=== PATIENT | male | born 1985 | race Caucasian/White ===

== ENCOUNTER 2017-12-01 10:46 | Emergency (ER) | payer MEDICAID, SELFPAY ==
[2017-12-01 10:46] VITALS: BP 141/75; PULSE 73; RESP 18; TEMP 36.6; O2SAT 99; BMI 28.3
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
[2017-12-01] MEDS: HYDROcodone Bitartrate/Apap 5/325 Tablet PO (11:15)
[2017-12-01 12:11] VITALS: TEMP 36.7
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
[2017-12-01 12:39] VITALS: PULSE 79; RESP 17; O2SAT 98
== END 2017-12-01 12:40 | disposition home or self-care (01) ==
PROVIDERS: Emergency Provider Emergency Medicine; Family Provider Family Medicine; PCP Family Medicine
DX: S06.0X0A Concussion without loss of consciousness, initial encounter (principal); S16.1XXA Strain of muscle, fascia and tendon at neck level, initial encounter; Z72.0 Tobacco use; Z79.899 Other long term (current) drug therapy; V43.52XA Car driver injured in collision with other type car in traffic accident, initial encounter; Y93.I9 Activity, other involving external motion; Y92.410 Unspecified street and highway as the place of occurrence of the external cause; Y99.8 Other external cause status
CPT/HCPCS: 70450; 72125; 99283

== ENCOUNTER 2018-04-28 07:00 | Emergency (ER) | payer MEDICAID, SELFPAY ==
[2018-04-28 07:02] VITALS: BP 114/71; PULSE 79; RESP 16; TEMP 36.5; O2SAT 98; BMI 30.3
--- NOTE | 2018-04-28 07:49 | CT_ITS ---
STUDY: CT ABDOMEN AND PELVIS WITH CONTRAST REASON FOR EXAM: Male, 32 years old. Diffuse abdominal pain. Diarrhea and bloody stools. RADIATION DOSAGE (If Supplied By Facility): CTDIvol = ( 18.92 ) mGy, DLP = ( 1174.58 ) mGycm TECHNIQUE: Transaxial images were obtained from the dome of the diaphragm to the symphysis pubis with oral contrast. 100CC ml of Isovue 300 contrast was administered. Sagittal and coronal images were reconstructed. Individualized dose optimization techniques were used for this CT. COMPARISON: Comparison is made with prior examination dated October 13, 2017. FINDINGS: Mild degree of increased markings at the lung bases suggestive of bibasilar atelectasis. These are progressed as compared to prior study. The visualized portions of the heart are within normal limits. Normal liver. Normal gallbladder and extrahepatic biliary system. Normal spleen. Normal pancreas. Normal bilateral adrenal glands. Normal right kidney. Normal left kidney. Normal visualized stomach. Normal small intestine. There are scattered colonic diverticula consistent with diverticulosis. Moderate amount of fecal material is seen in the colon. The appendix is visualized and appears normal. Normal abdominal aorta. Normal inferior vena cava. Normal retroperitoneum. Normal urinary bladder. Normal abdominal wall. Status post interpedicular screw and yuko fixation at the L5-S1 level with stable spondylolisthesis and spondylolysis. CT/Abdomen/Pelvis WITH Contrast IMPRESSION: Stable examination. No acute abnormality is seen. Electronically Signed: Tai Kuhn MD at 10:32 EDT Tel [phone], Service support ,
[2018-04-28] MEDS: 0.9% Normal Saline 1,000 ML 125 ML IV (07:55)
[2018-04-28] MEDS: Dicyclomine 10 MG Capsule 20 MG PO (07:55)
[2018-04-28 08:01] LABS: Absolute Lymphocyte Count 1.65 X10^3/ul (0.83-4.51); Absolute Neutrophil Count 9.1 X10^3/uL (2.0-7.7); Basophil# 0.02 X10^3/uL; Basophil% 0.2 % (0-1); Eosinophil# 0.02 X10^3/uL; Eosinophils% 0.2 % (0-5); Hematocrit 41.6 % (40-54); Hemoglobin 14.4 g/dl (13.0-16.5); Lymphocyte # 1.65 X10^3/ul (4.0); Lymphocyte % 14.3 % (19-41); Mean Corp Hgb Conc 34.6 g/gl (32-36); Mean Corpuscular Hgb 33.4 pg (27.0-32.0); Mean Corpuscular Volume 96.5 fL (80-94); Mean Platelet Vol. 8.9 fl (6.2-12.0); Monocyte# 0.68 X10^3/uL; Monocyte% 5.9 % (0-10); Neutrophil # 9.12 X10^3/uL (2.7-7.7); Neutrophil % 79.2 % (47-70); Platelet Count 235 K/mm3 (150-450); RBC Distribution Width CV 12.5 % (11.6-14.6); RBC Distribution Width SD 42.6 fl (35.1-43.9); Red Blood Count 4.31 M/mm3 (4.6-6.2); White Blood Count 11.5 K/mm3 (4.4-11.0)
[2018-04-28 08:02] LABS: POSITIVE COUNT NO; POSITIVE DIFFERENTIAL NO; POSITIVE MORPHOLOGY NO
[2018-04-28 08:02] LABS: Bacteria 0 SEEN /hpf (None Seen); Mucous, Urine 0 SEEN /hpf (<or=2+); Red Blood Cells-Urine 0 SEEN /hpf (0-5); Squamous Epithelial Cells - UA 0 SEEN /hpf (0-5); White Blood Cells 0 SEEN /hpf (0-5)
[2018-04-28 08:07] LABS: ALB/GLOB Ratio 1.2 RATIO (0.9-2.4); AST(SGOT) 15 U/L (15-37); Alanine Aminotransfer ALT/SGPT 17 U/L (16-61); Albumin, Serum 3.8 g/dL (3.2-5.0); Alkaline Phosphatase 69 U/L (45-117); Anion Gap 7 (5-15); BUN 15 mg/dL (7-18); BUN/Creat Ratio 12.9 RATIO (10-20); Calcium,Total 8.9 mg/dL (8.5-10.1); Chloride 105 mmol/L (98-107); Creatinine, Serum 1.16 mg/dL (0.70-1.30); EST Glomerular Filtration Rate 76 mL/min (>60); Est Glom Filt Rate - Afr Amer 93 mL/min (>60); Estimated Creatinine Clearance 101.41 ml/min; Globulin 3.3 g/dL (2.2-4.2); Glucose 89 mg/dL (74-106); Potassium 3.7 mmol/L (3.5-5.1); Protein, Total 7.1 g/dL (6.4-8.2); Sodium Level 140 mmol/L (136-145)
[2018-04-28 08:10] LABS: Color, Urine Yellow (Yellow); Glucose, Dipstick Normal (Normal); Ketone-Dipstick Negative (Negative); Leukocyte Esterase-Dipstick Negative /ul (Negative); Nitrite-Dipstick Negative (Negative); Occult Blood-Urine Negative /ul (Negative); Protein-Dipstick Negative (Negative); Specific Gravity, Urine 1.005 (1.002-1.030); Urine Bilirubin Dipstick Negative (Negative); Urine Clarity Clear (Clear); Urine Urobilinogen Normal (Normal)
--- NOTE | 2018-04-28 08:26 | ED.VISSUMM ---
- ER Visit Summary Date of Service: 04/28/18 Chief Complaint: Abdominal pain and bloody diarrhea History of Present Illness: The patient is a 32 M who states that today he has developed diarrhea with abdominal cramping. And intermittent bloody stools. He states he has had this in the past. He states I have had every test and everything is negative. He is seeing [facility] gastroenterology in [place] and in [place]. States his last colonoscopy was 5 months ago. He is not on any medications for this. He denies any fever. Describes the pain as being in the right lower quadrant as well as in the left upper quadrant descending colon distribution. Physical Examination: Afebrile vital signs are stable Gen: Well-nourished well-developed Head: Normocephalic atraumatic Eyes: Perrl EOMI ENT: TMs clear no rhinorrhea moist mucous membranes Neck: Supple no lymphadenopathy no JVD nontender CVS: Regular rate rhythm no murmurs normal S1-S2 Respiratory: No distress clear to auscultation bilaterally chest nontender Abdomen: Soft mild tenderness to palpation without guarding or rebound in the right lower quadrant and left upper quadrant. Nondistended normal bowel sounds no masses Back: Nontender Extremity: Nontender no edema Skin: Normal color no rash Neuro: alert orientated ?3 CN II-XII intact normal strength sensation reflexes gait cerebellar Psych: Normal affect normal mood Test Results: CBC with a white count 11.5 hemoglobin is 14.4. CMP and urinalysis are negative. CT of the abdomen pelvis is also negative. Emergency Department Course and Treatment: Patient received a dose of Bentyl which she states did nothing for him. Give him a dose of Toradol. After 5-1/2 hours the patient was still unable to give us any type of stool specimen. He then was wondering what is taking so long was informed we are waiting for stool he states that most likely will not be able to give a specimen today. This patient certainly by history would sound like he has an inflammatory bowel disease but I see no evidence of it today. He would like to try a dose of prednisone I think it is reasonable to do a burst and have him follow-up with his jackspooler. Impression: 1. Acute abdominal pain 2. Diarrhea This note was generated with [employer] dictation software. It may contain incorrect words, spelling, and punctuation that were not noted in review of the chart prior to signing ED Disposition - Plan for ED Patient: Disposition: Home or Assisted Living Chief Complaint: Abd Pain Instructions: ED Abdominal Pain Unkn Cause Prescriptions: Prednisone [Deltasone] 60 mg PO DAILY #24 tab Referrals: Koby Olmstead MD [STAFF PHYSICIAN] - As soon as possible
[2018-04-28] MEDS: Ketorolac 15 MG/ML Vial IV (12:01)
== END 2018-04-28 12:34 | disposition home or self-care (01) ==
PROVIDERS: Emergency Provider Emergency Medicine
DX: R10.31 Right lower quadrant pain (principal); R10.12 Left upper quadrant pain; R19.7 Diarrhea, unspecified; Z72.0 Tobacco use; Z79.899 Other long term (current) drug therapy
CPT/HCPCS: 74177; 80053; 81001; 85025; 96361; 96374; 99283; J7030; Q9967; A4216

== ENCOUNTER 2018-05-17 10:17 | Emergency (ER) | payer MEDICAID, SELFPAY ==
[2018-05-17 10:18] VITALS: BP 135/82; PULSE 91; RESP 18; TEMP 36.7; O2SAT 97; BMI 29.9
[2018-05-17] MEDS: Ondansetron 4 MG/2 ML Vial IV (10:59)
[2018-05-17 11:17] LABS: Absolute Lymphocyte Count 1.12 X10^3/ul (0.83-4.51); Absolute Neutrophil Count 5.9 X10^3/uL (2.0-7.7); Basophil# 0.01 X10^3/uL; Basophil% 0.1 % (0-1); Hematocrit 43.5 % (40-54); Hemoglobin 14.7 g/dl (13.0-16.5); Lymphocyte # 1.12 X10^3/ul (4.0); Lymphocyte % 14.4 % (19-41); Mean Corp Hgb Conc 33.8 g/gl (32-36); Mean Corpuscular Hgb 32.7 pg (27.0-32.0); Mean Corpuscular Volume 96.7 fL (80-94); Mean Platelet Vol. 8.9 fl (6.2-12.0); Monocyte# 0.76 X10^3/uL; Monocyte% 9.8 % (0-10); Neutrophil # 5.87 X10^3/uL (2.7-7.7); Neutrophil % 75.6 % (47-70); Platelet Count 191 K/mm3 (150-450); RBC Distribution Width CV 12.6 % (11.6-14.6); RBC Distribution Width SD 44.6 fl (35.1-43.9); White Blood Count 7.8 K/mm3 (4.4-11.0)
[2018-05-17 11:18] LABS: POSITIVE COUNT NO; POSITIVE DIFFERENTIAL NO; POSITIVE MORPHOLOGY NO
[2018-05-17 11:32] LABS: ALB/GLOB Ratio 1.1 RATIO (0.9-2.4); AST(SGOT) 33 U/L (15-37); Alanine Aminotransfer ALT/SGPT 35 U/L (16-61); Albumin, Serum 3.9 g/dL (3.2-5.0); Alkaline Phosphatase 67 U/L (45-117); Anion Gap 5 (5-15); BUN 15 mg/dL (7-18); BUN/Creat Ratio 11.7 RATIO (10-20); Calcium,Total 9.2 mg/dL (8.5-10.1); Chloride 106 mmol/L (98-107); Creatinine, Serum 1.28 mg/dL (0.70-1.30); EST Glomerular Filtration Rate 68 mL/min (>60); Est Glom Filt Rate - Afr Amer 83 mL/min (>60); Globulin 3.5 g/dL (2.2-4.2); Glucose 99 mg/dL (74-106); Potassium 3.7 mmol/L (3.5-5.1); Protein, Total 7.4 g/dL (6.4-8.2); Sodium Level 139 mmol/L (136-145)
--- NOTE | 2018-05-17 12:08 | ED.VISSUMM ---
- ER Visit Summary Date of Service: 05/17/18 Chief Complaint: Nausea vomiting diarrhea. History of Present Illness: The patient is a 32 M who presents with nausea vomiting diarrhea he did have a fever, this is been ongoing for 4 days. He has about 10 episodes of diarrhea per day, loose and watery. He has no abdominal pain. He has a coworker with similar symptoms. He has no travel history, no recent antibiotics or camping. He has a history of colitis and GI bleeding that was treated with steroids, however this is different. Physical Examination: Not appear in acute distress. Dry mucous membranes, no obvious facial deformity No C-spine tenderness supple neck. Regular rate and rhythm without any obvious murmurs Clear lungs bilaterally speaking in full sentences without any obvious respiratory distress Abdomen soft and nontender no guarding or rebound Moves all extremities without any difficulty or pain. Skin does not show any obvious rashes or lesions, no trauma. Alert oriented ?3 with no gross focal deficit Emergency Department Course and Treatment: [Patient received IV fluids his symptoms significantly improved. His blood pressure, heart rate and temperature have been normal. He has no abdominal pain thus no reason to get any imaging especially with no leukocytosis. He will be discharged to follow-up with PCP. He was unable to provide a stool sample in the emergency department. Impression: Diarrhea This note was generated with [employer] dictation software. It may contain incorrect words, spelling, and punctuation that were not noted in review of the chart prior to signing ED Disposition - Plan for ED Patient: Disposition: Home or Assisted Living Chief Complaint: Nausea/Vomiting/Diarrhea Instructions: ED Vomiting Diarrhea Nonspecific Ad, ED Gastroenteritis Vs Food Poison Referrals: Care Physician,No Primary [Primary Care Provider] - 2 Days
--- NOTE | 2018-05-17 12:11 | ED.DCSUM_ITS ---
- ER Visit Summary Date of Service: 05/17/18 Chief Complaint: Nausea vomiting diarrhea. History of Present Illness: The patient is a 32 M who presents with nausea vomiting diarrhea he did have a fever, this is been ongoing for 4 days. He has about 10 episodes of diarrhea per day, loose and watery. He has no abdominal pain. He has a coworker with similar symptoms. He has no travel history, no recent antibiotics or camping. He has a history of colitis and GI bleeding that was treated with steroids, however this is different. Physical Examination: Not appear in acute distress. Dry mucous membranes, no obvious facial deformity No C-spine tenderness supple neck. Regular rate and rhythm without any obvious murmurs Clear lungs bilaterally speaking in full sentences without any obvious respiratory distress Abdomen soft and nontender no guarding or rebound Moves all extremities without any difficulty or pain. Skin does not show any obvious rashes or lesions, no trauma. Alert oriented ?3 with no gross focal deficit Emergency Department Course and Treatment: [Patient received IV fluids his symptoms significantly improved. His blood pressure, heart rate and temperature have been normal. He has no abdominal pain thus no reason to get any imaging especially with no leukocytosis. He will be discharged to follow- up with PCP. He was unable to provide a stool sample in the emergency department. Impression: Diarrhea This note was generated with [employer] dictation software. It may contain incorrect words, spelling, and punctuation that were not noted in review of the chart prior to signing ED Disposition - Plan for ED Patient: Disposition: Home or Assisted Living Chief Complaint: Nausea/Vomiting/Diarrhea Instructions: ED Vomiting Diarrhea Nonspecific Ad, ED Gastroenteritis Vs Food Poison Referrals: Care Physician,No Primary [Primary Care Provider] - 2 Days
[2018-05-17 12:22] VITALS: BP 120/73; PULSE 67; RESP 15; O2SAT 99
== END 2018-05-17 12:23 | disposition home or self-care (01) ==
PROVIDERS: Emergency Provider Emergency Medicine
DX: R19.7 Diarrhea, unspecified (principal); Z72.0 Tobacco use; Z79.899 Other long term (current) drug therapy
CPT/HCPCS: 80053; 85025; 96361; 96374; 99283; J7030; J2405

== ENCOUNTER 2018-06-23 13:08 | Emergency (ER) | payer MEDICAID, SELFPAY ==
[2018-06-23 13:10] VITALS: BP 138/74; PULSE 79; RESP 18; TEMP 37.2; O2SAT 99; BMI 30.3
[2018-06-23 15:31] VITALS: BP 125/74; PULSE 75; RESP 18; O2SAT 98
[2018-06-23 16:17] LABS: Absolute Lymphocyte Count 2.23 X10^3/ul (0.83-4.51); Absolute Neutrophil Count 4.3 X10^3/uL (2.0-7.7); Basophil# 0.02 X10^3/uL; Basophil% 0.3 % (0-1); Hematocrit 41.3 % (40-54); Hemoglobin 13.9 g/dl (13.0-16.5); Lymphocyte # 2.23 X10^3/ul (4.0); Mean Corp Hgb Conc 33.7 g/gl (32-36); Mean Corpuscular Hgb 32.2 pg (27.0-32.0); Mean Corpuscular Volume 95.6 fL (80-94); Mean Platelet Vol. 8.6 fl (6.2-12.0); Monocyte# 0.41 X10^3/uL; Monocyte% 5.9 % (0-10); Neutrophil # 4.27 X10^3/uL (2.7-7.7); Neutrophil % 61.4 % (47-70); Platelet Count 209 K/mm3 (150-450); RBC Distribution Width SD 45.1 fl (35.1-43.9); Red Blood Count 4.32 M/mm3 (4.6-6.2)
[2018-06-23 16:28] LABS: POSITIVE COUNT NO; POSITIVE DIFFERENTIAL NO; POSITIVE MORPHOLOGY NO
[2018-06-23 16:29] LABS: Anion Gap 6 (5-15); BUN 10 mg/dL (7-18); BUN/Creat Ratio 8.4 RATIO (10-20); Calcium,Total 8.8 mg/dL (8.5-10.1); Chloride 107 mmol/L (98-107); Creatinine, Serum 1.19 mg/dL (0.70-1.30); EST Glomerular Filtration Rate 74 mL/min (>60); Est Glom Filt Rate - Afr Amer 90 mL/min (>60); Estimated Creatinine Clearance 98.85 ml/min; Glucose 125 mg/dL (74-106); Sodium Level 140 mmol/L (136-145)
[2018-06-23] MEDS: 0.9% Normal Saline 1,000 ML 1000 ML IV (16:58)
[2018-06-23 17:00] VITALS: BP 119/78; PULSE 79; RESP 21; O2SAT 99
[2018-06-23] MEDS: 0.9% Normal Saline 1,000 ML 150 ML IV (17:00)
[2018-06-23] MEDS: Acetaminophen 500 MG Tablet 1000 MG PO (17:26)
--- NOTE | 2018-06-23 17:53 | ED.VISSUMM ---
- ER Visit Summary Date of Service: 06/23/18 Chief Complaint: Possible heat stroke History of Present Illness: The patient is a 32 M who states he got lightheaded and had near syncope at work today. 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 Patient states he has been drinking a lot of fluids and does not feel he is dehydrated. He denies chest pain or palpitations. He states his head felt funny and he had intermittent numbness to his entire face. Physical Examination: Vital signs unremarkable. Head neck examination is normal. Heart is regular rate and rhythm. Lung sounds are clear. Abdomen is soft nontender. Neuro exam is normal with an NIH of 0. Test Results: EKG is sinus at 76 with no sign of acute ischemia. CT head shows no acute abnormality. CBC and chemistry studies unremarkable. Emergency Department Course and Treatment: Patient is given IV fluids here. Test results are discussed with him. At this time he is to increase p.o. fluids. Nursing staff does note that when he stood his heart rate did go up to 115. Although he has been trying to maintain hydration he likely does have a degree of dehydration. He will increase fluids the next several days. Treatment Plan: [] Disposition: Discharge Impression: Near syncope This note was generated with [employer] dictation software. It may contain incorrect words, spelling, and punctuation that were not noted in review of the chart prior to signing ED Disposition - Plan for ED Patient: Chief Complaint: General Illness Referrals: Care Physician,No Primary [Primary Care Provider] -
--- NOTE | 2018-06-23 17:54 | ED.DEP ---
ED Disposition - Plan for ED Patient: Disposition: Home or Assisted Living Chief Complaint: General Illness Instructions: ED Near Syncope Unkn Referrals: Naresh Chakraborty MD [STAFF PHYSICIAN] - As Needed
[2018-06-23 18:04] VITALS: BP 131/83
--- NOTE | 2018-06-23 18:04 | ED.RN ---
pt given written and verbal discharge instructions and pt verbalizes understanding. pt iv d/c and covered by 2x2 gauze dressing and paper tape. pt ambulates out of dept with family.
== END 2018-06-23 18:06 | disposition home or self-care (01) ==
PROVIDERS: Emergency Provider Emergency Medicine
DX: R55 Syncope and collapse (principal); Z72.0 Tobacco use; Z79.899 Other long term (current) drug therapy
CPT/HCPCS: 70450; 80048; 85025; 93005; 96360; 96361; 99285; J7030; A4216

== ENCOUNTER 2018-06-27 14:08 | Emergency (ER) | payer MEDICAID, SELFPAY ==
[2018-06-27 14:10] VITALS: BP 119/76; PULSE 112; RESP 16; TEMP 36.9; BMI 30.7
[2018-06-27 15:11] LABS: Bacteria 0 SEEN /hpf (None Seen); Mucous, Urine 0 SEEN /hpf (<or=2+); Red Blood Cells-Urine 0 SEEN /hpf (0-5); Squamous Epithelial Cells - UA 0 SEEN /hpf (0-5); White Blood Cells 0 SEEN /hpf (0-5)
[2018-06-27 15:12] LABS: Color, Urine Yellow (Yellow); Glucose, Dipstick Normal (Normal); Ketone-Dipstick Negative (Negative); Leukocyte Esterase-Dipstick 25 /ul (Negative); Nitrite-Dipstick Negative (Negative); Occult Blood-Urine 10 /ul (Negative); Protein-Dipstick Negative (Negative); Urine Bilirubin Dipstick Negative (Negative); Urine Clarity Clear (Clear); Urine Urobilinogen Normal (Normal)
[2018-06-27] MEDS: Acetaminophen 500 MG Tablet 1000 MG PO (15:20)
--- NOTE | 2018-06-27 16:12 | ED.DCSUM_ITS ---
- ER Visit Summary Date of Service: 06/27/18 Chief Complaint: Dysuria History of Present Illness: The patient is a 32 M who states that earlier this week he was having vomiting diarrhea. He has been drinking Gatorade. States that now he has been having a difficult time urinating noting that he is only urinated couple times a day. He states that he also has not had a bowel movement for a couple days (this after having diarrhea than taking Imodium). He went to the urgent care and is very upset at them for making and give a urine and then referred him over here. Physical Examination: Afebrile vital signs stable Gen: Well-nourished well-developed actively eating Doritos and drinking Head: Normocephalic atraumatic Eyes: Perrl EOMI ENT: TMs clear no rhinorrhea moist mucous membranes Neck: Supple no lymphadenopathy no JVD nontender CVS: Regular rate rhythm no murmurs normal S1-S2 Respiratory: No distress clear to auscultation bilaterally chest nontender Abdomen: Soft nontender nondistended normal bowel sounds no masses Back: Nontender Extremity: Nontender no edema Skin: Normal color no rash Neuro: alert orientated ?3 CN II-XII intact normal strength sensation reflexes gait cerebellar Psych: Angry Test Results: Urinalysis is normal. CT the flank is negative. Emergency Department Course and Treatment: Patient will continue to encourage fluids. I offered to write him stool softener versus magnesium citrate that he states he would rather just get up and leave and not waste this time. Think most likely the patient had a gastroenteritis got a bit dehydrated and is now getting his body back to its normal state. I do not suspect there is anything emergent lingering. Impression: 1. Constipation 2. Dysuria This note was generated with [employer] dictation software. It may contain incorrect words, spelling, and punctuation that were not noted in review of the chart prior to signing ED Disposition - Plan for ED Patient: Disposition: Home or Assisted Living Chief Complaint: Flank Pain Instructions: ED Constipation Additional Instructions: Call your primary care physician to arrange follow-up this week Please drink at minimum 64 ounces of water per day.
--- NOTE | 2018-06-27 16:20 | ED.RN ---
pt educated on discharge instructions. pt upset and refuses d/c vitals. states, I don't understand why when i come here nothing is wrong with me, and other doctors tell me that there is. this rn educates pt on importance of following up with primary care physician consistently to establish a care history. pt ambulates out of ed with family member.
== END 2018-06-27 16:22 | disposition home or self-care (01) ==
PROVIDERS: Emergency Provider Emergency Medicine
DX: K59.00 Constipation, unspecified (principal); R30.0 Dysuria; F20.9 Schizophrenia, unspecified; F43.10 Post-traumatic stress disorder, unspecified; Z72.0 Tobacco use; Z79.899 Other long term (current) drug therapy
CPT/HCPCS: 74176; 81001; 99284; P9612

== ENCOUNTER 2018-08-24 09:58 | Emergency (ER) | payer MEDICAID, SELFPAY ==
[2018-08-24 10:00] VITALS: BP 131/74; PULSE 112; RESP 15; TEMP 35.9; O2SAT 98; BMI 29.7
--- NOTE | 2018-08-24 10:21 | ED.RN ---
[facility] CONTACTED REGARDING PT TEST. VINOD
--- NOTE | 2018-08-24 10:26 | CT_ITS ---
STUDY: CT ABDOMEN AND PELVIS WITH CONTRAST REASON FOR EXAM: Male, 32 years old. Abdominal pain. RADIATION DOSAGE (If Supplied By Facility): CTDIvol = ( 14.73 ) mGy, DLP = ( 980.72 ) mGycm TECHNIQUE: Transaxial images were obtained from the dome of the diaphragm to the symphysis pubis with oral contrast. 100 ml of Isovue 300 contrast was administered. Sagittal and coronal images were reconstructed. Individualized dose optimization techniques were used for this CT. COMPARISON: 06/27/2018 FINDINGS: Lung bases demonstrate mild atelectasis. The visualized portions of the heart are within normal limits. Normal liver. Normal gallbladder and extrahepatic biliary system. Normal spleen. Normal pancreas. Normal bilateral adrenal glands. Normal right kidney. Normal left kidney. Normal visualized stomach. Normal small intestine. Normal colon. The appendix is visualized and appears normal. Normal abdominal aorta. Normal inferior vena cava. Normal retroperitoneum. Normal urinary bladder. Normal visualized prostate gland. Normal abdominal wall. Prior fusion at L5-S1 CT/Abdomen/Pelvis WITH Contrast IMPRESSION: No acute findings. Normal appearance of the small and large bowel. Prior postsurgical changes of the lumbar spine is stable. Electronically Signed: Waldemar Alejandro DO at 12:40 EST Tel , Service support ,
[2018-08-24] MEDS: Morphine 4 MG/ML Syringe IV (10:57)
[2018-08-24] MEDS: Ondansetron 4 MG/2 ML Vial IV (10:57)
[2018-08-24] MEDS: 0.9% Normal Saline 1,000 ML 125 ML IV (10:57)
[2018-08-24 10:58] LABS: Absolute Lymphocyte Count 1.55 X10^3/ul (0.83-4.51); Basophil# 0.01 X10^3/uL; Basophil% 0.1 % (0-1); Eosinophil# 0.01 X10^3/uL; Eosinophils% 0.1 % (0-5); Hematocrit 43.6 % (40-54); Hemoglobin 14.8 g/dl (13.0-16.5); Lymphocyte # 1.55 X10^3/ul (4.0); Lymphocyte % 16.9 % (19-41); Mean Corp Hgb Conc 33.9 g/gl (32-36); Mean Corpuscular Hgb 32.9 pg (27.0-32.0); Mean Corpuscular Volume 96.9 fL (80-94); Mean Platelet Vol. 8.9 fl (6.2-12.0); Monocyte# 0.63 X10^3/uL; Monocyte% 6.9 % (0-10); Neutrophil # 6.98 X10^3/uL (2.7-7.7); Neutrophil % 75.9 % (47-70); POSITIVE COUNT NO; POSITIVE DIFFERENTIAL NO; POSITIVE MORPHOLOGY NO; Platelet Count 251 K/mm3 (150-450); RBC Distribution Width CV 13.3 % (11.6-14.6); RBC Distribution Width SD 46.7 fl (35.1-43.9); White Blood Count 9.2 K/mm3 (4.4-11.0)
[2018-08-24 11:10] LABS: Anion Gap 6 (5-15); BUN 10 mg/dL (7-18); BUN/Creat Ratio 8.7 RATIO (10-20); Calcium,Total 9.4 mg/dL (8.5-10.1); Chloride 106 mmol/L (98-107); Creatinine, Serum 1.15 mg/dL (0.70-1.30); EST Glomerular Filtration Rate 77 mL/min (>60); Est Glom Filt Rate - Afr Amer 93 mL/min (>60); Estimated Creatinine Clearance 102.29 ml/min; Glucose 112 mg/dL (74-106); Potassium 4.5 mmol/L (3.5-5.1); Sodium Level 140 mmol/L (136-145)
[2018-08-24 11:25] LABS: Lactic Acid 1.2 mmol/L (0.4-2.0)
[2018-08-24 12:22] VITALS: BP 126/87; PULSE 78; RESP 16; O2SAT 99
--- NOTE | 2018-08-24 13:09 | ED.VISSUMM ---
- ER Visit Summary Date of Service: 08/24/18 Chief Complaint: [Abdominal injury] History of Present Illness: The patient is a 32 M [presents to the emergency department complaint of injury to his abdomen that occurred today while at work. Patient states that he was pulling a part out of the mold when he felt a pop in his right lower quadrant and then immediately felt like he needed to have a bowel movement and noticed clear liquid from his rectum. Patient denies any blood in his stool. He denies any fever or vomiting. 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 Cranial nerves II through XII grossly intact. TMs clear. Mucous membranes moist. No adenopathy. Cardiovascular-regular rate and rhythm without murmur or ectopy Lungs-clear to auscultation, chest wall stable without crepitus or subcu emphysema Abdomen-normoactive bowel sounds, soft. Patient does have tenderness palpation over right lower quadrant. There is no masses palpated. There is no rebound, rigidity, or perineal signs. Extremities-intact ?4, normal range of motion, normal pulses, atraumatic] Test Results: [CBC with differential obtained was normal. Chemistries were unremarkable. Lactate was normal at 1.2. CT scan of the abdomen pelvis with IV and p.o. contrast was normal.] Emergency Department Course and Treatment: [Patient initially medicated with morphine and Zofran] Treatment Plan: [Patient will be given a prescription for [place] for pain. Patient will be given work restrictions and advised to follow-up with [facility] within the next 3-5 days.] Disposition: [Discharged home in stable condition.] Impression: [Abdominal wall strain] This note was generated with [employer] dictation software. It may contain incorrect words, spelling, and punctuation that were not noted in review of the chart prior to signing ED Disposition - Plan for ED Patient: Chief Complaint: Abd Pain Referrals: Care Physician,No Primary [Primary Care Provider] -
--- NOTE | 2018-08-24 13:13 | DCINST.ED_ITS ---
ED Disposition - Plan for ED Patient: Chief Complaint: Abd Pain Instructions: ED Strain Abdominal Muscle Prescriptions: Hydrocodone Bitart/Apap 5-325 [[place] 5MG-325MG] 1 tab PO Q4H PRN PRN 2 Days #10 tab PRN Reason: Pain Referrals: [facility] [GROUP OF PHYSICIANS] - 3-5 Days
[2018-08-24 13:22] VITALS: BP 147/84; PULSE 86; RESP 16; O2SAT 98
== END 2018-08-24 13:22 | disposition home or self-care (01) ==
PROVIDERS: Emergency Provider Emergency Medicine
DX: S39.011A Strain of muscle, fascia and tendon of abdomen, initial encounter (principal); Z72.0 Tobacco use; Z79.899 Other long term (current) drug therapy; X50.0XXA Overexertion from strenuous movement or load, initial encounter; Y93.89 Activity, other specified; Y92.89 Other specified places as the place of occurrence of the external cause; Y99.0 Civilian activity done for income or pay
CPT/HCPCS: 74177; 80048; 83605; 85025; 96361; 96374; 96375; 99283; J7030; Q9967; A4216; J2405

== ENCOUNTER → 2018-09-29 08:58 | Outpatient (CLI) | payer MEDICAID, SELFPAY ==
--- NOTE | 2018-09-29 09:01 | RAD_ITS ---
STUDY: X-RAY - LUMBAR SPINE REASON FOR EXAM: Male, 32 years old. Prior low back surgery. Pain. TECHNIQUE: 4 view(s) of the lumbar spine were obtained including oblique views. COMPARISON: None FINDINGS: Normal lumbar lordosis. There is no substantial scoliosis. There is a normal alignment of the vertebrae. The patient is status post laminectomy and interpedicular screw fixation at the L5-S1 level with prosthetic disc placement. Minimal degree of posterior spondylosis at that site. Normal disc space heights. The soft tissue structures are unremarkable. RAD/L/S Spine Min 4 Views IMPRESSION: Status post laminectomy and fusion at the L5-S1 level with prosthetic disc placement. Electronically Signed: Tai Kuhn MD at 9:36 EST Tel [phone], Service support ,
--- OUTSIDE RECORDS SUMMARY | 2018-11-15 07:29 | XMS RPT_ITS ---
:1985 Author Organization OHIP Support Name Relationship Address Phone IMELDA RIVERAE Unavailable [address] + [place] [address] CANDLE, SCHUYLER Unavailable [address] + [place] [address] TIMST Unavailable [address] + [place] [address] NICOLE, AVI Unavailable [address] + [place] [address] CANDLE, SCHUYLER Unavailable [address] + [place] [address] TIMST Unavailable [address] + [place] [address] NICOLE, AVI Unavailable [address] + [place] [address] CANDLE, SCHUYLER Unavailable [address] + [place] [address] TIMST Unavailable [address] + [place] [address] NICOLE, AVI Unavailable [address] + [place] [address] CANDLE, SCHUYLER Unavailable [address] + [place] [address] TIMST Unavailable [address] + [place] [address] NICOLE, AVI Unavailable [address] + [place] [address] CANDLE, SCHUYLER Unavailable [address] + [place] [address] TIMST Unavailable [address] + [place] [address] NICOLE, AVI Unavailable [address] + [place] [address] CANDLE, SCHUYLER Unavailable [address] + [place] [address] LITCAEPIZZ Unavailable [address] + [place] [address] NICOLE, AVI Unavailable [address] + [place] [address] CANDLE, SCHUYLER Unavailable [address] + [place] [address] LITCAEPIZZ Unavailable [address] + [place] [address] NICOLE, AVI Unavailable [address] + [place] [address] LITCAEPIZZ Unavailable [address] + [place] [address] NICOLE, AVI Unavailable [address] + [place] [address] LITCAEPIZZ Unavailable [address] + [place] [address] NICOLE, AVI Unavailable [address] + [place] [address] LITCAEPIZZ Unavailable [address] + [place] [address] NICOLE, AVI Unavailable [address] + [place] [address] LITCAEPIZZ Unavailable [address] + [place] [address] NICOLE, AVI Unavailable [address] + [place] [address] UE Unavailable Unavailable Unavailable NICOLE, AVI Unavailable [address] + [place] [address] UE Unavailable Unavailable Unavailable NICOLE, AVI Unavailable [address] + [place] [address] UE Unavailable Unavailable Unavailable NICOLE, AVI Unavailable [address] + [place] [address] UE Unavailable Unavailable Unavailable Care Team Providers Name Role Phone JUNIOR LARES (ZIPPER SEWING MACHINE OPERATOR) Referring Unavailable JUNIOR LARES (ZIPPER SEWING MACHINE OPERATOR) Attending Unavailable LETI KEARNS (CIGARETTE ROLLER) Referring Unavailable LETI KEARNS (CIGARETTE ROLLER) Attending Unavailable PODLOGGENIA KURTZ (CIGARETTE ROLLER) Attending Unavailable JUNIOR LARES (ZIPPER SEWING MACHINE OPERATOR) Attending Unavailable VIKY DAVIS (CIGARETTE ROLLER) Attending Unavailable CORNIELLO, MINNIE Quintero (CIGARETTE ROLLER) Attending Unavailable CORNMINNIE HARRISON (CIGARETTE ROLLER) Attending Unavailable Trav Whitehead Admitting Unavailable Trav Whitehead Attending Unavailable No Doctor Assigned, Nodr Primary Care Unavailable Lola Rosales Attending Unavailable Lola Rosales Referring Unavailable Schinner, Fredo E Primary Care Unavailable SchinnerFredo E Attending Unavailable Schinner, Fredo E Referring Unavailable Schinner, Fredo E Primary Care Unavailable Elderbrock, Koby Primary Care Unavailable Kinga Bloom Attending Unavailable Elderbrock, Koby Primary Care Unavailable Boubacar Antonio Attending Unavailable Scott [place] Attending Unavailable Primay Care Physicia, No Primary Care Unavailable SchinnerFredo E Attending Unavailable Schinner, Fredo E Referring Unavailable Schinner, Fredo E Primary Care Unavailable Primay Care Physicia, No Primary Care Unavailable Foreign Paul Attending Unavailable Zia Ames Attending Unavailable Primay Care Physicia, No Referring Unavailable Primay Care Physicia, No Primary Care Unavailable Zia Ames Attending Unavailable Primay Care Physicia, No Referring Unavailable Primay Care Physicia, No Primary Care Unavailable Hang Arriola Attending Unavailable Primay Care Physicia, No Referring Unavailable Primay Care Physicia, No Primary Care Unavailable Cherelle Alarcon Attending Unavailable Primay Care Physicia, No Primary Care Unavailable Scott [place] Attending Unavailable Primay Care Physicia, No Primary Care Unavailable Federico Mishra Attending Unavailable Zia Ames Attending Unavailable Primay Care Physicia, No Referring Unavailable Dhaval Waterman Attending Unavailable Aysha, Koby Primary Care Unavailable PROBLEMS PROBLEMS DATE TYPE CONDITION / CODE ATTENDING STATUS SOURCE 10/29/2018 Unknown S39.011A - Zia Carvalho Active [facility] of muscle, fascia Community and tendon of Hospital abdomen, initial Repository encounter / S39.011A(ICD-10) 08/24/2018 Unknown K92.1 - Melena / Ungur, Remus Active [place] K92.1(ICD-10) [facility]ly [facility] Hospital Repository 06/10/2018 Unknown L03.811 - Zia Ames Active [facility] Cellulitis of Community head [any part, Hospital except face] / Repository L03.811(ICD-10) 05/19/2018 Active Unspecified NA Active [facility] abdominal pain / [facility] [place] R10.9(ICD-10) Repository 05/19/2018 Active Diarrhea, NA Active [facility] unspecified / [place] R19.7(ICD-10) Repository 05/19/2018 Active Vomiting, NA Active [facility] unspecified / [place] R11.10(ICD-10) Repository 05/15/2018 Active Nausea / NA Active [facility] R11.0(ICD-10) [facility] [place] Repository 05/15/2018 Active Unknown / DONNASTAR LETI Active [facility] UNK(Unknown) (CIGARETTE ROLLER) [facility] [place] Repository PROCEDURES PROCEDURES No Procedure Records FoundRESULTS RESULTS STOOL Observed: 10/02/2018 Status: F Source: [place] LACTOFERRIN/WBC 1:45 PM [facility] REPOSITORY Stool Lacto/WBC Normal Reference Range = Negative Fecal WBC Lactoferrin Negative: No Fecal WBC Lactoferrin present Performed By: #### M100.0605, M100.6796, M100.637 #### [facility] [address], [place], [id number] Observed: 10/02/2018 Status: F Source: [place] CDIFF (MOLECULAR) 1:45 PM [facility] REPOSITORY Cdiff-Molecular Normal Reference Range = Negative C. Diff DNA Negative- No toxigenic C. Diff DNA Detected NAAT METHOD Testing was performed using nucleic acid amplification Performed By: #### M100.0605, M100.6796, M100.637 #### [facility] [address], [place], [id number] Observed: 10/02/2018 Status: F Source: [place] ENTERIC PATHOGEN 1:45 PM [facility] PANEL STOOL REPOSITORY EP PANEL STOOL Normal Reference Range = Not Detected Not detected for Campylobacter group, Salmonella species, Shigella species, Vibrio Group, Yersinia enterocolitica, EHEC (Shiga Toxin 1, Shiga Toxin 2), Norovirus Gl/Gll, and Rotavirus A. Other common stool pathogens are not detected on this panel include: Aeromonas/Plesiomonas or parasites. Order testing for these organisms separately if suspected. This is an amplified DNA test which makes it both specific and sensitive. CAMPYLOBACTER Not Detected Salmonella Not Detected Shigella sp. Not Detected Shiga Toxin Not Detected Yersinia Not Detected VIBRIO Not Detected Norovirus Not Detected Rotavirus Not Detected Performed By: #### M100.0605, M100.6796, M100.637 #### [facility] [address] [facility] [place], [address] Observed: 10/02/2018 Status: F Source: [place] OVA AND PARASITES 1:45 PM [facility] REPOSITORY O + P OVA AND PARASITES EXAM, ROUTINE These results were obtained using wet preparation(s) and trichrome stained smear. This test does not include testing for Crytosporidium parvum, Cyclospora, or Microsporidia. TESTING PERFORMED AT [facility]. ORIGINAL REPORT ON FILE IN LAB CONTAINS ADDITIONAL TEST SITE INFORMATION. Ova/Parasite Exam NO OVA, CYSTS, OR PARASITES FOUND. Performed By: #### M600.5000 #### [facility] [address] [facility] [facility] [place], [place], [id number] COMPREHENSIVE METABOLIC Collected: 09/30/2018 Status: F Source: [place] [facility] 4:37 PM [facility] REPOSITORY TYPE CODE TESTS RESULT OUT OF RANGE REFERENCE UNITS LAB L501.0100 74-106 mg/dL High GLU 118 Result Comment: Fasting Glucose result from 100 to 125 mg/dL suggests IMPAIRED HOMEOSTASIS per A.D.A. criteria. Please note revised GLUCOSE reference range effective 2017. LAB L501.1000 7-18 mg/dL Normal BUN 11 LAB L501.1100 0.70-1.30 mg/dL Normal CREAT,SERUM 1.28 Result Comment: The validity of the calculated GFR AND GFRAA in patients over 70 years has not been determined. Clinical correlation is essential. LAB L501.1110 >60 mL/min Normal EST GFR 68 Result Comment: Non- GFR Calc LAB L501.1115 >60 mL/min Normal EST GFR - AA 82 Result Comment: GFR Calc LAB L501.1300 10-20 RATIO Low BUN/CRE 8.6 LAB L501.1500 6.4-8.2 g/dL Normal T PROT 7.7 LAB L501.1800 3.2-5.0 g/dL Normal ALB 4.2 LAB L501.1950 2.2-4.2 g/dL Normal GLOB 3.5 LAB L501.2000 0.9-2.4 RATIO Normal A/G 1.2 LAB L501.2200 8.5-10.1 mg/dL Normal CA 8.8 LAB L501.4100 15-37 U/L Normal AST 19 LAB L501.4305 45-117 U/L Normal ALK P 78 LAB L501.4405 16-61 U/L Normal ALT 22 LAB L501.4600 0.20-1.00 mg/dL Normal T BILI 0.30 LAB L501.5300 136-145 mmol/L Normal NA 143 LAB L501.5600 3.5-5.1 mmol/L Normal K 3.6 LAB L501.5900 98-107 mmol/L Normal CL 106 LAB L501.6100 21.0-32.0 mmol/L Normal CO2 27.0 LAB L501.6200 5-15 Normal GAP 10 Performed By: #### L500.4050, L501.5200 #### [facility] [address] [place], [place], [address] MAGNESIUM Collected: 09/30/2018 Status: F Source: [place] 4:37 PM [facility] REPOSITORY TYPE CODE TESTS RESULT OUT OF RANGE REFERENCE UNITS LAB L501.5200 1.6-2.6 mg/dL Normal MG 2.4 Performed By: #### L500.4050, L501.5200 #### [facility] [address] [place], [address] POC URINALYSIS DIP POC Collected: 09/30/2018 Status: F Source: [facility] 9:55 AM [facility] REPOSITORY TYPE CODE TESTS RESULT OUT OF RANGE REFERENCE UNITS LAB CD:[id number] Yellow 2293(LOIN Normal C) POC Color Yellow LAB CD:985634 CLEAR 2955(LOIN Normal C) POC Clarity CLEAR LAB CD:614995 Negative 3551(LOIN Normal C) POC Glucose Negative LAB CD:707796 Negative 4053(LOIN Normal C) POC Bilirubin Negative LAB CD:264290 Negative 6003(LOIN Normal C) POC Ketone Negative LAB CD:233561 1.005-1.035 mg/dL 6479(LOIN Normal C) POC Specific [place] 1.005 LAB CD:816659 Negative 6697(LOIN C) POC Blood Abnormal Trace LAB CD:089015 5.0-8.0 mg/dL 6769(LOIN Normal C) POC pH 6.0 LAB CD:469452 Negative 7163(LOIN Normal C) POC Protein Negative LAB CD:422622 0.2-1.0 EU/dL 7345(LOIN Normal C) POC Urobilinogen 0.2 LAB CD:740486 Negative 7607(LOIN Normal C) POC Nitrite Negative LAB CD:173697 Negative 7771(LOIN Normal C) POC Leukocyte Negative Performed By: #### CD:[id number] #### [facility] [address] [place] [address] L/S SPINE MIN 4 Observed: 09/29/2018 Status: F Source: [facility] 9:02 AM [facility] REPOSITORY [facility] Imaging Services [address] [place] [address] L/S Spine Min 4 Views MR#: [id number] Acct: [id number] Name: QUAN PORTER Rep #: [id number] : 1985 M 32 From: Tai Kuhn MD PCP: Fredo Rodriguez MD Status: REG CLI Study: L/S Spine Min 4 Views Date of Exam: 09/29/18 Exam# [id number] Ordering Dr: Lola Rosales ZIPPER SEWING MACHINE OPERATOR-Asha STUDY: X-RAY - LUMBAR SPINE REASON FOR EXAM: Male, 32 years old. Prior low back surgery. Pain. TECHNIQUE: 4 view(s) of the lumbar spine were obtained including oblique views. COMPARISON: None FINDINGS: Normal lumbar lordosis. There is no substantial scoliosis. There is a normal alignment of the vertebrae. The patient is status post laminectomy and interpedicular screw fixation at the L5-S1 level with prosthetic disc placement. Minimal degree of posterior spondylosis at that site. Normal disc space heights. The soft tissue structures are unremarkable. RAD/L/S Spine Min 4 Views IMPRESSION: Status post laminectomy and fusion at the L5-S1 level with prosthetic disc placement. Electronically Signed: Tai Kuhn MD at 9:36 EST Tel [phone], Service support , CC: ISABEL Rosales; Fredo Rodriguez MD Labor Trainer: Signed URGENT CARE VISIT Observed: 08/27/2018 Status: F Source: [place] REPORT 5:16 PM [facility] REPOSITORY [facility] [address] [place] [address] OFFICE VISIT Date of Service: 08/27/18 MR#: [id number] Acct: [id number] Name: QUAN PORTER Rep #: [id number] : 1985 Provider: Zia AMAYA Age/Sex: 32/M [place] [facility] Status: Signed Intake Vital Signs08/27/18 Height 6 ft 1 in 08/27/18 Weight: 225 lb 08/27/18 Body Mass Index (BMI) 29.7 08/27/18 Blood Pressure 118/76 Intake Visit Reasons: ED FOLLOW UP Chief Complaint: ABDOMINAL WALL STRAIN Belt Dresser Required: No Accompanied by: OTHER Is patient in pain?: Yes Allergies Sulfa (Sulfonamide Antibiotics) Allergy (Verified 08/27/18 16:53) Swelling methadone Adverse Reaction (Verified 08/27/18 16:53) Other varenicline [From Chantix] Adverse Reaction (Verified 08/27/18 16:53) Other Medications Risperidone [Risperdal] 3 mg PO DAILY 06/23/18 [History Confirmed 08/27/18] Mirtazapine 45 mg PO DAILY 06/27/18 [History Confirmed 08/27/18] cyclobenzaprine 5 mg tablet 5 mg PO TID PRN 08/27/18 [History Confirmed 08/27/18] [facility] Medical History Bloody stools (Acute) Severe headache (Acute) Stomach ulcer (Acute) neck and back pain (Acute) sudden weight loss (Acute) Surgical History History of hand surgery (Acute) History of tonsillectomy (Acute) history of spine surgery (Acute) Social History Smoking Status: Current every day smoker alcohol intake: never HPI HPI Chief Complaint: ABDOMINAL WALL STRAIN Details: QUAN PORTER, is a 32 M who presents to the office today for follow-up status post abdominal wall strain. Patient notes on date of injury, 08/24/2018, while at work bent over lifting product and noticed immediate moderate severe aching pain initially in right lower quadrant therefore reported to [facility] ED where he was evaluated to include abdominal CT with contrast which revealed no acute pathology therefore was released the same day with work restrictions. Since the date of the injury he notes having had on average 3 loose stools per day accompanied with mild nausea. He also notes mid upper epigastric and lower suprapubic discomfort with both areas aggravated to touch and with cough/bearing down. He notes no palpable masses to either of these regions as well as in the scrotal/inguinal regions. He notes no changes in urine flow. Cyclobenzaprine as prescribed taken to assist with discomfort was helped somewhat. No history of emesis or melena or hematochezia. No changes in urine flow. No complaints of low back pain. Patient notes no loss of sensation or strength to rectal tone. No other associated symptoms and no other alleviating or aggravating factors. ROS Const Constitutional: No other (ROS negative x10 other than as noted above. See PMH prior to DOI.) Exam Const General: cooperative, healthy appearing, no acute distress, comfortable Nutritional Appearance: overweight Orientation: alert, awake, oriented x3 HENMT Head: normal to inspection Ears: hearing grossly normal bilaterally, external ears normal Nose: external nose normal Eyes General: appearance normal, both eyes and all related structures Neck Neck: normal visual inspection, full ROM, no lymphadenopathy, no meningeal signs, supple Neck mass: No Thyroid: thyroid normal Lymphatic: no lymphadenopathy noted Chest Chest palpation AND inspection: normal inspection of the chest, normal palpation of entire chest wall Resp Effort AND Inspection: normal respiratory effort, able to speak in complete sentences, symmetric chest movement, no cough Auscultation: Bilateral: Clear to Auscultation Cardio Palpation: normal PMI Rate: regular rate Rhythm: regular rhythm Heart Sounds: S1 normal, S2 normal, no gallops, no murmurs, no rubs Pulses: radial pulses present GI Inspection: normal to inspection Palpation: soft, no hepatosplenomegaly, not firm, no guarding, tender suprapubicly (Without palpable mass though tender upon bearing down), in the epigastrum (Without palpable mass though tender upon bearing down) and other (No bilat indirect/direct/femoral masses to palpation with bearing down); Negative for not in the LLQ, not in the RLQ, not in the LUQ, not in the RUQ, not at McBurney's point, Horn's sign negative or with no rebound tenderness Skin General: no rashes or lesions noted Neuro General: alert, awake, oriented x3, gait normal Cognition: normal cognition Speech: speech normal Gait: normal gait Motor: muscle tone normal throughout Sensory Exam: no sensory deficits noted Psych Appearance: grossly normal Mental Status: mental status grossly normal Mood: congruent mood Affect: normal affect Speech and Movement: speech and movement normal Attitude: cooperative Thought Process: normal Thought Content: normal Judgment: judgment good Assessment AND Plan Problems 1. Abdominal wall strain S39.011A Plan See [employer]14 for work restrictions. Rest, Tylenol/cyclobenzaprine as needed for symptomatic relief. Patient offered general surgery referral for second opinion which patient is refusing at this time, but is willing to reconsider at next evaluation. [facility] 1 week for reevaluation, sooner should symptoms worsen or any other concerns develop. Patient states acknowledging understanding all the above. This note was generated with Dragon dictation software. It may contain incorrect words, spelling, and punctuation that were not noted in checking the note before signing. Coding Level of Care Code Off vis,est,level 3 Diagnoses Abdominal wall strain S39.011A 08/27/18 8396 <Electronically signed by Zia AMAYA> Date Zia AMAYA Cosigner Signature: Date (if applicable) CC: DISCHARGE INSTRUCTION Observed: 08/24/2018 Status: F Source: [place] 1:13 PM [facility] REPOSITORY [facility] Medical Records Department [address] [place] [address] Discharge Instruction 08/24/18 1311 MR#: [id number] Acct: [id number] Name: QUAN PORTER Omari Rep #: [id number] : 1985 32 From: Federico Mishra DO PCP: Care Physician, No Primary Status: REG ER ED Disposition - Plan for ED Patient: Chief Complaint: Abd Pain Instructions: ED Strain Abdominal Muscle Prescriptions: Hydrocodone Bitart/Apap 5-325 [[place] 5MG-325MG] 1 tab PO Q4H PRN PRN 2 Days #10 tab PRN Reason: Pain Referrals: [facility] [GROUP OF PHYSICIANS] - 3-5 Days What to do if you have Problems For any increased pain, shortness of breath, bleeding, nausea or vomiting, chest pain, or any unexpected problems, contact your Primary Care Provider. Call [facility] ([phone]) or report to the closest Emergency Room. Call 911 if necessary. 08/24/18 1313 <Electronically signed by Federico Mishra DO> Date Federico Mishra DO Cosigner Signature (If Indicated): Date CC: No Primary Care Physician EMERGENCY DEPARTMENT Observed: 08/24/2018 Status: F Source: [place] SUMMARY 1:11 PM [facility] REPOSITORY [facility] Medical Records Department [address] [address] Emergency Department Summary 08/24/18 1309 MR#: [id number] Acct: [id number] Name: QUAN PORTER Rep #: [id number] : 1985 32 From: Federico Mishra DO PCP: Care Physician, No Primary Status: REG ER - ER Visit Summary Date of Service: 08/24/18 Chief Complaint: [Abdominal injury] History of Present Illness: The patient is a 32 M [presents to the emergency department complaint of injury to his abdomen that occurred today while at work. Patient states that he was pulling a part out of the mold when he felt a pop in his right lower quadrant and then immediately felt like he needed to have a bowel movement and noticed clear liquid from his rectum. Patient denies any blood in his stool. He denies any fever or vomiting. Patient states that he has had some issues with GI problems including intermittent rectal bleeding and has seen a cloth wire weaver in less than 10 months ago had an EGD and colonoscopy without any etiology being found for this.] Physical Examination: [HEENT-PERRLA, EOMI. Cranial nerves II through XII grossly intact. TMs clear. Mucous membranes moist. No adenopathy. Cardiovascular-regular rate and rhythm without murmur or ectopy Lungs-clear to auscultation, chest wall stable without crepitus or subcu emphysema Abdomen-normoactive bowel sounds, soft. Patient does have tenderness palpation over right lower quadrant. There is no masses palpated. There is no rebound, rigidity, or perineal signs. Extremities-intact 4, normal range of motion, normal pulses, atraumatic] Test Results: [CBC with differential obtained was normal. Chemistries were unremarkable. Lactate was normal at 1.2. CT scan of the abdomen pelvis with IV and p.o. contrast was normal.] Emergency Department Course and Treatment: [Patient initially medicated with morphine and Zofran] Treatment Plan: [Patient will be given a prescription for [place] for pain. Patient will be given work restrictions and advised to follow-up with corporate care within the next 3-5 days.] Disposition: [Discharged home in stable condition.] Impression: [Abdominal wall strain] This note was generated with [employer] dictation software. It may contain incorrect words, spelling, and punctuation that were not noted in review of the chart prior to signing ED Disposition - Plan for ED Patient: Chief Complaint: Abd Pain Referrals: Care Physician,No Primary [Primary Care Provider] - What to do if you have Problems For any increased pain, shortness of breath, bleeding, nausea or vomiting, chest pain, or any unexpected problems, contact your Primary Care Provider. Call [facility] ([phone]) or report to the closest Emergency Room. Call 911 if necessary. 08/24/18 1311 <Electronically signed by Federico Mishra DO> Date Federico Mishra DO Cosigner Signature (If Indicated): Date CC: No Primary Care Physician CBC W/DIFF, AUTOMATED Collected: 08/24/2018 Status: F Source: [place] 10:45 AM [facility] REPOSITORY TYPE CODE TESTS RESULT OUT OF RANGE REFERENCE UNITS LAB L100.1000 4.4-11.0 K/mm3 Normal WBC 9.2 LAB L100.1200 4.6-6.2 M/mm3 Low RBC 4.50 LAB L100.1300 13.0-16.5 g/dl Normal HGB 14.8 LAB L100.1400 40-54 % Normal HCT 43.6 LAB L100.1500 80-94 fL High MCV 96.9 LAB L100.1600 27.0-32.0 pg High MCH 32.9 LAB L100.1700 32-36 g/gl Normal MCHC 33.9 LAB L100.1810 11.6-14.6 % Normal RDW CV 13.3 LAB L100.1820 35.1-43.9 fl High RDW SD 46.7 LAB L100.1900 150-450 K/mm3 Normal PLT 251 LAB L100.2000 6.2-12.0 fl Normal MPV 8.9 LAB L100.2100 47-70 % High NEUT% 75.9 LAB L100.2200 19-41 % Low LY% 16.9 LAB L100.2300 0-10 % Normal MONO% 6.9 LAB L100.2400 0-5 % Normal EO% 0.1 LAB L100.2500 0-1 % Normal BASO% 0.1 LAB L100.2550 0.0-0.9 % Normal IM GRAN % 0.100 Result Comment: IG% - Immature Granulocytes (promyelocytes, myelocytes and metamyelocytes) > 1% indicates that a LEFT SHIFT is Present. LAB L100.2620 2.0-7.7 X10 3/uL Normal Absolute Neut 7.0 LAB L100.2720 0.83-4.51 X10 3/ul Normal Absolute Lymph 1.55 Performed By: #### L100.0100 #### [facility] [address] [facility] [place], [place], [id number] BASIC METABOLIC Collected: 08/24/2018 Status: F Source: [place] PROFILE (BMP) 10:45 AM [facility] REPOSITORY TYPE CODE TESTS RESULT OUT OF RANGE REFERENCE UNITS LAB L501.0100 74-106 mg/dL High GLU 112 Result Comment: Fasting Glucose result from 100 to 125 mg/dL suggests IMPAIRED HOMEOSTASIS per A.D.A. criteria. Please note revised GLUCOSE reference range effective 2017. LAB L501.1000 7-18 mg/dL Normal BUN 10 LAB L501.1100 0.70-1.30 mg/dL Normal CREAT,SERUM 1.15 Result Comment: The validity of the calculated GFR AND GFRAA in patients over 70 years has not been determined. Clinical correlation is essential. LAB L501.1110 >60 mL/min Normal EST GFR 77 Result Comment: Non- GFR Calc LAB L501.1115 >60 mL/min Normal EST GFR - AA 93 Result Comment: GFR Calc LAB L501.1255 ml/min Normal Estimated CRCL 102.29 LAB L501.1300 10-20 RATIO Low BUN/CRE 8.7 LAB L501.2200 8.5-10 mg/dL .1 CA Normal 9.4 LAB L501.5300 136-14 mmol/L 5 NA Normal 140 LAB L501.5600 3.5-5. mmol/L 1 K Normal 4.5 LAB L501.5900 98-107 mmol/L CL Normal 106 LAB L501.6100 21.0-3 mmol/L 2.0 CO2 Normal 28.0 LAB L501.6200 5-15 GAP Normal 6 Performed By: #### L500.2500 #### [facility] [address] [place], [address] LACTIC ACID Collected: 08/24/2018 Status: F Source: [place] 10:45 AM [facility] REPOSITORY Order Comment: Yes/No query for Sepsis Lactate Rule Y TYPE CODE TESTS RESULT OUT OF RANGE REFERENCE UNITS LAB L503.6005 0.4-2.0 mmol/L Normal LACTIC ACID 1.2 Performed By: #### L503.6005 #### [facility] [address] [place], [address] ABDOMEN/PELVIS WITH Observed: 08/24/2018 Status: F Source: [place] CONTRAST 10:27 AM [facility] REPOSITORY [facility] Imaging Services [address] [place] [address] Abdomen/Pelvis WITH Contrast MR#: [id number] Acct: [id number] Name: QAUN PORTER Rep #: [id number] : 1985 M 32 From: Waldemar Alejandro DO PCP: Care Physician, No Primary Status: REG ER Study: Abdomen/Pelvis WITH Contrast Date of Exam: 08/24/18 Exam# [id number] Ordering Dr: Federico Mishra DO STUDY: CT ABDOMEN AND PELVIS WITH CONTRAST REASON FOR EXAM: Male, 32 years old. Abdominal pain. RADIATION DOSAGE (If Supplied By Facility): CTDIvol = ( 14.73 ) mGy, DLP = ( 980.72 ) mGycm TECHNIQUE: Transaxial images were obtained from the dome of the diaphragm to the symphysis pubis with oral contrast. 100 ml of Isovue 300 contrast was administered. Sagittal and coronal images were reconstructed. Individualized dose optimization techniques were used for this CT. COMPARISON: 06/27/2018 FINDINGS: Lung bases demonstrate mild atelectasis. The visualized portions of the heart are within normal limits. Normal liver. Normal gallbladder and extrahepatic biliary system. Normal spleen. Normal pancreas. Normal bilateral adrenal glands. Normal right kidney. Normal left kidney. Normal visualized stomach. Normal small intestine. Normal colon. The appendix is visualized and appears normal. Normal abdominal aorta. Normal inferior vena cava. Normal retroperitoneum. Normal urinary bladder. Normal visualized prostate gland. Normal abdominal wall. Prior fusion at L5-S1 CT/Abdomen/Pelvis WITH Contrast IMPRESSION: No acute findings. Normal appearance of the small and large bowel. Prior postsurgical changes of the lumbar spine is stable. Electronically Signed: Waldemar Alejandro DO at 12:40 EST Tel , Service support , CC: No Primary Care Physician; Federico Mishra DO Labor Trainer: Signed EMERGENCY DEPARTMENT Observed: 07/01/2018 Status: F Source: [place] SUMMARY 7:19 AM [facility] REPOSITORY [facility] Medical Records Department [address] [place] [id number] Emergency Department Summary 06/27/18 1610 MR#: [id number] Acct: [id number] Name: QUAN PORTER Rep #: [id number] : 1985 32 From: Scott Ireland DO PCP: Care Physician, No Primary Status: DEP ER - ER Visit Summary Date of Service: 06/27/18 Chief Complaint: Dysuria History of Present Illness: The patient is a 32 M who states that earlier this week he was having vomiting diarrhea. He has been drinking Gatorade. States that now he has been having a difficult time urinating noting that he is only urinated couple times a day. He states that he also has not had a bowel movement for a couple days (this after having diarrhea than taking Imodium). He went to the urgent care and is very upset at them for making and give a urine and then referred him over here. Physical Examination: Afebrile vital signs stable Gen: Well-nourished well-developed actively eating Doritos and drinking Head: Normocephalic atraumatic Eyes: Perrl EOMI ENT: TMs clear no rhinorrhea moist mucous membranes Neck: Supple no lymphadenopathy no JVD nontender CVS: Regular rate rhythm no murmurs normal S1-S2 Respiratory: No distress clear to auscultation bilaterally chest nontender Abdomen: Soft nontender nondistended normal bowel sounds no masses Back: Nontender Extremity: Nontender no edema Skin: Normal color no rash Neuro: alert orientated 3 CN II-XII intact normal strength sensation reflexes gait cerebellar Psych: Angry Test Results: Urinalysis is normal. CT the flank is negative. Emergency Department Course and Treatment: Patient will continue to encourage fluids. I offered to write him stool softener versus magnesium citrate that he states he would rather just get up and leave and not waste this time. Think most likely the patient had a gastroenteritis got a bit dehydrated and is now getting his body back to its normal state. I do not suspect there is anything emergent lingering. Impression: 1. Constipation 2. Dysuria This note was generated with [employer] dictation software. It may contain incorrect words, spelling, and punctuation that were not noted in review of the chart prior to signing ED Disposition - Plan for ED Patient: Disposition: Home or Assisted Living Chief Complaint: Flank Pain Instructions: ED Constipation Additional Instructions: Call your primary care physician to arrange follow-up this week Please drink at minimum 64 ounces of water per day. What to do if you have Problems For any increased pain, shortness of breath, bleeding, nausea or vomiting, chest pain, or any unexpected problems, contact your Primary Care Provider. Call [facility] ([phone]) or report to the closest Emergency Room. Call 911 if necessary. 07/01/18 0719 <Electronically signed by Scott Ireland DO> Date Scott Ireland DO Vijay Signature (If Indicated): Date CC: No Primary Care Physician URINALYSIS, COMPLETE Collected: 06/27/2018 Status: F Source: [place] 3:05 PM [facility] REPOSITORY Order Comment: Has pt arrived? Y How was Urine Obtained? TOOL ROOM MACHINIST TO SPECIFY TYPE CODE TESTS RESULT OUT OF RANGE REFERENCE UNITS LAB L400.3000 Yellow COLOR Normal Yellow LAB L400.3050 Clear Normal CLARITY Clear LAB L400.3200 Normal mg/dl Normal GLUCOSE, UR Normal LAB L400.3300 Negative mg/dL Normal BILIRUBIN URINE Negative LAB L400.3400 Negative mg/dl Normal KETONE UR Negative LAB L400.3465 1.002-1.030 Normal SP.GR. DIPSTX 1.010 LAB L400.3550 5.0 - 8.0 pH UR Normal 6.0 LAB L400.3600 Negative mg/dl PROT Normal DIPSTX Negative LAB L400.3700 Normal mg/dl Normal UROBILI Normal LAB L400.3750 Negative Normal NITRITE UR Negative LAB L400.3780 Negative /ul High 10 OCCULT BLOOD-UR LAB L400.3800 Negative /ul High LEUK 25 ESTERASE LAB L400.4050 0-5 /hpf WBC 0 Normal SEEN LAB L400.4100 0-5 /hpf 0 Normal RBC-UA SEEN LAB L400.4150 0-5 /hpf SQUAM 0 Normal EPI SEEN LAB L400.4300 None Seen /hpf 0 Normal BACTERIA SEEN LAB L400.4350 <or=2+ /hpf 0 Normal MUCUS, URINE SEEN Performed By: #### L400.0001 #### [facility] [address] [place], [place], [id number] ABDOMEN/PELVIS WITHOUT Observed: 06/27/2018 Status: F Source: [place] CONT 2:47 PM [facility] REPOSITORY [facility] Imaging Services [address] [address] Abdomen/Pelvis without Cont MR#: [id number] Acct: [id number] Name: QUAN PORTER Rep #: [id number] : 1985 M 32 From: Missael Gonzalez MD PCP: Care Physician, No Primary Status: REG ER Study: Abdomen/Pelvis without Cont Date of Exam: 06/27/18 Exam# [id number] Ordering Dr: Scott Ireland DO STUDY: CT ABDOMEN AND PELVIS WITHOUT CONTRAST REASON FOR EXAM: Male, 32 years old. Lower abdominal pain 3 or 4 days, burning with urination. RADIATION DOSAGE (If Supplied By Facility): CTDIvol = ( 10.92 ) mGy, DLP = ( 586.38 ) mGycm TECHNIQUE: Transaxial images were obtained from the dome of the diaphragm to the symphysis pubis without oral contrast, and without intravenous contrast. Sagittal and coronal images were reconstructed. Individualized dose optimization techniques were used for this CT. COMPARISON: CT abdomen and pelvis 04/28/2018, 10/13/2017. FINDINGS: Body wall soft tissues: No acute process. Osseous structures: No acute process. L5-S1 posterior yuko and pedicle screw fixation with interbody fusion spacer. Bilateral pars interarticularis defects. Minimal grade 1 spondylolisthesis. Inferior chest: Minimal bibasilar pulmonary atelectasis. Cardiac base normal. Distal esophagus normal. Hepatobiliary: Normal. Pancreas: No acute process. Spleen: Normal. Adrenal glands: Normal. Urogenital: Normal bilateral kidneys, collecting systems, ureters, urinary bladder, prostate and seminal vesicles. No inflammatory changes. No evidence of urolithiasis. Pelvic floor and sidewalls and retroperitoneum: No mass or adenopathy. Vasculature: No acute process. Stomach: No acute process. Small bowel and mesentery: No acute process. Large bowel: Normal appendix. Normal large bowel and rectum. Free fluid or free air: None. CT/Abdomen/Pelvis without Cont IMPRESSION: No acute abdominopelvic process is evident. In particular, there is no evidence of urolithiasis and there are no inflammatory features of the urogenital structures. Electronically Signed: Missael Gonzalez, at 15:42 EDT Tel , Service support , CC: No Primary Care Physician; Scott Ireland DO Labor Trainer: Signed PROGRESS Observed: 06/27/2018 Status: COMPLETED Source: [place] 1:41 PM [facility] REPOSITORY HNO ID: [id number] Author: Casimiro Pride Service: (none) Author Type: Physician Type: Progress Notes Filed: 06/27/2018 4:07 PM Note Text: Patient presents with: pain while urinating HPI: Symptoms for 3 days. He has been able to void only 2 times in the last 3 days (including while here). Dysuria: severe, feels like ice is coming out of his penis. Complains he nearly passed out giving the urine sample here. Back pain: treated here for radicular back pain < 2 weeks ago Abdominal pain: Yes MEDICATIONS: Current Outpatient Prescriptions: Mirtazapine 45 mg disintegrating tablet DAILY risperiDONE (RISPERDAL) 3 mg tablet DAILY cyclobenzaprine (FLEXERIL) 10 mg tablet Take 1 tablet by mouth three times daily as needed for up to 15 days. (Patient not taking: Reported on 06/27/2018 ) ranitidine (ZANTAC) 150 mg tablet Take 1 tablet by mouth twice daily. (Patient not taking: Reported on 06/15/2018 ) ondansetron (ZOFRAN) 8 mg tablet Take 1 tablet by mouth every 8 hours as needed. (Patient not taking: Reported on 06/15/2018 ) No current facility-administered medications for this visit. ALLERGIES: ALLERGIES Allergen Reactions - Chantix [Vareniclin* Other: See Comments Liver failure, hospitalized - Methadone Other: See Comments Liver failure, hospitalized - Meloxicam Intolerance Flu like symptoms - Sulfa (Sulfonamide * Swelling VITALS: BP 100/76 Pulse 107 Temp 36.8 ?C (98.3 ?F) (Left Tympanic) Resp 20 Wt 104.5 kg (230 lb 6.4 oz) SpO2 98% BMI 33.06 kg/m? PHYSICAL EXAM: GEN: alert, irritable ASSESSMENT/PLAN: 1. Acute retention of urine - ICD9: 788.29, ICD10: R33.8 (primary diagnosis) 2. Dysuria - ICD9: 788.1, ICD10: R30.0 - UA DIP, URINE (POC) - trace blood only. Patient advised he would need treated in the ER if he has only been able to produce urine twice in 2 days and had such significant difficulty with the small amount he voided here. He became angry. While standing reported he was upset he waited an hour and was told to give a urine sample because it was so painful he nearly passed out. Unfortunately to avoid kidney injury from potential obstruction/retention he should go the ER since we cannot diagnose and treat his condition in the [facility]. I could not determine his risk for this before I interacted with him, and rooming staff did inform him he may be sent to the ER by the provider. Casimiro Pride MD CNOV Observed: 06/27/2018 Status: COMPLETED Source: [place] 12:30 PM [facility] REPOSITORY Office Visit (WSTR) QUAN PORTER ([id number]) 1985 M Date Time Provider Department 06/27/18 12:30 PM CASIMIRO PRIDE [facility] During your visit today, we recorded the following information about you: Temperature Pulse Respiration Blood pressure 98.3 degrees 107/minute 20/minute 100/76 Weight 104.5 kg Casimiro Pride MD 06/27/2018 4:07 PM Signed Patient presents with: pain while urinating HPI: Symptoms for 3 days. He has been able to void only 2 times in the last 3 days (including while here). Dysuria: severe, feels like ice is coming out of his penis. Complains he nearly passed out giving the urine sample here. Back pain: treated here for radicular back pain < 2 weeks ago Abdominal pain: Yes MEDICATIONS: Current Outpatient Prescriptions: Mirtazapine 45 mg disintegrating tablet DAILY risperiDONE (RISPERDAL) 3 mg tablet DAILY cyclobenzaprine (FLEXERIL) 10 mg tablet Take 1 tablet by mouth three times daily as needed for up to 15 days. (Patient not taking: Reported on 06/27/2018 ) ranitidine (ZANTAC) 150 mg tablet Take 1 tablet by mouth twice daily. (Patient not taking: Reported on 06/15/2018 ) ondansetron (ZOFRAN) 8 mg tablet Take 1 tablet by mouth every 8 hours as needed. (Patient not taking: Reported on 06/15/2018 ) No current facility-administered medications for this visit. ALLERGIES: ALLERGIES Allergen Reactions - Chantix [Vareniclin* Other: See Comments Liver failure, hospitalized - Methadone Other: See Comments Liver failure, hospitalized - Meloxicam Intolerance Flu like symptoms - Sulfa (Sulfonamide * Swelling VITALS: BP 100/76 Pulse 107 Temp 36.8 ?C (98.3 ?F) (Left Tympanic) Resp 20 Wt 104.5 kg (230 lb 6.4 oz) SpO2 98% BMI 33.06 kg/m? PHYSICAL EXAM: GEN: alert, irritable ASSESSMENT/PLAN: 1. Acute retention of urine - ICD9: 788.29, ICD10: R33.8 (primary diagnosis) 2. Dysuria - ICD9: 788.1, ICD10: R30.0 - UA DIP, URINE (POC) - trace blood only. Patient advised he would need treated in the ER if he has only been able to produce urine twice in 2 days and had such significant difficulty with the small amount he voided here. He became angry. While standing reported he was upset he waited an hour and was told to give a urine sample because it was so painful he nearly passed out. Unfortunately to avoid kidney injury from potential obstruction/retention he should go the ER since we cannot diagnose and treat his condition in the [facility]. I could not determine his risk for this before I interacted with him, and rooming staff did inform him he may be sent to the ER by the provider. Casimiro Pride MD Referring Provider: SELF [[id number]] Allergies As of Date: 06/27/2018 Noted Allergy Reaction CHANTIX (VARENICLINE) 11/13/2014 14 - Other: See Comments Comments: Liver failure, hospitalized METHADONE 11/13/2014 14 - Other: See Comments Comments: Liver failure, hospitalized MELOXICAM 12/07/2013 5 - Intolerance Comments: Flu like symptoms SULFA (SULFONAMIDE ANTIBIOTICS) 07/05/2013 7 - Swelling Date Reviewed: 06/27/2018 Reviewed by: Nisa Guevara Ma - Fully Assessed Reason for Visit: pain while urinating [Other] Primary Visit Diagnosis:Acute retention of urine [R33.8] Other Visit Diagnosis:Dysuria [R30.0] Order(s):UA DIP, URINE (POC) [[id number]] Order #: [id number] Prescriptions as of 06/27/2018 Sig: MIRTAZAPINE 45 MG DISINTEGRAT* DAILY RISPERIDONE 3 MG TABLET DAILY CYCLOBENZAPRINE 10 MG TABLET Take 1 tablet by mouth three * Patient not taking: Reported on 06/27/2018 RANITIDINE 150 MG TABLET Take 1 tablet by mouth twice * Patient not taking: Reported on 06/15/2018 ONDANSETRON HCL 8 MG TABLET Take 1 tablet by mouth every * Patient not taking: Reported on 06/15/2018 Problem List As Of Date 06/27/2018 Noted Resolved Diarrhea [R19.7] INVALID FOR* Chronic back pain [M54.9, G89.29] INVALID FOR* Priority: C More... Lumbar radiculopathy [M54.16] INVALID FOR* Anxiety [F41.9] Priority: F More... PTSD (post-traumatic stress disorder) [F43.10] Chronic hepatitis C without mention of hepatic * Spondylolisthesis of lumbar region [M43.16] INVALID FOR* Finger infection [L08.9] INVALID FOR*05/19/2014 SUMMARY [V999.95] INVALID FOR* Priority: A More... Acute hepatitis [B17.9] INVALID FOR* Priority: B More... Itching [L29.9] INVALID FOR* Priority: D More... Counseling and coordination of care [Z71.89] INVALID FOR* Priority: E More... Back pain [M54.9] INVALID FOR* Lumbar disc disease [M51.9] INVALID FOR* Schizophrenia, chronic condition (HCC) [F20.9] INVALID FOR* Encounter Status:Closed by CASIMIRO PRIDE MD on 06/27/18 12 LEAD ELECTROCARDIOGRAM Observed: 06/25/2018 Status: F Source: [place] 1:18 PM [facility] Cardiovascular Services [address] [place] [address] 12 Lead EKG 06/23/18 1559 MR#: [id number] Acct: [id number] Name: QUAN PORTER Rep #: [id number] : 1985 32 From: Foreign Arnold MD Attending Dr: Status: DEP ER Ordering Dr: Cherelle lAarcon MD Date: 06/23/18 Location: ED Sex: M C Admitted: Test Reason : GEN ILLNESS Blood Pressure : / mmHG Vent. Rate : 076 BPM Atrial Rate : 076 BPM P-R Int : 144 ms QRS Dur : 108 ms QT Int : 384 ms P-R-T Axes : 032 062 038 degrees QTc Int : 432 ms Normal sinus rhythm Normal ECG Confirmed by CATALINA REEVES, FOREIGN ([id number]), editor managing newspaper [employer] ([id number]) on 06/25/2018 1:17:50 PM Referred By: YAEL Confirmed By:FOREIGN ARNOLD MD 06/25/18 1317 Date Foreign Arnold MD CC: No Primary Care Physician; Cherelle Alarcon MD Signed EMERGENCY DEPARTMENT Observed: 06/24/2018 Status: F Source: [place] SUMMARY 12:22 AM [facility] Medical Records Department [address] [place] [address] Emergency Department Summary 06/23/18 1753 MR#: [id number] Acct: [id number] Name: QUAN PORTER Rep #: [id number] : 1985 32 From: Cherelle Alarcon MD PCP: Care Physician, No Primary Status: DEP ER - ER Visit Summary Date of Service: 06/23/18 Chief Complaint: Possible heat stroke History of Present Illness: The patient is a 32 M who states he got lightheaded and had near syncope at work today. 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 Patient states he has been drinking a lot of fluids and does not feel he is dehydrated. He denies chest pain or palpitations. He states his head felt funny and he had intermittent numbness to his entire face. Physical Examination: Vital signs unremarkable. Head neck examination is normal. Heart is regular rate and rhythm. Lung sounds are clear. Abdomen is soft nontender. Neuro exam is normal with an NIH of 0. Test Results: EKG is sinus at 76 with no sign of acute ischemia. CT head shows no acute abnormality. CBC and chemistry studies unremarkable. Emergency Department Course and Treatment: Patient is given IV fluids here. Test results are discussed with him. At this time he is to increase p.o. fluids. Nursing staff does note that when he stood his heart rate did go up to 115. Although he has been trying to maintain hydration he likely does have a degree of dehydration. He will increase fluids the next several days. Treatment Plan: [] Disposition: Discharge Impression: Near syncope This note was generated with [employer] dictation software. It may contain incorrect words, spelling, and punctuation that were not noted in review of the chart prior to signing ED Disposition - Plan for ED Patient: Chief Complaint: General Illness Referrals: Care Physician,No Primary [Primary Care Provider] - What to do if you have Problems For any increased pain, shortness of breath, bleeding, nausea or vomiting, chest pain, or any unexpected problems, contact your Primary Care Provider. Call [facility] ([phone]) or report to the closest Emergency Room. Call 911 if necessary. 06/24/18 0022 <Electronically signed by Cherelle Alarcon MD> Date Cherelle Alarcon MD Cosigner Signature (If Indicated): Date CC: No Primary Care Physician DISCHARGE INSTRUCTION Observed: 06/23/2018 Status: F Source: [place] 5:55 PM [facility] REPOSITORY [facility] Medical Records Department [address] [address] Discharge Instruction 06/23/18 1754 MR#: [id number] Acct: [id number] Name: QUAN PORTER Rep #: [id number] : 1985 32 From: Cherelle Alarcon MD PCP: Care Physician, No Primary Status: REG ER ED Disposition - Plan for ED Patient: Disposition: Home or Assisted Living Chief Complaint: General Illness Instructions: ED Near Syncope Unkn Referrals: Naresh Chakraborty MD [STAFF PHYSICIAN] - As Needed What to do if you have Problems For any increased pain, shortness of breath, bleeding, nausea or vomiting, chest pain, or any unexpected problems, contact your Primary Care Provider. Call [facility] ([phone]) or report to the closest Emergency Room. Call 911 if necessary. 06/23/18 9388 <Electronically signed by Cherelle Alarcon MD> Date Cherelle Alarcon MD Cosigner Signature (If Indicated): Date CC: No Primary Care Physician CBC W/DIFF, AUTOMATED Collected: 06/23/2018 Status: F Source: [place] 4:04 PM [facility] REPOSITORY TYPE CODE TESTS RESULT OUT OF RANGE REFERENCE UNITS LAB L100.1000 4.4-11.0 K/mm3 Normal WBC 7.0 LAB L100.1200 4.6-6.2 M/mm3 Low RBC 4.32 LAB L100.1300 13.0-16.5 g/dl Normal HGB 13.9 LAB L100.1400 40-54 % Normal HCT 41.3 LAB L100.1500 80-94 fL High MCV 95.6 LAB L100.1600 27.0-32.0 pg High MCH 32.2 LAB L100.1700 32-36 g/gl Normal MCHC 33.7 LAB L100.1810 11.6-14.6 % Normal RDW CV 13.0 LAB L100.1820 35.1-43.9 fl High RDW SD 45.1 LAB L100.1900 150-450 K/mm3 Normal PLT 209 LAB L100.2000 6.2-12.0 fl Normal MPV 8.6 LAB L100.2100 47-70 % Normal NEUT% 61.4 LAB L100.2200 19-41 % Normal LY% 32.0 LAB L100.2300 0-10 % Normal MONO% 5.9 LAB L100.2400 0-5 % Normal EO% 0.0 LAB L100.2500 0-1 % Normal BASO% 0.3 LAB L100.2550 0.0-0.9 % Normal IM GRAN % 0.400 Result Comment: IG% - Immature Granulocytes (promyelocytes, myelocytes and metamyelocytes) > 1% indicates that a LEFT SHIFT is Present. LAB L100.2620 2.0-7.7 X10 3/uL Normal Absolute Neut 4.3 LAB L100.2720 0.83-4.51 X10 3/ul Normal Absolute Lymph 2.23 Performed By: #### L100.0100 #### [facility] [address] [place], [address] BASIC METABOLIC Collected: 06/23/2018 Status: F Source: [place] PROFILE ([facility]) 4:04 PM [facility] REPOSITORY TYPE CODE TESTS RESULT OUT OF RANGE REFERENCE UNITS LAB L501.0100 74-106 mg/dL High GLU 125 Result Comment: Fasting Glucose result from 100 to 125 mg/dL suggests IMPAIRED HOMEOSTASIS per A.D.A. criteria. Please note revised GLUCOSE reference range effective 2017. LAB L501.1000 7-18 mg/dL Normal BUN 10 LAB L501.1100 0.70-1.30 mg/dL Normal CREAT,SERUM 1.19 Result Comment: The validity of the calculated GFR AND GFRAA in patients over 70 years has not been determined. Clinical correlation is essential. LAB L501.1110 >60 mL/min Normal EST GFR 74 Result Comment: Non- GFR Calc LAB L501.1115 >60 mL/min Normal EST GFR - AA 90 Result Comment: GFR Calc LAB L501.1255 ml/min Normal Estimated CRCL 98.85 LAB L501.1300 10-20 RATIO Low BUN/CRE 8.4 LAB L501.2200 8.5-10 mg/dL Normal .1 CA 8.8 LAB L501.5300 136-14 mmol/L Normal 5 NA 140 LAB L501.5600 3.5-5. mmol/L Normal 1 K 4.0 LAB L501.5900 98-107 mmol/L Normal CL 107 LAB L501.6100 21.0-3 mmol/L Normal 2.0 CO2 27.0 LAB L501.6200 5-15 Normal GAP 6 Performed By: #### L500.2500 #### [facility] [address] [place], [address] BRAIN/HEAD WITHOUT Observed: 06/23/2018 Status: F Source: [place] CONTRAST 3:47 PM [facility] REPOSITORY [facility] Imaging Services [address] [place] [address] Brain/Head without Contrast MR#: [id number] Acct: [id number] Name: QUAN PORTER Rep #: [id number] : 1985 M 32 From: Zia Muñoz MD PCP: Care Physician, No Primary Status: REG ER Study: Brain/Head without Contrast Date of Exam: 06/23/18 Exam# [id number] Ordering Dr: Cherelle Alarcon MD STUDY: CT BRAIN WITHOUT CONTRAST REASON FOR EXAM: Male, 32 years old. Weakness RADIATION DOSAGE (If Supplied By Facility): CTDIvol = ( 44.99 ) mGy, DLP = ( 829.85 ) mGycm TECHNIQUE: Transaxial CT imaging of the brain was performed without administration of intravenous contrast material. Individualized dose optimization techniques were used for this CT. COMPARISON: 12/01/2017 FINDINGS: There is no acute bleed or infarct. There are normal white matter tracts. The ventricles are normal in configuration. There is no hydrocephalus. The visualized paranasal sinuses are clear. The mastoid air cells are well aerated. There is no skull fracture. CT/Brain/Head without Contrast IMPRESSION: No acute intracranial abnormality. Electronically Signed: Zia Muñoz, at 17:22 EDT Tel , Service support , CC: No Primary Care Physician; Cherelle Alarcon MD Labor Trainer: Signed PROGRESS Observed: 06/15/2018 Status: COMPLETED Source: [place] 11:54 AM [facility] REPOSITORY HNO ID: [id number] Author: Casimiro Pride Service: (none) Author Type: Physician Type: Progress Notes Filed: 06/15/2018 12:32 PM Note Text: Patient presents with: Back Pain: lower back pain migrating into left leg x this am HPI: Back pain: Duration: Bad since this morning. Spasms for a few days. Character: burning and cramping Location: Left lower back Radiation: Yes: back of the left leg to the upper calf Aggravating: bending Relieving: Lying down helps some Pain relievers: Tylenol Associated: Generalized weakness, bilateral lower leg tingling Pertinent negatives: Denies fever, loss of bladder or bowel control. S/p radioablation for back PAST MEDICAL HISTORY Diagnosis Date - Anxiety bipolar - Chronic back pain 07/05/2013 - History of hepatitis C - PTSD (post-traumatic stress disorder) PAST SURGICAL HISTORY Procedure Laterality Date - BACK SURGERY HX - ORTHOPEDICS SURGERY HX 08-04-14 lumbar fusion - PAST SURGICAL HISTORY OF 1 wk 4 days post I and D right ring finger - TONSILLECTOMY HX MEDICATIONS: Mirtazapine 45 mg disintegrating tablet DAILY risperiDONE (RISPERDAL) 3 mg tablet DAILY ranitidine (ZANTAC) 150 mg tablet Take 1 tablet by mouth twice daily. ondansetron (ZOFRAN) 8 mg tablet Take 1 tablet by mouth every 8 hours as needed. ALLERGIES: ALLERGIES Allergen Reactions - Chantix [Vareniclin* Other: See Comments Liver failure, hospitalized - Methadone Other: See Comments Liver failure, hospitalized - Meloxicam Intolerance Flu like symptoms - Sulfa (Sulfonamide * Swelling VITALS: BP 122/70 Pulse 74 Temp 36.7 ?C (98 ?F) (Tympanic) Resp 16 Wt 105.7 kg (233 lb) BMI 33.43 kg/m? PHYSICAL EXAM: GEN: Some apparent discomfort, alert HEART: regular rate, regular rhythm, no murmurs LUNGS: clear to auscultation, no wheezes or crackles, no increased WOB EXT: no clubbing, no cyanosis, no edema BACK: Normal curvature of spine. No midline tenderness. No paraspinal tenderness. Straight leg test positive L>R. Deep tendon reflexes 1+/4 at patellas. Normal lower extremity strength. Normal gait. ASSESSMENT/PLAN: 1. Low back pain radiating to left lower extremity - ICD9: 724.2, ICD10: M54.5, M79.605 - UA DIP B/O negative Acute low back pain with radiculopathy. He usually only takes tylenol. Ibuprofen makes him poop blood. EGD 2016 was normal, he has had colonoscopy too. One dose of meloxicam made him feel like he had the flu. He requests no narcotics since he had to be on suboxone to get off dilaudid from pain management. Steroid shots have not been helpful, but oral steroids have provided some benefit in the past. - PREDNISONE 10 MG TABLET taper - CYCLOBENZAPRINE 10 MG TABLET Casimiro Pride MD CNOV Observed: 06/15/2018 Status: COMPLETED Source: [place] 11:30 AM [facility] REPOSITORY Office Visit (WSTR) QUAN PORTER ([id number]) 1985 M Date Time Provider Department 06/15/18 11:30 AM CASIMIRO PRIDE [facility] During your visit today, we recorded the following information about you: Temperature Pulse Respiration Blood pressure 98 degrees 74/minute 16/minute 122/70 Weight 105.7 kg Casimiro Pride MD 06/15/2018 12:32 PM Signed Patient presents with: Back Pain: lower back pain migrating into left leg x this am HPI: Back pain: Duration: Bad since this morning. Spasms for a few days. Character: burning and cramping Location: Left lower back Radiation: Yes: back of the left leg to the upper calf Aggravating: bending Relieving: Lying down helps some Pain relievers: Tylenol Associated: Generalized weakness, bilateral lower leg tingling Pertinent negatives: Denies fever, loss of bladder or bowel control. S/p radioablation for back PAST MEDICAL HISTORY Diagnosis Date - Anxiety bipolar - Chronic back pain 07/05/2013 - History of hepatitis C - PTSD (post-traumatic stress disorder) PAST SURGICAL HISTORY Procedure Laterality Date - BACK SURGERY HX - ORTHOPEDICS SURGERY HX 08-04-14 lumbar fusion - PAST SURGICAL HISTORY OF 1 wk 4 days post I and D right ring finger - TONSILLECTOMY HX MEDICATIONS: Mirtazapine 45 mg disintegrating tablet DAILY risperiDONE (RISPERDAL) 3 mg tablet DAILY ranitidine (ZANTAC) 150 mg tablet Take 1 tablet by mouth twice daily. ondansetron (ZOFRAN) 8 mg tablet Take 1 tablet by mouth every 8 hours as needed. ALLERGIES: ALLERGIES Allergen Reactions - Chantix [Vareniclin* Other: See Comments Liver failure, hospitalized - Methadone Other: See Comments Liver failure, hospitalized - Meloxicam Intolerance Flu like symptoms - Sulfa (Sulfonamide * Swelling VITALS: BP 122/70 Pulse 74 Temp 36.7 ?C (98 ?F) (Tympanic) Resp 16 Wt 105.7 kg (233 lb) BMI 33.43 kg/m? PHYSICAL EXAM: GEN: Some apparent discomfort, alert HEART: regular rate, regular rhythm, no murmurs LUNGS: clear to auscultation, no wheezes or crackles, no increased WOB EXT: no clubbing, no cyanosis, no edema BACK: Normal curvature of spine. No midline tenderness. No paraspinal tenderness. Straight leg test positive L>R. Deep tendon reflexes 1+/4 at patellas. Normal lower extremity strength. Normal gait. ASSESSMENT/PLAN: 1. Low back pain radiating to left lower extremity - ICD9: 724.2, ICD10: M54.5, M79.605 - UA DIP B/O negative Acute low back pain with radiculopathy. He usually only takes tylenol. Ibuprofen makes him poop blood. EGD 2016 was normal, he has had colonoscopy too. One dose of meloxicam made him feel like he had the flu. He requests no narcotics since he had to be on suboxone to get off dilaudid from pain management. Steroid shots have not been helpful, but oral steroids have provided some benefit in the past. - PREDNISONE 10 MG TABLET taper - CYCLOBENZAPRINE 10 MG TABLET Casimiro Pride MD Referring Provider: SELF [[id number]] Allergies As of Date: 06/15/2018 Noted Allergy Reaction CHANTIX (VARENICLINE) 11/13/2014 14 - Other: See Comments Comments: Liver failure, hospitalized METHADONE 11/13/2014 14 - Other: See Comments Comments: Liver failure, hospitalized MELOXICAM 12/07/2013 5 - Intolerance Comments: Flu like symptoms SULFA (SULFONAMIDE ANTIBIOTICS) 07/05/2013 7 - Swelling Date Reviewed: 06/15/2018 Reviewed by: Viky Rodriguez Ma - Fully Assessed Reason for Visit: Back Pain [12] Cmt: lower back pain migrating into left leg x this am Primary Visit Diagnosis:Low back pain radiating to left lower extremity [M54.5, M79.605] Order(s):[facility] B/O [[id number]] Order #: [id number] predniSONE (DELTASONE) 10 mg tabletTake by mouth 6 pills on day 1, 5 pills on day 2, 4 pills on day 3, 3 pills on day 4, 2 pills on day 5, 1 pill on day 6Disp: 21 tabletRfl: 0 cyclobenzaprine (FLEXERIL) 10 mg tabletTake 1 tablet by mouth three times daily as needed for up to 15 days.Disp: 30 tabletRfl: 0 Prescriptions as of 06/15/2018 Sig: MIRTAZAPINE 45 MG DISINTEGRAT* DAILY RISPERIDONE 3 MG TABLET DAILY PREDNISONE 10 MG TABLET Take by mouth 6 pills on day * CYCLOBENZAPRINE 10 MG TABLET Take 1 tablet by mouth three * RANITIDINE 150 MG TABLET Take 1 tablet by mouth twice * Patient not taking: Reported on 06/15/2018 ONDANSETRON HCL 8 MG TABLET Take 1 tablet by mouth every * Patient not taking: Reported on 06/15/2018 Problem List As Of Date 06/15/2018 Noted Resolved Diarrhea [R19.7] INVALID FOR* Chronic back pain [M54.9, G89.29] INVALID FOR* Priority: C More... Lumbar radiculopathy [M54.16] INVALID FOR* Anxiety [F41.9] Priority: F More... PTSD (post-traumatic stress disorder) [F43.10] Chronic hepatitis C without mention of hepatic * Spondylolisthesis of lumbar region [M43.16] INVALID FOR* Finger infection [L08.9] INVALID FOR*05/19/2014 SUMMARY [V999.95] INVALID FOR* Priority: A More... Acute hepatitis [B17.9] INVALID FOR* Priority: B More... Itching [L29.9] INVALID FOR* Priority: D More... Counseling and coordination of care [Z71.89] INVALID FOR* Priority: E More... Back pain [M54.9] INVALID FOR* Lumbar disc disease [M51.9] INVALID FOR* Schizophrenia, chronic condition (HCC) [F20.9] INVALID FOR* Prescriptions ordered this encounter Disp Refills Start End PREDNISONE 10 MG TABLET 21 t* 0 06/15/2018 06/21/2018 Sig: Take by mouth 6 pills on day 1, 5 pills on day 2, 4 pills on day 3, 3 pills on day 4, 2 pills on day 5, 1 pill on day 6 CYCLOBENZAPRINE 10 MG TABLET 30 t* 0 06/15/2018 06/30/2018 Route: ORAL Sig: Take 1 tablet by mouth three times daily as needed for up to 15 days. Letter Text [facility] [address], [place] [address] 06/15/2018 Larissausman German [facility]# [id number] [id number] TO WHOM IT MAY CONCERN: This is to confirm that Quan Porter had an appointment and was seen at the [facility] in the Department of Urgent Care by Casimiro Pride MD on 06/15/2018 for injury or illness and should be excused from work today. Sincerely , Casimiro Pride MD Encounter Status:Closed by CASIMIRO PRIDE MD on 06/15/18 URGENT CARE VISIT Observed: 06/03/2018 Status: F Source: [facility] RE[facility] 4:[address] [place] [address] OFFICE VISIT Date of Service: 06/03/18 MR#: [id number] Acct: [id number] Name: QUAN PORTER Rep #: [id number] : 1985 Provider: Zia AMAYA Age/Sex: 32/M [place] [facility] [place] Status: Signed Intake Vital Signs06/03/18 Height 6 ft 1 in 06/03/18 Weight: 226 lb 06/03/18 Body Mass Index (BMI) 29.8 06/03/18 Blood Pressure 128/82 Intake Visit Reasons: SPIDER BITE ON HEAD Chief Complaint: Scalp infection Belt Dresser Required: No Accompanied by: self Is patient in pain?: No Allergies Sulfa (Sulfonamide Antibiotics) Allergy (Verified 06/03/18 15:45) Swelling Medications acetaminophen 325 mg capsule 325 mg PO Q6H PRN 06/03/18 [History Confirmed 06/03/18] doxycycline monohydrate 100 mg capsule 100 mg PO BID #20 cap 06/03/18 [Rx Confirmed 06/03/18] PFSH Medical History Bloody stools (Acute) Severe headache (Acute) Stomach ulcer (Acute) history of spine surgery (Acute) neck and back pain (Acute) sudden weight loss (Acute) Surgical History History of hand surgery (Acute) History of tonsillectomy (Acute) Social History Smoking Status: Current every day smoker alcohol intake: never HPI HPI Chief Complaint: Scalp infection Details: QUAN PORTER, is a 32 M who presents to the office today for initial evaluation scalp infection. Patient states approximately week ago hitting the occipital scalp region against the Corner door. Patient notes since then he has developed slowly progressively worsening erythema swelling and tenderness to the same. He has no complaints of fever, chills, sweats. He is unsure what his last TD was updated. He notes no other associated symptoms no other alleviating or aggravating factors. ROS Const Constitutional: Positive for other (ROS negative 10 other than that noted above) Exam Const General: cooperative, healthy appearing, no acute distress, comfortable Nutritional Appearance: average body habitus Orientation: alert, awake, oriented x3 HENMT Head: normal to inspection (See other below) Ears: hearing grossly normal bilaterally, external ears normal Nose: external nose normal Other: Approximately 1 cm x 3 cm erythematous lesion to right occipital scalp with center opening and scant serosanguineous discharge upon mild expression; bacitracin ointment and dressing applied after wound cleansed. Eyes General: appearance normal, both eyes and all related structures Neck Neck: normal visual inspection, full ROM, no meningeal signs, supple, lymphadenopathy (Right posterior cervical node with mild swelling/tender to palpation) Neck mass: No Thyroid: thyroid normal Lymphatic: no lymphadenopathy noted Chest Chest palpation AND inspection: normal inspection of the chest Resp Effort AND Inspection: normal respiratory effort, able to speak in complete sentences, symmetric chest movement Cardio Rate: regular rate Pulses: radial pulses present GI Inspection: normal to inspection Skin General: no rashes or lesions noted (Except see head exam above) Neuro General: alert, awake, oriented x3, gait normal Cognition: normal cognition Speech: speech normal Gait: normal gait Motor: muscle tone normal throughout Sensory Exam: no sensory deficits noted Psych Appearance: grossly normal Mental Status: mental status grossly normal Mood: congruent mood Affect: normal affect Speech and Movement: speech and movement normal Attitude: cooperative Thought Process: normal Thought Content: normal Judgment: judgment good Assessment AND Plan Problems 1. Cellulitis of occipital region of scalp L03.811 Plan Due to delayed presentation, patient encouraged to follow- up with PCP for Tdap update. Doxycycline as prescribed today. Twice daily wound care as instructed today. Follow-up PCP in 3-5 days should symptoms not improve, sooner should symptoms worsen or any other concerns develop. Patient states acknowledging understanding all of the above. This note was generated with [employer] dictation software. It may contain incorrect words, spelling, and punctuation that were not noted in checking the note before signing. Medications New: Coding Level of Care Code Off vis,est,level 3 Diagnoses Cellulitis of occipital region of scalp L03.811 06/03/18 1600 <Electronically signed by Zia AMAYA> Date Zia AMAYA Cosigner Signature: Date (if applicable) CC: ENTERIC BACT PNL PCR Collected: 05/21/2018 Status: F Source: [place] 8:00 AM [facility] REPOSITORY TYPE CODE TESTS RESULT OUT OF REFERENCE UNITS RANGE LAB PCRSHG Shigella/EIEC Not Detected DNA LAB PCRCMP Campy jejun/coli DNA Not Detected LAB PCRSTX Shiga toxin gene(s) Not Detected LAB PCRSAL Salmonella spp. Not Detected DNA Performed By: #### STLPCR #### [facility] [address] [place], [place] [address] Observed: 05/21/2018 Status: F Source: [place] OVA AND PARASITE SCR 8:00 AM [facility] REPOSITORY Sp. Request/Comment: - Specimen received in Ova and Parasite Kit. Culture Result - Negative for Giardia lamblia and Cryptosporidium species by EIA. Performed By: #### OVAPSC #### [facility] [address] [place], [place] [address] ANTHONY CBC AND DIFF Collected: 05/19/2018 Status: F Source: [place] 3:57 PM [facility] REPOSITORY TYPE CODE TESTS RESULT OUT OF REFERENCE UNITS RANGE LAB WWBC 3.70-11.00 k/uL [facility] WBC 8.66 LAB WRBC 4.20-6.00 m/uL [facility] RBC 4.49 LAB WHGB 13.0-17.0 g/dL [facility] Hemoglobin 14.8 LAB WHCT 39.0-51.0 % [facility] Hematocrit 43.3 LAB WMCV 80.0-100.0 fL [facility] MCV 96.4 LAB WMCH 26.0-34.0 pg [facility] MCH 33.0 LAB WMCHC 30.5-36.0 g/dL [facility] MCHC 34.2 LAB WRDW 11.5-15.0 % [facility] RDW 12.6 LAB WPLT 150-400 k/uL [facility] Platelet Cnt 245 LAB WMPV 9.0-12.7 fL [facility] MPV 9.0 LAB WNEUT % [facility] Neut% 74.3 LAB WLYMP % [facility] Lymp% 20.0 LAB WMONOC % [facility] Toole% 5.4 LAB WEOS % [facility] Eos% 0.1 LAB WBASO % [facility] Baso% 0.2 LAB WANEUT 1.45-7.50 k/uL [facility] Abs Neut 6.43 LAB WALYMP 1.00-4.00 k/uL [facility] Abs Lymp 1.73 LAB WAMONO <0.87 k/uL [facility] Abs Toole 0.47 LAB WAEOS <0.46 k/uL [facility] Abs Eos <0.03 LAB WABASO <0.11 k/uL [facility] Abs Baso <0.03 COMP METABOLIC PANEL Collected: 05/19/2018 Status: F Source: [place] 3:56 PM [facility] REPOSITORY TYPE CODE TESTS RESULT OUT OF REFERENCE UNITS RANGE LAB TP 6.3-8.0 g/dL Protein, Total 6.9 LAB ALB 3.9-4.9 g/dL Albumin 4.8 LAB CA 8.5-10.2 mg/dL Calcium, Total 9.5 LAB TBIL 0.2-1.3 mg/dL Bilirubin, Total 0.2 LAB ALKP 36-108 U/L Alkaline Phosphatase 58 LAB AST 14-40 U/L AST 21 LAB GLU 74-99 mg/dL Glucose 83 Result Comment: The [place] Diabetes Association (ADA) provides guidance for cutoff values for fasting glucose and random glucose. The ADA defines fasting as no caloric intake for at least 8 hours. Fas ting plasma glucose results between 100 to 125 mg/dL indicate increased risk for diabetes (prediabetes). Fasting plasma glucose results greater than or equal to 126 mg/dL meet the criteria for diagnosis of diabetes. In the absence of unequivocal hyperglycemia, results should be confirmed by repeat testing. In a patient with classic symptoms of hyperglycemia or hyperglycemic crisis, random plasma glucose results greater than or equal to 200 mg/dL meet the criteria for diagnosis of diabetes. Reference: Standards of Medical Care in Diabetes 2016, [place] Diabetes Association. Diabetes Care. 2016.39(Suppl 1). LAB BUN 9-24 mg/dL Low BUN 8 LAB CRET 0.73-1.22 mg/dL Creatinine 1.12 LAB NA 136-144 mmol/L Sodium 143 LAB K 3.7-5.1 mmol/L Potassium 4.2 LAB CL 97-105 mmol/L Chloride High 106 LAB CO2 22-30 mmol/L CO2 25 LAB AGAP 9-18 mmol/L Anion Gap 12 LAB ALT 10-54 U/L ALT 18 LAB GFRAA eGFR- Amer. >60 LAB GFRNAA . eGFR-All Other Races >60 Result Comment: eGFR (Estimated GFR) Units of measure: mL/min/1.73 meters squared eGFR is derived from the reexpressed MDRD Study equation using the following parameters: serum creatinine, age, gender and race. The creatinine assay has been calibrated to be traceable to IDMS. An eGFR <60 mL/min/1.73m2 for >3 months is consistent with chronic kidney disease. Refer to KDOQI guidelines for clinical interpretation. In patients with unstable renal function, e.g. those with acute kidney injury, the eGFR may not accurately reflect actual GFR. Performed By: #### CMP #### [facility] [address] [place], [place] [address] PROGRESS Observed: 05/19/2018 Status: COMPLETED Source: [place] 3:27 PM [facility] REPOSITORY HNO ID: [id number] Author: Junior Plascencia (Isabel) Arnaud Service: (none) Author Type: Nurse Practitioner Type: Progress Notes Filed: 05/19/2018 4:58 PM Note Text: Chief Complaint Patient presents with: Recheck: patient is still having abdominal pain, vomiting and diarrhea HPI Quan Porter is a 32 year old male who presents here today for ED follow up and persistent nausea, vomiting and diarrhea. He was seen [facility] ED, 05/17/18, reports reviewed. Given IV fluids, no imaging since no abdominal pain at the time. CBC, WBC=7.8, Neut-75.6%, Ly%-14.4, CMP all wnl and unremarkable. He notes he has missing work, afraid of losing his job. Onset of n/v/d were abrupt, reports emesis each morning, emesis in the night last night x 1. Taking Zofran with minimal benefit. Diarrhea frequency, at least 5 times/day, no noted blood or melana. Consistency is watery. Temp ranges from 99-101. Reports was 101 this morning. Has well water, no other household illness. Reports co-worker with similar sx, now improved. Denies any pets or pet exposure. He notes abdominal pain described as cramping, burning aching. Pointing to periumbilcal area and epigastric region. Not tolerating sips of water. Past medical history, appointments, medications, allergies reviewed. Previous Medical History PAST MEDICAL HISTORY Diagnosis Date - Anxiety bipolar - Chronic back pain 07/05/2013 - History of hepatitis C - PTSD (post-traumatic stress disorder) Previous Surgical History PAST SURGICAL HISTORY Procedure Laterality Date - BACK SURGERY HX - ORTHOPEDICS SURGERY HX 10-16-14 lumbar fusion - PAST SURGICAL HISTORY OF 1 wk 4 days post I and D right ring finger - TONSILLECTOMY HX Family History FAMILY HISTORY Problem Relation Age of Onset - Coronary Artery Disease Father - Hypertension Mother - Cataract Mother - Hypertension Maternal Grandmother - Cancer Maternal Grandmother breast - Cancer Maternal Uncle gastric cancer Patient Allergies ALLERGIES Allergen Reactions - Chantix [Vareniclin* Other: See Comments Liver failure, hospitalized - Methadone Other: See Comments Liver failure, hospitalized - Meloxicam Intolerance Flu like symptoms - Sulfa (Sulfonamide * Swelling Current Medications Current Outpatient Prescriptions on File Prior to Visit: ondansetron (ZOFRAN) 8 mg tablet Take 1 tablet by mouth every 8 hours as needed. No current facility-administered medications on file prior to visit. Social History Social History Marital status: Single Spouse name: Years of education: Number of children: Social History Main Topics Smoking status: Current Every Day Smoker Packs/day: 1.00 Years: 10.00 Types: Cigarettes Start date: 05/24/2014 Last attempt to quit: 12/26/2014 Smokeless tobacco: Former User Types: Chew Comment: 01/09/15: Currently using an electronic cigarette w/nicotine. 1 can chew every 2 days. Alcohol use: No Drug use: No EXAM: BP 108/70 (BP Site: Left Arm, BP Position: Sitting, BP Cuff Size: Large Adult) Pulse 72 Temp 37.3 ?C (99.2 ?F) (Tympanic) Resp 18 Wt 103.4 kg (228 lb) BMI 32.71 kg/m? General Appearance: Well appearing, alert, in no acute distress, well-hydrated, well nourished.. Eyes: Anicteric sclera. Pupils are equally round and reactive to light. Extraocular movements are intact. . Oropharynx: Lips, mucosa, and tongue normal, teeth and gums normal, oropharynx normal. Neck: Supple, no adenopathy; thyroid symmetric, normal size, no bruits. Lungs: Lungs clear to auscultation. No wheezing, rhonchi, rales. Heart: RRR without murmur, gallop, or rubs. No ectopy. Abdomen: Normal abdominal exam, Abdomen soft, Bowel sounds normal. No masses, organomegaly, Positive findings: tenderness mild generalized. No rigidity, guarding or rebound tenderness. Component Latest Ref Rng AND Units 05/19/2018 Glucose, Urine Neg mg/dL neg Bilirubin, Urine Neg neg Ketones, Urine Neg neg Specific [place], Ur 1.005 - 1.030 1.005 Hemoglobin/Blood,Ur Neg neg pH, Urine 4.5 - 8.0 6.5 Protein, Urine Neg mg/dL neg Urobilinogen, Urine Normal (<1.1) EU normal Nitrites Neg neg Leukocytes Neg neg Color/Appearance comment: pale yellow/clear Quality Check yes/no Yes Health Maintenance List DTAP,TDAP,TD(1 - Tdap) due on 12/20/2002 ONE PNEUMOVAX PRIOR TO AGE 65 due on 12/20/2002 INFLUENZA(1) due on 06/20/2018 ASSESSMENT/PLAN: 1. Combined abdominal pain, vomiting, and diarrhea - ICD9: 789.00, 787.03, 787.91, ICD10: R10.9, R19.7, R11.10 - Begin treatment with Zantac 150 mg BID - Labs as ordered for comparison from 05/15, 05/17 and today - Follow up in 2 days or sooner if worsening of symptoms - Work excuse provided for 05/18-05/20. - UA DIP B/O - ENTERIC BACTERIAL PANEL BY PCR - COMP METABOLIC PANEL - ANTHONY CBC AND DIFF - RANITIDINE 150 MG TABLET - CRYPTOSPORIDIUM AND GIARDIA ANTIGENS BY EIA SUNSHINE Harmon ATHLETIC FIELD CUSTODIAN.CIGARETTE ROLLER CNOV Observed: 05/19/2018 Status: COMPLETED Source: [place] 3:20 PM [facility] REPOSITORY Office Visit (FAMPWS) QUAN PORTER ([id number]) 1985 M Date Time Provider Department 05/19/18 3:20 PM JUNIOR LARES (ISABLE) FAMPWS During your visit today, we recorded the following information about you: Temperature Pulse Respiration Blood pressure 99.2 degrees 72/minute 18/minute 108/70 Weight 103.4 kg SUNSHINE Harmon ATHLETIC FIELD CUSTODIAN.CIGARETTE ROLLER 05/19/2018 4:58 PM Addendum Chief Complaint Patient presents with: Recheck: patient is still having abdominal pain, vomiting and diarrhea HPI Quan Porter is a 32 year old male who presents here today for ED follow up and persistent nausea, vomiting and diarrhea. He was seen [facility] ED, 05/17/18, reports reviewed. Given IV fluids, no imaging since no abdominal pain at the time. CBC, WBC=7.8, Neut-75.6%, Ly%-14.4, CMP all wnl and unremarkable. He notes he has missing work, afraid of losing his job. Onset of n/v/d were abrupt, reports emesis each morning, emesis in the night last night x 1. Taking Zofran with minimal benefit. Diarrhea frequency, at least 5 times/day, no noted blood or melana. Consistency is watery. Temp ranges from 99-101. Reports was 101 this morning. Has well water, no other household illness. Reports co-worker with similar sx, now improved. Denies any pets or pet exposure. He notes abdominal pain described as cramping, burning aching. Pointing to periumbilcal area and epigastric region. Not tolerating sips of water. Past medical history, appointments, medications, allergies reviewed. Previous Medical History PAST MEDICAL HISTORY Diagnosis Date - Anxiety bipolar - Chronic back pain 07/05/2013 - History of hepatitis C - PTSD (post-traumatic stress disorder) Previous Surgical History PAST SURGICAL HISTORY Procedure Laterality Date - BACK SURGERY HX - ORTHOPEDICS SURGERY HX 08-04-14 lumbar fusion - PAST SURGICAL HISTORY OF 1 wk 4 days post I and D right ring finger - TONSILLECTOMY HX Family History FAMILY HISTORY Problem Relation Age of Onset - Coronary Artery Disease Father - Hypertension Mother - Cataract Mother - Hypertension Maternal Grandmother - Cancer Maternal Grandmother breast - Cancer Maternal Uncle gastric cancer Patient Allergies ALLERGIES Allergen Reactions - Chantix [Vareniclin* Other: See Comments Liver failure, hospitalized - Methadone Other: See Comments Liver failure, hospitalized - Meloxicam Intolerance Flu like symptoms - Sulfa (Sulfonamide * Swelling Current Medications Current Outpatient Prescriptions on File Prior to Visit: ondansetron (ZOFRAN) 8 mg tablet Take 1 tablet by mouth every 8 hours as needed. No current facility-administered medications on file prior to visit. Social History Social History Marital status: Single Spouse name: Years of education: Number of children: Social History Main Topics Smoking status: Current Every Day Smoker Packs/day: 1.00 Years: 10.00 Types: Cigarettes Start date: 05/24/2014 Last attempt to quit: 12/26/2014 Smokeless tobacco: Former User Types: Chew Comment: 01/09/15: Currently using an electronic cigarette w/nicotine. 1 can chew every 2 days. Alcohol use: No Drug use: No EXAM: BP 108/70 (BP Site: Left Arm, BP Position: Sitting, BP Cuff Size: Large Adult) Pulse 72 Temp 37.3 ?C (99.2 ?F) (Tympanic) Resp 18 Wt 103.4 kg (228 lb) BMI 32.71 kg/m? General Appearance: Well appearing, alert, in no acute distress, well-hydrated, well nourished.. Eyes: Anicteric sclera. Pupils are equally round and reactive to light. Extraocular movements are intact. . Oropharynx: Lips, mucosa, and tongue normal, teeth and gums normal, oropharynx normal. Neck: Supple, no adenopathy; thyroid symmetric, normal size, no bruits. Lungs: Lungs clear to auscultation. No wheezing, rhonchi, rales. Heart: RRR without murmur, gallop, or rubs. No ectopy. Abdomen: Normal abdominal exam, Abdomen soft, Bowel sounds normal. No masses, organomegaly, Positive findings: tenderness mild generalized. No rigidity, guarding or rebound tenderness. Component Latest Ref Rng AND Units 05/19/2018 Glucose, Urine Neg mg/dL neg Bilirubin, Urine Neg neg Ketones, Urine Neg neg Specific [place], Ur 1.005 - 1.030 1.005 Hemoglobin/Blood,Ur Neg neg pH, Urine 4.5 - 8.0 6.5 Protein, Urine Neg mg/dL neg Urobilinogen, Urine Normal (<1.1) EU normal Nitrites Neg neg Leukocytes Neg neg Color/Appearance comment: pale yellow/clear Quality Check yes/no Yes Health Maintenance List DTAP,TDAP,TD(1 - Tdap) due on 12/20/2002 ONE PNEUMOVAX PRIOR TO AGE 65 due on 12/20/2002 INFLUENZA(1) due on 06/20/2018 ASSESSMENT/PLAN: 1. Combined abdominal pain, vomiting, and diarrhea - ICD9: 789.00, 787.03, 787.91, ICD10: R10.9, R19.7, R11.10 - Begin treatment with Zantac 150 mg BID - Labs as ordered for comparison from 05/15, 05/17 and today - Follow up in 2 days or sooner if worsening of symptoms - Work excuse provided for 05/18-05/20. - UA DIP B/O - ENTERIC BACTERIAL PANEL BY PCR - COMP METABOLIC PANEL - ANTHONY CBC AND DIFF - RANITIDINE 150 MG TABLET - CRYPTOSPORIDIUM AND GIARDIA ANTIGENS BY EIA Junior Lares, MSN ATHLETIC FIELD CUSTODIAN.CIGARETTE ROLLER Referring Provider: SELF [200] Allergies As of Date: 05/19/2018 Noted Allergy Reaction CHANTIX (VARENICLINE) 11/13/2014 14 - Other: See Comments Comments: Liver failure, hospitalized METHADONE 11/13/2014 14 - Other: See Comments Comments: Liver failure, hospitalized MELOXICAM 12/07/2013 5 - Intolerance Comments: Flu like symptoms SULFA (SULFONAMIDE ANTIBIOTICS) 07/05/2013 7 - Swelling Date Reviewed: 05/19/2018 Reviewed by: Fernie Gonzales LPN - Fully Assessed Reason for Visit: Recheck [92] Cmt: patient is still having abdominal pain, vomiting and diarrhea Primary Visit Diagnosis:Combined abdominal pain, vomiting, and diarrhea [R10.9, R19.7, R11.10] Order(s):UA DIP B/O [9755731] Order #: [id number] ENTERIC BACTERIAL PANEL BY PCR [SQSTLPCR] Order #: [id number] FUTURE COMP METABOLIC PANEL [SQCMP] Order #: [id number] FUTURE ANTHONY CBC AND DIFF [SQWCBCDF] Order #: [id number] FUTURE ranitidine (ZANTAC) 150 mg tabletTake 1 tablet by mouth twice daily.Disp: 30 tabletRfl: 0 CRYPTOSPORIDIUM AND GIARDIA ANTIGENS BY EIA [SQOVAPSC] Order #: [id number] Prescriptions as of 05/19/2018 Sig: ONDANSETRON HCL 8 MG TABLET Take 1 tablet by mouth every * RANITIDINE 150 MG TABLET Take 1 tablet by mouth twice * Problem List As Of Date 05/19/2018 Noted Resolved Diarrhea [R19.7] INVALID FOR* Chronic back pain [M54.9, G89.29] INVALID FOR* Priority: C More... Lumbar radiculopathy [M54.16] INVALID FOR* Anxiety [F41.9] Priority: F More... PTSD (post-traumatic stress disorder) [F43.10] Chronic hepatitis C without mention of hepatic * Spondylolisthesis of lumbar region [M43.16] INVALID FOR* Finger infection [L08.9] INVALID FOR*05/19/2014 SUMMARY [V999.95] INVALID FOR* Priority: A More... Acute hepatitis [B17.9] INVALID FOR* Priority: B More... Itching [L29.9] INVALID FOR* Priority: D More... Counseling and coordination of care [Z71.89] INVALID FOR* Priority: E More... Back pain [M54.9] INVALID FOR* Lumbar disc disease [M51.9] INVALID FOR* Schizophrenia, chronic condition (HCC) [F20.9] INVALID FOR* Prescriptions ordered this encounter Disp Refills Start End RANITIDINE 150 MG TABLET 30 t* 0 05/19/2018 Route: ORAL Sig: Take 1 tablet by mouth twice daily. Letter Text [place] [facility] [address] [address] TO WHOM IT MAY CONCERN: This is to confirm that Quan Porter had an appointment and was seen at the [facility] in the Department of Family Medicine GEGE Vega on 05/19/2018. Please excuse him from work 05/18 through 05/20/2018 due to acute illness. Sincerely yours, GEGE Vega Encounter Status:Closed by JUNIOR LARES CNP on 05/19/18 EMERGENCY DEPARTMENT Observed: 05/17/2018 Status: F Source: [place] SUMMARY 12:11 PM [facility] REPOSITORY [facility] Medical Records Department [address] [place] [address] Emergency Department Summary 05/17/18 1208 MR#: [id number] Acct: [id number] Name: QUAN PORTER Rep #: [id number] : 1985 32 From: Foreign Paul MD PCP: Care Physician, No Primary Status: REG ER - ER Visit Summary Date of Service: 05/17/18 Chief Complaint: Nausea vomiting diarrhea. History of Present Illness: The patient is a 32 M who presents with nausea vomiting diarrhea he did have a fever, this is been ongoing for 4 days. He has about 10 episodes of diarrhea per day, loose and watery. He has no abdominal pain. He has a coworker with similar symptoms. He has no travel history, no recent antibiotics or camping. He has a history of colitis and GI bleeding that was treated with steroids, however this is different. Physical Examination: Not appear in acute distress. Dry mucous membranes, no obvious facial deformity No C-spine tenderness supple neck. Regular rate and rhythm without any obvious murmurs Clear lungs bilaterally speaking in full sentences without any obvious respiratory distress Abdomen soft and nontender no guarding or rebound Moves all extremities without any difficulty or pain. Skin does not show any obvious rashes or lesions, no trauma. Alert oriented 3 with no gross focal deficit Emergency Department Course and Treatment: [Patient received IV fluids his symptoms significantly improved. His blood pressure, heart rate and temperature have been normal. He has no abdominal pain thus no reason to get any imaging especially with no leukocytosis. He will be discharged to follow-up with PCP. He was unable to provide a stool sample in the emergency department. Impression: Diarrhea This note was generated with [employer] dictation software. It may contain incorrect words, spelling, and punctuation that were not noted in review of the chart prior to signing ED Disposition - Plan for ED Patient: Disposition: Home or Assisted Living Chief Complaint: Nausea/Vomiting/Diarrhea Instructions: ED Vomiting Diarrhea Nonspecific Ad, ED Gastroenteritis Vs Food Poison Referrals: Care Physician,No Primary [Primary Care Provider] - 2 Days What to do if you have Problems For any increased pain, shortness of breath, bleeding, nausea or vomiting, chest pain, or any unexpected problems, contact your Primary Care Provider. Call [facility] ([phone]) or report to the closest Emergency Room. Call 911 if necessary. 05/17/18 1211 <Electronically signed by Foreign Paul MD> Date Foreign Paul MD Cosigner Signature (If Indicated): Date CC: No Primary Care Physician CBC W/DIFF, AUTOMATED Collected: 05/17/2018 Status: F Source: ANTHONY 10:55 AM [facility] REPOSITORY TYPE CODE TESTS RESULT OUT OF RANGE REFERENCE UNITS LAB L100.1000 4.4-11.0 K/mm3 Normal WBC 7.8 LAB L100.1200 4.6-6.2 M/mm3 Low RBC 4.50 LAB L100.1300 13.0-16.5 g/dl Normal HGB 14.7 LAB L100.1400 40-54 % Normal HCT 43.5 LAB L100.1500 80-94 fL High MCV 96.7 LAB L100.1600 27.0-32.0 pg High MCH 32.7 LAB L100.1700 32-36 g/gl Normal MCHC 33.8 LAB L100.1810 11.6-14.6 % Normal RDW CV 12.6 LAB L100.1820 35.1-43.9 fl High RDW SD 44.6 LAB L100.1900 150-450 K/mm3 Normal PLT 191 LAB L100.2000 6.2-12.0 fl Normal MPV 8.9 LAB L100.2100 47-70 % High NEUT% 75.6 LAB L100.2200 19-41 % Low LY% 14.4 LAB L100.2300 0-10 % Normal MONO% 9.8 LAB L100.2400 0-5 % Normal EO% 0.0 LAB L100.2500 0-1 % Normal BASO% 0.1 LAB L100.2550 0.0-0.9 % Normal IM GRAN % 0.100 Result Comment: IG% - Immature Granulocytes (promyelocytes, myelocytes and metamyelocytes) > 1% indicates that a LEFT SHIFT is Present. LAB L100.2620 2.0-7.7 X10 3/uL Normal Absolute Neut 5.9 LAB L100.2720 0.83-4.51 X10 3/ul Normal Absolute Lymph 1.12 Performed By: #### L100.0100 #### [facility] [address] [place], [place], [id number] COMPREHENSIVE METABOLIC Collected: 05/17/2018 Status: F Source: ANTHONY HERNANDEZ 10:55 AM [facility] REPOSITORY TYPE CODE TESTS RESULT OUT OF RANGE REFERENCE UNITS LAB L501.0100 74-106 mg/dL Normal GLU 99 Result Comment: Please note revised GLUCOSE reference range effective 2017. LAB L501.1000 7-18 mg/dL Normal BUN 15 LAB L501.1100 0.70-1.30 mg/dL Normal CREAT,SERUM 1.28 Result Comment: The validity of the calculated GFR AND GFRAA in patients over 70 years has not been determined. Clinical correlation is essential. LAB L501.1110 >60 mL/min Normal EST GFR 68 Result Comment: Non- GFR Calc LAB L501.1115 >60 mL/min Normal EST GFR - AA 83 Result Comment: GFR Calc LAB L501.1255 ml/min Normal Estimated CRCL 91.90 LAB L501.1300 10-20 RATIO Normal BUN/CRE 11.7 LAB L501.1500 6.4-8. g/dL Normal 2 T PROT 7.4 LAB L501.1800 3.2-5. g/dL Normal 0 ALB 3.9 LAB L501.1950 2.2-4. g/dL Normal 2 GLOB 3.5 LAB L501.2000 0.9-2. RATIO Normal 4 A/G 1.1 LAB L501.2200 8.5-10 mg/dL Normal .1 CA 9.2 LAB L501.4100 15-37 U/L Normal AST 33 LAB L501.4305 45-117 U/L Normal ALK P 67 LAB L501.4405 16-61 U/L Normal ALT 35 LAB L501.4600 0.20-1 mg/dL Normal .00 T BILI 0.40 LAB L501.5300 136-14 mmol/L Normal 5 NA 139 LAB L501.5600 3.5-5. mmol/L Normal 1 K 3.7 LAB L501.5900 98-107 mmol/L Normal CL 106 LAB L501.6100 21.0-3 mmol/L Normal 2.0 CO2 28.0 LAB L501.6200 5-15 Normal GAP 5 Performed By: #### L500.4050 #### [facility] [address] [place], [address] CBC AND DIFFERENTIAL Collected: 05/15/2018 Status: F Source: [place] 1:59 PM [facility] REPOSITORY TYPE CODE TESTS RESULT OUT OF REFERENCE UNITS RANGE LAB WBC 3.70-11.00 k/uL WBC 7.34 LAB RBC 4.20-6.00 m/uL RBC 4.61 LAB HGB 13.0-17.0 g/dL Hemoglobin 15.1 LAB HCT 39.0-51.0 % Hematocrit 45.5 LAB MCV 80.0-100.0 fL MCV 98.7 LAB MCH 26.0-34.0 pG MCH 32.8 LAB MCHC 30.5-36.0 g/dL MCHC 33.2 LAB RDWCV 11.5-15.0 % RDW-CV 12.7 LAB PLTCT 150-400 k/uL Platelet Count 224 LAB MPV 9.0-12.7 fL MPV 9.0 LAB ANEUT % Neut% 71.5 LAB AANEUT 1.45-7.50 k/uL Abs Neut 5.25 LAB ALYMP % Lymph% 20.3 LAB AALYMP 1.00-4.00 k/uL Abs Lymph 1.49 LAB AMONO % Toole% 7.8 LAB AAMONO <0.87 k/uL Abs [place]ole 0.57 LAB AEOS % Eosin% 0.1 LAB AAEOS <0.46 k/uL Abs Eosin <0.03 LAB ABASO % Baso% 0.3 LAB AABASO <0.11 k/uL Abs Baso <0.03 LAB AUNRBC 0 /100 WBC NRBCs 0.0 LAB ABNRBC <0.01 k/uL Absolute nRBC <0.01 LAB DTYP DTYPE Auto Diff Performed By: #### CBCDIF, AMYL, CMP, LIPA #### [facility] [address] [place] [id number] AMYLASE Collected: 05/15/2018 Status: F Source: [place] 1:59 PM [facility] REPOSITORY TYPE CODE TESTS RESULT OUT OF REFERENCE UNITS RANGE LAB AMYL 30-104 U/L Amylase 57 Performed By: #### CBCDIF, AMYL, CMP, LIPA #### [facility] [address] [place], [place] [address] COMP METABOLIC PANEL Collected: 05/15/2018 Status: F Source: [place] 1:59 PM [facility] TYPE CODE TESTS RESULT OUT OF REFERENCE UNITS RANGE LAB TP 6.3-8.0 g/dL Protein, Total 7.6 LAB ALB 3.9-4.9 g/dL Albumin High 5.0 LAB CA 8.5-10.2 mg/dL Calcium, Total 9.4 LAB TBIL 0.2-1.3 mg/dL Bilirubin, Total 0.6 LAB ALKP 36-108 U/L Alkaline Phosphatase 65 LAB AST 14-40 U/L AST High 65 LAB GLU 74-99 mg/dL Glucose High 111 Result Comment: The [place] Diabetes Association (ADA) provides guidance for cutoff values for fasting glucose and random glucose. The ADA defines fasting as no caloric intake for at least 8 hours. Fas ting plasma glucose results between 100 to 125 mg/dL indicate increased risk for diabetes (prediabetes). Fasting plasma glucose results greater than or equal to 126 mg/dL meet the criteria for diagnosis of diabetes. In the absence of unequivocal hyperglycemia, results should be confirmed by repeat testing. In a patient with classic symptoms of hyperglycemia or hyperglycemic crisis, random plasma glucose results greater than or equal to 200 mg/dL meet the criteria for diagnosis of diabetes. Reference: Standards of Medical Care in Diabetes 2016, [place] Diabetes Association. Diabetes Care. 2016.39(Suppl 1). LAB BUN 9-24 mg/dL BUN 13 LAB CRET 0.73-1.22 mg/dL Creatinine 1.02 LAB NA 136-144 mmol/L Sodium 139 LAB K 3.7-5.1 mmol/L Potassium 3.9 LAB CL 97-105 mmol/L Chloride 98 LAB CO2 22-30 mmol/L CO2 26 LAB AGAP 9-18 mmol/L Anion Gap 15 LAB ALT 10-54 U/L ALT 32 LAB GFRAA eGFR- Amer. >60 LAB GFRNAA . eGFR-All Other Races >60 Result Comment: eGFR (Estimated GFR) Units of measure: mL/min/1.73 meters squared eGFR is derived from the reexpressed MDRD Study equation using the following parameters: serum creatinine, age, gender and race. The creatinine assay has been calibrated to be traceable to IDMS. An eGFR <60 mL/min/1.73m2 for >3 months is consistent with chronic kidney disease. Refer to KDOQI guidelines for clinical interpretation. In patients with unstable renal function, e.g. those with acute kidney injury, the eGFR may not accurately reflect actual GFR. Performed By: #### CBCDIF, AMYL, CMP, LIPA #### [facility] [address] [place], [place] [address] LIPASE Collected: 05/15/2018 Status: F Source: [place] 1:59 PM [facility] REPOSITORY TYPE CODE TESTS RESULT OUT OF REFERENCE UNITS RANGE LAB LIPA 16-61 U/L Lipase 24 Performed By: #### CBCDIF, AMYL, CMP, LIPA #### [facility] [address] [place], [place] [address] PROGRESS Observed: 05/15/2018 Status: COMPLETED Source: [place] 1:12 PM [facility] REPOSITORY HNO ID: [id number] Author: Leti Kearns Service: (none) Author Type: Nurse Practitioner Type: Progress Notes Filed: 05/15/2018 2:31 PM Note Text: This is a 32 year old male who presents today with: Patient presents with: Hospital Follow Up: having fevers, vomiting HISTORY OF PRESENT ILLNESS: Quan Porter is a 32 year old male. Patient presents with: Hospital Follow Up: having fevers, vomiting Pt presents today with complaint of fevers and vomiting. Started 2 days ago. Can barely eat. Refers that he is drinking a little bit. Refers that he has been trying to stay hydrated. He reports he has been running fevers. Has been taking tylenol. Currently afebrile. + fatigue. + myalgias. Refers that diarrhea has been off and on for awhile -- the last year. Refers that he'll be shitting blood. Refers other times stool will be black. States there is no consistency. Refers that he had a colonoscopy 6 months ago at [facility]. Refers that it was normal and he had been shitting blood for 6-7 days prior to that, but was not able to identify a cause. Only record in chart is EGD. Will try to obtain. He has been evaluated by several GI providers without cause identified for his symptoms. Refers that he has hasn't had a stool for the last couple of days. Took 3 imodium a couple of days ago. Refers last vomitus was this morning. Refers the most he's kept down in the last couple of days is pop-tarts. Does have a sore throat and cough. He was at the ER a couple of weeks ago. Refers at the ER, doctor told him that he had pancreas problem and colitis. CT scan was normal. Labs were normal. He had also been seen by Dr. Silverman at [facility] -- he was on phenobarbital. States hasn't been on that for 6 months. Refers that helped his stomach some. He has seen multiple providers with GI symptoms. He has multiple testing done without found cause. He has been on multiple medications without success. PAST MEDICAL HISTORY: PAST MEDICAL HISTORY Diagnosis Date - Anxiety bipolar - Chronic back pain 07/05/2013 - History of hepatitis C - PTSD (post-traumatic stress disorder) PAST SURGICAL HISTORY Procedure Laterality Date - BACK SURGERY HX - ORTHOPEDICS SURGERY HX 08-04-14 lumbar fusion - PAST SURGICAL HISTORY OF 1 wk 4 days post I and D right ring finger - TONSILLECTOMY HX ALLERGIES Chantix [Varenicline]; Methadone; Meloxicam; Sulfa (Sulfonamide Antibiotics) MEDICATIONS No current outpatient prescriptions on file. No current facility-administered medications for this visit. FAMILY HISTORY Problem Relation Age of Onset - Coronary Artery Disease Father - Hypertension Mother - Cataract Mother - Hypertension Maternal Grandmother - Cancer Maternal Grandmother breast - Cancer Maternal Uncle gastric cancer Social History Marital status: Single Spouse name: Years of education: Number of children: Social History Main Topics Smoking status: Current Every Day Smoker Packs/day: 1.00 Years: 10.00 Types: Cigarettes Start date: 05/24/2014 Last attempt to quit: 12/26/2014 Smokeless tobacco: Current User Types: Chew Comment: 01/09/15: Currently using an electronic cigarette w/nicotine. 1 can chew every 2 days. Alcohol use: No Drug use: No EXAM: BP 134/80 (BP Site: Right Arm, BP Position: Sitting, BP Cuff Size: Large Adult) Pulse 74 Temp 37 ?C (98.6 ?F) (Right Tympanic) Resp 12 Wt 103 kg (227 lb) BMI 32.57 kg/m? PHYSICAL EXAM: General Appearance: Well appearing, alert, in no acute distress, well-hydrated, well nourished.. Skin: Skin color, texture, turgor normal, no suspicious rashes or lesions. Head: Normocephalic, no masses, lesions, tenderness or abnormalities. Eyes: Anicteric sclera. Pupils are equally round and reactive to light. Extraocular movements are intact. . Ears: External ears normal, canals clear, Normal TMs bilaterally. Oropharynx: Lips, mucosa, and tongue normal, teeth and gums normal, oropharynx normal. Neck: Supple, no adenopathy; thyroid symmetric, normal size. Lungs: Lungs clear to auscultation. No wheezing, rhonchi, rales. Heart: RRR without murmur, gallop, or rubs. No ectopy. Abdomen: Abdomen soft. Tenderness in the left upper quad and a little in the left lower quad. Bowel sounds normal. No masses, organomegaly. Extremities: No deformities, edema, skin discoloration, clubbing or cyanosis. Good capillary refill. Neurologic: Gait normal. ASSESSMENT/PLAN: 1. Nausea - ICD9: 787.02, ICD10: R11.0 (primary diagnosis) Suspect that he may have a gastroenteritis on top of his chronic GI problems. Will start zofran. Get labs. Discussed that if anything worsens - -he should proceed to ER. - ONDANSETRON HCL 8 MG TABLET - CBC + DIFF - AMYLASE BLD - LIPASE BLD - COMP METABOLIC PANEL 2. Left upper quadrant pain - ICD9: 789.02, ICD10: R10.12 -Labs as above. Encouraged to follow-up with GI. Discussed treatment plan and patient voices understanding. Patient's questions answered appropriately. Medications and potential side effects were discussed and patient voices understanding. Return to the office as scheduled or as needed for worsening/no improvement. Leti Kearns APRN.GERARDO CNOV Observed: 05/15/2018 Status: COMPLETED Source: [place] 1:00 PM [facility] REPOSITORY Office Visit (FAMPWS) QUAN PORTER ([id number]) 1985 M Date Time Provider Department 05/15/18 1:00 PM LETI KEARNS (GERARDO) CHRIST During your visit today, we recorded the following information about you: Temperature Pulse Respiration Blood pressure 98.6 degrees 74/minute 12/minute 134/80 Weight 103 kg Leti Kearns APRN.CNP 05/15/2018 2:31 PM Signed This is a 32 year old male who presents today with: Patient presents with: Hospital Follow Up: having fevers, vomiting HISTORY OF PRESENT ILLNESS: Quan Porter is a 32 year old male. Patient presents with: Hospital Follow Up: having fevers, vomiting Pt presents today with complaint of fevers and vomiting. Started 2 days ago. Can barely eat. Refers that he is drinking a little bit. Refers that he has been trying to stay hydrated. He reports he has been running fevers. Has been taking tylenol. Currently afebrile. + fatigue. + myalgias. Refers that diarrhea has been off and on for awhile -- the last year. Refers that he'll be shitting blood. Refers other times stool will be black. States there is no consistency. Refers that he had a colonoscopy 6 months ago at [facility]. Refers that it was normal and he had been shitting blood for 6-7 days prior to that, but was not able to identify a cause. Only record in chart is EGD. Will try to obtain. He has been evaluated by several GI providers without cause identified for his symptoms. Refers that he has hasn't had a stool for the last couple of days. Took 3 imodium a couple of days ago. Refers last vomitus was this morning. Refers the most he's kept down in the last couple of days is pop-tarts. Does have a sore throat and cough. He was at the ER a couple of weeks ago. Refers at the ER, doctor told him that he had pancreas problem and colitis. CT scan was normal. Labs were normal. He had also been seen by Dr. Silverman at [facility] -- he was on phenobarbital. States hasn't been on that for 6 months. Refers that helped his stomach some. He has seen multiple providers with GI symptoms. He has multiple testing done without found cause. He has been on multiple medications without success. PAST MEDICAL HISTORY: PAST MEDICAL HISTORY Diagnosis Date - Anxiety bipolar - Chronic back pain 07/05/2013 - History of hepatitis C - PTSD (post-traumatic stress disorder) PAST SURGICAL HISTORY Procedure Laterality Date - BACK SURGERY HX - ORTHOPEDICS SURGERY HX 08-04-14 lumbar fusion - PAST SURGICAL HISTORY OF 1 wk 4 days post I and D right ring finger - TONSILLECTOMY HX ALLERGIES Chantix [Varenicline]; Methadone; Meloxicam; Sulfa (Sulfonamide Antibiotics) MEDICATIONS No current outpatient prescriptions on file. No current facility-administered medications for this visit. FAMILY HISTORY Problem Relation Age of Onset - Coronary Artery Disease Father - Hypertension Mother - Cataract Mother - Hypertension Maternal Grandmother - Cancer Maternal Grandmother breast - Cancer Maternal Uncle gastric cancer Social History Marital status: Single Spouse name: Years of education: Number of children: Social History Main Topics Smoking status: Current Every Day Smoker Packs/day: 1.00 Years: 10.00 Types: Cigarettes Start date: 05/24/2014 Last attempt to quit: 12/26/2014 Smokeless tobacco: Current User Types: Chew Comment: 01/09/15: Currently using an electronic cigarette w/nicotine. 1 can chew every 2 days. Alcohol use: No Drug use: No EXAM: BP 134/80 (BP Site: Right Arm, BP Position: Sitting, BP Cuff Size: Large Adult) Pulse 74 Temp 37 ?C (98.6 ?F) (Right Tympanic) Resp 12 Wt 103 kg (227 lb) BMI 32.57 kg/m? PHYSICAL EXAM: General Appearance: Well appearing, alert, in no acute distress, well-hydrated, well nourished.. Skin: Skin color, texture, turgor normal, no suspicious rashes or lesions. Head: Normocephalic, no masses, lesions, tenderness or abnormalities. Eyes: Anicteric sclera. Pupils are equally round and reactive to light. Extraocular movements are intact. . Ears: External ears normal, canals clear, Normal TMs bilaterally. Oropharynx: Lips, mucosa, and tongue normal, teeth and gums normal, oropharynx normal. Neck: Supple, no adenopathy; thyroid symmetric, normal size. Lungs: Lungs clear to auscultation. No wheezing, rhonchi, rales. Heart: RRR without murmur, gallop, or rubs. No ectopy. Abdomen: Abdomen soft. Tenderness in the left upper quad and a little in the left lower quad. Bowel sounds normal. No masses, organomegaly. Extremities: No deformities, edema, skin discoloration, clubbing or cyanosis. Good capillary refill. Neurologic: Gait normal. ASSESSMENT/PLAN: 1. Nausea - ICD9: 787.02, ICD10: R11.0 (primary diagnosis) Suspect that he may have a gastroenteritis on top of his chronic GI problems. Will start zofran. Get labs. Discussed that if anything worsens - -he should proceed to ER. - ONDANSETRON HCL 8 MG TABLET - CBC + DIFF - AMYLASE BLD - LIPASE BLD - COMP METABOLIC PANEL 2. Left upper quadrant pain - ICD9: 789.02, ICD10: R10.12 -Labs as above. Encouraged to follow-up with GI. Discussed treatment plan and patient voices understanding. Patient's questions answered appropriately. Medications and potential side effects were discussed and patient voices understanding. Return to the office as scheduled or as needed for worsening/no improvement. BRAYDON Jansen APRN.CNP 05/15/2018 1:44 PM Signed 1. Labs today. 2. Zofran as needed for nausea. 3. To ER if anything worsens over the weekend. 4. Return to GI for further eval and treat. Referring Provider: SELF [[id number]] Allergies As of Date: 05/15/2018 Noted Allergy Reaction CHANTIX (VARENICLINE) 11/13/2014 14 - Other: See Comments Comments: Liver failure, hospitalized METHADONE 11/13/2014 14 - Other: See Comments Comments: Liver failure, hospitalized MELOXICAM 12/07/2013 5 - Intolerance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 like symptoms SULFA (SULFONAMIDE ANTIBIOTICS) 07/05/2013 7 - Swelling Date Reviewed: 11/12/2017 Reviewed by: Nirav Tovar LPN - Fully Assessed Reason for Visit: Discussion [813] Cmt: wants 2nd opinion for vomiting, rectal bleeding; saw Gastro, colonoscopy completed in September, headache and abd pain since Reason For Visit History Recorded Primary Visit Diagnosis:Generalized abdominal pain [R10.84] Order(s):CONSULT TO GASTROENTEROLOGY [2510] Order #: [id number]: 1 Problem List As Of Date 11/12/2017 Noted Resolved Diarrhea [R19.7] INVALID FOR* Chronic back pain [M54.9, G89.29] INVALID FOR* Priority: C More... Lumbar radiculopathy [M54.16] INVALID FOR* Anxiety [F41.9] Priority: F More... PTSD (post-traumatic stress disorder) [F43.10] Chronic hepatitis C without mention of hepatic * Spondylolisthesis of lumbar region [M43.16] INVALID FOR* Finger infection [L08.9] INVALID FOR*05/19/2014 SUMMARY [V999.95] INVALID FOR* Priority: A More... Acute hepatitis [B17.9] INVALID FOR* Priority: B More... Itching [L29.9] INVALID FOR* Priority: D More... Counseling and coordination of care [Z71.89] INVALID FOR* Priority: E More... Back pain [M54.9] INVALID FOR* Lumbar disc disease [M51.9] INVALID FOR* Schizophrenia, chronic condition (HCC) [F20.9] INVALID FOR* Medications Discontinued During This Encounter acetaminophen (TYLENOL EXTRA STRENGT* 11/12/2017 Class: Historical Med Route: ORAL Sig: Take 1,000 mg by mouth every 8 hours as needed. Disc: Reason for discontinue is not on file. ibuprofen (MOTRIN) 200 mg tablet 11/12/2017 Class: Historical Med Route: ORAL Sig: Take 200 mg by mouth every 6 hours as needed. Disc: Reason for discontinue is not on file. metroNIDAZOLE (FLAGYL) 250 mg tablet 21 t* 0 11/07/2017 11/12/2017 Route: ORAL Sig: Take 1 tablet by mouth three times daily for 7 days. Disc: Reason for discontinue is not on file. ciprofloxacin HCl (CIPRO) 500 mg tab* 20 t* 0 11/07/2017 11/12/2017 Route: ORAL Sig: Take 1 tablet by mouth twice daily for 10 days. Disc: Reason for discontinue is not on file. metoclopramide HCl (REGLAN) 10 mg ta* 60 t* 1 11/10/2017 11/12/2017 Route: ORAL Sig: Take 1 tablet by mouth before meals and at bedtime. 30min before meals. Disc: Reason for discontinue is not on file. Encounter Status:Closed by MINNIE VALENCIA CNP on 11/12/17 DISCHARGE INSTRUCTION Observed: 11/11/2017 Status: F Source: ANTHONY 12:11 PM [facility] REPOSITORY [facility] Medical Records Department [address] [place] [address] Discharge Instruction 11/11/17 1210 MR#: [id number] Acct: [id number] Name: QUAN PORTER Rep #: [id number] : 1985 31 From: Kinga Bloom MD PCP: Koby Olmstead MD Status: REG ER ED Disposition - Plan for ED Patient: Chief Complaint: Shortness of Breath Instructions: ED Chest Pain Costochondritis Prescriptions: Cyclobenzaprine [Flexeril] 10 mg PO TID PRN #20 tablet PRN Reason: Muscle Spasm Referrals: Koby Olmstead MD [Primary Care Provider] - What to do if you have Problems For any increased pain, shortness of breath, bleeding, nausea or vomiting, chest pain, or any unexpected problems, contact your Primary Care Provider. Call [facility] ([phone]) or report to the closest Emergency Room. Call 911 if necessary. 11/11/17 1211 <Electronically signed by Kinga Bloom MD> Date Kinga Bloom MD Cosigner Signature (If Indicated): Date CC: Koby Olmstead MD EMERGENCY DEPARTMENT Observed: 11/11/2017 Status: F Source: ANTHONY SUMMARY 12:09 PM [facility] REPOSITORY [facility] Medical Records Department [address] [facility] [address] Emergency Department Summary 11/11/17 1044 MR#: [id number] Acct: [id number] Name: QUAN PORTER Rep #: [id number] : 1985 31 From: Kinga Bloom MD PCP: Koby Olmstead MD Status: REG ER - ER Visit Summary Date of Service: 11/11/17 Chief Complaint: Chest pain History of Present Illness: The patient is a 31 M presenting with sharp chest pain 3 days. Patient states this is a constant pain. He was seen in the ED yesterday for similar complaints. He denies any recent injury. He has had a cough. He was recently admitted for abdominal pain. He is still taking Cipro and Flagyl. Denies fever or other complaints. He states he is taking ibuprofen and Tylenol at home. Physical Examination: Vitals are stable. Patient is afebrile. Alert no acute distress. HEENT exam is unremarkable. Neck is supple. Lungs are clear and equal bilaterally. Point tenderness left chest, no crepitus Heart is regular rate and rhythm. Abdomen is soft nontender nondistended. Extremities are unremarkable. Skin is warm and dry. No focal neurologic deficit. Remainder of exam is unremarkable. Emergency Department Course and Treatment: EKG is sinus rate of 64 with no acute ischemic changes. Patient was in the ED yesterday and had CBC, chemistry, troponin, d-dimer, chest x-ray which were unremarkable. He has point tenderness to the left side of the chest. He is given Toradol IM with some improvement. Influenza is negative. He is given prescription for flexeril. Advised to follow-up with primary care physician. Advised return to ED if worsening complaints. Disposition: Discharged home Impression: Chest wall pain This note was generated with [employer] dictation software. It may contain incorrect words, spelling, and punctuation that were not noted in review of the chart prior to signing ED Disposition - Plan for ED Patient: Chief Complaint: Shortness of Breath Referrals: Koby Olmstead MD [Primary Care Provider] - What to do if you have Problems For any increased pain, shortness of breath, bleeding, nausea or vomiting, chest pain, or any unexpected problems, contact your Primary Care Provider. Call [facility] ([phone]) or report to the closest Emergency Room. Call 911 if necessary. 11/11/17 1209 <Electronically signed by Kinga Bloom MD> Date Kinga Bloom MD Cosigner Signature (If Indicated): Date CC: Koby Olmstead MD Observed: 11/11/2017 Status: F Source: [place] INFLUENZA A+B (RAPID 10:45 AM [facility]) REPOSITORY FLU A/B Rapid Negative test results should be confirmed by culture. Order Rapid Viral Culture for Influenzae A+B ([id number]) if clinically indicated. Influenza Ag, Direct Presumptive NEGATIVE for Influenza A/B Antigen (See Note) Performed By: #### M101.0101 #### [facility] [address] [facility] [place], [address] CBC W/DIFF, AUTOMATED Collected: 11/10/2017 Status: F Source: [place] 3:42 PM [facility] REPOSITORY TYPE CODE TESTS RESULT OUT OF RANGE REFERENCE UNITS LAB L100.1000 4.4-11.0 K/mm3 Normal WBC 8.5 LAB L100.1200 4.6-6.2 M/mm3 Low RBC 4.37 LAB L100.1300 13.0-16.5 g/dl Normal HGB 14.5 LAB L100.1400 40-54 % Normal HCT 41.6 LAB L100.1500 80-94 fL High MCV 95.2 LAB L100.1600 27.0-32.0 pg High MCH 33.2 LAB L100.1700 32-36 g/gl Normal MCHC 34.9 LAB L100.1810 11.6-14.6 % Normal RDW CV 13.4 LAB L100.1820 35.1-43.9 fl High RDW SD 45.2 LAB L100.1900 150-450 K/mm3 Normal PLT 281 LAB L100.2000 6.2-12.0 fl Normal MPV 9.5 LAB L100.2100 47-70 % Normal NEUT% 69.3 LAB L100.2200 19-41 % Normal LY% 24.5 LAB L100.2300 0-10 % Normal MONO% 5.8 LAB L100.2400 0-5 % Normal EO% 0.1 LAB L100.2500 0-1 % Normal BASO% 0.2 LAB L100.2550 0.0-0.9 % Normal IM GRAN % 0.100 Result Comment: IG% - Immature Granulocytes (promyelocytes, myelocytes and metamyelocytes) > 1% indicates that a LEFT SHIFT is Present. LAB L100.2620 2.0-7.7 X10 3/uL Normal Absolute Neut 5.9 LAB L100.2720 0.83-4.51 X10 3/ul Normal Absolute Lymph 2.09 Performed By: #### L100.0100 #### [facility] [address] [place], [place], [address] BASIC METABOLIC Collected: 11/10/2017 Status: F Source: [place] PROFILE (BMP) 3:42 PM [facility] REPOSITORY Order Comment: 'TROP' Serial specimen #1, #2, #3, or #4: 1 TYPE CODE TESTS RESULT OUT OF RANGE REFERENCE UNITS LAB L501.0100 70-110 mg/dL Normal GLU 107 LAB L501.1000 7-18 mg/dL Normal BUN 10 LAB L501.1100 0.70-1.30 mg/dL Normal 0.95 CREAT,SERUM Result Comment: The validity of the calculated GFR AND GFRAA in patients over 70 years has not been determined. Clinical correlation is essential. LAB L501.1110 >60 mL/min Normal EST GFR 97 Result Comment: Non- GFR Calc LAB L501.1115 >60 mL/min Normal EST GFR - AA 117 Result Comment: GFR Calc LAB L501.1255 ml/min Normal Estimated CRCL 124.99 LAB L501.1300 10-20 RATIO BUN/CRE Normal 10.6 LAB L501.2200 8.5-10 mg/dL .1 CA Normal 8.9 LAB L501.5300 136-14 mmol/L 5 NA Normal 143 LAB L501.5600 3.5-5. mmol/L Low 1 K 3.3 LAB L501.5900 98-107 mmol/L CL Normal 107 LAB L501.6100 21.0-3 mmol/L 2.0 CO2 Normal 26.0 LAB L501.6200 5-15 GAP Normal 10 Performed By: #### L500.2500, L501.4010 #### [facility] [address] [place], [place], [address] TROPONIN-I Collected: 11/10/2017 Status: F Source: [place] 3:42 PM [facility] REPOSITORY Order Comment: 'TROP' Serial specimen #1, #2, #3, or #4: 1 TYPE CODE TESTS RESULT OUT OF RANGE REFERENCE UNITS LAB L501.4010 <0.06 ng/mL Normal < 0.02 TROPONIN-I Result Comment: TROPONIN-I EXPECTED VALUES <0.05 NEGATIVE 0.06 - 0.59 AT RISK OF AR > OR = 0.60 SUGGEST AR Performed By: #### L500.2500, L501.4010 #### [facility] [address], [address] ALLERGIES ALLERGIES DATE TYPE / NAME / CODE REACTION SEVERITY SOURCE CODE 08/27/2018 Drug Sulfa Swelling Unknown [place] Allergy/41 (Sulfonamide Community 8987764( Antibiotics)/F[facility] 946654(RXNORM) Repository 08/27/2018 Drug methadone/N040626 Other Unknown [place] Allergy/41 628(RXNORM) [facility] 08/27/2018 Drug varenicline/F0060 Other Unknown [place] Allergy/41 87546(RXNORM) Community 2878102([facility] CT) Repository 11/13/2014 DRUG VARENICLINE OTHER: SEE [place] [address] [address] [place] 4782209( Repository OMED CT) 11/13/2014 DRUG METHADONE OTHER: SEE C [place] [address] [address] [place] 9217603( Repository OMED CT) 12/07/2013 DRUG MELOXICAM INTOLERANCE [place] [address] [address] [place] 4730687( Repository OMED CT) 07/05/2013 Drug SULFA SWELLING [facility] Class/4195 (SULFONAMIDE [place] [address](SNOM ANTIBIOTICS) Repository ED CT) Drug/92885 methadone [facility] 1003([facility]) System Repository Drug/93944 ketorolac [facility] 1003([facility]) System Repository Drug/61677 meloxicam [facility] 1003([facility]) System Repository Drug/93613 sulfa drugs [facility] 1003([facility]) System Repository Drug/31430 Chantix [facility] 1003([facility]) System Repository ENCOUNTERS ENCOUNTERS ADMIT/DISCHARGE ACCOUNT ADMITTING ENCOUNTER LOCATION SOURCE NUMBER CLASS 10/02/2018 [id number] Ambulatory [facility] ing:LABSPEC Repository 09/30/2018 [id number] Ambulatory [facility] ing:LAB Repository 09/30/2018/09/30/20 [id number] Sharan Whitehead Rast[facility]arian [facility] [address] [place] [address] ing:CD:[id number] [facility] 7151Room: Repository CD:[id number] 09/29/2018 [id number] Ambulatory [facility] ing:MTRAD Repository 08/27/2018/08/27/20 [id number] Ambulatory BMSBuilding:Yarely Cruz 18 MS.NOW [facility]ly [facility] Hospital Repository 08/24/2018/08/24/20 [id number] Emergency [address] ing:ED Repository 06/27/2018/06/27/20 [id number] Emergency [address] ing:ED Repository 06/27/2018/06/29/20 [id number] Ambulatory [address] Repository 06/23/2018/06/23/20 [id number] Emergency [address] ing:ED Repository 06/15/2018/06/16/20 [id number] Ambulatory [address] Repository 06/10/2018 [id number] Ambulatory BMSBuilding:Yarely Cruz MS.BIM [facility] Hospital Repository 06/03/2018/06/03/20 [id number] Ambulatory BMSBuilding:B [place] 18 [place] [facility] Hospital Repository 06/03/2018/06/03/20 [id number] Ambulatory BMSBuilding:B Anthony 18 [facility] Repository 05/19/2018/05/19/20 [id number] Ambulatory [address] Repository 05/19/2018/05/20/20 [id number] Ambulatory [address] Repository 05/17/2018/05/17/20 [id number] Emergency [place] Anthony 18 [facility] ing:ED Repository 05/15/2018/05/15/20 [id number] Ambulatory [address] Repository 05/15/2018/05/18/20 [id number] Ambulatory [address] Repository 04/28/2018/04/28/20 [id number] Emergency [place] Anthony 18 [facility] ing:ED Repository 12/10/2017/12/11/19 [id number] Ambulatory [address] Repository 12/02/2017/12/02/19 [id number] Ambulatory [address] Repository 12/01/2017/12/01/19 [id number] Emergency [place] 18 [facility] ing:ED Repository 11/26/2017/11/26/19 [id number] Ambulatory [address] Repository 11/19/2017/11/19/19 [id number] Ambulatory [address] Repository 11/12/2017/11/12/19 [id number] Ambulatory [address] Repository 11/11/2017/11/11/19 [id number] Emergency [place] 18 [facility] ing:ED Repository 11/10/2017/11/10/19 [id number] Emergency [place] Anthony 18 [facility] ing:ED Repository PAYERS PAYERS ENCOUNTER GUARANTOR PAYER SUBSCRIBER SOURCE 10/02/2018 QUAN [place]ido Primary QUAN [id number] Insurance:[facility]ADRIEL SANDERSON: [facility] Number: [id number], [place] [id number] Repository [address]Yhp: ([phone]) Date:2018-10-02P O [phone] () [address]ATTN: [place] [address]TC: 10/02/2018 Secondary NOT GIVENUNK [place] Insurance:SELF PAY [facility] Number: Effective Repository Date:2018-10-02 09/30/2018 LUKE E Primary LUKE E [place] [id number] Insurance:CARESOURCEP ELKANICKDOB: [facility] Number: [id number] [place]una, [place] [id number] Repository [address]Ywm: [phone]) Date:2018-09-30 O [phone] () [address]ATTN: [place] [address]CX: 09/30/2018 Secondary NOT GIVENUNK [place] Insurance:SELF PAY [facility] Number: Effective Repository Date:2018-09-30 09/30/2018 LUKE E Primary LUKE E [facility]ast[facility]arian ELKANICKDOB: Insurance:CARESOURCE [facility]: [facility] [id number] [facility] Number: [id number] [facility] Effective [address] [place] [address] Date:2018-09-30 [place] [address]Zda: [id number] [address]Gxe: Name:CD:[id number] () [address] [place] [address] ()Tel: [phone]: [phone]) [phone] 09/29/2018 LUKE E Primary LUKE E Anthony [id number] Insurance:CARESOURCEP ELKANICKDOB: [facility] Number: [id number] Laguna, [place] [id number] Repository [address]Nuj: [phone]) Date:2018-09-29 O [phone] () [address]ATTN: [place] [address]GB: 09/29/2018 Secondary NOT GIVENUNK [place] Insurance:SELF PAY [facility] Number: Effective Repository Date:2018-09-29 08/27/2018 LUKE E Primary LUKE E [place] [id number] Insurance:CARESOURCEP ELKANICKDOB: [facility] Number: [id number] [place]una, [place] [id number] Repository [address]Hrk: ([phone]) Date:2018-08-27 O [phone] (HP) [address]ATTN: [place] [address]TU: 08/27/2018 Secondary NOT GIVENUNK [place] Insurance:SELF PAY [facility] Number: Effective Repository Date:2018-08-27 08/24/2018 LUKE E Primary LUKE E [place] [id number] Insurance:[id number] ELKANICKDOB: [facility] Number: [id number] [place]una, [place] [id number] Repository [address]Lhw: [phone]) Date: [phone] () [place], [place] [address]UI: 08/24/2018 Secondary LUKE E [place] Insurance:CARESOURCEP ELKANICKDOB: [facility] Number: [id number] Hospital [id number] Repository Date:2018-08-24 O [address]ATTN: [place] [address]BD: 08/24/2018 Tertiary NOT GIVENUNK [place] Insurance:SELF PAY [facility] Number: Effective Repository Date:2018-08-24 06/27/2018 LUKE E Primary LUKE E [place] [id number] Insurance:CARESOURCEP ELKANICKDOB: [facility] Number: [id number] Laguna, [place] [id number] Repository [address]Ddp: ([phone]) Date:2018-06-27 O [phone] (HP) [address]ATTN: [place] [address]LH: 06/27/2018 Secondary NOT GIVENUNK [place] Insurance:SELF PAY [facility] Number: Effective Repository Date:2018-06-27 06/23/2018 LUKE E Primary LUKE E [place] [id number] Insurance:CARESOURCEP ELKANICKDOB: [facility] Number: [id number] [place]una, [place] [id number] Repository [address]Pow: ([phone]) Date:2018-06-23P O [phone] () [address]ATTN: [place] [address]FH: 06/23/2018 Secondary NOT GIVENUNK Anthony Insurance:SELF PAY [facility] Number: Effective Repository Date:2018-06-23 06/10/2018 LUKE E Primary LUKE E [place] [id number] Insurance:CARESOURCEP ELKANICKDOB: [facility] Number: [id number] [place]una, [place] [id number] Repository [address]Nux: ([phone]) Date:2018-05-13P O [phone] () [address]ATTN: [place] [address]MA: 06/10/2018 Secondary NOT GIVENUNK [place] Insurance:SELF PAY [facility] Number: Effective Repository Date:2018-05-13 06/03/2018 LUKE E Primary LUKE E [place] [id number] Insurance:CARESOURCEP ELKANICKDOB: [facility] Number: [id number] [place], [place] [id number] Repository [address]Iql: ([phone]) Date:2018-06-03P O [phone] () [address]ATTN: [place] [address]RN: 06/03/2018 Secondary NOT GIVENUNK [place] Insurance:SELF PAY [facility] Number: Effective Repository Date:2018-06-03 06/03/2018 LUKE E Primary NOT GIVENUNK [place] [id number] Insurance:SELF PAY [place] Number: Effective Repository [phone]: ([phone]) Date:2018-06-03 [phone] (HP) 05/17/2018 LUKE E Primary LUKE E [place] [id number] Insurance:CARESOURCEP ELKANICKDOB: [facility] Number: [id number] [place], [place] [id number] Repository [address]Nms: ([phone]) Date:2018-05-17P O [phone] () [address]ATTN: [place] [address]XB: 05/17/2018 Secondary NOT GIVENUNK [place] Insurance:SELF PAY [facility] Number: Effective Repository Date:2018-05-17 04/28/2018 LUKE E Primary LUKE E [place] [id number] Insurance:CARESOURCEP ELKANICKDOB: [facility] Number: [id number] [place]una, [place] [id number] Repository [address]Bvl: ([phone]) Date:2018-04-28P O [phone] () [address]ATTN: [place] [address]HI: 04/28/2018 Secondary NOT GIVENUNK Anthony Insurance:SELF PAY [facility] Number: Effective Repository Date:2018-04-28 12/01/2017 LUKE E Primary LUKE E Anthony [id number] Insurance:CARESOURCEP ELKANICKDOB: [facility] Number: [id number] Laguna, [place] [id number] Repository [address]Zrj: ([phone]) Date:2017-12-01 O [phone] () [address]ATTN: [place] [address]NR: 12/01/2017 Secondary NOT GIVENUNK [place] Insurance:SELF PAY [facility] Number: Effective Repository Date:2017-12-01 11/11/2017 LUKE E Primary LUKE E Anthony [id number] Insurance:CARESOURCEP ELKANICKDOB: [facility] Number: [id number] Laguna, [place] [id number] Repository [address]Xsb: ([phone]) Date:2017-11-11P O [phone] () [address]ATTN: [place] [address]OI: 11/11/2017 Secondary NOT GIVENUNK Anthony Insurance:SELF PAY [facility] Number: Effective Repository Date:2017-11-11 11/10/2017 LUKE E Primary LUKE E Anthony [id number] Insurance:[facility] FERCHOB: [facility] Number: [id number] [place], [place] [id number] Repository [id number]: [phone] Date:2017-11-10P O [phone] () [address]ATTN: [place] [address]IL: 11/10/2017 Secondary NOT GIVENUNK [place] Insurance:SELF PAY [facility] Number: Effective Repository Date:2017-11-10
== END ==
PROVIDERS: Family Provider Family Medicine; PCP Family Medicine; Referring Provider Nurse Practitioner Adult Health; Visit Provider Nurse Practitioner Adult Health
DX: M54.5 Low back pain (principal)
CPT/HCPCS: 72110

== ENCOUNTER → 2018-09-30 16:35 | Outpatient (CLI) | payer MEDICAID, SELFPAY ==
[2018-08-27 16:51] VITALS: BMI 29.7
[2018-09-30 17:57] LABS: ALB/GLOB Ratio 1.2 RATIO (0.9-2.4); AST(SGOT) 19 U/L (15-37); Alanine Aminotransfer ALT/SGPT 22 U/L (16-61); Albumin, Serum 4.2 g/dL (3.2-5.0); Alkaline Phosphatase 78 U/L (45-117); Anion Gap 10 (5-15); BUN 11 mg/dL (7-18); BUN/Creat Ratio 8.6 RATIO (10-20); Calcium,Total 8.8 mg/dL (8.5-10.1); Chloride 106 mmol/L (98-107); Creatinine, Serum 1.28 mg/dL (0.70-1.30); EST Glomerular Filtration Rate 68 mL/min (>60); Est Glom Filt Rate - Afr Amer 82 mL/min (>60); Globulin 3.5 g/dL (2.2-4.2); Glucose 118 mg/dL (74-106); Magnesium 2.4 mg/dL (1.6-2.6); Potassium 3.6 mmol/L (3.5-5.1); Protein, Total 7.7 g/dL (6.4-8.2); Sodium Level 143 mmol/L (136-145)
--- OUTSIDE RECORDS SUMMARY | 2018-11-16 21:59 | XMS RPT_ITS ---
:1985 Author Organization OHIP Support Name Relationship Address Phone IMELDA RIVERAE Unavailable [address] + [place] [address] CANDLE, SCHUYLER Unavailable [address] + [place] [address] TIMST Unavailable [address] + [place] [address] NICOLE, AVI Unavailable [address] + [place] [address] CANDLE, SCHUYLER Unavailable [address] + [place] [address] TIMST Unavailable [address] + [place] [address] NICOLE, AVI Unavailable [address] + [place] [address] CANDLE, SCHUYLER Unavailable [address] + [place] [address] TIMST Unavailable [address] + [place] [address] NICOLE, AVI Unavailable [address] + [place] [address] CANDLE, SCHUYLER Unavailable [address] + [place] [address] TIMST Unavailable [address] + [place] [address] NICOLE, AVI Unavailable [address] + [place] [address] CANDLE, SCHUYLER Unavailable [address] + [place] [address] TIMST Unavailable [address] + [place] [address] NICOLE, AVI Unavailable [address] + [place] [address] CANDLE, SCHUYLER Unavailable [address] + [place] [address] LITCAEPIZZ Unavailable [address] + [place] [address] NICOLE, AVI Unavailable [address] + [place] [address] CANDLE, SCHUYLER Unavailable [address] + [place] [address] LITCAEPIZZ Unavailable [address] + [place] [address] NICOLE, AVI Unavailable [address] + [place] [address] LITCAEPIZZ Unavailable [address] + [place] [address] NICOLE, AVI Unavailable [address] + [place] [address] LITCAEPIZZ Unavailable [address] + [place] [address] NICOLE, AVI Unavailable [address] + [place] [address] LITCAEPIZZ Unavailable [address] + [place] [address] NICOLE, AVI Unavailable [address] + [place] [address] LITCAEPIZZ Unavailable [address] + [place] [address] NICOLE, AVI Unavailable [address] + [place] [address] UE Unavailable Unavailable Unavailable NICOLE, AVI Unavailable [address] + [place] [address] UE Unavailable Unavailable Unavailable NICOLE, AVI Unavailable [address] + [place] [address] UE Unavailable Unavailable Unavailable Care Team Providers Name Role Phone MINNIE VALENCIA (COMPLETIONS MANAGER) Attending Unavailable MINNIE VALENCIA (COMPLETIONS MANAGER) Attending Unavailable VIKY DAVIS (COMPLETIONS MANAGER) Attending Unavailable JUNIOR LARES (DECORATING SUPERVISOR) Attending Unavailable PODLOGAR, GENIA (COMPLETIONS MANAGER) Attending Unavailable LETI KEARNS (COMPLETIONS MANAGER) Attending Unavailable LETI KEARNS (COMPLETIONS MANAGER) Referring Unavailable JUNIOR LARES (DECORATING SUPERVISOR) Attending Unavailable JUNIOR LARES (DECORATING SUPERVISOR) Referring Unavailable Trav Whitehead Admitting Unavailable Trav Whitehead Attending Unavailable No Doctor Assigned, Nodr Primary Care Unavailable Lola Rosales Attending Unavailable Lola Rosales Referring Unavailable Schinner, Fredo E Primary Care Unavailable Schinner, Fredo E Attending Unavailable Schinner, Fredo E Referring Unavailable Schinner, Fredo E Primary Care Unavailable Schinner, Fredo E Attending Unavailable Schinner, Fredo E Referring Unavailable Schinner, Fredo E Primary Care Unavailable Elderayadck, Koby Primary Care Unavailable Boubacar Antonio Attending Unavailable Scott [place] Attending Unavailable Primay Care Physicia, No Primary Care Unavailable Primay Care Physicia, No [...] No Referring Unavailable Dhaval Waterman Attending Unavailable Koby Olmstead Primary Care Unavailable PROBLEMS PROBLEMS DATE TYPE CONDITION / CODE ATTENDING STATUS SOURCE 10/29/2018 Unknown S39.011A - Strain Zia Ames Active [place] of muscle, fascia Community and tendon of Hospital abdomen, initial Repository encounter / S39.011A(ICD-10) 08/24/2018 Unknown K92.1 - Melena / Federico Mishra Active [place] K92.1(ICD-10) [facility] Repository 06/10/2018 Unknown L03.811 - Zia Ames Active [place] Cellulitis of Community head [any part, Hospital except face] / Repository L03.811(ICD-10) 05/19/2018 Active Unspecified NA Active [facility] abdominal pain / [facility] [place] R10.9(ICD-10) Repository 05/19/2018 Active Diarrhea, NA Active [facility] unspecified / [place] R19.7(ICD-10) Repository 05/19/2018 Active Vomiting, NA Active [facility] unspecified / [place] R11.10(ICD-10) Repository 05/15/2018 Active Nausea / NA Active [facility] R11.0(ICD-10) [facility] [place] Repository 11/12/2017 Active Unknown / CORNIELLO, Active [facility] UNK(Unknown) MINNIE L (COMPLETIONS MANAGER) [facility] [place] Repository PROCEDURES PROCEDURES No Procedure Records FoundRESULTS RESULTS STOOL Observed: 10/02/2018 Status: F Source: [place] LACTOFERRIN/WBC 1:45 PM [facility] REPOSITORY Stool Lacto/WBC Normal Reference Range = Negative Fecal WBC Lactoferrin Negative: No Fecal WBC Lactoferrin present Performed By: #### M100.0605, M100.6796, M100.637 #### [facility] [address] [place], [place], [id number] Observed: 10/02/2018 Status: F Source: [place] CDIFF (MOLECULAR) 1:45 PM [facility] REPOSITORY Cdiff-Molecular Normal Reference Range = Negative C. Diff DNA Negative- No toxigenic C. Diff DNA Detected NAAT METHOD Testing was performed using nucleic acid amplification Performed By: #### M100.0605, M100.6796, M100.637 #### [facility] [address] [place], [address] Observed: 10/02/2018 Status: F Source: [place] ENTERIC PATHOGEN 1:45 PM [facility] PANEL STOOL REPOSITORY EP PANEL STOOL Normal [...] #### M100.0605, M100.6796, M100.637 #### [facility] [address] [place], [address] Observed: 10/02/2018 Status: F Source: [place] OVA AND PARASITES 1:45 PM [facility] REPOSITORY O + P OVA AND PARASITES EXAM, ROUTINE These results were obtained using wet preparation(s) and trichrome stained smear. This test does not include testing for Crytosporidium parvum, Cyclospora, or Microsporidia. TESTING PERFORMED AT [facility]. ORIGINAL REPORT ON FILE IN LAB CONTAINS ADDITIONAL TEST SITE INFORMATION. Ova/Parasite Exam NO OVA, CYSTS, OR PARASITES FOUND. Performed By: #### M600.5000 #### [facility] [place], [address] COMPREHENSIVE METABOLIC Collected: 09/30/2018 Status: F Source: [place] PROFIL 4:37 PM [facility] REPOSITORY TYPE CODE TESTS RESULT OUT [...] By: #### L500.4050, L501.5200 #### [facility] [address] [place], [place], [address] MAGNESIUM Collected: 09/30/2018 Status: F Source: [place] 4:37 PM [facility] REPOSITORY TYPE CODE TESTS RESULT OUT OF RANGE REFERENCE UNITS LAB L501.5200 1.6-2.6 mg/dL Normal MG 2.4 Performed By: #### L500.4050, L501.5200 #### [facility] [address] [facility] [place], [place], [address] POC URINALYSIS DIP POC Collected: 09/30/2018 Status: F Source: [facility] 9:55 AM [facility] REPOSITORY TYPE CODE TESTS RESULT OUT OF RANGE REFERENCE UNITS LAB CD:[id number] Yellow 2293(LOIN Normal C) POC Color Yellow LAB CD:851732 CLEAR 2955(LOIN Normal C) POC Clarity CLEAR LAB CD:997255 Negative 3551(LOIN Normal C) POC Glucose Negative LAB CD:516592 Negative 4053(LOIN Normal C) POC Bilirubin Negative LAB CD:574513 Negative 6003(LOIN Normal C) POC Ketone Negative LAB CD:694763 1.005-1.035 mg/dL 6479(LOIN Normal C) POC Specific [place] 1.005 LAB CD:585307 Negative 6697(LOIN C) POC Blood Abnormal Trace LAB CD:042148 5.0-8.0 mg/dL 6769(LOIN Normal C) POC pH 6.0 LAB CD:905730 Negative 7163(LOIN Normal C) POC Protein Negative LAB CD:631791 0.2-1.0 EU/dL 7345(LOIN Normal C) POC Urobilinogen 0.2 LAB CD:632962 Negative 7607(LOIN Normal C) POC Nitrite Negative LAB CD:916387 Negative 7771(LOIN Normal C) POC Leukocyte Negative Performed By: #### CD:[id number] #### [facility]GEI POC Subsection [facility] [place] [address] L/S SPINE MIN 4 Observed: 09/29/2018 Status: F Source: [place] VIEWS 9:02 AM [facility] REPOSITORY [facility] Imaging Services [address] [place] [address] L/S Spine Min 4 Views MR#: [id number] Acct: [id number] Name: STEPHANYLARISSA REDDYUSMAN Salcido Rep #: [id number] : 1985 M 32 From: Tai Kuhn MD PCP: Fredo Rodriguez MD Status: REG CLI Study: L/S Spine Min 4 Views Date of Exam: 09/29/18 Exam# [id number] Ordering Dr: Lola Rosales STUDY: X-RAY - LUMBAR SPINE REASON FOR [...] Tai Kuhn MD at 9:36 EST Tel [phone], Service support , CC: ISABEL Rosales; Fredo Rodriguez MD Critical Power Technician: Signed URGENT CARE VISIT Observed: 08/27/2018 Status: F Source: [place] REPORT 5:16 PM [facility] REPOSITORY [facility] [address] [place] [address] [address] [place] [address] OFFICE VISIT Date of Service: 08/27/18 MR#: [id number] Acct: [id number] Name: QUAN PORTER Rep #: [id number] : 1985 Provider: Zia AMAYA Age/Sex: 32/M Location: [facility] Status: Signed Intake Vital Signs08/27/18 Height 6 ft 1 in 08/27/18 Weight: 225 lb 08/27/18 Body Mass Index (BMI) 29.7 08/27/18 Blood Pressure 118/76 Intake Visit Reasons: ED FOLLOW UP Chief Complaint: ABDOMINAL WALL STRAIN Instrument Specialist Required: No Accompanied by: OTHER Is patient [...] PO TID PRN 08/27/18 [History Confirmed 08/27/18] [facility] Medical History Bloody stools (Acute) Severe headache [...] lower quadrant therefore reported to [facility] ED where he was evaluated to [...] 1. Abdominal wall strain S39.011A Plan See [employer]14 for work restrictions. Rest, Tylenol/cyclobenzaprine as needed [...] the above. This note was generated with [employer] software. It may contain incorrect words, spelling, and punctuation that were not noted in checking the note before signing. Coding Level of Care Code Off vis,est,level 3 Diagnoses Abdominal wall strain S39.011A 11/08/18 1716 <Electronically signed by Zia AMAYA> Date Zia AMAYA Cosigner Signature: Date (if applicable) CC: DISCHARGE INSTRUCTION Observed: 08/24/2018 Status: F Source: [place] 1:13 PM [facility] REPOSITORY [facility] Medical Records Department [address] [place] [address] [place] [address] Discharge Instruction 08/24/18 1311 MR#: [id number] Acct: [id number] Name: QUAN PORTER Rep #: [id number] : 1985 32 From: Federico Mishra DO PCP: Care Physician, No Primary Status: REG ER ED Disposition - Plan for ED Patient: Chief Complaint: Abd Pain Instructions: ED Strain Abdominal Muscle Prescriptions: Hydrocodone Bitart/Apap 5-325 [[place] 5MG-325MG] 1 tab PO Q4H PRN PRN 2 Days #10 tab PRN Reason: Pain Referrals: [facility] [GROUP OF PHYSICIANS] - 3-5 Days What to do if you have Problems For any increased pain, shortness of breath, bleeding, nausea or vomiting, chest pain, or any unexpected problems, contact your Primary Care Provider. Call [facility] ([phone]) or report to the closest Emergency Room. Call 911 if necessary. 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 Patient will be given work restrictions and advised to follow-up with corporFamiliar care within the next 3-5 days.] Disposition: [Discharged home in stable condition.] Impression: [Abdominal wall strain] This note was generated with Bapul dictation software. It may contain incorrect words, [...] your Primary Care Provider. Call [facility] ([phone]) or report to the closest Emergency Room. Call 911 if necessary. 08/24/18 1311 <Electronically signed by Federico Mishra DO> Date Federico Mishra DO Cosigner Signature (If Indicated): Date CC: No Primary Care Physician CBC W/DIFF, AUTOMATED Collected: 08/24/2018 Status: F Source: [place] 10:45 AM [facility] REPOSITORY TYPE CODE TESTS RESULT OUT [...] Performed By: #### L100.0100 #### [facility] [address] [place], [place], [address] BASIC METABOLIC Collected: 08/24/2018 Status: F Source: [place] PROFILE (BMP) 10:45 AM [facility] REPOSITORY TYPE CODE TESTS RESULT OUT [...] Performed By: #### L500.2500 #### [facility] [address] [place], [address] LACTIC ACID Collected: 08/24/2018 Status: F Source: [place] 10:45 AM [facility] REPOSITORY Order Comment: Yes/No query for Sepsis Lactate Rule Y TYPE CODE TESTS RESULT OUT OF RANGE REFERENCE UNITS LAB L503.6005 0.4-2.0 mmol/L Normal LACTIC ACID 1.2 Performed By: #### L503.6005 #### [facility] [address] [place], [address] ABDOMEN/PELVIS WITH Observed: 08/24/2018 Status: F Source: [place] CONTRAST 10:27 AM [facility] REPOSITORY [facility] Imaging Services [address] [place] [address] Abdomen/Pelvis WITH Contrast MR#: [id number] Acct: [id number] Name: QUAN PORTER Rep #: [id number] : 1985 M 32 From: [facility] PCP: Care Physician, No Primary Status: REG ER Study: Abdomen/Pelvis WITH Contrast Date of Exam: 08/24/18 Exam# [id number] Ordering Dr: Federico Mishra DO STUDY: CT [...] No Primary Care Physician; Federico Mishra DO Critical Power Technician: Signed EMERGENCY DEPARTMENT Observed: 07/01/2018 Status: F Source: [place] SUMMARY 7:19 AM [facility] Medical Records Department [address] [place] [address] Emergency Department Summary 06/27/18 1610 MR#: [id number] Acct: [id number] Name: QUAN PORTER Rep #: [id number] : 1985 32 From: Scott Ireland DO [...] 2. Dysuria This note was generated with Bapul dictation software. It may contain incorrect words, [...] your Primary Care Provider. Call [facility] ([phone]) or report to the closest Emergency Room. Call 911 if necessary. 07/01/18 0719 <Electronically signed by Scott Ireland DO> Date Scott Ireland DO Cosigner Signature (If Indicated): Date CC: No Primary Care Physician URINALYSIS, COMPLETE Collected: 06/27/2018 Status: F Source: [place] 3:05 PM [facility] REPOSITORY Order Comment: Has pt arrived? Y How was Urine Obtained? DETAIL SERGEANT TO SPECIFY TYPE CODE TESTS RESULT OUT [...] Performed By: #### L400.0001 #### [facility] [address] [place], [address] ABDOMEN/PELVIS WITHOUT Observed: 06/27/2018 Status: F Source: [place] CONT 2:47 PM [facility] REPOSITORY [facility] Imaging Services [address] [place] [address] Abdomen/Pelvis without Cont MR#: [id number] Acct: [id number] Name: QUAN PORTER Rep #: [id number] : 1985 M 32 From: Missael Gonzalez MD PCP: Care Physician, No Primary Status: REG ER Study: Abdomen/Pelvis without Cont Date of Exam: 06/27/18 Exam# [id number] Ordering Dr: Scott Ireland DO STUDY: CT [...] No Primary Care Physician; Scott Ireland DO Critical Power Technician: Signed PROGRESS Observed: 06/27/2018 Status: COMPLETED Source: [place] 1:41 PM [facility] REPOSITORY HNO ID: [id number] Author: Casimiro Pride Service: (none) Author Type: [...] MD CNOV Observed: 06/27/2018 Status: COMPLETED Source: [place] 12:30 PM [facility] REPOSITORY Office Visit (WSTR) QUAN PORTER ([id number]) 1985 M Date Time Provider Department 06/27/18 12:30 PM CASIMIRO PRIDE [facility] During your visit today, we recorded the [...] - Swelling Date Reviewed: 06/27/2018 Reviewed by: Nias Guevara Ma - Fully Assessed Reason for Visit: pain while urinating [Other] Primary Visit Diagnosis:Acute retention of urine [R33.8] Other Visit Diagnosis:Dysuria [R30.0] Order(s):UA DIP, URINE (POC) [9261122] Order #: [id number] Prescriptions as of 06/27/2018 Sig: MIRTAZAPINE 45 [...] 06/25/2018 Status: F Source: [place] 1:18 PM [facility] REPOSITORY [facility] Cardiovascular Services [address] [place], [place] [address] [address] 12 Lead EKG 06/23/18 1559 MR#: [id number] Acct: [id number] Name: QUAN PORTER Rep #: [id number] : 1985 32 From: Foreign Arnold MD Attending Dr: Status: DEP ER Ordering Dr: Cherelle Alarcon MD Date: 06/23/18 Location: ED Sex: M [...] ECG Confirmed by CATALINA REEVES, FOREIGN ([id number]), food editor MILAGROS OKEEFE ([id number]) on 06/25/2018 1:17:50 PM Referred By: YAEL Confirmed By:FOREIGN ARNOLD MD 06/25/18 1317 Date Foreign Arnold MD CC: No Primary Care Physician; Cherelle Alarcon MD Signed EMERGENCY DEPARTMENT Observed: 06/24/2018 Status: F Source: [place] SUMMARY 12:22 AM [facility] Medical Records Department [address] [place] [address] Emergency Department Summary 06/23/18 1753 MR#: [id number] Acct: [id number] Name: QUAN PORTER Rep #: [id number] : 1985 32 From: Cherelle Alarcon MD PCP: Care Physician, No Primary Status: DEP ER - ER Visit Summary Date of Service: 06/23/18 Chief Complaint: Possible heat stroke History of Present Illness: The patient is a 32 M who states he got lightheaded and had near syncope at work today. 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 Patient states he has been drinking [...] Near syncope This note was generated with Bapul dictation software. It may contain incorrect words, [...] problems, contact your Primary Care Provider. Call [employer] [facility] ([phone]) or report to the closest Emergency Room. Call 911 if necessary. 06/24/18 0022 <Electronically signed by Cherelle Alarcon MD> Date Cherelle Alarcon MD Cosigner Signature (If Indicated): Date CC: No Primary Care Physician DISCHARGE INSTRUCTION Observed: 06/23/2018 Status: F Source: [place] 5:55 PM [facility] REPOSITORY [facility] Medical Records Department [address] [place] [address] Discharge Instruction 06/23/18 1754 MR#: [id number] Acct: [id number] Name: QUAN PORTER Omari Rep #: [id number] : 1985 32 From: Cherelle Alarcon MD [...] your Primary Care Provider. Call [facility] ([phone]) or report to the closest Emergency Room. Call 911 if necessary. 06/23/18 8075 <Electronically signed by Cherelle Alarcon MD> Date Cherelle Alarcon MD Cosigner Signature (If Indicated): Date CC: No Primary Care Physician CBC W/DIFF, AUTOMATED Collected: 06/23/2018 Status: F Source: [place] 4:04 PM [facility] REPOSITORY TYPE CODE TESTS RESULT OUT [...] Performed By: #### L100.0100 #### [facility] [address] [place], [address] BASIC METABOLIC Collected: 06/23/2018 Status: F Source: [place] PROFILE ([facility]) 4:04 PM [facility] REPOSITORY TYPE CODE TESTS RESULT OUT [...] Performed By: #### L500.2500 #### [facility] [address] [place], [address] BRAIN/HEAD WITHOUT Observed: 06/23/2018 Status: F Source: [place] CONTRAST 3:47 PM [facility] REPOSITORY [facility] Imaging Services [address] [address] Brain/Head without Contrast MR#: [id number] Acct: [id number] Name: QUAN PORTER Rep #: [id number] : 1985 M 32 From: Zia Muñoz MD PCP: Care Physician, No Primary Status: REG ER Study: Brain/Head without Contrast Date of Exam: 06/23/18 Exam# [id number] Ordering Dr: Cherelle Alarcon MD STUDY: CT [...] No Primary Care Physician; Cherelle Alarcon MD Critical Power Technician: Signed PROGRESS Observed: 06/15/2018 Status: COMPLETED Source: [place] 11:54 AM [facility] REPOSITORY HNO ID: [id number] Author: Casimiro Pride Service: (none) Author Type: [...] tylenol. Ibuprofen makes him poop blood. EGD 2017 was normal, he has had colonoscopy too. [...] MD CNOV Observed: 06/15/2018 Status: COMPLETED Source: [place] 11:30 AM [facility] REPOSITORY Office Visit (WSTR) QUAN PORTER ([id number]) 1985 M Date Time Provider Department 06/15/18 11:30 AM CASIMIRO PRIDE [facility] During your visit today, we recorded the [...] tylenol. Ibuprofen makes him poop blood. EGD 2017 was normal, he has had colonoscopy too. [...] radiating to left lower extremity [M54.5, M79.605] Order(s):[facility] B/O [[id number]] Order #: [id number] predniSONE (DELTASONE) 10 mg tabletTake by mouth [...] for up to 15 days. Letter Text [facility] [address] [place], [place] [address] 06/15/2018 Quan Crawfordyo [facility]# [id number] [address] [address] TO WHOM IT MAY CONCERN: This is to confirm that Quan Porter had an appointment and was seen at the [facility] in the Department of Urgent Care by Casimiro Pride MD on 06/15/2018 for injury or illness and should be excused from work today. Sincerely , Casimiro Pride MD Encounter Status:Closed by CASIMIRO PRIDE MD on 06/15/18 URGENT CARE VISIT Observed: 06/03/2018 Status: F Source: [place] REPORT 4:00 PM [facility] REPOSITORY [facility] [address] [place] [address] OFFICE VISIT Date of Service: 06/03/18 MR#: [id number] Acct: [id number] Name: QUAN PORTER Rep #: [id number] : 1985 Provider: Zia AMAYA Age/Sex: 32/M Location: [facility] Status: Signed Intake Vital Signs06/03/18 Height 6 ft 1 in 06/03/18 Weight: 226 lb 06/03/18 Body Mass Index (BMI) 29.8 06/03/18 Blood Pressure 128/82 Intake Visit Reasons: SPIDER BITE ON HEAD Chief Complaint: Scalp infection Instrument Specialist Required: No Accompanied by: self Is patient [...] the above. This note was generated with Bapul dictation software. It may contain incorrect words, spelling, and punctuation that were not noted in checking the note before signing. Medications New: Coding Level of Care Code Off vis,est,level 3 Diagnoses Cellulitis of occipital region of scalp L03.811 06/03/18 1600 <Electronically signed by Zia AMAYA> Date Zia AMAYA Cosigner Signature: Date (if applicable) CC: ENTERIC BACT PNL PCR Collected: 05/21/2018 Status: F Source: [place] 8:00 AM [facility] REPOSITORY TYPE CODE TESTS RESULT OUT OF REFERENCE UNITS RANGE LAB PCRSHG Shigella/EIEC Not Detected DNA LAB PCRCMP Campy jejun/coli DNA Not Detected LAB PCRSTX Shiga toxin gene(s) Not Detected LAB PCRSAL Salmonella spp. Not Detected DNA Performed By: #### STLPCR #### [facility] [address] [place], [place] [address] Observed: 05/21/2018 Status: F Source: [place] OVA AND PARASITE SCR 8:00 AM [facility] REPOSITORY Sp. Request/Comment: - Specimen received in Ova and Parasite Kit. Culture Result - Negative for Giardia lamblia and Cryptosporidium species by EIA. Performed By: #### OVAPSC #### [facility] [employer] [address] [place] [id number] [place] CBC AND DIFF Collected: 05/19/2018 Status: F Source: [place] 3:57 PM [facility] REPOSITORY TYPE CODE TESTS RESULT OUT OF REFERENCE UNITS RANGE LAB WWBC 3.70-11.00 k/uL [place] WBC 8.66 LAB WRBC 4.20-6.00 m/uL [place] RBC 4.49 LAB WHGB 13.0-17.0 g/dL [place] Hemoglobin 14.8 LAB WHCT 39.0-51.0 % [place] Hematocrit 43.3 LAB WMCV 80.0-100.0 fL [place] MCV 96.4 LAB WMCH 26.0-34.0 pg [place] MCH 33.0 LAB WMCHC 30.5-36.0 g/dL [place] MCHC 34.2 LAB WRDW 11.5-15.0 % [place] RDW 12.6 LAB WPLT 150-400 k/uL [place] Platelet Cnt 245 LAB WMPV 9.0-12.7 fL [place] MPV 9.0 LAB WNEUT % [place] Neut% 74.3 LAB WLYMP % [place] Lymp% 20.0 LAB WMONOC % [place]% 5.4 LAB WEOS % [place] Eos% 0.1 LAB WBASO % [place] Baso% 0.2 LAB WANEUT 1.45-7.50 k/uL [place] Abs Neut 6.43 LAB WALYMP 1.00-4.00 k/uL [place] Abs Lymp 1.73 LAB WAMONO <0.87 k/uL [place] Abs [place] 0.47 LAB WAEOS <0.46 k/uL [place] Abs Eos <0.03 LAB WABASO <0.11 k/uL [place] Abs Baso <0.03 COMP METABOLIC PANEL Collected: 05/19/2018 Status: F Source: [place] 3:56 PM [facility] REPOSITORY TYPE [...] 74-99 mg/dL Glucose 83 Result Comment: The [place] Diabetes Association (ADA) provides guidance for cutoff [...] Standards of Medical Care in Diabetes 2016, [place] Diabetes Association. Diabetes Care. 2016.39(Suppl 1). LAB [...] actual GFR. Performed By: #### CMP #### [facility] [address] [place], [place] [address] PROGRESS Observed: 05/19/2018 Status: COMPLETED Source: [place] 3:27 PM [facility] REPOSITORY HNO ID: [id number] Author: Junior Plascencia (Isabel) Arnaud Service: (none) Author Type: Nurse Practitioner Type: Progress Notes Filed: 05/19/2018 4:58 PM Note Text: Chief Complaint Patient presents with: Recheck: patient is still having abdominal pain, vomiting and diarrhea HPI Quan Porter is a 32 year old male who presents here today for ED follow up and persistent nausea, vomiting and diarrhea. He was seen [facility] ED, 05/17/18, reports reviewed. Given IV [...] Neg neg Ketones, Urine Neg neg Specific [place], Ur 1.005 - 1.030 1.005 Hemoglobin/Blood,Ur Neg [...] CRYPTOSPORIDIUM AND GIARDIA ANTIGENS BY EIA Junior Lares MSN LOG CARRIER OPERATOR.COMPLETIONS MANAGER CNOV Observed: 05/19/2018 Status: COMPLETED Source: [place] 3:20 PM [facility] REPOSITORY Office Visit (FAMPWS) QUAN PORTER ([id number]) 1985 M Date Time Provider Department 05/19/18 3:20 PM JUNIOR LARES (ISABEL) FAMPWS During your visit today, we recorded the following information about you: Temperature Pulse Respiration Blood pressure 99.2 degrees 72/minute 18/minute 108/70 Weight 103.4 kg Junior Lares MSN LOG CARRIER OPERATOR.COMPLETIONS MANAGER 05/19/2018 4:58 PM Addendum Chief Complaint Patient presents with: Recheck: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 [address]ATTN: [place] [address]YF: 06/27/2018 Secondary NOT GIVENUNK [place] Insurance:SELF PAY [facility] Number: Effective Repository Date:2018-06-27 06/23/2018 LUKE E Primary LUKE E [place] [id number] Insurance:CARESOURCEP ELKANICKDOB: [facility] Number: [id number], [place] [id number] Repository [address]Jiv: ([phone]) Date:2018-06-23 O [phone] () [address]ATTN: [place] [address]UW: 06/23/2018 Secondary NOT GIVENUNK [place] Insurance:SELF PAY [facility] Number: Effective Repository Date:2018-06-23 06/10/2018 LUKE E Primary LUKE E [place] [id number] Insurance:CARESOURCEP ELKANICKDOB: [facility] Number: [id number], [place] [id number] Repository [address]Hbd: ([phone]) Date:2018-05-13P O [phone] () [address]ATTN: [place] [address]PF: 06/10/2018 Secondary NOT GIVENUNK [place] Insurance:SELF PAY [facility] Number: Effective Repository Date:2018-05-13 06/03/2018 LUKE E Primary LUKE E [place] [id number] Insurance:CARESOURCEP ELKANICKDOB: [facility] Number: [id number], [place] [id number] Repository [address]Hbo: ([phone]) Date:2018-06-03P O [phone] () [address]ATTN: [place] [address]YF: 06/03/2018 Secondary NOT GIVENUNK [place] Insurance:SELF PAY [facility] Number: Effective Repository Date:2018-06-03 06/03/2018 LUKE E Primary NOT GIVENUNK [place] [id number] Insurance:SELF PAY [place] Number: Effective Repository [phone]: ([phone]) Date:2018-06-03 [phone] () 05/17/2018 LUKE E Primary LUKE E [place] [id number] Insurance:CARESOURCEP ELKANICKDOB: [facility] Number: [id number], [place] [id number] Repository 05666Rcd: ([phone]) Date:2018-05-17P O [phone] () [address]ATTN: [place] [address]AR: 05/17/2018 Secondary NOT GIVENUNK [place] Insurance:SELF PAY [facility] Number: Effective Repository Date:2018-05-17 04/28/2018 LUKE E Primary LUKE E [place] [id number] Insurance:CARESOURCEP ELKANICKDOB: [facility] Number: [id number], [place] [id number] Repository [address]Ndw: ([phone]) Date:2018-04-28P O [phone] () [address]ATTN: [place] [address]NX: 04/28/2018 Secondary NOT GIVENUNK [place] Insurance:SELF PAY [facility] Number: Effective Repository Date:2018-04-28 12/01/2017 LUKE E Primary LUKE E [place] [id number] Insurance:CARESOURCEP ELKANICKDOB: [facility] Number: [id number], [place] [id number] Repository [address]Jjp: ([phone]) Date:2017-12-01 O [phone] () [address]ATTN: [place] [address]XN: 12/01/2017 Secondary NOT GIVENUNK [place] Insurance:SELF PAY [facility] Number: Effective Repository Date:2017-12-01 11/10/2017 LUKE E Primary LUKE E [place] [id number] Insurance:CARESOURCEP ELKANICKDOB: [facility] Number: [id number], [place] [id number] Repository [address]Aka: ([phone]) Date:2017-11-10P O [phone] () [address]ATTN: [place] [address]RA: 11/10/2017 Secondary NOT GIVENUNK [place] Insurance:SELF PAY [facility] Number: Effective Repository Date:2017-11-10
== END ==
PROVIDERS: Family Provider Family Medicine; PCP Family Medicine; Referring Provider Family Medicine; Visit Provider Family Medicine
DX: K52.9 Noninfective gastroenteritis and colitis, unspecified (principal)
CPT/HCPCS: 36415; 80053; 83735

== ENCOUNTER → 2018-10-02 13:41 | Outpatient (CLI) | payer MEDICAID, SELFPAY ==
[2018-08-27 16:51] VITALS: BMI 29.7
--- OUTSIDE RECORDS SUMMARY | 2019-01-06 04:11 | XMS RPT_ITS ---
:1985 Author Organization OHIP Support Name Relationship Address Phone IMELDA RIVERAE Unavailable [address] + [place] [address] CANDLE, SCHUYLER Unavailable [address] + [place] [address] TIMST Unavailable [address] + [place] [address] NICOLE, AVI Unavailable [address] + [place] [address] CANDLE, SCHUYLER Unavailable [address] + [place] [address] TIMST Unavailable [address] + [place] [address] NICOLE, AVI Unavailable [address] + [place] [address] CANDLE, SCHUYLER Unavailable [address] + [place] [address] TIMST Unavailable [address] + [place] [address] NICOLE, AVI Unavailable [address] + [place] [address] CANDLE, SCHUYLER Unavailable [address] + [place] [address] TIMST Unavailable [address] + [place] [address] NICOLE, AVI Unavailable [address] + [place] [address] CANDLE, SCHUYLER Unavailable [address] + [place] [address] TIMST Unavailable [address] + [place] [address] NICOLE, AVI Unavailable [address] + [place] [address] CANDLE, SCHUYLER Unavailable [address] + [place] [address] LITCAEPIZZ Unavailable [address] + [place] [address] NICOLE, AVI Unavailable [address] + [place] [address] CANDLE, SCHUYLER Unavailable [address] + [place] [address] LITCAEPIZZ Unavailable [address] + [place] [address] NICOLE, AVI Unavailable [address] + [place] [address] LITCAEPIZZ Unavailable [address] + [place] [address] NICOLE, AVI Unavailable [address] + [place] [address] LITCAEPIZZ Unavailable [address] + [place] [address] NICOLE, AVI Unavailable [address] + [place] [address] LITCAEPIZZ Unavailable [address] + [place] [address] NICOLE, AVI Unavailable [address] + [place] [address] LITCAEPIZZ Unavailable [address] + [place] [address] NICOLE, AVI Unavailable [address] + [place] [address] UE Unavailable Unavailable Unavailable NICOLE, AVI Unavailable [address] + [place] [address] UE Unavailable Unavailable Unavailable NICOLE, AVI Unavailable [address] + [place] [address] UE Unavailable Unavailable Unavailable Care Team Providers Name Role Phone Scott Ireland Attending Unavailable Primay Care Physicia, No Primary Care Unavailable Primay Care Physicia, No Primary Care Unavailable Cherelle Alarcon Attending Unavailable Primay Care Physicia, No Primary Care Unavailable Scott Ireland Attending Unavailable Schinner, Fredo E Attending Unavailable Schinner, Fredo E Referring Unavailable Schinner, Fredo E Primary Care Unavailable Schinner, Fredo E Attending Unavailable Schinner, Fredo E Referring Unavailable Schinner, Fredo E Primary Care Unavailable Lola Rosales Attending Unavailable Lola Rosales Referring Unavailable Schinner, Fredo E Primary Care Unavailable Zia Ames Attending Unavailable Primay Care Physicia, No Referring Unavailable Primay Care Physicia, No Primary Care Unavailable Federico Mishra Attending Unavailable Hang Arriola Attending Unavailable Primay Care Physicia, No Referring Unavailable Zia Ames Attending Unavailable Primay Care Physicia, No Referring Unavailable Primay Care Physicia, No Primary Care Unavailable Zia Ames Attending Unavailable Primay Care Physicia, No Referring Unavailable Primay Care Physicia, No Primary Care Unavailable Primay Care Physicia, No Primary Care Unavailable Foreign Paul Attending Unavailable Elderbrock, Koby Primary Care Unavailable Boubacar Antonio Attending Unavailable Dhaval Waterman Attending Unavailable Aysha, Koby Primary Care Unavailable Trav Whitehead Admitting Unavailable Trav Whitehead Attending Unavailable No Doctor Assigned, Nodr Primary Care Unavailable MINNIE VALENCIA (HOME DEMONSTRATION AGENT) Attending Unavailable MINNIE VALENCIA (HOME DEMONSTRATION AGENT) Attending Unavailable VIKY DAVIS (HOME DEMONSTRATION AGENT) Attending Unavailable JUNIOR LARES (DATA ASSISTANT) Attending Unavailable PODLOGARGENIA (HOME DEMONSTRATION AGENT) Attending Unavailable LETI KEARNS (HOME DEMONSTRATION AGENT) Attending Unavailable LETI KEARNS (HOME DEMONSTRATION AGENT) Referring Unavailable JUNIOR LARES (DATA ASSISTANT) Attending Unavailable JUNIOR LARES (DATA ASSISTANT) Referring Unavailable PROBLEMS PROBLEMS DATE TYPE CONDITION / CODE ATTENDING STATUS SOURCE 10/29/2018 Unknown S39.011A - Strain Zia Ames Active [facility] [place] of muscle, fascia Community and tendon of Hospital abdomen, initial Repository encounter / S39.011A(ICD-10) 08/24/2018 Unknown K92.1 - Melena / Ungleeann, Federico Active [facility] K92.1(ICD-10) Community Hospital Repository 06/10/2018 Unknown L03.811 - Zia Ames Active [facility] Cellulitis of Community head [any part, Hospital except face] / Repository L03.811(ICD-10) 05/19/2018 Active Unspecified NA Active [facility] abdominal pain / Main [place] R10.9(ICD-10) Repository 05/19/2018 Active Diarrhea, NA Active [facility] unspecified / Main [place] R19.7(ICD-10) Repository 05/19/2018 Active Vomiting, NA Active [facility] unspecified / Main [place] R11.10(ICD-10) Repository 05/15/2018 Active Nausea / NA Active [facility] R11.0(ICD-10) Main [place] Repository 11/12/2017 Active Unknown / CORNIELLO, Active [facility] UNK(Unknown) MINNIE L (HOME DEMONSTRATION AGENT) Main [place] Repository PROCEDURES PROCEDURES No Procedure Records FoundRESULTS RESULTS STOOL Observed: 10/02/2018 Status: F Source: [place] LACTOFERRIN/WBC 1:45 PM [facility] REPOSITORY Stool Lacto/WBC Normal Reference Range = Negative Fecal WBC Lactoferrin Negative: No Fecal WBC Lactoferrin present Performed By: #### M100.0605, M100.6796, M100.637 #### [facility] [address], [place], [id number] Observed: 10/02/2018 Status: F Source: [place] CDIFF (MOLECULAR) 1:45 PM [facility] REPOSITORY Cdiff-Molecular Normal Reference Range = Negative C. Diff DNA Negative- No toxigenic C. Diff DNA Detected NAAT METHOD Testing was performed using nucleic acid amplification Performed By: #### M100.0605, M100.6796, M100.637 #### [facility] [address] [place], [address] Observed: 10/02/2018 Status: F Source: [place] ENTERIC PATHOGEN 1:45 PM [facility] PANEL STOOL REPOSITORY EP PANEL STOOL Normal [...] Performed By: #### M100.0605, M100.6796, M100.637 #### [facility] [address] [place], [address] Observed: 10/02/2018 Status: F Source: [place] OVA AND PARASITES 1:45 PM [facility] REPOSITORY O + P OVA AND PARASITES EXAM, ROUTINE These results were obtained using wet preparation(s) and trichrome stained smear. This test does not include testing for Crytosporidium parvum, Cyclospora, or Microsporidia. TESTING PERFORMED AT [facility]. ORIGINAL REPORT ON FILE IN LAB CONTAINS ADDITIONAL TEST SITE INFORMATION. Ova/Parasite Exam NO OVA, CYSTS, OR PARASITES FOUND. Performed By: #### M600.5000 #### [facility] [place], [address] COMPREHENSIVE METABOLIC Collected: 09/30/2018 Status: F Source: [place] PROFIL 4:37 PM [facility] REPOSITORY TYPE CODE TESTS RESULT OUT OF [...] 10 Performed By: #### L500.4050, L501.5200 #### [facility] [address], [place], [id number] MAGNESIUM Collected: 09/30/2018 Status: F Source: [place] 4:37 PM [facility] REPOSITORY TYPE CODE TESTS RESULT OUT OF RANGE REFERENCE UNITS LAB L501.5200 1.6-2.6 mg/dL Normal MG 2.4 Performed By: #### L500.4050, L501.5200 #### [facility] [address] [facility] [place], [place], [address] POC URINALYSIS DIP POC Collected: 09/30/2018 Status: F Source: [facility] 9:[address] [facility] REPOSITORY TYPE CODE TESTS RESULT OUT OF RANGE REFERENCE UNITS LAB CD:688421 Yellow 2293(LOIN Normal C) POC Color Yellow LAB CD:346548 CLEAR 2955(LOIN Normal C) POC Clarity CLEAR LAB CD:414811 Negative 3551(LOIN Normal C) POC Glucose Negative LAB CD:423191 Negative 4053(LOIN Normal C) POC Bilirubin Negative LAB CD:816068 Negative 6003(LOIN Normal C) POC Ketone Negative LAB CD:340613 1.005-1.035 mg/dL 6479(LOIN Normal C) POC Specific [place] 1.005 LAB CD:499226 Negative 6697(LOIN C) POC Blood Abnormal Trace LAB CD:523633 5.0-8.0 mg/dL 6769(LOIN Normal C) POC pH 6.0 LAB CD:029752 Negative 7163(LOIN Normal C) POC Protein Negative LAB CD:828540 0.2-1.0 EU/dL 7345(LOIN Normal C) POC Urobilinogen 0.2 LAB CD:766752 Negative 7607(LOIN Normal C) POC Nitrite Negative LAB CD:622748 Negative 7771(LOIN Normal C) POC Leukocyte Negative Performed By: #### CD:[id number] #### [facility] POC Subsection [facility] [place] [address] L/S SPINE MIN 4 Observed: 09/29/2018 Status: F Source: [place] VIEWS 9:02 AM [facility] REPOSITORY [facility] Imaging Services [address] [place] [address] L/S Spine Min 4 Views MR#: [id number] Acct: [id number] Name: STEPHANYLARISSA REDDYUSMAN Salcido Rep #: [id number] : 1985 M 32 From: Tai Kuhn MD PCP: Fredo Rodriguez MD Status: REG CLI Study: L/S Spine Min 4 Views Date of Exam: 09/29/18 Exam# [id number] Ordering Dr: Lola Rosales STUDY: X-RAY - [...] Tai Kuhn MD at 9:36 EST Tel [phone], Service support , CC: ISABEL Rosales; Fredo Rodriguez MD Long Chain Quiller Tender: Signed URGENT CARE VISIT Observed: 08/27/2018 Status: F Source: [place] REPORT 5:16 PM [facility] [address] [place] [address] [address] [place] [address] OFFICE VISIT Date of Service: 08/27/18 MR#: [id number] Acct: [id number] Name: QUAN PORTER Rep #: [id number] : 1985 Provider: Zia AMAYA Age/Sex: 32/M Location: [facility] Status: Signed Intake Vital Signs08/27/18 Height 6 ft 1 in 08/27/18 Weight: 225 lb 08/27/18 Body Mass Index (BMI) 29.7 08/27/18 Blood Pressure 118/76 Intake Visit Reasons: ED FOLLOW UP Chief Complaint: ABDOMINAL WALL STRAIN Card Folder Required: No Accompanied by: OTHER Is patient [...] PO TID PRN 08/27/18 [History Confirmed 08/27/18] [facility] Medical History Bloody stools (Acute) Severe headache [...] in right lower quadrant therefore reported to [facility] ED where he was evaluated to [...] 1. Abdominal wall strain S39.011A Plan See [employer]14 for work restrictions. Rest, Tylenol/cyclobenzaprine as needed [...] the above. This note was generated with Tradeo[employer] software. It may contain incorrect words, spelling, and punctuation that were not noted in checking the note before signing. Coding Level of Care Code Off vis,est,level 3 Diagnoses Abdominal wall strain S39.011A 11/08/18 1716 <Electronically signed by Zia AMAYA> Date Zia AMAYA Cosigner Signature: Date (if applicable) CC: DISCHARGE INSTRUCTION Observed: 08/24/2018 Status: F Source: [place] 1:13 PM [facility] REPOSITORY [facility] Medical Records Department [address] [place] [address] [place] [address] Discharge Instruction 08/24/18 1311 MR#: [id number] Acct: [id number] Name: QUAN PORTER Rep #: [id number] : 1985 32 From: Federico Mishra DO PCP: Care Physician, No Primary Status: REG ER ED Disposition - Plan for ED Patient: Chief Complaint: Abd Pain Instructions: ED Strain Abdominal Muscle Prescriptions: Hydrocodone Bitart/Apap 5-325 [[place] 5MG-325MG] 1 tab PO Q4H PRN PRN 2 Days #10 tab PRN Reason: Pain Referrals: [facility] [GROUP OF PHYSICIANS] - 3-5 Days What to do if you have Problems For any increased pain, shortness of breath, bleeding, nausea or vomiting, chest pain, or any unexpected problems, contact your Primary Care Provider. Call [facility] ([phone]) or report to the closest Emergency Room. Call 911 if necessary. 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 Patient will be given work restrictions and advised to follow-up with [facility] care within the next 3-5 days.] Disposition: [Discharged home in stable condition.] Impression: [Abdominal wall strain] This note was generated with [employer] dictation software. It may contain incorrect words, [...] your Primary Care Provider. Call [facility] ([phone]) or report to the closest Emergency Room. Call 911 if necessary. 08/24/18 1311 <Electronically signed by Federico Mishra DO> Date Federico Mishra DO Cosigner Signature (If Indicated): Date CC: No Primary Care Physician CBC W/DIFF, AUTOMATED Collected: 08/24/2018 Status: F Source: [place] 10:45 AM [facility] REPOSITORY TYPE CODE TESTS RESULT OUT OF [...] Lymph 1.55 Performed By: #### L100.0100 #### [facility] [address] [place], [place], [address] BASIC METABOLIC Collected: 08/24/2018 Status: F Source: [place] PROFILE (BMP) 10:45 AM [facility] REPOSITORY TYPE CODE TESTS RESULT OUT OF [...] Normal 6 Performed By: #### L500.2500 #### [facility] [address] [place], [address] LACTIC ACID Collected: 08/24/2018 Status: F Source: [place] 10:45 AM [facility] REPOSITORY Order Comment: Yes/No query for Sepsis Lactate Rule Y TYPE CODE TESTS RESULT OUT OF RANGE REFERENCE UNITS LAB L503.6005 0.4-2.0 mmol/L Normal LACTIC ACID 1.2 Performed By: #### L503.6005 #### [facility] [address] [place], [address] ABDOMEN/PELVIS WITH Observed: 08/24/2018 Status: F Source: [place] CONTRAST 10:27 AM [facility] REPOSITORY [facility] Imaging Services [address] [place] [address] Abdomen/Pelvis WITH Contrast MR#: [id number] Acct: [id number] Name: QUAN PORTER Rep #: [id number] : 1985 M 32 From: [facility] PCP: Care Physician, No Primary Status: REG ER Study: Abdomen/Pelvis WITH Contrast Date of Exam: 08/24/18 Exam# [id number] Ordering Dr: Federico Mishra DO STUDY: CT [...] No Primary Care Physician; Federico Mishra DO Long Chain Quiller Tender: Signed EMERGENCY DEPARTMENT Observed: 07/01/2018 Status: F Source: [place] SUMMARY 7:19 AM [facility] Medical Records Department [address] [place] [address] Emergency Department Summary 06/27/18 1610 MR#: [id number] Acct: [id number] Name: QUAN PORTER Rep #: [id number] : 1985 32 From: Scott Ireland DO [...] 2. Dysuria This note was generated with [employer] dictation software. It may contain incorrect words, [...] your Primary Care Provider. Call [facility] ([phone]) or report to the closest Emergency Room. Call 911 if necessary. 07/01/18 0719 <Electronically signed by Scott Ireland DO> Date Scott Ireland DO Cosigner Signature (If Indicated): Date CC: No Primary Care Physician URINALYSIS, COMPLETE Collected: 06/27/2018 Status: F Source: [place] 3:05 PM [facility] REPOSITORY Order Comment: Has pt arrived? Y How was Urine Obtained? POST PRODUCTION ASSISTANT TO SPECIFY TYPE CODE TESTS RESULT OUT [...] URINE SEEN Performed By: #### L400.0001 #### [facility] [address] [place], [address] ABDOMEN/PELVIS WITHOUT Observed: 06/27/2018 Status: F Source: [place] CONT 2:47 PM [facility] REPOSITORY [facility] Imaging Services [address] [place] [address] Abdomen/Pelvis without Cont MR#: [id number] Acct: [id number] Name: QUAN PORTER Rep #: [id number] : 1985 M 32 From: Missael Gonzalez MD PCP: Care Physician, No Primary Status: REG ER Study: Abdomen/Pelvis without Cont Date of Exam: 06/27/18 Exam# [id number] Ordering Dr: Scott Ireland DO STUDY: CT [...] No Primary Care Physician; Scott Ireland DO Long Chain Quiller Tender: Signed PROGRESS Observed: 06/27/2018 Status: COMPLETED Source: [place] 1:41 PM [facility] REPOSITORY HNO ID: [id number] Author: Casimiro Pride Service: (none) Author Type: [...] MD CNOV Observed: 06/27/2018 Status: COMPLETED Source: [place] 12:30 PM [facility] REPOSITORY Office Visit (WSTR) QUAN PORTER ([id number]) 1985 M Date Time Provider Department 06/27/18 12:30 PM [address]IDE [facility] During your visit today, we recorded [...] Visit Diagnosis:Dysuria [R30.0] Order(s):UA DIP, URINE (POC) [0207459] Order #: [id number] Prescriptions as of 06/27/2018 Sig: MIRTAZAPINE 45 [...] 1:18 PM [facility] REPOSITORY [facility] Cardiovascular Services [address] [place], [place] [address] [address] 12 Lead EKG 06/23/18 1559 MR#: [id number] Acct: [id number] Name: QUAN PORTER Rep #: [id number] : 1985 32 From: Foreign Arnold MD [...] ECG Confirmed by CATALINA REEVES, FOREIGN ([id number]), supervising editor trailer MILAGROS OKEEFE ([id number]) on 06/25/2018 1:17:50 PM Referred By: YAEL Confirmed By:FOREIGN ARNOLD MD 06/25/18 1317 Date Foreign Arnold MD CC: No Primary Care Physician; Cherelle Alarcon MD Signed EMERGENCY DEPARTMENT Observed: 06/24/2018 Status: F Source: [place] SUMMARY 12:22 AM [facility] Medical Records Department [address] [place] [address] Emergency Department Summary 06/23/18 1753 MR#: [id number] Acct: [id number] Name: QUAN PORTER Rep #: [id number] : 1985 32 From: Cherelle Alarcon MD PCP: Care Physician, No Primary Status: DEP ER - ER Visit Summary Date of Service: 06/23/18 Chief Complaint: Possible heat stroke History of Present Illness: The patient is a 32 M who states he got lightheaded and had near syncope at work today. He states it was very spring winder there. Patient states he has been drinking [...] Near syncope This note was generated with [employer] dictation software. It may contain incorrect words, [...] problems, contact your Primary Care Provider. Call [facility] [facility] ([phone]) or report to the closest Emergency Room. Call 911 if necessary. 06/24/18 0022 <Electronically signed by Cherelle Alarcon MD> Date Cherelle Alarcon MD Cosigner Signature (If Indicated): Date CC: No Primary Care Physician DISCHARGE INSTRUCTION Observed: 06/23/2018 Status: F Source: [place] 5:55 PM [facility] REPOSITORY [facility] Medical Records Department [address] [address] Discharge Instruction 06/23/18 1754 MR#: [id number] Acct: [id number] Name: QUAN PORTER Omari Rep #: [id number] : 1985 32 From: Cherelle Alarcon MD [...] your Primary Care Provider. Call [facility] ([phone]) or report to the closest Emergency Room. Call 911 if necessary. 06/23/18 8595 <Electronically signed by Cherelle Alarcon MD> Date Cherelle Alarcon MD Cosigner Signature (If Indicated): Date CC: No Primary Care Physician CBC W/DIFF, AUTOMATED Collected: 06/23/2018 Status: F Source: [place] 4:04 PM [facility] REPOSITORY TYPE CODE TESTS RESULT OUT OF [...] Lymph 2.23 Performed By: #### L100.0100 #### [facility] [address] [place], [address] BASIC METABOLIC Collected: 06/23/2018 Status: F Source: [place] PROFILE ([facility]) 4:04 PM [facility] REPOSITORY TYPE CODE TESTS RESULT OUT OF [...] GAP 6 Performed By: #### L500.2500 #### [facility] [address] [place], [address] BRAIN/HEAD WITHOUT Observed: 06/23/2018 Status: F Source: [place] CONTRAST 3:47 PM [facility] REPOSITORY [facility] Imaging Services [address] [place] [address] Brain/Head without Contrast MR#: [id number] Acct: [id number] Name: QUAN PORTER Rep #: [id number] : 1985 M 32 From: Zia Muñoz MD PCP: Care Physician, No Primary Status: REG ER Study: Brain/Head without Contrast Date of Exam: 06/23/18 Exam# [id number] Ordering Dr: Cherelle Alarcon MD STUDY: CT [...] No Primary Care Physician; Cherelle Alarcon MD Long Chain Quiller Tender: Signed PROGRESS Observed: 06/15/2018 Status: COMPLETED Source: [place] 11:54 AM [facility] REPOSITORY HNO ID: [id number] Author: Casimiro Pride Service: (none) Author Type: [...] MD CNOV Observed: 06/15/2018 Status: COMPLETED Source: [place] 11:30 AM [facility] REPOSITORY Office Visit (WSTR) QUAN PORTER ([id number]) 1985 M Date Time Provider Department 06/15/18 11:30 AM [address] [facility] During your visit today, we recorded [...] radiating to left lower extremity [M54.5, M79.605] Order(s):[facility] B/O [[id number]] Order #: [id number] predniSONE (DELTASONE) 10 mg tabletTake by mouth [...] for up to 15 days. Letter Text [facility] [address] [place], [place] [address] 06/15/2018 Quan Crawfordyo [facility]# [id number] [address] [address] TO WHOM IT MAY CONCERN: This is to confirm that Quan Porter had an appointment and was seen at the [facility] in the Department of Urgent Care by Casimiro Pride MD on 06/15/2018 for injury or illness and should be excused from work today. Sincerely , Casimiro Pride MD Encounter Status:Closed by CASIMIRO PRIDE MD on 06/15/18 URGENT CARE VISIT Observed: 06/03/2018 Status: F Source: [place] REPORT 4:00 PM [facility] [address] [facility] [address] [place] [address] OFFICE VISIT Date of Service: 06/03/18 MR#: [id number] Acct: [id number] Name: QUAN PORTER Rep #: [id number] : 1985 Provider: Zia AMAYA Age/Sex: 32/M Location: [facility] Status: Signed Intake Vital Signs06/03/18 Height 6 ft 1 in 06/03/18 Weight: 226 lb 06/03/18 Body Mass Index (BMI) 29.8 06/03/18 Blood Pressure 128/82 Intake Visit Reasons: SPIDER BITE ON HEAD Chief Complaint: Scalp infection Card Folder Required: No Accompanied by: self Is patient [...] the above. This note was generated with [employer] dictation software. It may contain incorrect words, spelling, and punctuation that were not noted in checking the note before signing. Medications New: Coding Level of Care Code Off vis,est,level 3 Diagnoses Cellulitis of occipital region of scalp L03.811 06/03/18 1600 <Electronically signed by Zia AMAYA> Date Zia AMAYA Cosigner Signature: Date (if applicable) CC: ENTERIC BACT PNL PCR Collected: 05/21/2018 Status: F Source: [place] 8:00 AM [facility] REPOSITORY TYPE CODE TESTS RESULT OUT OF REFERENCE UNITS RANGE LAB PCRSHG Shigella/EIEC Not Detected DNA LAB PCRCMP Campy jejun/coli DNA Not Detected LAB PCRSTX Shiga toxin gene(s) Not Detected LAB PCRSAL Salmonella spp. Not Detected DNA Performed By: #### STLPCR #### [facility] [address] [place], [place] [address] Observed: 05/21/2018 Status: F Source: [place] OVA AND PARASITE SCR 8:00 AM [facility] REPOSITORY Sp. Request/Comment: - Specimen received in [facility] and Parasite Kit. Culture Result - Negative for Giardia lamblia and Cryptosporidium species by EIA. Performed By: #### OVAPSC #### [facility] Gather App [address] [place] [id number] ANTHONY CBC AND DIFF Collected: 05/19/2018 Status: F Source: W[place]EN 3:57 PM [facility] REPOSITORY TYPE CODE TESTS RESULT OUT OF REFERENCE UNITS RANGE LAB WWBC 3.70-11.00 k/uL Anthony WBC 8.66 LAB WRBC 4.20-6.00 m/uL Anthony RBC 4.49 LAB WHGB 13.0-17.0 g/dL [place] Hemoglobin 14.8 LAB WHCT 39.0-51.0 % [place] Hematocrit 43.3 LAB WMCV 80.0-100.0 fL Anthony MCV 96.4 LAB WMCH 26.0-34.0 pg [place] MCH 33.0 LAB WMCHC 30.5-36.0 g/dL Anthony MCHC 34.2 LAB WRDW 11.5-15.0 % [place] RDW 12.6 LAB WPLT 150-400 k/uL [place] Platelet Cnt 245 LAB WMPV 9.0-12.7 fL [place] MPV 9.0 LAB WNEUT % [place] Neut% 74.3 LAB WLYMP % [place] Lymp% 20.0 LAB WMONOC % [place] Whitley% 5.4 LAB WEOS % Anthony Eos% 0.1 LAB WBASO % [place] Baso% 0.2 LAB WANEUT 1.45-7.50 k/uL [place] Abs Neut 6.43 LAB WALYMP 1.00-4.00 k/uL [place] Abs Lymp 1.73 LAB WAMONO <0.87 k/uL [place] Abs Whitley 0.47 LAB WAEOS <0.46 k/uL [place] Abs Eos <0.03 LAB WABASO <0.11 k/uL [place] Abs Baso <0.03 COMP METABOLIC PANEL Collected: 05/19/2018 Status: F Source: WARREN 3:56 PM [facility] REPOSITORY TYPE [...] 74-99 mg/dL Glucose 83 Result Comment: The [place] Diabetes Association (ADA) provides guidance for cutoff [...] Standards of Medical Care in Diabetes 2016, [place] Diabetes Association. Diabetes Care. 2016.39(Suppl 1). LAB [...] actual GFR. Performed By: #### CMP #### [facility] [address] [place], [place] [address] PROGRESS Observed: 05/19/2018 Status: COMPLETED Source: WARREN 3:27 PM [facility] REPOSITORY HNO ID: [id number] Author: Junior Plascencia (Isabel) Arnaud Service: (none) Author Type: Nurse Practitioner Type: Progress Notes Filed: 05/19/2018 4:58 PM Note Text: Chief Complaint Patient presents with: Recheck: patient is still having abdominal pain, vomiting and diarrhea HPI Quan Porter is a 32 year old male who presents here today for ED follow up and persistent nausea, vomiting and diarrhea. He was seen [facility] ED, 05/17/18, reports reviewed. Given IV [...] Neg neg Ketones, Urine Neg neg Specific [place], Ur 1.005 - 1.030 1.005 Hemoglobin/Blood,Ur Neg [...] GIARDIA ANTIGENS BY EIA Junior Lares MSN MUSTANGER.HOME DEMONSTRATION AGENT CNOV Observed: 05/19/2018 Status: COMPLETED Source: [place]EN 3:20 PM [facility] REPOSITORY Office Visit (FAMPWS) QUAN PORTER ([id number]) 1985 M Date Time Provider Department 05/19/18 3:20 PM JUNIOR LARES (ISABEL) FAMPWS During your visit today, we recorded the following information about you: Temperature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 Repository [address]Ofr: ([phone]) Date:2018-06-23 O [phone] () [address]ATTN: [place] [address]LT: 06/23/2018 Secondary NOT GIVENUNK [place] Insurance:SELF PAY [facility] Number: Effective Repository Date:2018-06-23 06/10/2018 LUKE E Primary LUKE E [place] [id number] Insurance:CARESOURCEP ELKANICKDOB: [facility] Number: [id number], [place] [id number] Repository [address]Ksx: ([phone]) Date:2018-05-13P O [phone] () [address]ATTN: [place] [address]NS: 06/10/2018 Secondary NOT GIVENUNK [place] Insurance:SELF PAY [facility] Number: Effective Repository Date:2018-05-13 06/03/2018 LUKE E Primary LUKE E [place] [id number] Insurance:CARESOURCEP ELKANICKDOB: [facility] Number: [id number], [place] [id number] Repository [address]Igv: ([phone]) Date:2018-06-03P O [phone] () [address]ATTN: [place] [address]GE: 06/03/2018 Secondary NOT GIVENUNK [place] Insurance:SELF PAY [facility] Number: Effective Repository Date:2018-06-03 06/03/2018 LUKE E Primary NOT GIVENUNK [place] [id number] Insurance:SELF PAY [place] Number: Effective Repository [phone]: ([phone]) Date:2018-06-03 [phone] () 05/17/2018 LUKE E Primary LUKE E [place] [id number] Insurance:CARESOURCEP ELKANICKDOB: [facility] Number: [id number], [place] [id number] Repository [address]Hmu: ([phone]) Date:2018-05-17P O [phone] () [address]ATTN: [place] [address]SN: 05/17/2018 Secondary NOT GIVENUNK [place] Insurance:SELF PAY [facility] Number: Effective Repository Date:2018-05-17 04/28/2018 LUKE E Primary LUKE E [place] [id number] Insurance:CARESOURCEP ELKANICKDOB: [facility] Number: [id number], [place] [id number] Repository [address]Tws: ([phone]) Date:2018-04-28P O [phone] () [address]ATTN: [place] [address]VD: 04/28/2018 Secondary NOT GIVENUNK [place] Insurance:SELF PAY [facility] Number: Effective Repository Date:2018-04-28 12/01/2017 LUKE E Primary LUKE E [place] [id number] Insurance:CARESOURCEP ELKANICKDOB: [facility] Number: [id number], [place] [id number] Repository [address]Ynm: ([phone]) Date:2017-12-01 O [phone] () [address]ATTN: [place] [address]TJ: 12/01/2017 Secondary NOT GIVENUNK [place] Insurance:SELF PAY [facility] Number: Effective Repository Date:2017-12-01 11/10/2017 LUKE E Primary LUKE E [place] [id number] Insurance:CARESOURCEP ELKANICKDOB: [facility] Number: [id number], [place] [id number] Repository [address]Sxa: ([phone]) Date:2017-11-10P O [phone] () [address]ATTN: [place] [address]ND: 11/10/2017 Secondary NOT GIVENUNK [place] Insurance:SELF PAY [facility] Number: Effective Repository Date:2017-11-10
== END ==
PROVIDERS: Family Provider Family Medicine; PCP Family Medicine; Referring Provider Family Medicine; Visit Provider Family Medicine
DX: K52.9 Noninfective gastroenteritis and colitis, unspecified (principal)
CPT/HCPCS: 83630; 87177; 87209; 87493; 87506

== ENCOUNTER 2018-11-17 17:47 | Emergency (ER) | payer OTHER, MEDICAID, SELFPAY ==
[2018-11-17 17:48] VITALS: BP 137/83; PULSE 91; RESP 16; TEMP 36.6; O2SAT 96; BMI 34.0
--- NOTE | 2018-11-17 17:57 | RAD_ITS ---
STUDY: X-RAY - RIGHT HAND, ATTENTION FIRST FINGER REASON FOR EXAM: Male, 32 years old. Foreign body TECHNIQUE: 3 view(s) of the finger were obtained. COMPARISON: None. FINDINGS: Normal metacarpal head. Normal metacarpophalangeal joint. Normal proximal phalanx. Normal distal phalanx. Normal interphalangeal joint. No radiopaque foreign body is noted. RAD/Finger(s) Min 2 Views IMPRESSION: Normal x-ray examination of the finger. Electronically Signed: Joby Coelho DO at 18:30 EST Tel [phone], Service support ,
--- NOTE | 2018-11-17 19:24 | ED.VISSUMM ---
- ER Visit Summary Date of Service: 11/17/18 Chief Complaint: Right thumb injury History of Present Illness: The patient is a 32 M presents with right thumb injury. Patient was at work earlier today and accidentally shot a nail through his right thumb with a nail gun. He removed the nail himself. This occurred 7 hours prior to arrival. He states he did ice the thumb earlier today. He complains of persistent pain. His tetanus is up-to-date. Physical Examination: Vitals are stable. Patient is afebrile. Alert no acute distress. HEENT exam is unremarkable. Neck is supple. Lungs are clear and equal bilaterally. Heart is regular rate and rhythm. Extremities puncture to right distal phalanx. Painful range of motion. Normal cap refill Skin is warm and dry. No focal neurologic deficit. Remainder of exam is unremarkable. Emergency Department Course and Treatment: Wound is irrigated. He is given Keflex and [place]. X-ray right thumb shows no acute process. Advised to follow-up with [facility] care. Advised return to ED for worsening complaints. Disposition: Discharge home Impression: Puncture wound right thumb This note was generated with [employer] dictation software. It may contain incorrect words, spelling, and punctuation that were not noted in review of the chart prior to signing ED Disposition - Plan for ED Patient: Chief Complaint: Foreign Body Instructions: ED Foreign Body Soft Tissue Removed Prescriptions: Hydrocodone Bitart/Apap 5-325 [[place] 5MG-325MG] 1 tablet PO Q6H PRN PRN 3 Days #10 tablet PRN Reason: Pain Cephalexin [Keflex] 500 mg PO Q6 #40 capsule Referrals: [facility] [GROUP OF PHYSICIANS] - Fredo Rodriguez MD [Primary Care Provider] -
--- NOTE | 2018-11-17 19:27 | DCINST.ED_ITS ---
ED Disposition - Plan for ED Patient: Chief Complaint: Foreign Body Instructions: ED Foreign Body Soft Tissue Removed Prescriptions: Hydrocodone Bitart/Apap 5-325 [[place] 5MG-325MG] 1 tablet PO Q6H PRN PRN 3 Days #10 tablet PRN Reason: Pain Cephalexin [Keflex] 500 mg PO Q6 #40 capsule Referrals: [facility] [GROUP OF PHYSICIANS] - Fredo Rodriguez MD [Primary Care Provider] -
[2018-11-17] MEDS: Cephalexin 250 MG Capsule 500 MG PO (19:36)
[2018-11-17] MEDS: HYDROcodone Bitartrate/Apap 5/325 Tablet PO (19:37)
--- NOTE | 2018-11-17 19:59 | ED.RN ---
ATTEMPTED TO CALL STAFF FINDERS [facility]. UNABLE TO REACH ANYONE. PATIENT DOES NOT KNOW SUPERVISORS NAME OR NUMBER. STAFF FINDERS NOT IN OUR SYSTEM. DR. DUMONT AND CLIMATOLOGIST NOTIFIED.
[2018-11-17 20:19] VITALS: BP 136/93; PULSE 96; RESP 18; O2SAT 96; O2SAT 97
== END 2018-11-17 20:20 | disposition home or self-care (01) ==
LOC: ED 19:39
PROVIDERS: Emergency Provider Emergency Medicine; Family Provider Family Medicine; PCP Family Medicine
DX: S61.031A Puncture wound without foreign body of right thumb without damage to nail, initial encounter (principal); Z72.0 Tobacco use; W29.4XXA Contact with nail gun, initial encounter; Y93.89 Activity, other specified; Y92.89 Other specified places as the place of occurrence of the external cause; Y99.0 Civilian activity done for income or pay
CPT/HCPCS: 73140; 99283

== ENCOUNTER 2018-11-18 15:19 | Emergency (ER) | payer MEDICAID, OTHER, SELFPAY ==
[2018-11-17 17:48] VITALS: BMI 34.0
[2018-11-18 15:20] VITALS: BP 129/88; PULSE 78; RESP 16; TEMP 36.3; O2SAT 99; BMI 33.7
--- NOTE | 2018-11-18 15:46 | ED.VISSUMM ---
- ER Visit Summary Date of Service: 11/18/18 Chief Complaint: Right thumb pain and swelling History of Present Illness: The patient is a 32 M who presents with increased pain and swelling in his right thumb today. Patient was seen here yesterday after shooting a nail into his right thumb with a nail gun. Patient had x-rays which did not show any fracture. Patient was given Keflex and [place] for pain. Patient states he has numbness and tingling in the tip of his right thumb. Patient states the pain is constant is worse with any movement. She states the pain is worse with exposure to cold. Patient states his tetanus is up-to-date. Physical Examination: Vital signs are stable. Patient is afebrile. Patient is in no acute distress. Skin is warm dry. There is a puncture wound on the ulnar aspect of the distal phalanx of the right thumb. There is minimal bleeding. There is tenderness and edema of the right thumb. There is tenderness along the palmar surface of the right thumb. Capillary refill is less than 2 seconds in all digits. Sensation was diminished to light touch in the right thumb. Test Results: CBC and metabolic profile were within normal limits. Emergency Department Course and Treatment: Patient was given morphine and Dilaudid here. Patient has been taking Keflex for the past 24 hours. Case was discussed with the hospitalist at [facility]. Patient will be transferred there. Patient understood and was agreeable with the plan. All questions were answered. Disposition: Transferred to [facility] Impression: Flexor tenosynovitis right thumb This note was generated with [employer] dictation software. It may contain incorrect words, spelling, and punctuation that were not noted in review of the chart prior to signing ED Disposition - Plan for ED Patient: Disposition: [facility] Chief Complaint: Upper Extremity Injury Diagnosis: Flexor tenosynovitis of thumb Referrals: Fredo Rodriguez MD [Primary Care Provider] -
--- NOTE | 2018-11-18 15:49 | ED.DCSUM_ITS ---
- ER Visit Summary Date of Service: 11/18/18 Chief Complaint: Right thumb pain and swelling History of Present Illness: The patient is a 32 M who presents with increased pain and swelling in his right thumb today. Patient was seen here yesterday after shooting a nail into his right thumb with a nail gun. Patient had x-rays which did not show any fracture. Patient was given Keflex and [place] for pain. Patient states he has numbness and tingling in the tip of his right thumb. Patient states the pain is constant is worse with any movement. She states the pain is worse with exposure to cold. Patient states his tetanus is up-to-date. Physical Examination: Vital signs are stable. Patient is afebrile. Patient is in no acute distress. Skin is warm dry. There is a puncture wound on the ulnar aspect of the distal phalanx of the right thumb. There is minimal bleeding. There is tenderness and edema of the right thumb. There is tenderness along the palmar surface of the right thumb. Capillary refill is less than 2 seconds in all digits. Sensation was diminished to light touch in the right thumb. Test Results: CBC and metabolic profile were within normal limits. Emergency Department Course and Treatment: Patient was given morphine and Dilaudid here. Patient has been taking Keflex for the past 24 hours. Case was discussed with the hospitalist at [facility]. Patient will be transferred there. Patient understood and was agreeable with the plan. All questions were answered. Disposition: Transferred to [facility] Impression: Flexor tenosynovitis right thumb This note was generated with [employer] dictation software. It may contain incorrect words, spelling, and punctuation that were not noted in review of the chart prior to signing ED Disposition - Plan for ED Patient: Disposition: [facility] Chief Complaint: Upper Extremity Injury Diagnosis: Flexor tenosynovitis of thumb Referrals: Fredo Rodriguez MD [Primary Care Provider] -
[2018-11-18] MEDS: Morphine 4 MG/ML Syringe IV (16:00)
[2018-11-18 16:35] LABS: Absolute Lymphocyte Count 1.67 X10^3/ul (0.83-4.51); Absolute Neutrophil Count 5.2 X10^3/uL (2.0-7.7); Basophil# 0.02 X10^3/uL; Basophil% 0.3 % (0-1); Eosinophil# 0.01 X10^3/uL; Eosinophils% 0.1 % (0-5); Hematocrit 40.5 % (40-54); Hemoglobin 14.1 g/dl (13.0-16.5); Lymphocyte # 1.67 X10^3/ul (4.0); Lymphocyte % 22.3 % (19-41); Mean Corp Hgb Conc 34.8 g/gl (32-36); Mean Corpuscular Hgb 33.3 pg (27.0-32.0); Mean Corpuscular Volume 95.7 fL (80-94); Mean Platelet Vol. 8.8 fl (6.2-12.0); Monocyte# 0.53 X10^3/uL; Monocyte% 7.1 % (0-10); Neutrophil # 5.24 X10^3/uL (2.7-7.7); Neutrophil % 69.8 % (47-70); POSITIVE COUNT NO; POSITIVE DIFFERENTIAL NO; POSITIVE MORPHOLOGY NO; Platelet Count 280 K/mm3 (150-450); RBC Distribution Width CV 12.9 % (11.6-14.6); RBC Distribution Width SD 43.3 fl (35.1-43.9); Red Blood Count 4.23 M/mm3 (4.6-6.2); White Blood Count 7.5 K/mm3 (4.4-11.0)
[2018-11-18 16:38] LABS: Anion Gap 8 (5-15); BUN 12 mg/dL (7-18); BUN/Creat Ratio 11.3 RATIO (10-20); Chloride 105 mmol/L (98-107); Creatinine, Serum 1.06 mg/dL (0.70-1.30); EST Glomerular Filtration Rate 85 mL/min (>60); Est Glom Filt Rate - Afr Amer 102 mL/min (>60); Estimated Creatinine Clearance 110.97 ml/min; Glucose 91 mg/dL (74-106); Potassium 3.5 mmol/L (3.5-5.1); Sodium Level 138 mmol/L (136-145)
--- NOTE | 2018-11-18 17:19 | NURSING ---
CALLED [facility], TALKED TO MAYURI.
--- NOTE | 2018-11-18 17:35 | NURSING ---
REFUSED AT [facility], NO ORTHO HAND
[2018-11-18] MEDS: HYDROmorphone 0.5 MG/0.5 ML SYRINGE IV (17:43)
--- NOTE | 2018-11-18 17:52 | NURSING ---
DR VICTOR MANUEL SANCHEZ
--- NOTE | 2018-11-18 18:04 | NURSING ---
ACCEPTED AT [facility]. PATIENT WILL BE A DIRECT ADMIT.
--- NOTE | 2018-11-18 18:10 | NURSING ---
[place] [address] REPORT [phone]
--- NOTE | 2018-11-18 18:16 | NURSING ---
CALLED [facility] FOR TRANSPORT. ETA IS 15 TO 2O MIN
[2018-11-18] MEDS: Ketorolac 30 MG/ML Syringe IV (18:40)
[2018-11-18 18:44] VITALS: BP 154/81; PULSE 76; RESP 17; O2SAT 96
== END 2018-11-18 18:51 | disposition short-term general hospital (02) ==
PROVIDERS: Emergency Provider Emergency Medicine; Family Provider Family Medicine; PCP Family Medicine
DX: M65.9 Synovitis and tenosynovitis, unspecified (principal); S61.031D Puncture wound without foreign body of right thumb without damage to nail, subsequent encounter; Z79.2 Long term (current) use of antibiotics; Z79.891 Long term (current) use of opiate analgesic; Z79.899 Other long term (current) drug therapy; Z72.0 Tobacco use; W29.4XXD Contact with nail gun, subsequent encounter
CPT/HCPCS: 80048; 85025; 96374; 96375; 99284; A4216

== ENCOUNTER 2019-01-07 17:00 | Outpatient (RCR) | payer OTHER, MEDICAID, SELFPAY ==
[2018-12-09 12:58] VITALS: BMI 33.7
--- NOTE | 2018-12-14 18:30 | HP.OTEVAL_ITS ---
Patient's Visit Information CHELITA WHITMAN is a 32 year old M, referred to Occupational Therapy by JM BOWEN, with a diagnosis of suppurative tenosynovitis of flexor tendon of right hand. Date of Evaluation: 12/14/18 Occupational Therapist: Alessandra Royal, OTR/Leon, CHT - Subjective Subjective: Pt states he shot a nail in his thumb on 11/16/18 went to ER and returned the next day with infection- pt admited and hand the sx, on Nov 20. pt was referd to OT on 12/02/18. 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 - Pain right thumb 0 Pain Intensity Range: 5 - ROM CMC: right 5 left 5 MP: right 65 left 70 IP: right 40 left 65 - Strength Associate Professor Computer Science: right 110# 120# Lateral Pinch: right 4# left 24# Tripod Pinch: right 2# left 26# - Edema Other: right IP 8.0 left IP 7.2 - Sensation Sensation Comments: denies - Nine Hole Peg Right: 22.36 Left: 21.73 - Quick DASH-Disab of Arm,Shoulder& Hand Quick DASH Score: 46.6650 - Goals Goal:: pt will demo a increase in tripod and lateral pinch to 20# or greater to return pt to PLOF with ADLs and work tasks by D/C Goal:: pt will dem a increase in IP/MP flex by 10* to gain functional pinch for ADLs and work task by d/c. Goal:: pt will report pain no greater than 2/10 with pinch, and FM tasks by d/c - Rehabilitation General Assessment: S/P 3 weeks 3 day suppurative tenosynovitis of flexor tendon. pt demo fair ROM, edema and limited pinch strength. pt has pain with his current end range of motion and resistive pinch test. pt demo with scar sensitivity limiting touch and full use of his right hand for ADLs and work tasks. PT would benefit from skilled OT services 2x week for 6 weeks to return pts ROM, strength and decrase scar sensitivity and pain. Today pt was ed on blocking ex. and scar mtg. pt demo understanding and agree to POC. Rehabilitation Potential: Good - Anticipated Interventions Anticipated Interventions: A/AAROM/PROM, Strengthening, Edema Control, Desensitization, Modalities - Visit Plan Frequency: 2x /Week Duration: 6 Weeks TEXT: Thank you for the opportunity to evaluate your patient. For Medicare and Medicare HMO plans, please review the plan of care and approve it. It will need to be FAXED BACK to us at [phone] for Medicare purposes. Please let me know if there are questions or concerns regarding this plan of care. Physician Signature: Date:
--- NOTE | 2019-05-03 11:13 | HP.OTDCNRP_ITS ---
HP - Discharge Summary - Patient Information CHELITA WHITMAN was seen in my office for initial evaluation on 12/14/18. The following Plan of Care was established for this patient: Initial Frequency: 2x /Week Initial Duration: 6 Weeks Plan: cont w/ prior POC - Anticipated Interventions Anticipated Interventions: A/AAROM/PROM, Strengthening, Edema Control, Desensitization, Modalities This patient was last seen in our office 01/07/19. Pertinent comments regarding their Occupational therapy will appear below: Pt was seen for 7 visits. pt did cancel is 2nd to last scheduled apt and No show ed his last scheduled apt. pt has not scheduled any further apts and due to time lapes in tx sessions is now d/c at this time. At this point I will be discontinuing this patient from occupational therapy. I would be happy to see this patient again in the future if found appropriate by the physician. Thank you! Alessandra Royal, OTR/L, CHT
== END 2019-01-07 19:00 | disposition home or self-care (01) ==
LOC: OT 17:00
PROVIDERS: Family Provider Family Medicine; PCP Family Medicine
DX: M65.141 Other infective (teno)synovitis, right hand (principal)
CPT/HCPCS: 97110; 97140; 97166

== ENCOUNTER 2019-04-03 18:55 | Emergency (ER) | payer MEDICAID, SELFPAY ==
[2018-12-09 12:58] VITALS: BMI 33.7
[2019-04-03 18:56] VITALS: BP 135/70; PULSE 95; RESP 16; TEMP 36.6; O2SAT 98; BMI 33.0
[2019-04-03 19:38] VITALS: BP 112/77; BP 123/92; BP 128/67; PULSE 110; PULSE 85; PULSE 88
[2019-04-03 19:40] LABS: Hematocrit 41.9 % (40-54); Hemoglobin 14.6 g/dl (13.0-16.5); Mean Corp Hgb Conc 34.8 g/gl (32-36); Mean Corpuscular Volume 94.6 fL (80-94); Mean Platelet Vol. 8.7 fl (6.2-12.0); Platelet Count 236 K/mm3 (150-450); RBC Distribution Width CV 12.8 % (11.6-14.6); RBC Distribution Width SD 44.5 fl (35.1-43.9); Red Blood Count 4.43 M/mm3 (4.6-6.2); White Blood Count 6.8 K/mm3 (4.4-11.0)
[2019-04-03 19:42] LABS: Scan Indicated on CBC? Y/N NO
[2019-04-03 19:51] LABS: Anion Gap 5 (5-15); BUN 17 mg/dL (7-18); BUN/Creat Ratio 14.3 RATIO (10-20); Calcium,Total 8.7 mg/dL (8.5-10.1); Chloride 109 mmol/L (98-107); Creatinine, Serum 1.19 mg/dL (0.70-1.30); EST Glomerular Filtration Rate 74 mL/min (>60); Est Glom Filt Rate - Afr Amer 89 mL/min (>60); Estimated Creatinine Clearance 97.92 ml/min; Glucose 87 mg/dL (74-106); Potassium 3.4 mmol/L (3.5-5.1); Sodium Level 140 mmol/L (136-145)
--- NOTE | 2019-04-03 20:26 | ED.DCSUM_ITS ---
- ER Visit Summary Date of Service: 04/03/19 Chief Complaint: Rectal bleeding History of Present Illness: The patient is a 33 M history of PTSD. History of prior GI bleed when he had both upper and lower endoscopy without any diagnosis. Patient states for last 2 days he has had rectal bleeding. Denies large clots. Denies any hematemesis. No abdominal pain. Physical Examination: Young male no acute distress. Vital signs are stable afebrile. Initial blood pressure is 135/70. Heart rate 95. HEENT exam unremarkable. Neck nontender. Lungs clear to auscultation. Heart regular rhythm no murmur. Abdomen soft nontender. Normal bowel sounds no peritoneal signs. Rectal exam limited loose light brown stool. No blood. No melena. No hemorrhoids. Nontender. No masses. Patient moving all 4 extremities. Neurologically is awake and alert. Clinically he has no signs at this time of heavy bleeding. Test Results: CBC shows a white count of 6. Hemoglobin of 14 which is at baseline. Hematocrit 41. Electrolytes unremarkable BUN of 17 creatinine 1.1. Labs are the same as prior. Emergency Department Course and Treatment: Repeat exam patient is doing well. He has no signs of any significant bleeding at this time. And likely an extensive work-up for this a year ago. There is no signs of head exam at this time am comfortable with him being discharged home with outpatient follow-up with his primary care physician. He knows to return if worse. Treatment Plan: Outpatient follow-up. Return if worse. Disposition: Discharge Impression: Stable rectal bleeding of uncertain etiology This note was generated with [employer] dictation software. It may contain incorrect words, spelling, and punctuation that were not noted in review of the chart prior to signing ED Disposition - Plan for ED Patient: Referrals: Fredo Rodriguez MD [Primary Care Provider] -
--- NOTE | 2019-04-03 20:26 | ED.DEP ---
ED Disposition - Plan for ED Patient: Disposition: Home or Assisted Living Instructions: ED Hematochezia Stable Referrals: Fredo Rodriguez MD [Primary Care Provider] - As soon as possible Additional Instructions: Call and follow-up with your doctor next several days. At this time we do not need to admit to the hospital. Your blood counts are stable. There is no signs of heavy bleeding. If this week a lot worse return. Otherwise follow-up and do outpatient work-up.
[2019-04-03] MEDS: Ondansetron 4 MG/2 ML Vial IV (20:31)
[2019-04-03 20:36] VITALS: BP 109/67; PULSE 68; RESP 18; O2SAT 98
== END 2019-04-03 20:34 | disposition home or self-care (01) ==
PROVIDERS: Emergency Provider Emergency Medicine; Family Provider Family Medicine; PCP Family Medicine
DX: K62.5 Hemorrhage of anus and rectum (principal); F43.10 Post-traumatic stress disorder, unspecified; Z72.0 Tobacco use; Z79.899 Other long term (current) drug therapy
CPT/HCPCS: 80048; 85027; 96374; 99284; A4216; J2405

== ENCOUNTER 2019-04-11 20:16 | Emergency (ER) | payer MEDICAID, SELFPAY ==
[2019-04-11 20:16] VITALS: BP 131/81; PULSE 91; RESP 16; TEMP 36.8; O2SAT 97; BMI 33.0
[2019-04-11] MEDS: diazePAM 5 MG Tablet PO (20:59)
[2019-04-11] MEDS: 0.9% Normal Saline 1,000 ML 1000 ML IV (20:59)
[2019-04-11] MEDS: Ketorolac 30 MG/ML Syringe IV (21:00)
--- NOTE | 2019-04-11 21:42 | ED.VISSUMM ---
- ER Visit Summary Date of Service: 04/11/19 Chief Complaint: Neck pain and headache History of Present Illness: The patient is a 33 M who states that Friday after work he just did not feel good. He began to have some neck soreness which she states is getting worse. 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 He states that yesterday his neck was getting worse today is at its highest intensity. Notes a little bit of a sore throat family notes a right sided lymph node. He states that the neck pain comes up to the occiput he has a frontal headache. He denies any upper extremity paresthesias. No history of IV drug use. No fevers. No light sensitivity. He does note diplopia. Denies any significant medical history other than mental illness. Takes Seroquel and Remeron for this. He has a sulfa allergy. Physical Examination: Afebrile vital signs are stable Gen: Well-nourished well-developed Head: Normocephalic atraumatic Eyes: Perrl EOMI ENT: TMs clear no rhinorrhea moist mucous membranes Neck: Supple small less than 1 cm lymph nodes on the right that are nontender mobile the neck musculature is diffusely tender particularly the SCM's at the insertion at the mastoid. No nuchal rigidity. CVS: Regular rate rhythm no murmurs normal S1-S2 Respiratory: No distress clear to auscultation bilaterally chest nontender Abdomen: Soft nontender nondistended normal bowel sounds no masses Back: Nontender Extremity: Nontender no edema Skin: Normal color no rash Neuro: alert orientated ?3 CN II-XII intact normal strength sensation reflexes gait cerebellar Psych: Normal affect normal mood Emergency Department Course and Treatment: Patient received a dose of IV Toradol, IV fluids, and Valium. Patient tells me his symptoms are worse than when he came and after the medications. Family tells me that he is an ex-drug addict and I do not want him to have any medications that are potentially addictive. I think a reasonable approach this would be muscle relaxants and anti-inflammatories. I recommend heat and gentle stretching. I suspect the patient has a tension headache brought on by muscular neck spasm. Etiology of spasms unclear could be from strenuous work. I do not believe the patient has encephalitis or intracranial pathology at this time. Patient to return if worsening or concerns Impression: 1. Tension headache 2. Neck muscle spasm and pain This note was generated with [employer] dictation software. It may contain incorrect words, spelling, and punctuation that were not noted in review of the chart prior to signing ED Disposition - Plan for ED Patient: Disposition: Home or Assisted Living Instructions: HEADACHE, Tension, NECK SPASM, No Trauma Prescriptions: cycloBENZAPRine HCl [Flexeril] 10 mg PO TID PRN #20 tab PRN Reason: Muscle Spasm Prescription Printed Ketorolac [Toradol] 10 mg PO Q8H PRN 5 Days #15 tab PRN Reason: Pain Prescription Printed Referrals: Fredo Rodriguez MD [Primary Care Provider] - 3-5 Days if not improving
[2019-04-11] MEDS: MethylPREDNISolone 125 MG/2 ML Vial IV (22:00)
[2019-04-11] MEDS: Orphenadrine 60 MG/2 ML Ampul IM (22:01)
[2019-04-11 22:15] VITALS: BP 139/85; PULSE 68; RESP 17; O2SAT 99
== END 2019-04-11 22:16 | disposition home or self-care (01) ==
PROVIDERS: Emergency Provider Emergency Medicine; Family Provider Family Medicine; PCP Family Medicine
DX: G44.209 Tension-type headache, unspecified, not intractable (principal); M62.838 Other muscle spasm; M54.2 Cervicalgia
CPT/HCPCS: 96361; 96372; 96374; 96375; 99284; J7030; A4216

== ENCOUNTER 2019-04-12 13:51 | Emergency (ER) | payer MEDICAID, SELFPAY ==
[2019-04-11 20:16] VITALS: BMI 33.0
[2019-04-12 13:52] VITALS: BP 138/82; PULSE 95; RESP 16; TEMP 36.7; O2SAT 98; BMI 19.8
--- NOTE | 2019-04-12 15:52 | CT_ITS ---
STUDY: CTA OF THE BRAIN REASON FOR EXAM: Male, 33 years old. Pain and swelling. Tingling since the arm. Recent chiropractic adjustment. Headache. RADIATION DOSAGE (If Supplied By Facility): CTDIvol = ( 25.36 ) mGy, DLP = ( 1599.33 ) mGycm TECHNIQUE: CT angiography was performed with a multi-detector CT scanner. Data acquisition was obtained from the skull base through the vertex following intravenous administration of 100 IV Isovue 370. MIP images were reconstructed from the axial data set. Post-processing of the angiographic images was performed, with multiplanar reformation and 3D reconstruction. Individualized dose optimization techniques were used for this CT. COMPARISON: CT of the head, June 23, 2018. FINDINGS: Normal bilateral petrous carotid arteries. Normal right cavernous carotid artery with a normal supraclinoid bifurcation. Normal left cavernous carotid artery with a normal supraclinoid bifurcation. Normal right A1 segments of the anterior cerebral artery. Normal left A1 segments of the anterior cerebral artery. Normal intact anterior communicating artery (ACOM). Normal bilateral A2 segments of the anterior cerebral arteries. Normal right M1 and M2 segments of the middle cerebral arteries, with a normal M1 bifurcation. Normal left M1 and M2 segments of the middle cerebral arteries, with a normal M1 bifurcation. Normal right posterior communicating artery (PCOM). Normal left posterior communicating artery (PCOM). Normal bilateral vertebral arteries. Normal basilar artery with a normal basilar bifurcation. The visualized bilateral superior cerebellar (SCA) arteries are normal. Normal bilateral P1, P2 and visualized P3 segments of the posterior cerebral arteries. There is no demonstrated aneurysm of the [place]. There is no demonstrated abnormality of the visualized brain. IMPRESSION: Normal [place] without a demonstrated aneurysm or hemodynamically significant stenosis. Electronically Signed: Jacinto Cote DO at 17:05 EDT Tel [phone], Service support , STUDY: CTA NECK WITH CONTRAST REASON FOR EXAM: Male, 33 years old. Pain. Swelling. Tingling in the arms. Recent chiropractic adjustment. Headache. RADIATION DOSAGE (If Supplied By Facility): CTDIvol = ( 25.36 ) mGy, DLP = ( 1599.33 ) mGycm TECHNIQUE: CT angiography with multi-detector data acquisition was performed from the aortic arch to the skull base following intravenous administration of 100 IV Isovue 370. MIP images were reconstructed from the axial data set. Post-processing of the angiographic images was performed, with multiplanar reformation and 3D reconstruction. Individualized dose optimization techniques were used for this CT. COMPARISON: None. FINDINGS: AORTIC ARCH: Normal visualized aortic arch. Normal origins of the brachiocephalic, left common carotid, and left subclavian arteries. RIGHT CAROTID ARTERIES: Normal right common carotid artery (CCA). Normal right common carotid bulb. Normal origin of the right internal carotid (ICA) artery without a hemodynamically significant stenosis. Normal visualized cervical portion of the right internal carotid artery. Normal origin of the right external carotid artery (ECA). LEFT CAROTID ARTERIES: Normal left common carotid artery (CCA). Normal left common carotid bulb. Normal origin of the left internal carotid (ICA) artery without a hemodynamically significant stenosis. Normal visualized cervical portion of the left internal carotid artery. Normal origin of the left external carotid artery (ECA). VERTEBRAL ARTERIES: Normal bilateral vertebral arteries. The cervical spine appears grossly normal. The soft tissues of the neck are grossly unremarkable. The upper lungs are normal with the exception of a single large bleb in the right lung apex. CT/CTA Head W/WO Contrast IMPRESSION: Normal bilateral cervical carotid and vertebral arteries. Electronically Signed: Jacinto Cote DO at 17:02 EDT Tel [phone], Service support ,
--- NOTE | 2019-04-12 15:52 | CT_ITS ---
STUDY: CTA OF THE BRAIN REASON FOR EXAM: Male, 33 years old. Pain and swelling. Tingling since the arm. Recent chiropractic adjustment. Headache. RADIATION DOSAGE (If Supplied By Facility): CTDIvol = ( 25.36 ) mGy, DLP = ( 1599.33 ) mGycm TECHNIQUE: CT angiography was performed with a multi-detector CT scanner. Data acquisition was obtained from the skull base through the vertex following intravenous administration of 100 IV Isovue 370. MIP images were reconstructed from the axial data set. Post-processing of the angiographic images was performed, with multiplanar reformation and 3D reconstruction. Individualized dose optimization techniques were used for this CT. COMPARISON: CT of the head, June 23, 2018. FINDINGS: Normal bilateral petrous carotid arteries. Normal right cavernous carotid artery with a normal supraclinoid bifurcation. Normal left cavernous carotid artery with a normal supraclinoid bifurcation. Normal right A1 segments of the anterior cerebral artery. Normal left A1 segments of the anterior cerebral artery. Normal intact anterior communicating artery (ACOM). Normal bilateral A2 segments of the anterior cerebral arteries. Normal right M1 and M2 segments of the middle cerebral arteries, with a normal M1 bifurcation. Normal left M1 and M2 segments of the middle cerebral arteries, with a normal M1 bifurcation. Normal right posterior communicating artery (PCOM). Normal left posterior communicating artery (PCOM). Normal bilateral vertebral arteries. Normal basilar artery with a normal basilar bifurcation. The visualized bilateral superior cerebellar (SCA) arteries are normal. Normal bilateral P1, P2 and visualized P3 segments of the posterior cerebral arteries. There is no demonstrated aneurysm of the [place]. There is no demonstrated abnormality of the visualized brain. IMPRESSION: Normal [place] without a demonstrated aneurysm or hemodynamically significant stenosis. Electronically Signed: Jacinto Cote DO at 17:05 EDT Tel [phone], Service support , STUDY: CTA NECK WITH CONTRAST REASON FOR EXAM: Male, 33 years old. Pain. Swelling. Tingling in the arms. Recent chiropractic adjustment. Headache. RADIATION DOSAGE (If Supplied By Facility): CTDIvol = ( 25.36 ) mGy, DLP = ( 1599.33 ) mGycm TECHNIQUE: CT angiography with multi-detector data acquisition was performed from the aortic arch to the skull base following intravenous administration of 100 IV Isovue 370. MIP images were reconstructed from the axial data set. Post-processing of the angiographic images was performed, with multiplanar reformation and 3D reconstruction. Individualized dose optimization techniques were used for this CT. COMPARISON: None. FINDINGS: AORTIC ARCH: Normal visualized aortic arch. Normal origins of the brachiocephalic, left common carotid, and left subclavian arteries. RIGHT CAROTID ARTERIES: Normal right common carotid artery (CCA). Normal right common carotid bulb. Normal origin of the right internal carotid (ICA) artery without a hemodynamically significant stenosis. Normal visualized cervical portion of the right internal carotid artery. Normal origin of the right external carotid artery (ECA). LEFT CAROTID ARTERIES: Normal left common carotid artery (CCA). Normal left common carotid bulb. Normal origin of the left internal carotid (ICA) artery without a hemodynamically significant stenosis. Normal visualized cervical portion of the left internal carotid artery. Normal origin of the left external carotid artery (ECA). VERTEBRAL ARTERIES: Normal bilateral vertebral arteries. The cervical spine appears grossly normal. The soft tissues of the neck are grossly unremarkable. The upper lungs are normal with the exception of a single large bleb in the right lung apex. CT/CTA Neck W/WO Contrast IMPRESSION: Normal bilateral cervical carotid and vertebral arteries. Electronically Signed: Jacinto Cote DO at 17:02 EDT Tel [phone], Service support ,
--- NOTE | 2019-04-12 15:55 | ED.DCSUM_ITS ---
- ER Visit Summary Date of Service: 04/12/19 Chief Complaint: Headache History of Present Illness: The patient is a 33 M presenting with headache which started on Friday. It was a gradual onset headache. He states he was seen in the ED yesterday for similar complaints and was advised that he has a tension headache. He was given prescription for Naprosyn and Flexeril. He states he continues to have pain. He was concerned today because he had tingling in both hands and spasms in both hands. He states he was breathing rapidly when this started. He was seen by his chiropractor today and had an adjustment. He denies fever. He has nausea without vomiting. Denies other complaints. Physical Examination: Vitals are stable. Patient is afebrile. Alert no acute distress. HEENT exam is unremarkable. Neck is supple. No meningismus Lungs are clear and equal bilaterally. Heart is regular rate and rhythm. Abdomen is soft nontender nondistended. Extremities are unremarkable. Skin is warm and dry. No focal neurologic deficit. Normal strength and sensation Remainder of exam is unremarkable. Emergency Department Course and Treatment: Patient was given Reglan, Benadryl IV. Chemistries unremarkable. CTA head shows normal eagle of [place] without a demonstrated aneurysm or hemodynamically significant stenosis. CTA neck shows normal bilateral cervical carotid and vertebral arteries. On reevaluation, patient is resting comfortably. I suspect hyperventilation syndrome, along with migraine versus tension headache. He is advised to follow-up with his primary care physician. Advised return to ED for worsening complaints. Disposition: Discharge home Impression: Headache This note was generated with [employer] dictation software. It may contain incorrect words, spelling, and punctuation that were not noted in review of the chart prior to signing ED Disposition - Plan for ED Patient: Referrals: Fredo Rodriguez MD [Primary Care Provider] -
[2019-04-12] MEDS: Metoclopramide 10 MG/2 ML Vial 5 MG IV (16:06)
[2019-04-12] MEDS: DiphenhydrAMINE 50 MG/ML Syringe 25 MG IV (16:07)
[2019-04-12 16:09] VITALS: TEMP 36.7
[2019-04-12 17:04] LABS: Anion Gap 9 (5-15); BUN 14 mg/dL (7-18); BUN/Creat Ratio 12.1 RATIO (10-20); Calcium,Total 9.2 mg/dL (8.5-10.1); Chloride 110 mmol/L (98-107); Creatinine, Serum 1.16 mg/dL (0.70-1.30); EST Glomerular Filtration Rate 76 mL/min (>60); Est Glom Filt Rate - Afr Amer 92 mL/min (>60); Estimated Creatinine Clearance 85.54 ml/min; Glucose 129 mg/dL (74-106); Potassium 3.9 mmol/L (3.5-5.1); Sodium Level 141 mmol/L (136-145)
--- NOTE | 2019-04-12 17:42 | ED.DEP ---
ED Disposition - Plan for ED Patient: Instructions: HEADACHE, Unspecified Referrals: Fredo Rodriguez MD [Primary Care Provider] -
== END 2019-04-12 18:26 | disposition home or self-care (01) ==
PROVIDERS: Emergency Provider Emergency Medicine; Family Provider Family Medicine; PCP Family Medicine
DX: R51 Headache (principal); Z72.0 Tobacco use
CPT/HCPCS: 70496; 70498; 80048; 96374; 96375; 99284; Q9967; A4216

== ENCOUNTER 2019-08-08 14:19 | Emergency (ER) | payer OTHER, SELFPAY ==
[2019-08-08 14:20] VITALS: BP 136/84; PULSE 96; RESP 18; TEMP 36.4; O2SAT 96; BMI 30.9
--- NOTE | 2019-08-08 14:55 | ED.VIS.GEN ---
History of Present Illness Chief Complaint: Back Informant: Patient Onset: Weeks Context: Gradual Onset Timing: Intermittent Current Severity: Moderate Maximum Severity: Moderate Narrative: The patient presents to the emergency department with sciatica. Patient states he is a history of back pain. He was active and pain management, but now just takes gabapentin. He states that he did have a spinal fusion in 2013. He states from time to time, he will get a flareup of his back pain. He describes it as a burning pain down his right leg and was foot. He will have occasional numbness in the foot. He states over the past 2 months, his pain is worsened. He states he will get waves of pain that will make him feel nauseated. He denies any problems with bowel bladder. He denies any weakness or change in gait. He has not had fever or chills. He denies any history of IV drug abuse. Prior similar symptoms: Yes Recent Illness/Hospitalization: No Past Medical History - Allergies and Home Meds Allergies/Adverse Reactions: Allergies Sulfa (Sulfonamide Antibiotics) Allergy (Verified 08/08/19 14:20) Swelling methadone Adverse Reaction (Verified 08/08/19 14:20) Other kidney failure varenicline [From Chantix] Adverse Reaction (Verified 08/08/19 14:20) Other kidney failure Primary Care Physician: Fredo Rodriguez MD [Primary Care Provider] - Prior records reviewed: Yes Past Medical History: - - Back pain, behavioral disturbance Lives: With Family Smoking Status: Current every day smoker Alcohol: None - Family History Paternal Family History: Reports: No pertinent history Review of Systems General: Denies: Chills, Fever, Sweats Eyes: Denies: Visual changes - bilaterally, Diplopia ENT: Denies: Rhinorrhea, Sore throat Cardiovascular: Denies: Chest pain, Palpitations Respiratory: Denies: Dyspnea, Cough, Dyspnea on exertion Gastrointestinal: Denies: Abdominal pain, Nausea, Vomiting, Diarrhea, Melena, Hematochezia Genitourinary: Denies: Dysuria, Hematuria, Frequency Musculoskeletal: Reports: Back pain. Denies: Extremity Pain Skin: Denies: Rash, Wounds Neurological: Denies: Headache, Weakness, Numbness Physical Exam Vital Signs/Narrative: Vital Signs Temp Pulse Resp BP Pulse Ox 08/08/19 14:20 97.6 F L 96 18 136/84 H 96 Inital Vital Signs reviewed: Yes General: Well nourished, Well developed, No Acute Distress Head: Normocephalic, Atraumatic Eyes: Perrl, EOMI ENT: Moist mucous membranes, No rhinorrhea Neck: Supple, Nontender Cardiovascular: Regular rate, Regular rhythm, No murmurs Respiratory: No distress, CTA bilaterally, Chest nontender Abdomen: Soft, Nontender, Nondistended, Normal bowel sounds Back: Normal Inspection, - - Paraspinal tenderness on the right over the SI joint. 2+ lower extremity pulses. 2+ reflexes. No weakness of dorsiflexion, plantar flexion, or extensor hallucis longus.. Negative for: CVA tenderness, Spinal tenderness Extremities: Nontender, No edema Skin: Normal color, No rash Neurological: Alert, Oriented x3, Cranial nerves II-XII grossly intact, Normal Strength, Normal Sensation Psychological: Normal affect, Normal Mood Diagnostic/Tx/Re-eval - Medical Decision Making The patient presents with exacerbation of his chronic pain. He has no weakness. His reflexes are normal. His pulses are normal. He has no red flag symptoms. I do not suspect cauda equina, epidural abscess, or other dangerous process. The patient was treated with IM medications. He will be given a short course of Medrol and analgesics along with antispasmodics. He will follow-up with his primary care. He was counseled concerning symptoms and reasons to return. He will be discharged home. Impression 1. Right low back pain with sciatica ED Disposition - Plan for ED Patient: Instructions: BACK PAIN w/ SCIATICA Prescriptions: cycloBENZAPRine HCl [Flexeril] 10 mg PO TID PRN #20 tab PRN Reason: Muscle Spasm Prescription Printed Naproxen [Naprosyn] 500 mg PO BID PRN #20 tab Prescription Printed Oxycodone HCl/Acetaminophen [Percocet 5/325] 1 tab PO Q6H PRN PRN 3 Days #12 tab PRN Reason: Pain Prescription Printed Referrals: Fredo Rodriguez MD [Primary Care Provider] -
[2019-08-08 15:06] VITALS: BP 128/77; PULSE 75; RESP 14; O2SAT 98
[2019-08-08] MEDS: Orphenadrine 60 MG/2 ML Ampul IM (15:07)
[2019-08-08] MEDS: Ketorolac 60 MG/2 ML Vial IM (15:08)
[2019-08-08] MEDS: morphine 8 MG/ML Syringe IM (15:08)
[2019-08-08 15:43] VITALS: BP 113/84
== END 2019-08-08 15:54 | disposition home or self-care (01) ==
PROVIDERS: Emergency Provider Emergency Medicine
DX: M54.41 Lumbago with sciatica, right side (principal); F17.200 Nicotine dependence, unspecified, uncomplicated
CPT/HCPCS: 96372; 99283

== ENCOUNTER 2019-08-21 23:09 | Emergency (ER) | payer OTHER, SELFPAY ==
[2019-08-21 23:10] VITALS: BP 120/80; PULSE 112; RESP 20; TEMP 36.4; O2SAT 96; BMI 29.9
--- NOTE | 2019-08-21 23:37 | ED.VIS.BACK ---
History of Present Illness Chief Complaint: Back Informant: Patient Onset: Month(s) - 3 Context: Gradual Onset Injury: Lifting, Repetitive Motion Timing: Continuous Quality: Aching Location: Lumbar, Buttock, Right Leg Current Severity: Severe Maximum Severity: Severe Worsened by: improves with: - - sitting Relieved by: Bending Forward - and lifting, getting out of sitting position, - - better w/ being up and around Associated Symptoms: Numbness - medial right thigh, Radiation to Right Leg, - - No abdominal pain, weakness in the leg, bowel or bladder retention or incontinence Narrative: Has had some discomfort in his left shoulder with lifting as well, radiates into his left upper chest. Worse with movement. 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 - Past Medical History (1) Schizophrenia Status: Chronic Past Medical History - Allergies and Home Meds Allergies/Adverse Reactions: Allergies Sulfa (Sulfonamide Antibiotics) Allergy (Verified 08/21/19 23:10) Swelling methadone Adverse Reaction (Verified 08/21/19 23:10) Other kidney failure varenicline [From Chantix] Adverse Reaction (Verified 08/21/19 23:10) Other kidney failure Primary Care Physician: China Goldman MD [STAFF PHYSICIAN] - As soon as possible Smoking Status: Current every day smoker Drugs: None - Family History Paternal Family History: Reports: No pertinent history Review of Systems General: Denies: Chills, Fever, Sweats Eyes: Denies: Visual changes - bilaterally, Diplopia ENT: Denies: Rhinorrhea, Sore throat Cardiovascular: Reports: Chest pain - See HPI. Denies: Palpitations Respiratory: Denies: Dyspnea, Cough, Dyspnea on exertion Gastrointestinal: Denies: Abdominal pain, Nausea, Vomiting, Diarrhea, Melena, Hematochezia Genitourinary: Reports: - - No bowel or bladder incontinence/retention. Denies: Dysuria, Hematuria, Frequency Musculoskeletal: Reports: Back pain, Extremity Pain - See HPI. Denies: Neck pain, Swelling Skin: Denies: Rash, Wounds Neurological: Reports: Parasthesia. Denies: Headache, Weakness Physical Exam Vital Signs/Narrative: Vital Signs Temp Pulse Resp BP Pulse Ox 08/21/19 23:10 97.5 F L 112 H 20 H 120/80 96 Inital Vital Signs reviewed: Yes General: Well nourished, Well developed, - - No acute distress Head: Normocephalic, Atraumatic Eyes: Perrl, EOMI Neck: Supple, Nontender Abdomen: Soft, Nontender, Nondistended, Normal bowel sounds Back: Normal Inspection, Spinal tenderness - Mild mid lumbar, Positive SLR - Right - With negative cross leg straight leg raise, Negative SLR - Left, - - Tender right sciatic notch/buttock. Negative for: CVA tenderness Extremeties: Nontender, No edema Skin: Normal color, No rash Neuro: Alert, Oriented, Normal Strength, Normal Sensation, Normal DTR, Normal Gait, Normal Reflexes Psychological: Normal affect, Normal Mood Diagnostic/Tx/Re-eval Clinical Impression(s) from Imaging Studies Lumbar Spine X-Ray 08/21/19 23:54 IMPRESSION: Intact anterior and posterior fixation hardware at the L5-S1 level, with stable grade 1 anterolisthesis. Otherwise, normal exam. Electronically Signed: Facundo Rocha MD at 0:37 EDT , Service support , - Medical Decision Making Patient was here less than 2 weeks ago for the same symptoms. My findings are similar to what was documented by that physician. No concern for cauda equina syndrome at this time. I did obtain some x-rays this time, that showed nothing acute as expected. He is wanting a referral to pain management. I gave him analgesics here but I am not prescribing him any more Percocet. Medrol Dosepak did not appear to really help him so no need to continue steroids. The muscle relaxer seem to help some, he would like a prescription for some of that and I think that is fine. Will refer him to local pain management, he had steroid injections in the past before his other surgery which seemed to help. ED Disposition - Plan for ED Patient: Disposition: Home or Assisted Living Diagnosis: Low back pain with right-sided sciatica Instructions: BACK PAIN w/ SCIATICA Prescriptions: cycloBENZAPRine HCl [Flexeril] 10 mg PO TID PRN PRN #15 tab PRN Reason: Muscle Spasm Prescription Printed Referrals: China Goldman MD [STAFF PHYSICIAN] - As soon as possible
[2019-08-21] MEDS: Orphenadrine 60 MG/2 ML Ampul IM (23:43)
[2019-08-21] MEDS: Ketorolac 60 MG/2 ML Vial IM (23:43)
[2019-08-21] MEDS: Gabapentin 300 MG Capsule PO (23:44)
--- NOTE | 2019-08-21 23:54 | RAD_ITS ---
STUDY: X-RAY - LUMBAR SPINE REASON FOR EXAM: Male, 33 years old. Right lower back pain, radiating down the right leg. Left shoulder and left upper chest pain for 3 months. History of L5-S1 fusion about 4 years ago. TECHNIQUE: 3 view(s) of the lumbar spine were obtained. COMPARISON: CT scan abdomen and pelvis 08/24/2018. FINDINGS: Normal lumbar lordosis. There is no substantial scoliosis. w patient is status post of both anterior and posterior spinal fusions at the L5-S1 level, with placement of bilateral posterior fixation rods and pedicle screws as well as intervertebral disc space hardware.. Hardware appears to be intact, with no evidence for loosening. There is minimal anterolisthesis at the L5-S1 level, which is stable in appearance. Otherwise, vertebral bodies are in adequate alignment. Normal vertebral bodies and endplates. Normal disc space heights. The soft tissue structures are unremarkable. RAD/Lumbar Spine 2 or 3 Views IMPRESSION: Intact anterior and posterior fixation hardware at the L5-S1 level, with stable grade 1 anterolisthesis. Otherwise, normal exam. Electronically Signed: Facundo Rocha MD at 0:37 EDT , Service support ,
[2019-08-22 01:20] VITALS: BP 138/74; PULSE 124; PULSE 125; RESP 18; O2SAT 96
== END 2019-08-22 01:22 | disposition home or self-care (01) ==
PROVIDERS: Emergency Provider Emergency Medicine
DX: M54.41 Lumbago with sciatica, right side (principal); F20.9 Schizophrenia, unspecified; F17.200 Nicotine dependence, unspecified, uncomplicated; Z79.899 Other long term (current) drug therapy
CPT/HCPCS: 72100; 96372; 99282

== ENCOUNTER → 2019-09-07 18:48 | Outpatient (CLI) | payer OTHER, SELFPAY ==
[2019-08-21 23:10] VITALS: BMI 29.9
[2019-09-07 19:40] LABS: Amphetamine Urine VISTA NEGATIVE (<1000 ng/mL); Barbiturate Urine VISTA NEGATIVE (< 200 ng/mL); Benzodiazepine Urine VISTA NEGATIVE (< 200 ng/mL); Cocaine Urine VISTA NEGATIVE (< 300 ng/mL); Ecstacy Urine VISTA NEGATIVE (< 500 ng/mL); Methadone Urine VISTA NEGATIVE (< 300 ng/mL); PCP Urine VISTA NEGATIVE (< 25 ng/mL); THC Urine VISTA NEGATIVE (< 50 ng/mL); Vista UDS pH Range 7
== END ==
PROVIDERS: Visit Provider Anesthesiology Pain Medicine
DX: F11.20 Opioid dependence, uncomplicated (principal)
CPT/HCPCS: 80307

== ENCOUNTER → 2019-09-11 10:46 | Outpatient (CLI) | payer OTHER, SELFPAY ==
[2019-08-21 23:10] VITALS: BMI 29.9
--- NOTE | 2019-09-11 10:00 | CT_ITS ---
STUDY: CT LUMBAR SPINE WITHOUT CONTRAST REASON FOR EXAM: Male, 33 years old. Back pain with prior lumbar spine surgery RADIATION DOSAGE (If Supplied By Facility): CTDIvol = ( 17.63 ) mGy, DLP = ( 653.30 ) mGycm TECHNIQUE: The patient was scanned in a multi detector CT scanner. High resolution transaxial imaging was performed. Images were obtained from lower thoracic spine to lower sacrum. Sagittal and coronal images were reconstructed. Individualized dose optimization techniques were used for this CT. COMPARISON: Abdomen/pelvis CT of 06/27/2018 FINDINGS: Normal lumbar lordosis. There is no substantial scoliosis. Normal vertebrae of the lumbar spine. L1-2: Normal endplates. Normal disc height and morphology. Normal bilateral facet joints. Normal central canal and bilateral lateral recesses. Normal bilateral intervertebral neural foramina. L2-3: Normal endplates. Normal disc height and morphology. Normal bilateral facet joints. Normal central canal and bilateral lateral recesses. Normal bilateral intervertebral neural foramina. L3-4: Normal endplates. Normal disc height and morphology. Normal bilateral facet joints. Normal central canal and bilateral lateral recesses. Normal bilateral intervertebral neural foramina. L4-5: Slight amount of disc space narrowing with broad posterior disc bulge although no critical canal stenosis is seen. There is mild narrowing of bilateral neural foramina. Grossly similar since prior CT. L5-S1: Posterior fusion hardware and disc hardware with laminectomy of L5. No critical canal stenosis. There is grade 1 spondylolisthesis of L5-S1 which is stable since the prior study. Normal visualized paraspinous soft tissue structures. CT/Spine Lumbar without Contrast IMPRESSION: 1. Stable operative changes of L5-S1 as compared to prior CT of 06/27/2018. 2. Mild degenerative disc bulging at L4-L5 but no critical canal or foraminal stenosis. Electronically Signed: Michel Morton MD ([place]) at 16:45 EST , Service support ,
== END ==
LOC: CT 10:47
PROVIDERS: Referring Provider Anesthesiology Pain Medicine; Visit Provider Anesthesiology Pain Medicine
DX: M54.9 Dorsalgia, unspecified (principal); M79.606 Pain in leg, unspecified
CPT/HCPCS: 72131

== ENCOUNTER → 2019-09-15 17:31 | Outpatient (CLI) | payer OTHER, SELFPAY ==
[2019-08-21 23:10] VITALS: BMI 29.9
[2019-09-15 19:02] LABS: Amphetamine Urine VISTA NEGATIVE (<1000 ng/mL); Barbiturate Urine VISTA NEGATIVE (< 200 ng/mL); Benzodiazepine Urine VISTA NEGATIVE (< 200 ng/mL); Cocaine Urine VISTA NEGATIVE (< 300 ng/mL); Ecstacy Urine VISTA NEGATIVE (< 500 ng/mL); Methadone Urine VISTA NEGATIVE (< 300 ng/mL); PCP Urine VISTA NEGATIVE (< 25 ng/mL); THC Urine VISTA NEGATIVE (< 50 ng/mL); Vista UDS pH Range 7
== END ==
LOC: LAB 17:36
PROVIDERS: Referring Provider Anesthesiology Pain Medicine; Visit Provider Anesthesiology Pain Medicine
DX: F11.20 Opioid dependence, uncomplicated (principal)
CPT/HCPCS: 36415; 80307

== ENCOUNTER 2019-10-25 16:38 | Emergency (ER) | payer OTHER, SELFPAY ==
[2019-10-25 16:39] VITALS: BP 153/76; PULSE 90; RESP 17; TEMP 36.7; O2SAT 96; BMI 31.1
--- NOTE | 2019-10-25 17:29 | CT_ITS ---
STUDY: CT ABDOMEN AND PELVIS WITHOUT CONTRAST REASON FOR EXAM: Male, 33 years old. Left-sided flank pain beginning this morning. History of kidney stones. RADIATION DOSAGE (If Supplied By Facility): CTDIvol = ( 12.06 ) mGy, DLP = ( 617.53 ) mGycm TECHNIQUE: Transaxial images were obtained from the dome of the diaphragm to the symphysis pubis without oral contrast, and without intravenous contrast. Sagittal and coronal images were reconstructed. Individualized dose optimization techniques were used for this CT. COMPARISON: August 24, 2018. FINDINGS: The visualized lung bases are unremarkable. The visualized portions of the heart are within normal limits. Normal liver. The gallbladder is contracted but otherwise unremarkable. There is no biliary ductal dilatation. Normal spleen. Normal pancreas. Normal bilateral adrenal glands. Normal right kidney. Normal left kidney. Normal visualized ureters. Normal visualized stomach. Normal small intestine. Normal colon. The appendix is visualized and appears normal. Normal abdominal aorta. Normal inferior vena cava. Normal retroperitoneum. Normal urinary bladder. Normal prostate. There is no pelvic lymphadenopathy. No free air or free fluid is seen within the peritoneal cavity. There is a small supraumbilical hernia of omental fat. Abdominal wall is otherwise unremarkable. There is surgical fusion of L5-S1. CT/Abdomen/Pelvis without Cont IMPRESSION: 1. No evidence of renal, ureteral or urinary bladder abnormality. 2. No evidence for acute intra-abdominal process or major interval change. Electronically Signed: Jacinto Cote DO at 18:04 EST Tel [phone], Service support ,
--- NOTE | 2019-10-25 17:37 | ED.DCSUM_ITS ---
- ER Visit Summary Date of Service: 10/25/19 Chief Complaint: Left flank pain History of Present Illness: The patient is a 33 M who presents with left flank pain that began today. Patient states it began approximately 5 hours prior to arrival. Patient states the pain began suddenly. Patient states the pain started in his left testicle and has radiated up his left flank. Patient states the pain is worse when he lays down. Patient states nothing makes the pain better. Patient admits to subjective chills. Patient admits to some dysuria but denies any hematuria. Patient admits to nausea but denies any vomiting. Physical Examination: Vital signs are stable. Patient is afebrile. Patient is in no acute distress. Oral mucosa is pink and moist. Neck is supple. Trachea is midline. There is no JVD. Heart was regular rate and rhythm. Lungs are clear and equal bilaterally. Abdomen is soft. Bowel sounds are normal. There is mild left lower quadrant and left flank tenderness. There is no rebound or guarding noted. exam shows normal testicles with a vertical lie and the epididymis is posterior. There is no tenderness. There are no inguinal hernias noted. Cranial nerves II through XII are intact. There are no focal motor or sensory deficits noted. Test Results: CBC, basic metabolic profile, and urinalysis were obtained and were all within normal limits. CT scan of the abdomen and pelvis was obtained. There is no acute intra-abdominal process. There is no ureteral, renal, or bladder calculi noted. These were interpreted by the radiologist and myself. Emergency Department Course and Treatment: Patient was given a dose of Toradol initially. Patient had no improvement with this. Patient was given a dose of morphine. Patient had some improvement with this. Since the patient has a normal genitourinary exam, I do not feel ultrasound of the testicles and scrotum is necessary at this time. Patient was instructed to continue his pain medications as previously prescribed. Patient was instructed to follow-up with his primary care physician and pain management physician for further management of his pain. Patient understood and was agreeable with the plan. All questions were answered. Disposition: Discharge home Impression: Left flank pain This note was generated with [employer] dictation software. It may contain incorrect words, spelling, and punctuation that were not noted in review of the chart prior to signing ED Disposition - Plan for ED Patient: Disposition: Home or Assisted Living Diagnosis: Left flank pain Instructions: FLANK PAIN, Uncertain Cause Referrals: Care Physician,No Primary [Primary Care Provider] - China Goldman MD [STAFF PHYSICIAN] - 3-5 Days
[2019-10-25 17:44] LABS: Bacteria 0 SEEN /hpf (None Seen); Mucous, Urine 0 SEEN /hpf (<or=2+); Red Blood Cells-Urine 0 SEEN /hpf (0-5); White Blood Cells 0 SEEN /hpf (0-5)
[2019-10-25 17:50] LABS: Absolute Lymphocyte Count 2.02 X10^3/uL (0.83-4.51); Absolute Neutrophil Count 4.8 X10^3/uL (2.0-7.7); Basophil# 0.01 X10^3/uL; Basophil% 0.1 % (0-1); Eosinophil# 0.01 X10^3/uL; Eosinophils% 0.1 % (0-5); Hematocrit 43.1 % (40-54); Hemoglobin 14.8 g/dL (13.0-16.5); Lymphocyte # 2.02 X10^3/ul (4.0); Lymphocyte % 27.5 % (19-41); Mean Corp Hgb Conc 34.3 g/dL (32-36); Mean Corpuscular Volume 96.2 fL (80-94); Monocyte# 0.45 X10^3/uL; Monocyte% 6.1 % (0-10); NRBC Flagged by Analyzer 0 % (0-5); Neutrophil # 4.84 X10^3/uL (2.7-7.7); Neutrophil % 65.9 % (47-70); Platelet Count 212 K/mm3 (150-450); RBC Distribution Width CV 12.7 % (11.6-14.6); RBC Distribution Width SD 44.9 fl (35.1-43.9); Red Blood Count 4.48 M/mm3 (4.6-6.2); White Blood Count 7.4 K/mm3 (4.4-11.0)
[2019-10-25] MEDS: Ondansetron 4 MG/2 ML Vial IV (17:56)
[2019-10-25] MEDS: 0.9% Normal Saline 1,000 ML 250 ML IV (17:56)
[2019-10-25] MEDS: Ketorolac 30 MG/ML Syringe IV (17:56)
[2019-10-25 17:59] LABS: Anion Gap 3 (5-15); BUN 14 mg/dL (7-18); BUN/Creat Ratio 11.3 RATIO (10-20); Calcium,Total 8.8 mg/dL (8.5-10.1); Chloride 109 mmol/L (98-107); Creatinine, Serum 1.24 mg/dL (0.70-1.30); EST Glomerular Filtration Rate 70 mL/min (>60); Est Glom Filt Rate - Afr Amer 85 mL/min (>60); Estimated Creatinine Clearance 93.97 ml/min; Glucose 91 mg/dL (74-106); Potassium 3.7 mmol/L (3.5-5.1); Sodium Level 140 mmol/L (136-145)
[2019-10-25 18:07] LABS: Color, Urine Yellow (Yellow); Glucose, Dipstick Normal (Normal); Ketone-Dipstick 5 mg/dl (Negative); Leukocyte Esterase-Dipstick 25 /ul (Negative); Nitrite-Dipstick Negative (Negative); Occult Blood-Urine Negative /ul (Negative); Protein-Dipstick Negative (Negative); Urine Bilirubin Dipstick Negative (Negative); Urine Clarity Clear (Clear); Urine Urobilinogen Normal (Normal)
[2019-10-25 18:38] VITALS: BP 139/90; PULSE 57; RESP 16; O2SAT 98
[2019-10-25 18:52] LABS: Squamous Epithelial Cells - UA 0-5 SEEN /hpf (0-5)
[2019-10-25] MEDS: Morphine 4 MG/ML Syringe IV (19:39)
[2019-10-25 20:18] VITALS: BP 128/86; PULSE 81; RESP 16; O2SAT 98
== END 2019-10-25 20:19 | disposition home or self-care (01) ==
PROVIDERS: Emergency Provider Emergency Medicine
DX: R10.9 Unspecified abdominal pain (principal); Z72.0 Tobacco use
CPT/HCPCS: 74176; 80048; 81001; 85025; 96361; 96374; 96375; 99285; J7030; A4216; J2405

== ENCOUNTER 2019-12-09 16:54 | Emergency (ER) | payer OTHER, SELFPAY ==
[2019-12-09 16:56] VITALS: BP 142/73; PULSE 96; RESP 16; TEMP 36.8; O2SAT 97; BMI 28.6
--- NOTE | 2019-12-09 17:07 | ED.VIS.GEN ---
History of Present Illness Chief Complaint: Cold Sx Informant: Patient Onset: Days Context: Gradual Onset Timing: Continuous Current Severity: Moderate Maximum Severity: Moderate Narrative: The patient is a 33-year-old male with medical history significant for bipolar disorder who smokes who presents to the emergency department with cough, fevers, nausea, diarrhea. Patient states he had upper respiratory symptoms for about 2 weeks and felt like he was getting better. About 3 or 4 days ago, he began to have a fever. He states he had worsening cough, nausea, and loose stools. He states if he exerts himself, he feels more short of breath. He denies any chest pain. He has no history of immunosuppression. He states he is otherwise been in his normal state of health. Prior similar symptoms: No Recent Illness/Hospitalization: No Past Medical History - Allergies and Home Meds Allergies/Adverse Reactions: Allergies Sulfa (Sulfonamide Antibiotics) Allergy (Verified 12/09/19 16:56) Swelling methadone Adverse Reaction (Verified 12/09/19 16:56) Other kidney failure varenicline [From Chantix] Adverse Reaction (Verified 12/09/19 16:56) Other kidney failure Primary Care Physician: Care Physician,No Primary [Primary Care Provider] - Prior records reviewed: Yes Past Medical History: None Surgical History: no surgical history Smoking Status: Current every day smoker - Family History Paternal Family History: Reports: No pertinent history Review of Systems General: Reports: Chills, Fever. Denies: Sweats Eyes: Denies: Visual changes - bilaterally, Diplopia ENT: Denies: Rhinorrhea, Sore throat Cardiovascular: Denies: Chest pain, Palpitations Respiratory: Reports: Cough. Denies: Dyspnea, Dyspnea on exertion Gastrointestinal: Reports: Nausea, Vomiting, Diarrhea. Denies: Abdominal pain, Melena, Hematochezia Genitourinary: Denies: Dysuria, Hematuria, Frequency Musculoskeletal: Denies: Back pain, Extremity Pain Skin: Denies: Rash, Wounds Neurological: Denies: Headache, Weakness, Numbness Physical Exam Vital Signs/Narrative: Vital Signs Temp Pulse Resp BP Pulse Ox 12/09/19 16:56 98.2 F 96 16 142/73 H 97 Inital Vital Signs reviewed: Yes General: Well nourished, Well developed, No Acute Distress Head: Normocephalic, Atraumatic Eyes: Perrl, EOMI ENT: Moist mucous membranes, No rhinorrhea Neck: Supple, Nontender Cardiovascular: Regular rate, Regular rhythm, No murmurs Respiratory: No distress, Chest nontender, Wheezing Abdomen: Soft, Nontender, Nondistended, Normal bowel sounds Back: Nontender, Normal Inspection Extremities: Nontender, No edema Skin: Normal color, No rash Neurological: Alert, Oriented x3, Cranial nerves II-XII grossly intact, Normal Strength, Normal Sensation Psychological: Normal affect, Normal Mood Diagnostic/Tx/Re-eval Chest X-Ray - ED: 2 View, Normal, Heart, Lungs, Mediastinum Clinical Impression(s) from Imaging Studies Chest X-Ray 12/09/19 18:00 IMPRESSION: Normal x-ray examination of the chest. Electronically Signed: Otilio Astudillo, at 18:21 EST Tel , Service support , Abnormal Lab Results 12/09/19 12/09/19 17:30 17:30 WBC 14.5 H RBC 4.37 L Hgb 14.1 Hct 40.9 MCV 93.6 MCH 32.3 H MCHC 34.5 RDW Std Deviation 44.6 H RDW Coeff of Jaqueline 12.9 Plt Count 203 MPV 9.3 Immature Gran % (Auto) 1.700 H Neut % (Auto) 80.5 H Lymph % (Auto) 11.6 L [place] % (Auto) 6.1 Eos % (Auto) 0.0 Baso % (Auto) 0.1 Absolute Neuts (auto) 11.7 H Absolute Lymphs (auto) 1.69 Nucleated RBC % 0 Differential Comment SCANNED Sodium 137 Potassium 3.8 Chloride 106 Carbon Dioxide 27.0 Anion Gap 4 L BUN 20 H Creatinine 1.20 Estim Creat Clear Calc 99.90 Est GFR (MDRD) Af Amer 88 Est GFR (MDRD) Non-Af 73 BUN/Creatinine Ratio 16.7 Glucose 117 H Calcium 9.0 Total Bilirubin 0.90 AST 17 ALT 20 Alkaline Phosphatase 107 Total Protein 7.7 Albumin 3.4 Globulin 4.3 H Albumin/Globulin Ratio 0.8 L - Medical Decision Making The patient symptoms do seem viral in nature. His abdomen is soft and nontender. He is afebrile here. The patient was given fluids, antiemetics, and antipyretics. Metabolic work-up was pursued. He has a mild leukocytosis which I feel is likely reactive. He has no significant abdominal tenderness. Chest x-ray shows no evidence of acute infiltrative process. Influenza testing was negative. Electrolytes were unremarkable. Patient was hydrated and was feeling improved. He was able to tolerate oral. At this point, I feel he is safe for discharge with supportive care. He was counseled on concerning symptoms and reasons to return. Impression 1. Viral gastroenteritis ED Disposition - Plan for ED Patient: Instructions: GASTROENTERITIS, Viral (6y-Adult) Prescriptions: Dicyclomine HCl [Bentyl] 20 mg PO TIDAC #20 cap Prescription Printed Ondansetron [Zofran Odt] 4 mg PO Q8H PRN PRN #10 tab PRN Reason: Nausea Prescription Printed Referrals: Care Physician,No Primary [Primary Care Provider] -
[2019-12-09 17:20] VITALS: PULSE 104; RESP 20
[2019-12-09] MEDS: Ipratropium/Albuterol Sulfate 3 ML AMPUL.NEB INHALATION (17:20)
[2019-12-09 17:29] VITALS: PULSE 92; RESP 16; O2SAT 98
[2019-12-09] MEDS: proMETHazine 25 MG/ML Syringe 6.25 MG IV (17:30)
[2019-12-09] MEDS: 0.9% Normal Saline 1,000 ML 1000 ML IV (17:30)
[2019-12-09 17:52] LABS: Absolute Lymphocyte Count 1.69 X10^3/uL (0.83-4.51); Absolute Neutrophil Count 11.7 X10^3/uL (2.0-7.7); Basophil# 0.02 X10^3/uL; Basophil% 0.1 % (0-1); Hematocrit 40.9 % (40-54); Hemoglobin 14.1 g/dL (13.0-16.5); Lymphocyte # 1.69 X10^3/ul (4.0); Lymphocyte % 11.6 % (19-41); Mean Corp Hgb Conc 34.5 g/dL (32-36); Mean Corpuscular Hgb 32.3 pg (27.0-32.0); Mean Corpuscular Volume 93.6 fL (80-94); Mean Platelet Vol. 9.3 fl (6.2-12.0); Monocyte# 0.88 X10^3/uL; Monocyte% 6.1 % (0-10); NRBC Flagged by Analyzer 0 % (0-5); Neutrophil # 11.69 X10^3/uL (2.7-7.7); Neutrophil % 80.5 % (47-70); POSITIVE MORPHOLOGY YES; Platelet Count 203 K/mm3 (150-450); RBC Distribution Width CV 12.9 % (11.6-14.6); RBC Distribution Width SD 44.6 fl (35.1-43.9); Red Blood Count 4.37 M/mm3 (4.6-6.2); White Blood Count 14.5 K/mm3 (4.4-11.0)
--- NOTE | 2019-12-09 18:00 | RAD_ITS ---
STUDY: X-RAY CHEST REASON FOR EXAM: Male, 33 years old. GENERAL ILLNESS x2 DAYS- FEVER, COUGH, BODY ACHES TECHNIQUE: Frontal and lateral views of the chest COMPARISON: 10 November 2017 FINDINGS: The lungs are clear and expanded. There is no demonstrated pleural abnormality. Normal size heart. Normal mediastinum and seth. Normal visualized pulmonary arteries. Normal visualized aortic arch and descending thoracic aorta. Normal visualized thoracic spine. Normal visualized ribs, clavicles, and shoulders. There is no demonstrated abnormality of the visualized soft tissue structures of the upper abdomen. RAD/Chest PA and Lateral IMPRESSION: Normal x-ray examination of the chest. Electronically Signed: Otilio Astudillo, at 18:21 EST Tel , Service support ,
[2019-12-09 18:09] LABS: Differential Indicated SCAN CRITERIA MET
[2019-12-09 18:15] LABS: ALB/GLOB Ratio 0.8 RATIO (0.9-2.4); AST(SGOT) 17 U/L (15-37); Alanine Aminotransfer ALT/SGPT 20 U/L (16-61); Albumin, Serum 3.4 g/dL (3.2-5.0); Alkaline Phosphatase 107 U/L (45-117); Anion Gap 4 (5-15); BUN 20 mg/dL (7-18); BUN/Creat Ratio 16.7 RATIO (10-20); Chloride 106 mmol/L (98-107); EST Glomerular Filtration Rate 73 mL/min (>60); Est Glom Filt Rate - Afr Amer 88 mL/min (>60); Globulin 4.3 g/dL (2.2-4.2); Glucose 117 mg/dL (74-106); Potassium 3.8 mmol/L (3.5-5.1); Protein, Total 7.7 g/dL (6.4-8.2); Sodium Level 137 mmol/L (136-145)
[2019-12-09 18:27] LABS: Differential Comment SCANNED
[2019-12-09 18:44] VITALS: RESP 16
== END 2019-12-09 18:45 | disposition home or self-care (01) ==
PROVIDERS: Emergency Provider Emergency Medicine
DX: A08.4 Viral intestinal infection, unspecified (principal); F17.200 Nicotine dependence, unspecified, uncomplicated
CPT/HCPCS: 71046; 80053; 85025; 87804; 94640; 96361; 96374; 99284; J7030

== ENCOUNTER → 2020-02-04 | Outpatient (CLI) | payer OTHER, SELFPAY ==
--- NOTE | 2020-02-04 11:30 | MRI_ITS ---
STUDY: MRI LUMBAR SPINE WITH AND WITHOUT CONTRAST REASON FOR EXAM: Male, 34 years old. low back stabbing pain, leg numbness x 10 yrs TECHNIQUE: Standardized fat and water weighted pulse sequences were obtained in the sagittal and axial planes. IV DOTAREM 21CC was administered for the contrast portion of the examination. COMPARISON: None FINDINGS: T12-L1: Normal endplates. Normal disc height, hydration and morphology. Normal bilateral facet joints. Normal central canal and bilateral lateral recesses. Normal bilateral intervertebral neural foramina. Normal lumbar lordosis. There is no substantial scoliosis. Normal conus medullaris that terminates at the L1 level. L1-2: Normal endplates. Normal disc height, hydration and morphology. Normal bilateral facet joints. Normal central canal and bilateral lateral recesses. Normal bilateral intervertebral neural foramina. L2-3: Normal endplates. Normal disc height, hydration and morphology. Normal bilateral facet joints. Normal central canal and bilateral lateral recesses. Normal bilateral intervertebral neural foramina. L3-4: Normal endplates. Normal disc height, hydration and morphology. Normal bilateral facet joints. Normal central canal and bilateral lateral recesses. Normal bilateral intervertebral neural foramina. L4-5: There is right para midline disc herniation impinging on the right L5 nerve root. Degenerative changes of the bilateral facet joints. Mild narrowing of the central canal and bilateral intervertebral neural foramina. L5-S1: Postsurgical changes at L5-S1. Hardware is in good position. Normal central canal and bilateral lateral recesses. Mild narrowing of the left neuroforamen. Normal visualized sacral ala. Normal visualized paraspinous soft tissue structures. MRI/Spine Lumbar W/WO Contrast IMPRESSION: There is right para midline disc herniation at L4-5 impinging on the right L5 nerve root. Electronically Signed: Lisa Nunez, at 13:43 EDT Tel , Service support ,
== END | disposition home or self-care (01) ==
LOC: MRI 10:59
PROVIDERS: Referring Provider Orthopaedic Surgery; Visit Provider Orthopaedic Surgery
DX: M51.36 Other intervertebral disc degeneration, lumbar region (principal)
CPT/HCPCS: 72158; A9575

== ENCOUNTER → 2020-02-10 15:23 | Outpatient (CLI) | payer OTHER, SELFPAY ==
[2020-02-10 17:16] LABS: Absolute Lymphocyte Count 2.42 X10^3/uL (0.83-4.51); Absolute Neutrophil Count 6.8 X10^3/uL (2.0-7.7); Basophil# 0.02 X10^3/uL; Basophil% 0.2 % (0-1); Eosinophil# 0.02 X10^3/uL; Eosinophils% 0.2 % (0-5); Hemoglobin 14.5 g/dL (13.0-16.5); Lymphocyte # 2.42 X10^3/ul (4.0); Lymphocyte % 24.3 % (19-41); Mean Corpuscular Hgb 31.9 pg (27.0-32.0); Mean Corpuscular Volume 96.9 fL (80-94); Monocyte# 0.62 X10^3/uL; Monocyte% 6.2 % (0-10); NRBC Flagged by Analyzer 0 % (0-5); Neutrophil # 6.79 X10^3/uL (2.7-7.7); Neutrophil % 68.2 % (47-70); Platelet Count 241 K/mm3 (150-450); RBC Distribution Width CV 13.5 % (11.6-14.6); RBC Distribution Width SD 48.5 fl (35.1-43.9); Red Blood Count 4.54 M/mm3 (4.6-6.2)
[2020-02-10 17:42] LABS: Erythrocyte Sedimentation Rate 3 mm/hr (0-15)
[2020-02-10 17:45] LABS: CRP < 2.90 mg/L (0.0-3.0)
[2020-02-10 17:46] LABS: Vitamin D,25 Hydroxy 21.6 ng/mL
== END ==
LOC: LAB 15:28
PROVIDERS: Visit Provider Orthopaedic Surgery
DX: M51.36 Other intervertebral disc degeneration, lumbar region (principal)
CPT/HCPCS: 36415; 82306; 85025; 85652; 86140

== ENCOUNTER 2020-04-14 09:50 | Outpatient (RCR) | payer OTHER, SELFPAY ==
--- NOTE | 2020-04-26 10:16 | HP.FCE ---
Comments: Due to pts pain he refused further testing Bending: No Ablility (0% of day) Squatting: No Ablility (0% of day) Kneeling: No Ablility (0% of day) Reaching out: No Ablility (0% of day) Reaching up: No Ablility (0% of day) Sitting: Occasional Ability (1-33% of day) Comments: low occasional ability Walking: Occasional Ability (1-33% of day) Comments: low occasional ability Standing: Occasional Ability (1-33% of day) Comments: low occasional ability Duration Sedentary Sedentary Light Light Light Medium Medium Medium Heavy Very Heavy Heavy Occasional (0-33% of day) Frequent (34-66% of day) Constant (67-100% of day) 10 # Negligible Negligible 15 # 8 # Negligible 20 # 10# Negli. 35 # 18 # 7 # 50 # 25 # 10 # 75 # 100 # >100 # 38 # 50 # >50 # 15 # 20 # >20 # Height: 1.85 m Weight:: 111.584 kg Hand Dominance: Left Medical History Including Restrictions: This 34-year-old male reports he has had issues with his back for 20 + years. Pt states he underwent an anterior posterior spinal fusion L5 S1 in Jul 2016. pt states he made a fair recovery following this surgery. pt states the last 7-10 months he began having pain again in his back and this has made it difficult to perform ADLs and IADLS. PT states following an MRI in January 2020 he was diagnosed with a herniated disc and impacted nerve at two levels (unsure at what level). Pt did see a spine surgery Dr. Rod and this rec'd surgery. Per pt insurance will not approve his surgery. Pt reports per insurance company he needs to undergo physical therapy prior to surgery but pt is unable to have due to pain. pt states he has been with pain mt. doctor since about 2018. pt states he has had three injections with no success decreasing his pain or getting much relief. pt states he is not on a lift restriction. Pt smokes a pack a day. Diagnoses: Back pain. leg pain Symptoms: Back pain. leg pain. fatigue. nauses. foot numbness Pain: Pt reports pain 8/10 resting heart rate at 90 beats per min. Work History: Pts states he last worked at [employer]. Pt states his last day was January 27, 2020. pt was employed there for a year and a half. Pt states due to his back pain he was unable to perform his job as it required heavy lifting. Pt did not have his job description with him and was unable to recall what lifting requirement was in his job description- pt states he had to lift anywhere from 80-120# constantly Behavioral: Pt stated he was frustrated with needing to have the assessment completed. Pt refused to perform repetitive motion and lifting portion of the test. Pt unable to tolerate manual muscle testing portion. Pt states pain increases with sitting he was not going to attempt more. ADLS: Pt lives in two story home with 3 entry steps no rail. pt lives with fianc?e. Pt states bathroom is on main floor and bedroom is on second floor. pt reports full flight of stairs to 2nd floor with one rail. Pt states he has a walk-in shower, pt states he is modified Independent washing lower body is difficult, but he manages to bath and dress himself. pt state he as a hospital bed about a month ago but sleeps on the couch. pt states he does have a wheelchair but does not use it. Pt ambulates with straight cane when out of home but not in his home. pt states he helps a little with shopping, but his fianc? does the cleaning, cooking and laundry (as laundry is in the basement). pt does drive. ROM: pt demo with neck and UE at ROM WNL. pt demonstrated with limited forward flex and ext of spine. bilateral hip flex limited at 80*. knees and ankles are WNL Strength: due to pain therapist unable to get full MMT completed at pain increase with resistance of MMT. Due to pain pt refused LE MMT Right Manufacturing Support Engineer Strength Average: 101.66 Right Manufacturing Support Engineer Strength Percentile: 23% Left Manufacturing Support Engineer Strength Average: 108.33 Left Manufacturing Support Engineer Strength Percentile: 35% Right Lateral Pinch Average: 18.66 Right Lateral Pinch Percentile: 25% Left Lateral Pinch Average: 26.00 Left Lateral Pinch Percentile: 90% Right Tripod Pinch Average: 12.00 Right Tripod Pinch Percentile: <10% Left Tripod Pinch Average: 29.33 Left Tripod Pinch Percentile: <90% Sensation: right thumb 3.22 left 2.83. right IF 3.22 left 2.83. right MF 2.83 left 2.83. right RF 2.83 left 2.83. right LF 2.83 left 2.83. sensation tested WNL Fine Motor: left 9-hole peg test at 33.16 sec. placing pt in 0% for age. right 9-hole peg test at 31.03 sec. placing pt in 0% for age. below average ability for age Balance: no loss of balance during time with pt Walking: pt ambulated with straight cane, antalgic gait and at a slow pace for 350 feet. Pt needing to stop during this ambulation to rest and returned to ambulating. Pt can ambulate on a low occasional ability Standing: pt demo the ability to stand for 2 min shifting his body weight from side to side. pt able to stand on a low occasional ability Sitting: pt demo the ability to sit for 30 min with shifting his body weight from side to side. pt can sit on a low occasional ablilty Comments: pt unable to complete due to pain
--- NOTE | 2020-06-21 14:22 | HP.OT.NRP ---
CHELITA HAMMONDBARRY was seen in my office for initial evaluation on . The following Plan of Care was established for this patient: This patient was last seen in our office 04/14/20. Pertinent comments regarding their Occupational therapy will appear below: pt seen for FCE only At this point I will be discontinuing this patient from occupational therapy. I would be happy to see this patient again in the future if found appropriate by the physician. Thank you! Alessandra Royal, OTR/L, CHT
== END 2020-04-14 19:00 | disposition home or self-care (01) ==
LOC: OT 09:50
PROVIDERS: PCP Family Medicine; Referring Provider Anesthesiology Pain Medicine; Visit Provider Anesthesiology Pain Medicine
DX: M54.9 Dorsalgia, unspecified (principal); M79.606 Pain in leg, unspecified
CPT/HCPCS: 97750

== ENCOUNTER → 2020-05-03 | Outpatient (CLI) | payer OTHER, MEDICAID, SELFPAY ==
[2020-05-03 13:45] VITALS: BMI 28.6
== END | disposition home or self-care (01) ==
LOC: LABSPEC 16:09
PROVIDERS: PCP Family Medicine; Referring Provider Surgery; Visit Provider Surgery
DX: R22.33 Localized swelling, mass and lump, upper limb, bilateral (principal)

== ENCOUNTER → 2020-05-24 16:04 | Outpatient (CLI) | payer OTHER, MEDICAID, SELFPAY ==
[2020-05-03 13:45] VITALS: BMI 28.6
[2020-05-24 17:04] LABS: Absolute Lymphocyte Count 2.13 X10^3/uL (0.83-4.51); Absolute Neutrophil Count 3.7 X10^3/uL (2.0-7.7); Basophil# 0.03 X10^3/uL; Basophil% 0.5 % (0-1); Eosinophil# 0.01 X10^3/uL; Eosinophils% 0.2 % (0-5); Hematocrit 41.4 % (40-54); Hemoglobin 13.9 g/dL (13.0-16.5); Lymphocyte # 2.13 X10^3/ul (4.0); Lymphocyte % 32.9 % (19-41); Mean Corp Hgb Conc 33.6 g/dL (32-36); Mean Corpuscular Hgb 33.8 pg (27.0-32.0); Mean Corpuscular Volume 100.7 fL (80-94); Mean Platelet Vol. 8.9 fl (6.2-12.0); Monocyte# 0.51 X10^3/uL; Monocyte% 7.9 % (0-10); NRBC Flagged by Analyzer 0 % (0-5); Neutrophil # 3.73 X10^3/uL (2.7-7.7); Neutrophil % 57.4 % (47-70); Platelet Count 243 K/mm3 (150-450); RBC Distribution Width CV 13.4 % (11.6-14.6); RBC Distribution Width SD 49.5 fl (35.1-43.9); Red Blood Count 4.11 M/mm3 (4.6-6.2); White Blood Count 6.5 K/mm3 (4.4-11.0)
[2020-05-24 17:13] LABS: ALB/GLOB Ratio 1.2 RATIO (0.9-2.4); AST(SGOT) 19 U/L (15-37); Alanine Aminotransfer ALT/SGPT 28 U/L (16-61); Albumin, Serum 4.1 g/dL (3.2-5.0); Alkaline Phosphatase 85 U/L (45-117); Anion Gap 4 (5-15); BUN 19 mg/dL (7-18); BUN/Creat Ratio 14.2 RATIO (10-20); Calcium,Total 8.8 mg/dL (8.5-10.1); Chloride 108 mmol/L (98-107); Creatinine, Serum 1.34 mg/dL (0.70-1.30); EST Glomerular Filtration Rate 64 mL/min (>60); Est Glom Filt Rate - Afr Amer 77 mL/min (>60); Globulin 3.3 g/dL (2.2-4.2); Glucose 92 mg/dL (74-106); Protein, Total 7.4 g/dL (6.4-8.2); Sodium Level 140 mmol/L (136-145)
== END ==
PROVIDERS: PCP Family Medicine; Referring Provider Family Medicine; Visit Provider Family Medicine
DX: R19.8 Other specified symptoms and signs involving the digestive system and abdomen (principal)
CPT/HCPCS: 36415; 80053; 85025

== ENCOUNTER → 2020-05-24 17:00 | Outpatient (CLI) | payer OTHER, MEDICAID, SELFPAY ==
[2020-05-03 13:45] VITALS: BMI 28.6
--- NOTE | 2020-05-24 17:09 | CT_ITS ---
STUDY: CT ABDOMEN AND PELVIS WITH CONTRAST REASON FOR EXAM: Male, 34 years old. TENDERNESS @ [facility], RLQ PAIN STARTED 1 WEEK AGO. NAUSEA. DIARRHEA AND CONSTIPATION. RADIATION DOSAGE (If Supplied By Facility): CTDIvol = ( 16.47 ) mGy, DLP = ( 1259.11 ) mGycm TECHNIQUE: Transaxial images were obtained from the dome of the diaphragm to the symphysis pubis without oral contrast. IV 100mL Isovue-300 was administered. Sagittal and coronal images were reconstructed. Individualized dose optimization techniques were used for this CT. COMPARISON: October 25, 2019 FINDINGS: There is lower lung atelectasis. The visualized portions of the heart are within normal limits. There is hepatomegaly with diffuse hepatic enlargement. Normal gallbladder and extrahepatic biliary system. Normal spleen. Normal pancreas. Normal bilateral adrenal glands. Normal right kidney. Normal left kidney. Normal visualized stomach. Normal small intestine. Normal colon. The appendix is visualized and appears normal. Normal abdominal aorta. Normal inferior vena cava. Normal retroperitoneum. Normal urinary bladder. There is no free fluid in the abdomen or pelvis. Normal abdominal wall. Degenerative postoperative changes of the lower spine spondylolisthesis with spondylolysis at the lumbosacral junction. CT/Abdomen/Pelvis WITH Contrast IMPRESSION: No mass or obstruction. Normal appendix. Hepatomegaly. Electronically Signed: Dung Addison MD at 17:51 EDT , Service support ,
== END ==
PROVIDERS: PCP Family Medicine; Referring Provider Family Medicine; Visit Provider Family Medicine
DX: R19.8 Other specified symptoms and signs involving the digestive system and abdomen (principal)
CPT/HCPCS: 74177; Q9967

== ENCOUNTER 2020-06-01 19:12 | Emergency (ER) | payer OTHER, MEDICAID, SELFPAY ==
[2020-05-03 13:45] VITALS: BMI 28.6
[2020-06-01 19:14] VITALS: BP 146/86; PULSE 84; RESP 16; TEMP 36.4; O2SAT 99; BMI 34.2
--- NOTE | 2020-06-01 19:50 | ED.RN ---
PT CAME OUT OF THE WAITING ROOM WANTING TO KNOW WHEN HE WAS GOING TO BE TAKEN BACK. EXPLAINED I WAS UNABLE TO GIVE HIM A TIME AND HE STATED HE WOULD NOT BE ABLE TO TAKE THIS PAIN MUCH LONGER. PT RETURNED TO THE WAITING ROOM AND CONTINUED TO COMPLAIN TO THE OTHER INDIVIDUALS WAITING. PT IS MAKING COMMENTS THAT HE SHOULD HAVE COME BY AMBULANCE SO HE COULD HAVE GONE STRAIGHT BACK. ALSO CLAIMING WE ARE WASTING HIS TIME MAKING HIM WAIT.
--- NOTE | 2020-06-01 20:15 | ED.RN ---
PT CAME OUT OF THE WAITING ROOM AND WANTS A SCAN OR MRI DONE NOW. STATES WE ARE WASTING HIS TIME HAVING HIM SIT IN THE WAITING ROOM AND THEN HE WILL WAIT IN THE ER FOR THE TEST TO BE DONE. EXPLAINED TO PT THE DR NEEDS TO SEE HIM BEFORE A SCAN OR OTHER TEST OF THAT SORT CAN BE ORDERED. PT IS NOT HAPPY WITH THAT EXPLAINATION. PT AGAIN AMBULATED TO THE VENDING AREA WITH CANE DRAGGING ALONG BESIDE HIM.
--- NOTE | 2020-06-01 20:34 | ED.DCSUM_ITS ---
- ER Visit Summary Date of Service: 06/01/20 Chief Complaint: Back pain History of Present Illness: The patient is a 34 M who presents with left upper back pain. It started 8 hours ago. He states he was reaching for something in the shower and felt a sharp pain in his left upper thoracic area. Movement m akes this worse. He went to a chiropractor today who told him it was a muscle. He states he has a history of previous back pain and is on chronic narcotics for this. This feels different. He denies any falls. No radiation of pain down the arm. Does radiate up towards the neck. He denies any dizziness or headache. Nothing other than his chronic narcotics for the pain at home. Physical Examination: Vital signs reviewed. HEENT exam unremarkable. Heart is regular rate and rhythm without murmurs. Lungs are clear to auscultation. Abdomen is soft and nontender. Back is tender in the left upper thoracic paraspinal musculature. There is no bony tenderness. Extremities reveal no edema. Skin exam normal. Neurologic exam normal. Test Results: None performed Emergency Department Course and Treatment: Patient appears to have a muscle strain. Without bony tenderness or direct trauma I do not feel imaging studies are necessary. We will give him Norflex and Toradol. I will give him Flexeril to take for pain at home. He will continue his home medications and will follow up with his PCP Treatment Plan: [] Disposition: Discharge Impression: Thoracic strain This note was generated with SignNow dictation software. It may contain incorrect words, spelling, and punctuation that were not noted in review of the chart prior to signing ED Disposition - Plan for ED Patient: Disposition: Home or Assisted Living Instructions: ED Sprain Thoracic Spine Prescriptions: cycloBENZAPRine HCl [Flexeril] 10 mg PO TID PRN #20 tab PRN Reason: Muscle Spasm Transmission Status: Pending to [id number] Referrals: Fredo Rodriguez MD [Primary Care Provider] -
[2020-06-01] MEDS: Orphenadrine 60 MG/2 ML Ampul IM (21:07)
[2020-06-01] MEDS: Ketorolac 60 MG/2 ML Vial IM (21:07)
[2020-06-01 21:09] VITALS: BP 138/80; PULSE 81; RESP 16; O2SAT 97
== END 2020-06-01 21:11 | disposition home or self-care (01) ==
LOC: ED 20:49
PROVIDERS: Emergency Provider Emergency Medicine; PCP Family Medicine
DX: S29.012A Strain of muscle and tendon of back wall of thorax, initial encounter (principal); I10 Essential (primary) hypertension; Z72.0 Tobacco use; Z79.891 Long term (current) use of opiate analgesic; Z79.899 Other long term (current) drug therapy; X50.1XXA Overexertion from prolonged static or awkward postures, initial encounter; Y93.E1 Activity, personal bathing and showering; Y92.002 Bathroom of unspecified non-institutional (private) residence as the place of occurrence of the external cause; Y99.8 Other external cause status
CPT/HCPCS: 99282; A4216

== ENCOUNTER → 2020-07-04 | Outpatient (CLI) | payer MEDICAID, SELFPAY ==
[2020-07-04 18:26] LABS: Amphetamine Urine VISTA NEGATIVE (<1000 ng/mL); Barbiturate Urine VISTA NEGATIVE (< 200 ng/mL); Benzodiazepine Urine VISTA NEGATIVE (< 200 ng/mL); Cocaine Urine VISTA NEGATIVE (< 300 ng/mL); Ecstacy Urine VISTA NEGATIVE (< 500 ng/mL); Methadone Urine VISTA NEGATIVE (< 300 ng/mL); PCP Urine VISTA NEGATIVE (< 25 ng/mL); THC Urine VISTA NEGATIVE (< 50 ng/mL); Vista UDS pH Range 6
== END | disposition home or self-care (01) ==
PROVIDERS: PCP Family Medicine; Referring Provider Anesthesiology Pain Medicine; Visit Provider Anesthesiology Pain Medicine
DX: F11.20 Opioid dependence, uncomplicated (principal)
CPT/HCPCS: 80307

== ENCOUNTER 2021-04-13 16:46 | Emergency (ER) | payer MEDICAID, SELFPAY ==
[2021-04-13 16:48] VITALS: BP 137/87; PULSE 103; RESP 16; TEMP 36.4; O2SAT 97; BMI 36.9
--- NOTE | 2021-04-13 17:29 | EKG12_ITS ---
Test Reason : ALTERED LOC Blood Pressure : / mmHG Vent. Rate : 097 BPM Atrial Rate : 097 BPM P-R Int : 142 ms QRS Dur : 108 ms QT Int : 348 ms P-R-T Axes : 053 063 -04 degrees QTc Int : 441 ms Somatic/Motion Artifact Normal sinus rhythm Incomplete right bundle branch block Nonspecific T wave abnormality Abnormal ECG Confirmed by CATALINA REEVES, SHAYNA ([id number]), avid editor KRAIG IVEY ([id number]) on 04/17/2021 8:36:01 AM Referred By: RICA Confirmed By:SHAYNA ARNOLD MD
--- NOTE | 2021-04-13 17:30 | CT_ITS ---
STUDY: CT BRAIN WITHOUT CONTRAST REASON FOR EXAM: Male, 35 years old. mental status change RADIATION DOSAGE (If Supplied By Facility): CTDIvol = ( 44.99 ) mGy, DLP = ( 832.67 ) mGycm TECHNIQUE: Transaxial CT imaging of the brain was performed without administration of intravenous contrast material. Individualized dose optimization techniques were used for this CT. COMPARISON: 06/23/2018 FINDINGS: Normal soft tissue structures. Normal calvarium. Normal size ventricles and extra-axial spaces for the patient''s age. Normal white matter tracts of the cerebral hemispheres. Normal basal ganglia and thalami. Normal brainstem. Normal cerebellum. There is no intracranial hemorrhage. Large area of decreased attenuation and loss of monson-white matter differentiation throughout the entire left parietal lobe consistent with a subacute left middle superficial infarct. Increased attenuation of the M1 segment of the left middle cerebral artery consistent with a dense MCA sign. Normal visualized paranasal sinuses. CT/Brain/Head without Contrast IMPRESSION: Large subacute left middle cerebral artery infarct. No acute hemorrhage. N.B. : The above Results were Read Back by Missael Mcneil MD to SARA claire, and understanding confirmed on 04/13/2021 18:25:07 (ET). Electronically Signed: Missael Mcneil MD at 18:27 EDT Tel , Service support ,
--- NOTE | 2021-04-13 17:31 | EX.ED.DYSGE1 ---
HPI History of Present Illness Chief Complaint: Alt LOC Detail of Chief Complaint: Mental status change and increased sleep Informant: family Narrative Narrative: Patient presents with his mother because he has been sleeping for a day and a half. Patient has history of chronic back pain and is on narcotic pain medication. He has history of schizophrenia. Mother states that he is not taken any of his medications for the last day and a half. Patient also last week and was diagnosed with a dental infection and was told would need a root canal. He was on an antibiotic and then the dentist changed to clindamycin about 4 5 days ago. Patient really will not give me any medical history all the history comes from the mother. [facility] Medical History (Updated 04/13/21 @ 19:[address] Federico Claire, DO) Bloody stools neck and back pain Severe headache Stomach ulcer Subcutaneous mass sudden weight loss Home Medications quetiapine 800 mg PO QHS 11/18/18 [History Last Taken 08/07/19] gabapentin 800 mg PO 4X/DAY 08/08/19 [History Last Taken 08/07/19] duloxetine 60 mg PO BID 06/01/20 [History Last Taken Unknown] cariprazine [Vraylar] 1.5 mg PO DAILY 04/13/21 [History Last Taken Unknown] clindamycin HCl 150 mg PO Q6H 04/13/21 [History Last Taken Unknown] oxycodone myristate [Xtampza ER] 13.5 mg PO BID 04/13/21 [History Last Taken Unknown] oxycodone-acetaminophen [Percocet] 1 tab PO Q4H PRN 04/13/21 [History Last Taken Unknown] Allergy/AdvReac Type Severity Reaction Status Date / Time Sulfa (Sulfonamide Allergy Swelling Verified 04/13/21 16:51 Antibiotics) methadone AdvReac Other Verified 04/13/21 16:51 varenicline [From Chantix] AdvReac Other Verified 04/13/21 16:51 Surgical History History of hand surgery history of spine surgery History of tonsillectomy Social History (Updated 05/03/20 @ 14:[address] Kamar Angel MD) Smoking Status: Current every day smoker tobacco type: cigarettes alcohol intake: never ROS ROS ED ROS Narrative Unable to perform review of systems due to patient's mental status. Review of Systems ROS Unobtainable: due to mental condition and due to mental status EXAM Physical Exam Const Vital Signs: 04/13/21 16:48 04/13/21 17:51 04/13/21 18:30 Temperature 97.6 F L Temperature Source Temporal Pulse Rate 103 H 97 90 Respiratory Rate 16 16 18 Blood Pressure 137/87 H 144/69 H 129/82 H Blood Pressure Mean 103 94 97 Pulse Ox 97 97 95 Oxygen Delivery Method Room Air Room Air Room Air Positive well nourished and well developed General Appearance ED: well developed and NAD HEENT Reports TM's clear and moist mucous membranes normocephalic and atraumatic; Negative for trauma or tenderness Tympanic Membrane ED: Yes TM's clear Eyes PERRL and EOMs intact bilaterally General Eye ED: Negative for pale conjunctiva or scleral icterus Neck no lymphadenopathy, supple and no JVD General: Negative for tenderness Chest Wall inspection of chest normal and palpation of chest normal Chest: Negative for tenderness Resp normal respiratory effort and clear to auscultation bilaterally Effort and Inspection: Negative for respiratory distress or pain with movement Auscultation: Negative for rhonchi, wheezes or diminished lung sounds Cardio regular rhythm, S1 normal heart sound, S2 normal heart sound and no murmurs Rate: tachycardic Peripheral Pulses: pulses 2+ throughout GI normal to inspection, nondistended, normoactive bowel sounds, soft to palpation, non-tender, non-distended and no masses Back/Spine no CVA tenderness and no thoracic nor lumbar tenderness Extremity normal to inspection General Extremety ED: Negative for edema General Extremity: Negative for edema Neuro No oriented x3, CN's II-XII intact bilaterally, no sensory deficits noted and gait normal Neuro Narrative: Patient with eyes open and does follow some commands but really will not speak. No focal deficits noted. Sensorium / Orientation: awake, alert, oriented to person, oriented to place and oriented to time Motor Exam: strength 5/5 throughout and strength abnormal Psych mental status grossly normal Skin no rashes or lesions noted and no wounds MDM MDM MDM Narrative Medical decision making narrative: Case discussed with neurology at [facility] who accepted transfer of patient. There is concern of possible stroke versus encephalopathy due to unknown etiology. Patient is not a TPA candidate due to symptom onset of a day and 1/2 to 2 days. Lab Data Attestation: I reviewed the patient's lab results. Labs: Laboratory Results - last 24 hr 04/13/21 04/13/21 04/13/21 17:40 17:40 17:40 WBC 11.5 H RBC 4.51 L Hgb 13.6 Hct 40.6 MCV 90.0 MCH 30.2 MCHC 33.5 RDW Std Deviation 47.9 H RDW Coeff of Jaqueline 14.6 Plt Count 429 MPV 8.5 Immature Gran % (Auto) 0.700 Neut % (Auto) 77.7 H Lymph % (Auto) 14.1 L [place] % (Auto) 7.3 Eos % (Auto) 0.0 Baso % (Auto) 0.2 Absolute Neuts (auto) 9.0 H Absolute Lymphs (auto) 1.63 Nucleated RBC % 0 Sodium 141 Potassium 3.9 Chloride 108 H Carbon Dioxide 27.0 Anion Gap 6 BUN 23 H Creatinine 1.09 Estim Creat Clear Calc 104.86 Est GFR (MDRD) Af Amer 98 Est GFR (MDRD) Non-Af 81 BUN/Creatinine Ratio 21.1 H Glucose 113 H Lactic Acid Calcium 9.7 Total Bilirubin 0.30 Direct Bilirubin 0.14 AST 22 ALT 21 Alkaline Phosphatase 148 H Total Protein 8.7 H Albumin 4.1 Globulin 4.6 H Ethyl Alcohol 3.0 04/13/21 17:40 WBC RBC Hgb Hct MCV MCH MCHC RDW Std Deviation RDW Coeff of Jaqueline Plt Count MPV Immature Gran % (Auto) Neut % (Auto) Lymph % (Auto) [place] % (Auto) Eos % (Auto) Baso % (Auto) Absolute Neuts (auto) Absolute Lymphs (auto) Nucleated RBC % Sodium Potassium Chloride Carbon Dioxide Anion Gap BUN Creatinine Estim Creat Clear Calc Est GFR (MDRD) Af Amer Est GFR (MDRD) Non-Af BUN/Creatinine Ratio Glucose Lactic Acid 1.2 Calcium Total Bilirubin Direct Bilirubin AST ALT Alkaline Phosphatase Total Protein Albumin Globulin Ethyl Alcohol Radiography Diagnostic Testing: Radiology Impression Brain CT 04/13/21 17:30 IMPRESSION: Large subacute left middle cerebral artery infarct. No acute hemorrhage. N.B. : The above Results were Read Back by Missael Mcneil MD to SARA claire, and understanding confirmed on 04/13/2021 18:25:07 (ET). Electronically Signed: Missael Mcneil MD at 18:27 EDT Tel , Service support , ADDENDUM: 04/13/21 1835 IMPRESSION: Large subacute left middle cerebral artery infarct. No acute hemorrhage. N.B. : The above Results were Read Back by Missael Mcneil MD to SARA claire, and understanding confirmed on 04/13/2021 18:25:07 (ET). Electronically Signed: Missael Mcneil MD at 18:27 EDT Tel , Service support , Chest X-Ray 04/13/21 18:09 IMPRESSION: Normal x-ray examination of the chest. Electronically Signed: Missael Mcneil MD at 18:21 EDT Tel , Service support , Head/Neck CTA 04/13/21 18:48 IMPRESSION: Limited study due to a large amount of motion artifact. There is a questionable change in caliber of the left middle cerebral artery as it divides at the bifurcation possibly representing an area of stenosis or focal occlusion however this is not as well-visualized on the axial source images and there is good vasculature seen distal to this point. Individualized dose optimization techniques were used for this CT. at 1926 Reported and signed by: Nikhil Lugo MD Electronically Signed: Nikhil Lugo MD at 19:25 EDT Tel , Service support , EKG Initial EKG: Attestation: I personally reviewed and interpreted this EKG as follows: Comments: Sinus rhythm with a ventricular rate of 97 bpm with an incomplete right bundle branch block Critical Care Time Critical care time (excluding procedures): Discussing w/Patient &/or Family/[employer], Discussing w/Consultants, Arranging Admission or Transfer and - (35 minutes in critical care time) Discharge Plan Triage Chief Complaint: Alt LOC ED Provider: Federico Claire Dx/Rx/DC Orders Clinical Impression: Acute alteration in mental status, Acute CVA (cerebrovascular accident) Prescriptions: No Action quetiapine 400 mg tablet 800 mg PO QHS RF: 0 gabapentin 400 mg capsule 800 mg PO 4X/DAY RF: 0 duloxetine 60 MG capsule 60 mg PO BID RF: 0 clindamycin HCl 150 mg Capsule 150 mg PO Q6H RF: 0 oxycodone-acetaminophen [Percocet] 5-325 mg Tablet 1 tab PO Q4H PRN (Reason: Pain) RF: 0 Vraylar 1.5 mg Capsule 1.5 mg PO DAILY RF: 0 Xtampza ER 13.5 mg Cap,Sprinkl,Er12hr(Dont Crush) 13.5 mg PO BID RF: 0 Primary Care Provider: Fredo Rodriguez Referrals: Fredo Rodriguez MD [Primary Care Provider] - Disposition Disposition: Transfer to Another Type [facility]
[2021-04-13 17:51] VITALS: BP 144/69; PULSE 97; RESP 16; O2SAT 97
[2021-04-13 17:53] LABS: Absolute Lymphocyte Count 1.63 X10^3/uL (0.83-4.51); Basophil# 0.02 X10^3/uL; Basophil% 0.2 % (0-1); Hematocrit 40.6 % (40-54); Hemoglobin 13.6 g/dL (13.0-16.5); Lymphocyte # 1.63 X10^3/ul (0.83-4.51); Lymphocyte % 14.1 % (19-41); Mean Corp Hgb Conc 33.5 g/dL (32-36); Mean Corpuscular Hgb 30.2 pg (27.0-32.0); Mean Platelet Vol. 8.5 fl (6.2-12.0); Monocyte# 0.84 X10^3/uL; Monocyte% 7.3 % (0-10); NRBC Flagged by Analyzer 0 % (0-5); Neutrophil # 8.96 X10^3/uL (2.7-7.7); Neutrophil % 77.7 % (47-70); Platelet Count 429 K/mm3 (150-450); RBC Distribution Width CV 14.6 % (11.6-14.6); RBC Distribution Width SD 47.9 fl (35.1-43.9); Red Blood Count 4.51 M/mm3 (4.6-6.2); White Blood Count 11.5 K/mm3 (4.4-11.0)
[2021-04-13] MEDS: 0.9% Normal Saline 1,000 ML 150 ML IV (17:54)
--- NOTE | 2021-04-13 18:09 | RAD_ITS ---
STUDY: X-RAY CHEST REASON FOR EXAM: Male, 35 years old. cough TECHNIQUE: Single AP portable view of the chest. COMPARISON: 12/09/2019 FINDINGS: The lungs are clear and expanded. There is no demonstrated pleural abnormality. Normal size heart. Normal mediastinum and seth. Normal visualized pulmonary arteries. Normal visualized aortic arch and descending thoracic aorta. Normal visualized thoracic spine. Normal visualized ribs, clavicles, and shoulders. There is no demonstrated abnormality of the visualized soft tissue structures of the upper abdomen. RAD/Chest 1 View (Portable) IMPRESSION: Normal x-ray examination of the chest. Electronically Signed: Missael Mcneil MD at 18:21 EDT Tel , Service support ,
[2021-04-13 18:13] LABS: AST(SGOT) 22 U/L (15-37); Alanine Aminotransfer ALT/SGPT 21 U/L (16-61); Albumin, Serum 4.1 g/dL (3.2-5.0); Alkaline Phosphatase 148 U/L (45-117); Anion Gap 6 (5-15); BUN 23 mg/dL (7-18); BUN/Creat Ratio 21.1 RATIO (10-20); Bilirubin, Direct 0.14 mg/dL (0.00-0.30); Calcium,Total 9.7 mg/dL (8.5-10.1); Chloride 108 mmol/L (98-107); Creatinine, Serum 1.09 mg/dL (0.70-1.30); EST Glomerular Filtration Rate 81 mL/min (>60); Est Glom Filt Rate - Afr Amer 98 mL/min (>60); Estimated Creatinine Clearance 104.86 ml/min; Globulin 4.6 g/dL (2.2-4.2); Glucose 113 mg/dL (74-106); Potassium 3.9 mmol/L (3.5-5.1); Protein, Total 8.7 g/dL (6.4-8.2); Sodium Level 141 mmol/L (136-145)
[2021-04-13 18:30] VITALS: BP 129/82; PULSE 90; RESP 18; O2SAT 95
[2021-04-13 18:35] LABS: Lactic Acid 1.2 mmol/L (0.4-1.9)
--- NOTE | 2021-04-13 18:48 | CT_ITS ---
We are attempting to reach an attending provider to discuss findings. An addendum with communication details will be sent when the communication is complete. EXAM: CT ANGIOGRAPHY HEAD AND NECK WITH INTRAVENOUS CONTRAST : 1985 CLINICAL INDICATION: stroke,pt unable to hold still for cta scan,very confused and agitated,doesn't understand what is going on,repeated scan immediately TECHNIQUE: [place]/head and neck CT angiography protocol performed with intravenous contrast. This CT exam was performed using one or more of the following dose reduction techniques: automated exposure control, adjustment of the mA and/or kV according to patient size, and/or use of iterative reconstruction technique. This report was created using ECO report generation technology. MIP reconstructed images were created and reviewed. CONTRAST: IV 100mL Isovue-370 COMPARISON: None. FINDINGS: LIMITATIONS: Study is markedly limited due to a large amount of motion artifact. The patient was scanned twice however there is poor contrast bolus of the second images. HEAD: RIGHT ANTERIOR CEREBRAL ARTERY: Unremarkable. No significant stenosis at the visualized segments. Anterior communicating artery is present. No aneurysm. RIGHT MIDDLE CEREBRAL ARTERY: Unremarkable. No significant stenosis at the visualized segments. No aneurysm. RIGHT POSTERIOR CEREBRAL ARTERY: Unremarkable. No occlusion or significant stenosis. No aneurysm. LEFT ANTERIOR CEREBRAL ARTERY: Unremarkable. No significant stenosis at the visualized segments. No aneurysm. LEFT MIDDLE CEREBRAL ARTERY: Unremarkable. No significant stenosis at the visualized segments. No aneurysm. LEFT POSTERIOR CEREBRAL ARTERY: Unremarkable. No occlusion or significant stenosis. No aneurysm. BASILAR ARTERY: Unremarkable. No significant stenosis. No aneurysm. GREAT VESSELS OF AORTIC ARCH: Unremarkable. Normal anatomy, patent. OTHER VASCULATURE: No vascular malformation. BRAIN AND EXTRA-AXIAL SPACES: On the coronal and sagittal MIP reformatted images there is an apparent change in caliber of the left middle cerebral at the level of bifurcation within the sylvian fissure. The axial source images do not show an obvious abnormality although there is motion artifact. There are vessels peripherally on the left in the area of infarcted brain. NECK: RIGHT COMMON CAROTID ARTERY: Unremarkable. No significant stenosis. No dissection or occlusion. RIGHT INTERNAL CAROTID ARTERY: Unremarkable. No significant stenosis. No dissection or occlusion. RIGHT EXTERNAL CAROTID ARTERY: Unremarkable. No occlusion. RIGHT VERTEBRAL ARTERY: Unremarkable. No significant stenosis. No dissection or occlusion. LEFT COMMON CAROTID ARTERY: Unremarkable. No significant stenosis. No dissection or occlusion. LEFT INTERNAL CAROTID ARTERY: Unremarkable. No significant stenosis. No dissection or occlusion. LEFT EXTERNAL CAROTID ARTERY: Unremarkable. No occlusion. LEFT VERTEBRAL ARTERY: Unremarkable. No significant stenosis. No dissection or occlusion. LUNG APICES: Unremarkable as visualized. SOFT TISSUES: Unremarkable. CAROTID STENOSIS REFERENCE USING NASCET CRITERIA: % ICA stenosis = (1 - narrowest ICA diameter/diameter of distal cervical ICA) x 100. Moderate - 50-69% stenosis. Severe - 70-94% stenosis. Near occlusion - 95-99% stenosis. Occluded - 100% stenosis. CT/CTA Head AND Neck W/ Contrast IMPRESSION: Limited study due to a large amount of motion artifact. There is a questionable change in caliber of the left middle cerebral artery as it divides at the bifurcation possibly representing an area of stenosis or focal occlusion however this is not as well-visualized on the axial source images and there is good vasculature seen distal to this point. Individualized dose optimization techniques were used for this CT. at 1926 Reported and signed by: Nikhil Lugo MD Electronically Signed: Nikhil Lugo MD at 19:25 EDT Tel , Service support ,
[2021-04-13 19:56] VITALS: BP 118/72; PULSE 81; RESP 16; O2SAT 95
== END 2021-04-13 20:46 | disposition other institution (70) ==
PROVIDERS: Emergency Provider Emergency Medicine; PCP Family Medicine
DX: I63.9 Cerebral infarction, unspecified (principal); F20.9 Schizophrenia, unspecified; M54.9 Dorsalgia, unspecified; M54.2 Cervicalgia; G89.29 Other chronic pain; F17.210 Nicotine dependence, cigarettes, uncomplicated; Z79.891 Long term (current) use of opiate analgesic; Z79.899 Other long term (current) drug therapy
CPT/HCPCS: 70450; 70496; 70498; 71045; 80048; 80076; 82077; 83605; 85025; 93005; 96360; 96361; 99285; J7030; Q9967

== ENCOUNTER 2021-04-25 14:09 | Outpatient (RCR) | payer MEDICAID, SELFPAY | END 2021-04-25 14:10 | disposition home or self-care (01) | LOC: SP 14:09 | PROVIDERS: PCP Family Medicine; Visit Provider Family Medicine | DX: R69 Illness, unspecified (principal) ==

== ENCOUNTER → 2021-05-01 13:23 | Outpatient (CLI) | payer MEDICAID, SELFPAY ==
[2021-04-13 16:48] VITALS: BMI 36.9
[2021-05-01 10:38] VITALS: BMI 33.3
[2021-05-01 16:53] LABS: Amphetamine Urine VISTA NEGATIVE (<1000 ng/mL); Barbiturate Urine VISTA NEGATIVE (< 200 ng/mL); Benzodiazepine Urine VISTA NEGATIVE (< 200 ng/mL); Cocaine Urine VISTA NEGATIVE (< 300 ng/mL); Ecstacy Urine VISTA NEGATIVE (< 500 ng/mL); Methadone Urine VISTA NEGATIVE (< 300 ng/mL); PCP Urine VISTA NEGATIVE (< 25 ng/mL); THC Urine VISTA POSITIVE (< 50 ng/mL); Vista UDS pH Range 6
== END ==
PROVIDERS: Anesthesiology Pain Medicine; PCP Family Medicine; Referring Provider Family Medicine; Visit Provider Family Medicine
DX: I63.9 Cerebral infarction, unspecified (principal); F11.20 Opioid dependence, uncomplicated
CPT/HCPCS: 74230; 80307

== ENCOUNTER 2021-05-07 03:56 | Emergency (ER) | payer MEDICAID, SELFPAY ==
[2021-05-01 14:29] VITALS: BMI 33.3
[2021-05-07 03:58] VITALS: BP 128/92; PULSE 71; RESP 16; TEMP 36.7; O2SAT 98; BMI 37.5
--- NOTE | 2021-05-07 04:44 | VDLE_ITS ---
Reason For Study: elevated D-dimer RIGHT GSV is normal. CFV is compressible, spontaneous, phasic, competent and demonstrates normal augmentation. FV is compressible, spontaneous, phasic, competent and demonstrates normal augmentation. POP V is compressible, spontaneous, phasic, competent and demonstrates normal augmentation. T/P Trunk is compressible. PTV is compressible. RT PerV is compressible. Procedure This is a venous duplex using B-mode, color flow and spectral Doppler. Exam performed portable in ED. The study was technically difficult. PT unwilling or unable to lie in preferred position for scanning. A preliminary report was called and/or faxed to ED. VL/Venous Duplex US, Unilateral Interpretation Summary There is no evidence of right lower extremity deep vein thrombosis. Right great saphenous vein appears patent and compressible segmentally. This examination was noted to be t echnically difficult Ordering Physician: Jose Waterman Referring Physician: Fredo Rodriguez Performed By: Joann Castro, MOI, RVT
--- NOTE | 2021-05-07 04:44 | ED.VIS.LOWEX ---
HPI History of Present Illness Chief Complaint: Lower Extremity Injury Informant: patient and parent Onset/Context/Timing Onset: Days Context: Gradual Onset Timing: Continuous Quality of Pain: Dull and Aching Current Severity: Mild Maximum Severity: Mild Narrative Narrative: 35-year-old male recently suffered a large left MCA stroke with significant deficits with his speech and right upper and lower extremity. He was transferred from here to [facility]. He is now at home. The last several days he has noticed some discomfort and swelling in his right lower extremity. He has never had a DVT or PE before. He has had obvious recent immobilization due to his hospitalization. He denies any chest pain or shortness of breath. Earlier tonight he presented to another emergency department. They obtained a D-dimer which was reportedly elevated and he and his mother came here to get a noninvasive study of his extremity. Prior similar symptoms: No Recent Illness/Hospitalization: Yes [facility] Medical History Bloody stools neck and back pain Severe headache Stomach ulcer Stroke/cerebrovascular accident Subcutaneous mass sudden weight loss Home Medications quetiapine 800 mg PO QHS 11/18/18 [History Last Taken 08/07/19] gabapentin 800 mg PO 4X/DAY 08/08/19 [History Last Taken 08/07/19] clindamycin HCl 150 mg PO Q6H 04/13/21 [History Last Taken Unknown] oxycodone myristate [Xtampza ER] 13.5 mg PO BID 04/13/21 [History Last Taken Unknown] oxycodone-acetaminophen [Percocet] 1 tab PO Q4H PRN 04/13/21 [History Last Taken Unknown] aspirin 81 mg tablet,delayed release tablet PO 05/01/21 [History Last Taken Unknown] duloxetine 60 mg capsule,delayed release 60 mg PO DAILY #30 cap 05/01/21 [Rx Last Taken Unknown] naproxen 500 mg tablet 500 mg PO BID PRN #60 tab 05/01/21 [Rx Last Taken Unknown] rosuvastatin 20 mg tablet 20 mg PO DAILY tab 05/01/21 [History Last Taken Unknown] Allergy/AdvReac Type Severity Reaction Status Date / Time ketamine Allergy Unknown 'climbing Verified 05/07/21 04:04 the smith' Sulfa (Sulfonamide Allergy Swelling Verified 05/07/21 04:04 Antibiotics) methadone AdvReac Other Verified 05/07/21 04:04 varenicline [From Chantix] AdvReac Other Verified 05/07/21 04:04 Surgical History History of hand surgery history of spine surgery History of tonsillectomy Social History Smoking Status: Current every day smoker tobacco type: cigarettes Tobacco: How many years used: 10 second hand exposure: Yes alcohol intake: never substance use type: does not use ROS ROS ED ROS Narrative Denies recent illness. Review of Systems ROS Unobtainable: Denies due to encephalopathy Constitutional Constitutional ED: Denies chills or fever(s) Eyes Eyes: Denies change in vision ENT ENT ED: Denies ear pain or sore throat Cardiovascular Cardiovascular: Denies chest pain or palpitations Respiratory/Chest Respiratory/Chest: Denies dyspnea Gastrointestinal Gastrointestinal: Denies abdominal pain or nausea Genitourinary Genitourinary ED: Denies dysuria Musculoskeletal Musculoskeletal: Denies myalgias Integumentary Denies rash Neurologic Neurologic: Denies headache(s) Psychiatric Psychiatric: Denies depression Endocrine Endocrinology: Denies polyuria Hematologic/Lymphatic Hematologic/Lymphatic: Denies easy bruising Allergic/Immunologic Allergic/Immunologic ED: Denies urticaria EXAM Physical Exam Narrative Exam Narrative: Vital signs are stable afebrile. Young male no acute distress. H EENT exam unremarkable. Limited speech due to prior stroke. Neck nontender. Lungs are clear equal symmetrical bilaterally. Heart regular rhythm no murmur. Abdomen soft nontender. Patient moving all 4 extremities. He has weakness and less dexterity in the right upper and lower extremity from his recent stroke. Left upper and lower extremity unremarkable. He has swelling in his right lower extremity compared to the left. He has a palpable DP pulse. There is no cord. Neurologically is awake and alert. He has significant findings from a recent stroke. Const Vital Signs: 05/07/21 03:58 Temperature 98.1 F Temperature Source Oral Pulse Rate 71 Respiratory Rate 16 Blood Pressure 128/92 H Blood Pressure Mean 104 Pulse Ox 98 Oxygen Delivery Method Room Air Positive well nourished and well developed General Appearance ED: well developed HEENT Reports moist mucous membranes normocephalic and atraumatic Eyes PERRL Neck full ROM and supple Chest Wall inspection of chest normal and palpation of chest normal Resp normal respiratory effort, no retractions and clear to auscultation bilaterally Auscultation: Negative for rales, rhonchi or wheezes Cardio regular rate, regular rhythm, S1 normal heart sound, S2 normal heart sound and no murmurs GI non-tender, non-distended and no masses Auscultation: normoactive bowel sounds Palpation: soft; Negative for tender, guarding or rebound tenderness present Back/Spine no CVA tenderness Extremity Extremity Narrative: Decreased strength in both right upper and lower extremity from recent stroke. Swelling in the right leg concerning for a possible DVT. DP pulse intact. Psych mental status grossly normal Skin Lesions: no lesions Rashes: no rashes MDM MDM MDM Narrative Medical decision making narrative: Patient will be evaluated for possible DVT. I explained to the family that we are happy to get the test but that the techs are not available at this time. I have already ordered the right lower extremity venous study it will be done sometime later this morning. They are going to wait in the emergency department until then. Patient be checked out to the a.m. physician for the study results and if he does have a DVT to determine what anticoagulation to put him on. No DVT seen. I spoke to the pharmacy laboratory technician myself. Discussed this with the family. Patient will be outpatient follow-up with his primary care physician. If he has recurrent swelling or if he gets worse they may need to do additional ultrasound studies. He has significant risk for developing a clot due to his recent hospitalization, stroke and change in his mobility. Elevate his leg. Radiography Diagnostic Testing: Radiology Impression Venous Doppler Study 05/07/21 04:44 Interpretation Summary There is no evidence of right lower extremity deep vein thrombosis. Right great saphenous vein appears patent and compressible segmentally. This examination was noted to be technically difficult Ordering Physician: Jose Waterman Referring Physician: Fredo Rodriguez Performed By: Joann Castro, RDCS, RVT Discharge Plan Triage Chief Complaint: Lower Extremity Injury ED Provider: Jose Waterman Dx/Rx/DC Orders Clinical Impression: Edema of right lower extremity Instructions: ED Peripheral Edema, Unilateral Prescriptions: No Action rosuvastatin 20 mg tablet 20 mg PO DAILY RF: 0 aspirin 81 mg tablet,delayed release (DR/EC) PO RF: 0 naproxen 500 mg tablet 500 mg PO BID PRN (Reason: pain) Qty: 60 RF: 2 duloxetine 60 mg capsule,delayed release(DR/EC) 60 mg PO DAILY Qty: 30 RF: 2 quetiapine 400 mg tablet 800 mg PO QHS RF: 0 gabapentin 400 mg capsule 800 mg PO 4X/DAY RF: 0 clindamycin HCl 150 mg Capsule 150 mg PO Q6H RF: 0 oxycodone-acetaminophen [Percocet] 5-325 mg Tablet 1 tab PO Q4H PRN (Reason: Pain) RF: 0 Xtampza ER 13.5 mg Cap,Sprinkl,Er12hr(Dont Crush) 13.5 mg PO BID RF: 0 Primary Care Provider: Fredo Rodriguez Referrals: Fredo Rodriguez MD [Primary Care Provider] - 5-7 Days Activity Restrictions/Additional Instructions: Call follow-up with his primary care physician Dr. Fredo Rodriguez. Elevate his leg to decrease swelling. If the swelling continues or gets worse he may need repeat ultrasound in the next 1 to 3 weeks to reevaluate his leg for possible clot but there is none seen at this time. Disposition Disposition: Home, Self Care
[2021-05-07 09:22] VITALS: PULSE 78; RESP 16; O2SAT 98
== END 2021-05-07 09:23 | disposition home or self-care (01) ==
PROVIDERS: Emergency Provider Emergency Medicine; PCP Family Medicine
DX: R60.0 Localized edema (principal); I63.9 Cerebral infarction, unspecified; I69.328 Other speech and language deficits following cerebral infarction; I69.351 Hemiplegia and hemiparesis following cerebral infarction affecting right dominant side; F17.210 Nicotine dependence, cigarettes, uncomplicated
CPT/HCPCS: 93971; 99282

== ENCOUNTER → 2021-05-11 14:13 | Outpatient (CLI) | payer MEDICAID, SELFPAY ==
[2021-05-07 03:58] VITALS: BMI 37.5
--- NOTE | 2021-05-11 14:20 | RAD_ITS ---
STUDY: X-RAY - RIGHT FEMUR REASON FOR STUDY: Male, 35 years old. PAIN TECHNIQUE: 4 view(s) of the femur. COMPARISON: None. FINDINGS: Normal visualized femur. Normal visualized soft tissue structure. RAD/Femur Min 2 Views IMPRESSION: Normal x-ray examination of the femur. Electronically Signed: Tai Kuhn MD at 14:50 EDT , Service support ,
== END ==
PROVIDERS: PCP Family Medicine; Visit Provider Family Medicine
DX: M89.8X5 Other specified disorders of bone, thigh (principal)
CPT/HCPCS: 73552

== ENCOUNTER → 2021-05-25 16:00 | Outpatient (CLI) | payer MEDICAID, SELFPAY ==
[2021-05-07 03:58] VITALS: BMI 37.5
[2021-05-25 10:16] VITALS: BMI 35.7
--- NOTE | 2021-05-25 16:01 | MRI_ITS ---
EXAM: MR HEAD WITHOUT AND WITH INTRAVENOUS CONTRAST CLINICAL INDICATION: Subacute CVA; aphasia -- Patient reports having metal hardware in spine. TECHNIQUE: Multiplanar and multisequence MR images of the brain were obtained without and with intravenous contrast. This report was created using TRAFI report generation technology. CONTRAST: IV 21ml Dotarem COMPARISON: MRI brain without and with contrast 04/15/2021. FINDINGS: BRAIN AND EXTRA-AXIAL SPACES: No diffusion restriction to suspect acute or subacute ischemic infarct. Large cortical based ischemic infarctions involving the left temporal lobe, left parietal lobe, left insular lobe, the left periventricular white matter, along the body and head of the left caudate nucleus and left putamen are now chronic with mild contrast enhancement due to breakdown of blood-brain barrier. There are some cystic changes of these infarcts. No intracranial mass or mass effect. Posterior fossa structures are unremarkable. Basal cisterns are patent. SELLA: Unremarkable. Normal sella turcica, pituitary gland, infundibular stalk, optic chiasm and hypothalamus. AUDITORY SYSTEM: Unremarkable. The internal auditory canals are patent. BONES/JOINTS: Unremarkable. No discrete lytic or blastic abnormalities. SINUSES: Unremarkable as visualized. Clear. MASTOID AIR CELLS: Unremarkable as visualized. Clear. ORBITS: Unremarkable as visualized. Both globes, extraocular muscles, optic nerves and retrobulbar fat appear unremarkable. VASCULATURE: Unremarkable as visualized. Normal flow voids in the major intracranial circulation. MRI/Brain W/WO Contrast IMPRESSION: 1. Cystic changes with mild contrast enhancement of the now chronic ischemic infarction involving the left insular lobe, left temporal lobe, left parietal lobe, left periventricular white matter, along the body and head of the left caudate nucleus and left putamen. 2. No MRI evidence of acute or subacute ischemic infarct. 3. No other additional findings or changes when compared to 04/15/2021. Electronically Signed: Dimitri Lucio MD at 20:17 EDT , Service support ,
== END ==
PROVIDERS: PCP Family Medicine; Referring Provider Psychiatry & Neurology Neurology; Visit Provider Psychiatry & Neurology Neurology
DX: I63.512 Cerebral infarction due to unspecified occlusion or stenosis of left middle cerebral artery (principal); R47.01 Aphasia
CPT/HCPCS: 70553; A9575

== ENCOUNTER 2021-06-06 17:50 | Emergency (ER) | payer MEDICAID, SELFPAY ==
[2021-06-06 17:51] VITALS: BP 146/96; PULSE 72; RESP 15; TEMP 36.4; O2SAT 98; BMI 32.7
--- NOTE | 2021-06-06 18:56 | EX.ED.DYSGE1 ---
HPI History of Present Illness Chief Complaint: Other, Pain/Inj Informant: patient and parent Onset/Context/Timing Quality: [pt mimics a piercing sensation] Location: Left face, mostly upper face Current Severity: Moderate Maximum Severity: Severe Worsened by: nothing in particular Relieved by: nothing Narrative Narrative: Patient and his mother present for trigeminal neuralgia pain in the left face that has been there for weeks, starting at some point after this patient had a large left MCA stroke given him aphasia dysarthria and right sided numbness mostly. They have been to neurology, they were then referred to a different neurologist, they have tried multiple medications such as carbamazepine, amitriptyline, and other medications including gabapentin, they state that none of them seem to be working. They said that the 2 neurology specialists did not know what else to do and send him back to his pain management doctor who he is already established with. So they called the office today and since he was in pain they were directed to go to the ER. [facility] Medical History Bloody stools neck and back pain PFO (patent foramen ovale) Severe headache Stomach ulcer Stroke/cerebrovascular accident Subcutaneous mass sudden weight loss Home Medications gabapentin 800 mg PO 4X/DAY 08/08/19 [History Last Taken 08/07/19] oxycodone myristate [Xtampza ER] 13.5 mg PO BID 04/13/21 [History Last Taken Unknown] oxycodone-acetaminophen [Percocet] 1 tab PO Q4H PRN 04/13/21 [History Last Taken Unknown] aspirin 81 mg tablet,delayed release 81 mg PO DAILY tab 05/23/21 [History Last Taken Unknown] baclofen 5 mg tablet 5 mg PO TID PRN 05/25/21 [History Last Taken Unknown] omeprazole 40 mg capsule,delayed release 40 mg PO DAILY 05/25/21 [History Last Taken Unknown] ondansetron HCl 4 mg tablet 4 mg PO DAILY tab 05/25/21 [History Last Taken Unknown] Allergy/AdvReac Type Severity Reaction Status Date / Time ketamine Allergy Unknown 'climbing Verified 06/06/21 17:53 the smith' Sulfa (Sulfonamide Allergy Swelling Verified 06/06/21 17:53 Antibiotics) meloxicam AdvReac Severe Flu like Verified 06/06/21 17:53 symptoms methadone AdvReac Other Verified 06/06/21 17:53 varenicline [From Chantix] AdvReac Other Verified 06/06/21 17:53 Surgical History History of hand surgery history of spine surgery History of tonsillectomy Social History Smoking Status: Current every day smoker tobacco type: cigarettes Tobacco: How many years used: 10 second hand exposure: Yes alcohol intake: never substance use type: does not use caffeine: Yes Type: coffee Number of servings: 2 ROS ROS ED Review of Systems ROS Unobtainable: other Details: aphasia/dysarthria; offered to have patient write what he wants to tell me on paper or his cell phone, which he was showing me pictures on, but he refuses EXAM Physical Exam Const Vital Signs: 06/06/21 17:51 06/06/21 18:10 Temperature 97.6 F L Temperature Source Temporal Pulse Rate 72 Respiratory Rate 15 Respiratory Effort Normal Respiratory Pattern Normal Blood Pressure 146/96 H Blood Pressure Mean 112 Pulse Ox 98 Oxygen Delivery Method Room Air Positive well nourished and well developed General Appearance ED: well developed and NAD HEENT Reports moist mucous membranes HEENT Narrative: Posterior oropharynx clear Negative for trauma or tenderness Eyes PERRL and EOMs intact bilaterally Neck no lymphadenopathy and supple Chest Wall inspection of chest normal and palpation of chest normal Resp normal respiratory effort Extremity normal to inspection General Extremety ED: Negative for edema or tenderness General Extremity: Negative for edema Neuro Neuro Narrative: Severe dysarthria and aphasia. Patient often gets frustrated because he is unable to say what he wants. Decreased sensation right face. No facial droop. Occasionally holds his left face and pain which is normal on inspection. No sinus tenderness. Normal external ear exam. Sensorium / Orientation: alert Skin no rashes or lesions noted, no wounds and skin turgor normal MDM MDM MDM Narrative Medical decision making narrative: I spent some time talking to this patient and his mother. They want answers which unfortunately I do not have here in the emergency department. They also state that he has been in different emergency rooms multiple times for this recently for pain control. Obviously, they have already seen a couple different specialist for this and have been put on different medications that they state are not working, most of which were already beyond my level of expertise. I can only advise going back to neurology and or his pain management doctor which they plan on doing. I offered analgesics to help with the symptoms here tonight, I gave him a dose of Depakote, Dilaudid, and Reglan, hoping something will help temporarily at least. They understand and I did try to answer all of their questions within the limits of my abilities here especially with the patient's aphasia. He is hemodynamically and clinically stable. Discharge Plan Triage Chief Complaint: Other, Pain/Inj ED Provider: Dung Choudhury Dx/Rx/DC Orders Clinical Impression: Left-sided trigeminal neuralgia Instructions: ED Trigeminal Neuralgia Prescriptions: No Action ondansetron HCl [Zofran] 4 mg tablet 4 mg PO DAILY RF: 0 omeprazole 40 mg capsule,delayed release(DR/EC) 40 mg PO DAILY RF: 0 baclofen 5 mg tablet 5 mg PO TID PRN (Reason: Muscle Spasm) RF: 0 aspirin 81 mg tablet,delayed release (DR/EC) 81 mg PO DAILY RF: 0 gabapentin 400 mg capsule 800 mg PO 4X/DAY RF: 0 oxycodone-acetaminophen [Percocet] 5-325 mg Tablet 1 tab PO Q4H PRN (Reason: Pain) RF: 0 Xtampza ER 13.5 mg Cap,Sprinkl,Er12hr(Dont Crush) 13.5 mg PO BID RF: 0 Primary Care Provider: Fredo Rodriguez Referrals: Fredo Rodriguez MD [Primary Care Provider] - As soon as possible (And/or Dr. Goldman) Disposition Disposition: Home, Self Care
[2021-06-06] MEDS: Metoclopramide 10 MG/2 ML Vial 5 MG IM (19:14)
[2021-06-06] MEDS: HYDROmorphone 1 MG/ML Syringe IM (19:14)
[2021-06-06] MEDS: Divalproex Sodium 250 MG Tablet 500 MG PO (19:25)
== END 2021-06-06 19:38 | disposition home or self-care (01) ==
PROVIDERS: Emergency Provider Emergency Medicine; PCP Family Medicine
DX: G50.0 Trigeminal neuralgia (principal); F17.210 Nicotine dependence, cigarettes, uncomplicated; R47.1 Dysarthria and anarthria; Z79.82 Long term (current) use of aspirin; Z79.891 Long term (current) use of opiate analgesic
CPT/HCPCS: 96372; 99283

== ENCOUNTER 2021-06-21 01:12 | Emergency (ER) | payer MEDICAID, SELFPAY ==
[2021-06-21 01:14] VITALS: BP 137/89; PULSE 54; RESP 12; TEMP 36.9; O2SAT 97; BMI 30.2
--- NOTE | 2021-06-21 01:55 | EKG12_ITS ---
Test Reason : CP Blood Pressure : / mmHG Vent. Rate : 054 BPM Atrial Rate : 054 BPM P-R Int : 162 ms QRS Dur : 110 ms QT Int : 420 ms P-R-T Axes : 032 063 042 degrees QTc Int : 398 ms Sinus bradycardia Otherwise normal ECG Confirmed by BRITTANY REEVES, HUMBERTO ([id number]), editor managing director KRAIG IVEY ([id number]) on 06/21/2021 1:01:32 PM Referred By: SOLEDAD Confirmed By:FIFI SOTO MD
[2021-06-21 02:00] LABS: Absolute Lymphocyte Count 2.64 X10^3/uL (0.83-4.51); Absolute Neutrophil Count 3.7 X10^3/uL (2.0-7.7); Basophil# 0.03 X10^3/uL; Basophil% 0.4 % (0-1); Eosinophil# 0.01 X10^3/uL; Eosinophils% 0.1 % (0-5); Hematocrit 39.9 % (40-54); Hemoglobin 13.4 g/dL (13.0-16.5); Lymphocyte # 2.64 X10^3/ul (0.83-4.51); Lymphocyte % 38.2 % (19-41); Mean Corp Hgb Conc 33.6 g/dL (32-36); Mean Corpuscular Hgb 31.5 pg (27.0-32.0); Mean Corpuscular Volume 93.9 fL (80-94); Monocyte# 0.56 X10^3/uL; Monocyte% 8.1 % (0-10); NRBC Flagged by Analyzer 0 % (0-5); Neutrophil # 3.66 X10^3/uL (2.7-7.7); Neutrophil % 52.9 % (47-70); Platelet Count 215 K/mm3 (150-450); RBC Distribution Width CV 14.8 % (11.6-14.6); RBC Distribution Width SD 51.4 fl (35.1-43.9); Red Blood Count 4.25 M/mm3 (4.6-6.2); White Blood Count 6.9 K/mm3 (4.4-11.0)
[2021-06-21] MEDS: Ketorolac 15 MG/ML Vial IV (02:09)
--- NOTE | 2021-06-21 02:14 | RAD_ITS ---
STUDY: X-RAY CHEST REASON FOR EXAM: Male, 35 years old. chest pain TECHNIQUE: Single AP portable view of the chest. COMPARISON: None. FINDINGS: The lungs are underexpanded. There is no demonstrated pleural abnormality. Normal size heart. Normal mediastinum and seth. Normal visualized pulmonary arteries. Normal visualized aortic arch and descending thoracic aorta. Normal visualized thoracic spine. Normal visualized ribs, clavicles, and shoulders. There is no demonstrated abnormality of the visualized soft tissue structures of the upper abdomen. RAD/Chest 1 View (Portable) IMPRESSION: No demonstrated acute cardiopulmonary process. Electronically Signed: Lisa Nunez MD at 4:34 EDT Tel , Service support ,
[2021-06-21 02:15] LABS: Anion Gap 4 (5-15); BUN 13 mg/dL (7-18); BUN/Creat Ratio 12.1 RATIO (10-20); Calcium,Total 9.4 mg/dL (8.5-10.1); Chloride 107 mmol/L (98-107); Creatinine, Serum 1.07 mg/dL (0.70-1.30); EST Glomerular Filtration Rate 82 mL/min (>60); Est Glom Filt Rate - Afr Amer 100 mL/min (>60); Glucose 106 mg/dL (74-106); Potassium 3.6 mmol/L (3.5-5.1); Sodium Level 139 mmol/L (136-145); Troponin-I HS 11 pg/mL (3.0-78.0)
[2021-06-21 02:17] VITALS: BP 130/74; PULSE 58; RESP 16; O2SAT 97
--- NOTE | 2021-06-21 02:29 | ED.VIS.CHEST ---
HPI History of Present Illness Chief Complaint: Chest Pain Informant: patient and spouse/S.O. Onset/Context/Timing Onset: Today (last hr or 2) Activity at onset: gradual Timing: Continuous Quality: Positive for - (pain) Location: Left Chest (and into LUE) Current Severity: Severe Maximum Severity: Severe Worsened By: Movement of Arm, Movement of Torso and Breathing Relieved By: Remaining Still Associated Symptoms: Positive for Dyspnea; Negative for Nausea, Vomiting, Diaphoresis, Cough, Fever, Lightheadedness and Palpitations Narrative Narrative: Patient presenting with left-sided chest discomfort for the last hour or 2. Denies any injury. Hurts to move and breathe. He has had a stroke that has left him with residual paresthesias and some mild weakness in the right side along with significant aphasia. He also has been having trigeminal neuralgia on the left side of his face he still has that pain. He did follow-up with neurology, he was seen here in the ER couple weeks ago for that. The states they took away many of his medications. Patient is left-hand dominant. Hurts into his left arm, all of it hurts worse to move. History is significantly limited due to the patient's aphasia. He does a lot of pointing, and it is difficult to tell what exactly he is trying to tell us and he is unable to write down what he wants to say as a result of his stroke as well. states he is being evaluated for a procedure to fix a hole in his heart which is part of the reason they were so concerned when he started getting chest discomfort tonight. He takes aspirin daily no anticoagulants. [facility] Medical History Bloody stools neck and back pain PFO (patent foramen ovale) Severe headache Stomach ulcer Stroke/cerebrovascular accident Subcutaneous mass sudden weight loss Home Medications gabapentin 800 mg PO 4X/DAY 08/08/19 [History Last Taken 08/07/19] aspirin 81 mg tablet,delayed release 81 mg PO DAILY tab 05/23/21 [History Last Taken Unknown] baclofen 5 mg tablet 5 mg PO TID PRN 05/25/21 [History Last Taken Unknown] omeprazole 40 mg capsule,delayed release 40 mg PO DAILY 05/25/21 [History Last Taken Unknown] quetiapine [Seroquel] 100 mg PO QHS 06/21/21 [History Last Taken Unknown] Allergy/AdvReac Type Severity Reaction Status Date / Time ketamine Allergy Unknown 'climbing Verified 06/21/21 01:20 the smith' Sulfa (Sulfonamide Allergy Swelling Verified 06/21/21 01:20 Antibiotics) meloxicam AdvReac Severe Flu like Verified 06/21/21 01:20 symptoms methadone AdvReac Other Verified 06/21/21 01:20 varenicline [From Chantix] AdvReac Other Verified 06/21/21 01:20 Surgical History History of hand surgery history of spine surgery History of tonsillectomy Social History Smoking Status: Current every day smoker tobacco type: cigarettes Tobacco: How many years used: 10 second hand exposure: Yes alcohol intake: never substance use type: does not use caffeine: Yes Type: coffee Number of servings: 2 ROS ROS ED Review of Systems ROS Unobtainable: other Details: Dense expressive aphasia Constitutional Constitutional ED: Denies chills or fever(s) ENT ENT ED: Reports facial pain Cardiovascular Cardiovascular: Reports as per HPI and chest pain Respiratory/Chest Respiratory/Chest: Reports dyspnea; Denies cough Gastrointestinal Gastrointestinal: Denies nausea or vomiting Neurologic Neurologic: Reports as per HPI and paresthesias EXAM Physical Exam Const Vital Signs: 06/21/21 01:14 06/21/21 02:17 06/21/21 03:03 Temperature 98.4 F Temperature Source Temporal Pulse Rate 54 L 58 L 54 L Respiratory Rate 12 16 16 Blood Pressure 137/89 H 130/74 H Blood Pressure Mean 105 92 Pulse Ox 97 97 98 Oxygen Delivery Method Room Air Room Air Room Air 06/21/21 04:48 Temperature Temperature Source Pulse Rate 74 Respiratory Rate 16 Blood Pressure 143/80 H Blood Pressure Mean 101 Pulse Ox 97 Oxygen Delivery Method Room Air Positive well nourished and well developed General Appearance ED: well developed and NAD HEENT Reports moist mucous membranes normocephalic and atraumatic Eyes PERRL and EOMs intact bilaterally Neck full ROM and supple Chest Wall Chest Narrative: Tender at some points in the left chest. Unable to tell if this is reproducing the patient's pain given his expressive aphasia. Chest: tenderness Resp normal respiratory effort and clear to auscultation bilaterally Cardio regular rate, regular rhythm and no murmurs GI non-tender and non-distended Auscultation: normoactive bowel sounds Palpation: soft Back/Spine no CVA tenderness General Back: other FROM Extremity normal to inspection General Extremety ED: Negative for edema, pulses abnormal or tenderness General Extremity: Negative for edema or pulses abnormal Neuro gait normal Neuro Narrative: Dense expressive aphasia. Sensation grossly intact throughout all 4 extremities. Tender in the skin of his left face and his right upper extremity Sensorium / Orientation: awake and alert Psych Psych Narrative: Frustrated after trying to communicate with us and not able to. Skin no rashes or lesions noted and no wounds MDM MDM MDM Narrative Medical decision making narrative: Patient's chest x-ray appears normal on my interpretation, 1 view. His labs are normal except for a D-dimer that is nonspecifically elevated at 0.63. He is not tachycardic or hypoxemic, however since he is very difficult to evaluate from a history standpoint, and the patient did have a stroke in the recent past along with a PFO, I feel like considering pulmonary embolus for these symptoms is also reasonable. Therefore he was sent for CT angiography of the chest. As shown below this was negative for anything acute. More consistent with musculoskeletal etiologies in context. Prior to the results of the CT I attempted to treat the patient's pain, he was complaining of significant pain after Toradol, so I ordered morphine 8 mg. He refused to allow the nurses to give it. The states that he had a history of addiction, it is unclear if this is why he did not want it but it is not on his allergy list. Therefore he was given Tylenol and a cyclobenzaprine, and discharged in stable condition to follow-up. Lab Data Attestation: I reviewed the patient's lab results. Labs: Laboratory Results - last 24 hr 06/21/21 06/21/21 06/21/21 01:43 01:43 01:43 WBC 6.9 RBC 4.25 L Hgb 13.4 Hct 39.9 L MCV 93.9 MCH 31.5 MCHC 33.6 RDW Std Deviation 51.4 H RDW Coeff of Jaqueline 14.8 H Plt Count 215 MPV 10.0 Immature Gran % (Auto) 0.300 Neut % (Auto) 52.9 Lymph % (Auto) 38.2 [place] % (Auto) 8.1 Eos % (Auto) 0.1 Baso % (Auto) 0.4 Absolute Neuts (auto) 3.7 Absolute Lymphs (auto) 2.64 Nucleated RBC % 0 D-Dimer Quant (PE/DVT) Cancelled Sodium 139 Potassium 3.6 Chloride 107 Carbon Dioxide 28.0 Anion Gap 4 L BUN 13 Creatinine 1.07 Estim Creat Clear Calc 109.90 Est GFR (MDRD) Af Amer 100 Est GFR (MDRD) Non-Af 82 BUN/Creatinine Ratio 12.1 Glucose 106 Calcium 9.4 Troponin I High Sens 11 06/21/21 02:17 WBC RBC Hgb Hct MCV MCH MCHC RDW Std Deviation RDW Coeff of Jaqueline Plt Count MPV Immature Gran % (Auto) Neut % (Auto) Lymph % (Auto) [place] % (Auto) Eos % (Auto) Baso % (Auto) Absolute Neuts (auto) Absolute Lymphs (auto) Nucleated RBC % D-Dimer Quant (PE/DVT) 0.63 H* Sodium Potassium Chloride Carbon Dioxide Anion Gap BUN Creatinine Estim Creat Clear Calc Est GFR (MDRD) Af Amer Est GFR (MDRD) Non-Af BUN/Creatinine Ratio Glucose Calcium Troponin I High Sens Radiography Chest X-Ray - ED: 1 View, Read by ED Physician, Normal and No Acute Disease Diagnostic Testing: Radiology Impression Chest X-Ray 06/21/21 02:14 IMPRESSION: No demonstrated acute cardiopulmonary process. Electronically Signed: Lisa Nunez MD at 4:34 EDT Tel , Service support , Chest CTA 06/21/21 02:57 IMPRESSION: No demonstrated pulmonary embolism or arterial dissection. Electronically Signed: Lisa Nunez MD at 4:48 EDT Tel , Service support , EKG Initial EKG: Attestation: I personally reviewed and interpreted this EKG as follows: Interpretation: Sinus Rhythm and No Acute Injury Pattern Comments: Normal EKG Prior: Unchanged Discharge Plan Triage Chief Complaint: Chest Pain ED Provider: Dung Choudhury Dx/Rx/DC Orders Clinical Impression: Acute chest wall pain Instructions: ED Chest Pain, Noncardiac Prescriptions: Continued omeprazole 40 mg capsule,delayed release(DR/EC) 40 mg PO DAILY RF: 0 baclofen 5 mg tablet 5 mg PO TID PRN (Reason: Muscle Spasm) RF: 0 aspirin 81 mg tablet,delayed release (DR/EC) 81 mg PO DAILY RF: 0 gabapentin 400 mg capsule 800 mg PO 4X/DAY RF: 0 quetiapine [Seroquel] 100 mg tablet 100 mg PO QHS RF: 0 Primary Care Provider: Fredo Rodriguez Referrals: Fredo Rodriguez MD [Primary Care Provider] - 3-5 Days if not improving Disposition Disposition: Home, Self Care
[2021-06-21 02:40] LABS: D-Dimer Quantitative (DVT/PE) 0.63 FEU/ug/m (0.27-0.49)
--- NOTE | 2021-06-21 02:57 | CT_ITS ---
STUDY: CTA CHEST REASON FOR EXAM: Male, 35 years old. left pleuritic chest pain, elevated d-dimer RADIATION DOSAGE (If Supplied By Facility): CTDIvol = ( 13.50 ) mGy, DLP = ( 509.55 ) mGycm TECHNIQUE: The examination was performed with the intravenous administration of IV 100mL Isovue-370. Post-processing of the angiographic images was performed, with multiplanar reformation and 3D reconstruction. Individualized dose optimization techniques were used for this CT. COMPARISON: None. FINDINGS: Normal enhancement of the main pulmonary artery and right and left pulmonary arteries. Normal enhancement of the bilateral peripheral pulmonary arteries. There is no demonstrated pulmonary embolism. Normal thoracic aorta and visualized great vessels. There is no demonstrated aortic dissection. Normal heart and pericardium. Normal mediastinum. Normal hilar regions. Normal visualized trachea and bronchi. Subsegmental atelectases are noted in the right and left lung bases. Normal pulmonary parenchyma. Normal pleura. Normal chest wall structures. Normal osseous structures. Normal visualized upper abdomen. CT/CTA Chest W/WO Contrast IMPRESSION: No demonstrated pulmonary embolism or arterial dissection. Electronically Signed: Lisa Nunez MD at 4:48 EDT Tel , Service support ,
[2021-06-21 03:03] VITALS: PULSE 54; RESP 16; O2SAT 98
[2021-06-21] MEDS: Acetaminophen 500 MG Tablet 1000 MG PO (04:41)
[2021-06-21] MEDS: cycloBENZAPRine HCl 10 MG Tablet PO (04:42)
[2021-06-21 04:48] VITALS: BP 143/80; PULSE 74; RESP 16; O2SAT 97
== END 2021-06-21 05:08 | disposition home or self-care (01) ==
PROVIDERS: Emergency Provider Emergency Medicine; PCP Family Medicine
DX: R07.89 Other chest pain (principal); I63.9 Cerebral infarction, unspecified; I69.351 Hemiplegia and hemiparesis following cerebral infarction affecting right dominant side; I69.320 Aphasia following cerebral infarction; R20.2 Paresthesia of skin; F17.210 Nicotine dependence, cigarettes, uncomplicated; Z79.899 Other long term (current) drug therapy
CPT/HCPCS: 71045; 71275; 80048; 84484; 85025; 85379; 93005; 96361; 96374; 96375; 99285; J7040; Q9967; A4216

== ENCOUNTER 2021-08-02 15:36 | Emergency (ER) | payer MEDICAID, SELFPAY ==
[2021-08-02 15:38] VITALS: BP 133/84; PULSE 80; RESP 16; TEMP 36.7; O2SAT 99; BMI 32.5
--- NOTE | 2021-08-02 15:58 | CT_ITS ---
STUDY: CT BRAIN WITHOUT CONTRAST REASON FOR EXAM: Male, 35 years old. Pain RADIATION DOSAGE (If Supplied By Facility): CTDIvol = ( 44.99 ) mGy, DLP = ( 846.73 ) mGycm TECHNIQUE: Transaxial CT imaging of the brain was performed without administration of intravenous contrast material. Individualized dose optimization techniques were used for this CT. COMPARISON: 04/13/2021 FINDINGS: Normal soft tissue structures. Normal calvarium. Normal size ventricles and extra-axial spaces for the patient''s age. Left cerebral encephalomalacia in the MCA distribution. Normal white matter tracts of the cerebral hemispheres. Normal basal ganglia and thalami. Normal brainstem. Normal cerebellum. There is no intracranial hemorrhage. There are no findings of an acute ischemic infarction. Normal visualized paranasal sinuses. CT/Brain/Head without Contrast IMPRESSION: Left cerebral encephalomalacia. Electronically Signed: Joby Coelho DO at 17:14 EDT Tel [phone], Service support ,
--- NOTE | 2021-08-02 15:59 | EDS_ITS ---
HPI History of Present Illness Chief Complaint: Headache Informant: patient and spouse/S.O. Narrative Narrative: Patient has history of a stroke this past summer that is left him largely aphasic. He had problems with left-sided trigeminal neuralgia and was seen here in May for that. Patient presents today with left-sided headache and facial pain. He points to the ear and describing his area of pain. Fisvetlana? at bedside is on a phone call, but does stop long enough to state that Dr. Barclay sent him here secondary to pain and to ensure that he had not had another stroke. She is unable to tell me what medication he is currently on for trigeminal neuralgia. [facility] Medical History Bloody stools neck and back pain PFO (patent foramen ovale) Severe headache Stomach ulcer Stroke/cerebrovascular accident Subcutaneous mass sudden weight loss Home Medications aspirin 81 mg tablet,delayed release 81 mg PO DAILY tab 05/23/21 [History Last Taken Unknown] baclofen 5 mg tablet 5 mg PO TID PRN 05/25/21 [History Last Taken Unknown] omeprazole 40 mg capsule,delayed release 40 mg PO DAILY 05/25/21 [History Last Taken Unknown] cariprazine 1.5 mg capsule 1.5 mg PO DAILY cap 06/28/21 [History Last Taken Unknown] doxepin 3 mg tablet 3 mg PO QHS 06/28/21 [History Last Taken Unknown] duloxetine 60 mg capsule,delayed release 60 mg PO DAILY cap 06/28/21 [History Last Taken Unknown] gabapentin 800 mg tablet 800 mg PO .QID tab 06/28/21 [History Last Taken Unknown] ondansetron HCl 4 mg tablet 4 mg PO DAILY PRN tab 06/28/21 [History Last Taken Unknown] oxcarbazepine 300 mg tablet 300 mg PO BID tab 06/28/21 [History Last Taken Unknown] oxycodone myristate 13.5 mg capsule sprinkle extend release 12hr(DON'T CRUSH) 13.5 mg PO BID ea 06/28/21 [History Last Taken Unknown] quetiapine 300 mg tablet 600 mg PO QHS tab 06/28/21 [History Last Taken Unknown] divalproex 500 mg tablet,extended release 24 hr 500 mg PO BID #60 tab 06/29/21 [Rx Last Taken Unknown] naproxen 500 mg tablet 500 mg PO BID PRN #60 tab 06/29/21 [Rx Last Taken Unknown] propranolol 60 mg capsule,24 hr,extended release 60 mg PO DAILY #30 cap 06/29/21 [Rx Last Taken Unknown] prednisone See Taper PO DAILY #63 tab 08/02/21 [Rx Last Taken Unknown] Allergy/AdvReac Type Severity Reaction Status Date / Time ketamine Allergy Unknown 'climbing Verified 08/02/21 15:43 the smith' Sulfa (Sulfonamide Allergy Swelling Verified 08/02/21 15:43 Antibiotics) meloxicam AdvReac Severe Flu like Verified 08/02/21 15:43 symptoms methadone AdvReac Other Verified 08/02/21 15:43 varenicline [From Chantix] AdvReac Other Verified 08/02/21 15:43 Surgical History History of hand surgery history of spine surgery History of tonsillectomy Social History Smoking Status: Current every day smoker tobacco type: cigarettes Tobacco: How many years used: 10 second hand exposure: Yes alcohol intake: never substance use type: does not use caffeine: Yes Type: coffee Number of servings: 2 ROS ROS ED Review of Systems ROS Unobtainable: other Details: Aphasia secondary to prior stroke EXAM Physical Exam Const Vital Signs: 08/02/21 15:38 Temperature 98.0 F Temperature Source Temporal Pulse Rate 80 Respiratory Rate 16 Blood Pressure 133/84 H Blood Pressure Mean 100 Pulse Ox 99 Oxygen Delivery Method Room Air Positive well nourished and well developed General Appearance ED: well developed HEENT Reports TM's clear Tympanic Membrane ED: Yes TM's clear Eyes PERRL and EOMs intact bilaterally Neck supple Chest Wall inspection of chest normal and palpation of chest normal Resp normal respiratory effort and clear to auscultation bilaterally Cardio regular rate and regular rhythm Neuro Neuro Narrative: Moves all 4 extremities. Mild right-sided weakness. Profound aphasia with difficulty understanding anything he is trying to state. Sensorium / Orientation: alert MDM MDM MDM Narrative Medical decision making narrative: Patient was given morphine, Zofran, Solu- Medrol here. CBC, BMP, CT head obtained. Lab Data Attestation: I reviewed the patient's lab results. Labs: Laboratory Results - last 24 hr 08/02/21 08/02/21 16:10 16:10 WBC 6.7 RBC 4.34 L Hgb 14.0 Hct 41.8 MCV 96.3 H MCH 32.3 H MCHC 33.5 RDW Std Deviation 52.0 H RDW Coeff of Jaqueline 14.6 Plt Count 220 MPV 9.2 Immature Gran % (Auto) 0.100 Neut % (Auto) 59.4 Lymph % (Auto) 31.3 [place] % (Auto) 8.6 Eos % (Auto) 0.0 Baso % (Auto) 0.6 Absolute Neuts (auto) 4.0 Absolute Lymphs (auto) 2.11 Nucleated RBC % 0 Sodium 141 Potassium 4.9 Chloride 109 H Carbon Dioxide 27.0 Anion Gap 5 BUN 9 Creatinine 0.96 Estim Creat Clear Calc 115.64 Est GFR (MDRD) Af Amer 113 Est GFR (MDRD) Non-Af 94 BUN/Creatinine Ratio 9.4 L Glucose 100 Calcium 9.4 Radiography Diagnostic Testing: Clinical Impression(s) from Imaging Studies Brain CT 08/02/21 15:58 IMPRESSION: Left cerebral encephalomalacia. Electronically Signed: Joby Coelho DO at 17:14 EDT Tel [phone], Service support , Treatment and Re-Evaluation Comments:: On repeat evaluation patient resting in a darkened room. He reports mild improvement in his symptoms. Significant time spent discussing patient's treatment with [place]? at bedside. They did explain to me that there is currently a court [place] over guardianship for the patient. The patient is suing his mother and wanting to get a new guardian. In light of this she is not turning over his medications or belongings from her house. They are concerned that he will run out of his medications too early. They were told that Dr. Goldman will no longer be treating him. They did make an appointment with a new pain management doctor but cannot be seen until early August. I advised the patient that even if I wrote a new prescription for Percocet I cannot write his longer acting medication. I also advised that the pharmacy will likely refuse to fill it and that he should still have prescription left through the end of this month. I will write him for prednisone at this time. I did advise that they call Dr. Goldman's office tomorrow knowing that when he patient is released to my practice they have to cover patient's care and medications for 60 days. I will refer them to ENT for follow-up as well for thorough ear exam. Discharge Plan Triage Chief Complaint: Headache ED Provider: Cherelle Alarcon Dx/Rx/DC Orders Clinical Impression: Acute ear pain, Trigeminal neuralgia Instructions: ED Earache Without Infection (Adult), ED Trigeminal Neuralgia Prescriptions: New prednisone 10 mg tablet See Taper mg PO DAILY Qty: 63 RF: 0 No Action omeprazole 40 mg capsule,delayed release(DR/EC) 40 mg PO DAILY RF: 0 baclofen 5 mg tablet 5 mg PO TID PRN (Reason: Muscle Spasm) RF: 0 aspirin 81 mg tablet,delayed release (DR/EC) 81 mg PO DAILY RF: 0 gabapentin 800 mg tablet 800 mg PO .QID RF: 0 doxepin 3 mg tablet 3 mg PO QHS RF: 0 Xtampza ER 13.5 mg cap,sprinkl,ER12hr(DONT CRUSH) 13.5 mg PO BID RF: 0 ondansetron HCl 4 mg tablet 4 mg PO DAILY PRNRF: 0 Vraylar 1.5 mg capsule 1.5 mg PO DAILY RF: 0 quetiapine 300 mg tablet 600 mg PO QHS RF: 0 duloxetine 60 mg capsule,delayed release(DR/EC) 60 mg PO DAILY RF: 0 oxcarbazepine 300 mg tablet 300 mg PO BID RF: 0 divalproex 500 mg tablet extended release 24 hr 500 mg PO BID Qty: 60 RF: 2 naproxen 500 mg tablet 500 mg PO BID PRN (Reason: pain) Qty: 60 RF: 1 propranolol 60 mg capsule,extended release 24 hr 60 mg PO DAILY Qty: 30 RF: 1 Primary Care Provider: Fredo Rodriguez Referrals: Fredo Rodriguez MD [Primary Care Provider] - Casimiro Messer MD [STAFF PHYSICIAN] - As soon as possible Disposition Disposition: Home, Self Care
[2021-08-02 16:17] LABS: Absolute Lymphocyte Count 2.11 X10^3/uL (0.83-4.51); Basophil# 0.04 X10^3/uL; Basophil% 0.6 % (0-1); Hematocrit 41.8 % (40-54); Lymphocyte # 2.11 X10^3/ul (0.83-4.51); Lymphocyte % 31.3 % (19-41); Mean Corp Hgb Conc 33.5 g/dL (32-36); Mean Corpuscular Hgb 32.3 pg (27.0-32.0); Mean Corpuscular Volume 96.3 fL (80-94); Mean Platelet Vol. 9.2 fl (6.2-12.0); Monocyte# 0.58 X10^3/uL; Monocyte% 8.6 % (0-10); NRBC Flagged by Analyzer 0 % (0-5); Neutrophil % 59.4 % (47-70); Platelet Count 220 K/mm3 (150-450); RBC Distribution Width CV 14.6 % (11.6-14.6); Red Blood Count 4.34 M/mm3 (4.6-6.2); White Blood Count 6.7 K/mm3 (4.4-11.0)
[2021-08-02 16:31] LABS: Anion Gap 5 (5-15); BUN 9 mg/dL (7-18); BUN/Creat Ratio 9.4 RATIO (10-20); Calcium,Total 9.4 mg/dL (8.5-10.1); Chloride 109 mmol/L (98-107); Creatinine, Serum 0.96 mg/dL (0.70-1.30); EST Glomerular Filtration Rate 94 mL/min (>60); Est Glom Filt Rate - Afr Amer 113 mL/min (>60); Estimated Creatinine Clearance 115.64 ml/min; Glucose 100 mg/dL (74-106); Potassium 4.9 mmol/L (3.5-5.1); Sodium Level 141 mmol/L (136-145)
[2021-08-02] MEDS: Morphine 4 MG/ML Syringe IV (16:35)
[2021-08-02] MEDS: MethylPREDNISolone 125 MG/2 ML Vial IV (16:36)
[2021-08-02] MEDS: Ondansetron 4 MG/2 ML Vial IV (16:36)
[2021-08-02 17:53] VITALS: BP 124/89; PULSE 64; RESP 16; TEMP 36.7; O2SAT 99
== END 2021-08-02 17:56 | disposition home or self-care (01) ==
PROVIDERS: Emergency Provider Emergency Medicine; PCP Family Medicine
DX: G50.0 Trigeminal neuralgia (principal); H92.09 Otalgia, unspecified ear; I63.9 Cerebral infarction, unspecified; I69.320 Aphasia following cerebral infarction; F17.210 Nicotine dependence, cigarettes, uncomplicated
CPT/HCPCS: 70450; 80048; 85025; 96374; 96375; 99283; A4216; J2405

== ENCOUNTER 2021-08-03 16:41 | Emergency (ER) | payer MEDICAID, SELFPAY ==
[2021-08-03 16:44] VITALS: BP 142/91; PULSE 93; RESP 15; TEMP 36.7; O2SAT 97; BMI 29.5
--- NOTE | 2021-08-03 16:53 | CT_ITS ---
STUDY: CT BRAIN WITHOUT CONTRAST REASON FOR EXAM: Male, 35 years old. Headache RADIATION DOSAGE (If Supplied By Facility): CTDIvol = ( 44.99 ) mGy, DLP = ( 829.85 ) mGycm TECHNIQUE: Transaxial CT imaging of the brain was performed without administration of intravenous contrast material. Individualized dose optimization techniques were used for this CT. COMPARISON: 02 August 2021, 25 May 2021, 13 April 2021 FINDINGS: Appearance is stable since prior. There is stable chronic left MCA infarct involving the frontal, temporal and parietal lobes, present since March of current year. There is no mass effect, acute intracranial hemorrhage, extra parenchymal fluid collections, hydrocephalus or herniation. The skull is intact. CT/Brain/Head without Contrast IMPRESSION: 1. No acute abnormality. 2. Stable chronic large left MCA territory infarct. Electronically Signed: Otilio Astudillo MD at 17:48 EDT Tel , Service support ,
--- NOTE | 2021-08-03 16:53 | ED.RN ---
DR. LACY AT BEDSIDE AT [address]5. PER DR. LACY, NO STROKE TEAM.
--- NOTE | 2021-08-03 16:55 | EDS_ITS ---
HPI History of Present Illness Chief Complaint: Headache Detail of Chief Complaint: Headache that started prior to arrival in the department Informant: patient and spouse/S.O. Narrative Narrative: Patient presents to the emergency department with complaint of a headache. Patient was seen in the department 2 days ago for similar complaint. Patient is not able to give me much history. Fisvetlana? tells me that patient had recent stroke last summer and spent a week in [facility]. Patient has a difficult time with speech since the stroke. She was apparently sitting in the car with the patient outside of the court house as there apparently having a guardianship dispute with patient's mother and family. Patient started complaining of a severe headache and told her fianc? to call 911. Patient complains of left-sided head pain. No recent falls or head injuries. Patient does have history of trigeminal neuralgia. Prior similar symptoms: Yes PFSH [facility] Medical History Bloody stools neck and back pain PFO (patent foramen ovale) Severe headache Stomach ulcer Stroke/cerebrovascular accident Subcutaneous mass sudden weight loss Home Medications aspirin 81 mg tablet,delayed release 81 mg PO DAILY tab 05/23/21 [History Last Taken Unknown] baclofen 5 mg tablet 5 mg PO TID PRN 05/25/21 [History Last Taken Unknown] omeprazole 40 mg capsule,delayed release 40 mg PO DAILY 05/25/21 [History Last Taken Unknown] cariprazine 1.5 mg capsule 1.5 mg PO DAILY cap 06/28/21 [History Last Taken Unknown] doxepin 3 mg tablet 3 mg PO QHS 06/28/21 [History Last Taken Unknown] duloxetine 60 mg capsule,delayed release 60 mg PO DAILY cap 06/28/21 [History Last Taken Unknown] gabapentin 800 mg tablet 800 mg PO .QID tab 06/28/21 [History Last Taken Unknown] ondansetron HCl 4 mg tablet 4 mg PO DAILY PRN tab 06/28/21 [History Last Taken Unknown] oxcarbazepine 300 mg tablet 300 mg PO BID tab 06/28/21 [History Last Taken Unknown] oxycodone myristate 13.5 mg capsule sprinkle extend release 12hr(DON'T CRUSH) 13.5 mg PO BID ea 06/28/21 [History Last Taken Unknown] quetiapine 300 mg tablet 600 mg PO QHS tab 06/28/21 [History Last Taken Unknown] divalproex 500 mg tablet,extended release 24 hr 500 mg PO BID #60 tab 06/29/21 [Rx Last Taken Unknown] naproxen 500 mg tablet 500 mg PO BID PRN #60 tab 06/29/21 [Rx Last Taken Unknown] propranolol 60 mg capsule,24 hr,extended release 60 mg PO DAILY #30 cap 06/29/21 [Rx Last Taken Unknown] prednisone See Taper PO DAILY #63 tab 08/02/21 [Rx Last Taken Unknown] Allergy/AdvReac Type Severity Reaction Status Date / Time ketamine Allergy Unknown 'climbing Verified 08/03/21 16:51 the smith' Sulfa (Sulfonamide Allergy Swelling Verified 08/03/21 16:51 Antibiotics) meloxicam AdvReac Severe Flu like Verified 08/03/21 16:51 symptoms methadone AdvReac Other Verified 08/03/21 16:51 [email or web address] [From Chantix] AdvReac Other Verified 08/03/21 16:51 Surgical History History of hand surgery history of spine surgery History of tonsillectomy Social History Smoking Status: Current every day smoker tobacco type: cigarettes Tobacco: How many years used: 10 second hand exposure: Yes alcohol intake: never substance use type: does not use caffeine: Yes Type: coffee Number of servings: 2 ROS ROS ED Constitutional Constitutional ED: Reports systems reviewed and no addt'l complaints, except as documented; Denies body ache(s), change in weight or chills Eyes Eyes: Denies acute decrease in peripheral vision, change in vision, double vision or loss of vision ENT ENT ED: Reports none; Denies ear pain, lip swelling, loss taste/smell, neck pain, otalgia or sore throat Cardiovascular Cardiovascular: Reports none; Denies abdominal pain, chest pain with activity, leg edema, lightheadedness, palpitations, rapid heart rate or syncope Respiratory/Chest Respiratory/Chest: Reports none; Denies change in mental status, dry cough, dyspnea, hemoptysis, shortness of breath at rest or shortness of breath with exertion Gastrointestinal Gastrointestinal: Reports none; Denies abdominal pain, change in stool character, diarrhea, hematemesis, hematochezia, melena, rectal bleeding or vomiting Genitourinary Genitourinary ED: Reports none; Denies abdominal discomfort, anuria, dysuria, genital pain or polyuria Musculoskeletal Musculoskeletal: Reports none; Denies arthralgias, back pain, difficulty walking, extremity pain, muscle weakness or myalgias Integumentary Reports none; Denies abscess or rash Neurologic Neurologic: Reports none and headache(s); Denies abnormal gait, confusion, focal weakness, frequent falls, loss of vision, numbness, paresthesias, radicular pain, vertigo or weakness Psychiatric Psychiatric: Reports systems reviewed and no addt'l complaints, except as documented and none; Denies behavioral changes, confusion, difficulty concentrating, hallucinations, suicidal ideation, tactile hallucinations or visual hallucinations Endocrine Endocrinology: Denies none, cold intolerance, excessive sweating, fatigue or heat intolerance Hematologic/Lymphatic Hematologic/Lymphatic: Reports none; Denies anemia, easy bleeding or easy bruising Allergic/Immunologic Allergic/Immunologic ED: Denies as per HPI, none, lip swelling, mouth swelling, throat swelling, tongue swelling or hives EXAM Physical Exam Const Vital Signs: 08/03/21 16:44 08/03/21 17:41 08/03/21 18:11 Temperature 98.0 F Temperature Source Temporal Pulse Rate 93 65 71 Respiratory Rate 15 16 18 Blood Pressure 142/91 H 111/64 107/53 L Blood Pressure Mean 108 79 71 Pulse Ox 97 95 97 Oxygen Delivery Method Room Air Room Air Room Air Positive well nourished and well developed General Appearance ED: well developed and NAD HEENT Reports TM's clear and moist mucous membranes normocephalic and atraumatic; Negative for trauma or tenderness Tympanic Membrane ED: Yes TM's clear Eyes PERRL and EOMs intact bilaterally General Eye ED: Negative for pale conjunctiva or scleral icterus Neck no lymphadenopathy, supple and no JVD General: Negative for tenderness Chest Wall inspection of chest normal and palpation of chest normal Chest: Negative for tenderness Resp normal respiratory effort and clear to auscultation bilaterally Effort and Inspection: Negative for respiratory distress or pain with movement Auscultation: Negative for rhonchi, wheezes or diminished lung sounds Cardio regular rate, regular rhythm, S1 normal heart sound, S2 normal heart sound and no murmurs Peripheral Pulses: pulses 2+ throughout GI normal to inspection, nondistended, normoactive bowel sounds, soft to palpation, non-tender, non-distended and no masses Back/Spine no CVA tenderness and no thoracic nor lumbar tenderness Extremity normal to inspection General Extremety ED: Negative for edema General Extremity: Negative for edema Neuro oriented x3, CN's II-XII intact bilaterally, no sensory deficits noted and gait normal Neuro Narrative: Patient does not verbalize. No focal deficits noted on exam. No facial droop noted. Moves all extremities without difficulty. Sensorium / Orientation: awake, alert, oriented to person, oriented to place and oriented to time Motor Exam: strength 5/5 throughout and strength abnormal Psych mental status grossly normal Skin no rashes or lesions noted and no wounds MDM MDM MDM Narrative Medical decision making narrative: Patient's lab work-up was unremarkable other than his got an elevated white blood cell count suspect this is related to the steroids he received yesterday. Patient rested comfortably after being medicated with Ativan and morphine here in the department. 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 His fianc?e states that he has for 5 more days worth of his pain medications before he runs out. Patient advised to follow-up with his oil paint shader although he is trying to establish with a new pain management physician. Otherwise patient to follow-up with his primary care physician within next 3 to 5 days. Lab Data Attestation: I reviewed the patient's lab results. Labs: Laboratory Results - last 24 hr 08/03/21 08/03/21 08/03/21 16:40 16:40 16:46 WBC 17.5 H RBC 4.50 L Hgb 14.7 Hct 43.2 MCV 96.0 H MCH 32.7 H MCHC 34.0 RDW Std Deviation 51.1 H RDW Coeff of Jaqueilne 14.6 Plt Count 285 MPV 9.4 Immature Gran % (Auto) 0.700 Neut % (Auto) 85.6 H Lymph % (Auto) 9.3 L Real % (Auto) 4.3 Eos % (Auto) 0.0 Baso % (Auto) 0.1 Absolute Neuts (auto) 15.0 H Absolute Lymphs (auto) 1.63 Nucleated RBC % 0 Sodium 138 Potassium 4.0 Chloride 106 Carbon Dioxide 28.0 Anion Gap 4 L BUN 11 Creatinine 0.96 Estim Creat Clear Calc 122.49 Est GFR (MDRD) Af Amer 113 Est GFR (MDRD) Non-Af 93 BUN/Creatinine Ratio 11.4 Glucose 107 H Calcium 9.8 POC Glucose 114 H Radiography Diagnostic Testing: Clinical Impression(s) from Imaging Studies Brain CT 08/03/21 16:53 IMPRESSION: 1. No acute abnormality. 2. Stable chronic large left MCA territory infarct. Electronically Signed: Otilio Astudillo MD at 17:48 EDT Tel , Service support , Discharge Plan Triage Chief Complaint: Headache ED Provider: Federico Mishra Dx/Rx/DC Orders Clinical Impression: Cephalalgia, Anxiety, Chronic pain Instructions: ED Anxiety Reaction, ED Chronic Pain, ED Headache Unspecified, ED Pain Management: Chronic Prescriptions: No Action omeprazole 40 mg capsule,delayed release(DR/EC) 40 mg PO DAILY RF: 0 baclofen 5 mg tablet 5 mg PO TID PRN (Reason: Muscle Spasm) RF: 0 aspirin 81 mg tablet,delayed release (DR/EC) 81 mg PO DAILY RF: 0 gabapentin 800 mg tablet 800 mg PO .QID RF: 0 doxepin 3 mg tablet 3 mg PO QHS RF: 0 Xtampza ER 13.5 mg cap,sprinkl,ER12hr(DONT CRUSH) 13.5 mg PO BID RF: 0 ondansetron HCl 4 mg tablet 4 mg PO DAILY PRNRF: 0 Vraylar 1.5 mg capsule 1.5 mg PO DAILY RF: 0 quetiapine 300 mg tablet 600 mg PO QHS RF: 0 duloxetine 60 mg capsule,delayed release(DR/EC) 60 mg PO DAILY RF: 0 oxcarbazepine 300 mg tablet 300 mg PO BID RF: 0 divalproex 500 mg tablet extended release 24 hr 500 mg PO BID Qty: 60 RF: 2 naproxen 500 mg tablet 500 mg PO BID PRN (Reason: pain) Qty: 60 RF: 1 propranolol 60 mg capsule,extended release 24 hr 60 mg PO DAILY Qty: 30 RF: 1 prednisone 10 mg tablet See Taper mg PO DAILY Qty: 63 RF: 0 Primary Care Provider: Fredo Rodriguez Referrals: Fredo Rodriguez MD [Primary Care Provider] - 3-5 Days Disposition Disposition: Home, Self Care
[2021-08-03 16:56] LABS: Bedside Glucose 114 mg/dL (70-110)
[2021-08-03 16:58] LABS: Absolute Lymphocyte Count 1.63 X10^3/uL (0.83-4.51); Basophil# 0.02 X10^3/uL; Basophil% 0.1 % (0-1); Hematocrit 43.2 % (40-54); Hemoglobin 14.7 g/dL (13.0-16.5); Lymphocyte # 1.63 X10^3/ul (0.83-4.51); Lymphocyte % 9.3 % (19-41); Mean Corpuscular Hgb 32.7 pg (27.0-32.0); Mean Platelet Vol. 9.4 fl (6.2-12.0); Monocyte# 0.75 X10^3/uL; Monocyte% 4.3 % (0-10); NRBC Flagged by Analyzer 0 % (0-5); Neutrophil # 14.97 X10^3/uL (2.7-7.7); Neutrophil % 85.6 % (47-70); Platelet Count 285 K/mm3 (150-450); RBC Distribution Width CV 14.6 % (11.6-14.6); RBC Distribution Width SD 51.1 fl (35.1-43.9); White Blood Count 17.5 K/mm3 (4.4-11.0)
[2021-08-03] MEDS: LORazepam 2 MG/ML Syringe 1 MG IV (17:08)
[2021-08-03] MEDS: Ondansetron 4 MG/2 ML Vial IV (17:08)
[2021-08-03] MEDS: Morphine 4 MG/ML Syringe IV (17:11)
[2021-08-03 17:21] LABS: Anion Gap 4 (5-15); BUN 11 mg/dL (7-18); BUN/Creat Ratio 11.4 RATIO (10-20); Calcium,Total 9.8 mg/dL (8.5-10.1); Chloride 106 mmol/L (98-107); Creatinine, Serum 0.96 mg/dL (0.70-1.30); EST Glomerular Filtration Rate 93 mL/min (>60); Est Glom Filt Rate - Afr Amer 113 mL/min (>60); Estimated Creatinine Clearance 122.49 ml/min; Glucose 107 mg/dL (74-106); Sodium Level 138 mmol/L (136-145)
[2021-08-03 17:41] VITALS: BP 111/64; PULSE 65; RESP 16; O2SAT 95
[2021-08-03 18:11] VITALS: BP 107/53; PULSE 71; RESP 18; O2SAT 97
[2021-08-03 19:37] VITALS: PULSE 77; RESP 17; O2SAT 97
== END 2021-08-03 19:52 | disposition home or self-care (01) ==
PROVIDERS: Emergency Provider Emergency Medicine; PCP Family Medicine
DX: R51.9 Headache, unspecified (principal); F41.9 Anxiety disorder, unspecified; G89.29 Other chronic pain; I63.9 Cerebral infarction, unspecified; I69.328 Other speech and language deficits following cerebral infarction; F17.210 Nicotine dependence, cigarettes, uncomplicated
CPT/HCPCS: 70450; 80048; 82962; 85025; 96374; 96375; 99285; J7030; A4216; J2405

== ENCOUNTER 2021-08-18 13:02 | Emergency (ER) | payer MEDICAID, SELFPAY ==
[2021-08-18 13:03] VITALS: BP 122/98; PULSE 76; RESP 18; TEMP 36.1; O2SAT 97; BMI 28.8
--- NOTE | 2021-08-18 13:42 | EDS_ITS ---
HPI History of Present Illness Chief Complaint: Other, Pain/Inj Informant: patient and spouse/S.O. Onset/Context/Timing Onset: Month(s) Context: Gradual Onset Timing: Continuous Current Severity: Moderate Maximum Severity: Moderate Narrative Narrative: 35-year-old male history of spinal surgery last December at [facility] in [place]. He had a stroke in March. He has had chronic pain since his back surgery. He was seen pain management Dr. Goldman here in [place]. He is getting a new pain management doctor on Friday. He is out of his medications he normally takes oxycodone. He is currently out of his medications. Prior similar symptoms: Yes Recent Illness/Hospitalization: No PFSH [facility] Medical History Bloody stools neck and back pain PFO (patent foramen ovale) (Unknown) Severe headache Stomach ulcer Stroke/cerebrovascular accident Subcutaneous mass sudden weight loss Home Medications aspirin 81 mg tablet,delayed release 81 mg PO DAILY tab 05/23/21 [History Last Taken Unknown] baclofen 5 mg tablet 5 mg PO TID PRN 05/25/21 [History Last Taken Unknown] omeprazole 40 mg capsule,delayed release 40 mg PO DAILY 05/25/21 [History Last Taken Unknown] cariprazine 1.5 mg capsule 1.5 mg PO DAILY cap 06/28/21 [History Last Taken Unknown] doxepin 3 mg tablet 3 mg PO QHS 06/28/21 [History Last Taken Unknown] duloxetine 60 mg capsule,delayed release 60 mg PO DAILY cap 06/28/21 [History Last Taken Unknown] gabapentin 800 mg tablet 800 mg PO .QID tab 06/28/21 [History Last Taken Unknown] ondansetron HCl 4 mg tablet 4 mg PO DAILY PRN tab 06/28/21 [History Last Taken Unknown] oxcarbazepine 300 mg tablet 300 mg PO BID tab 06/28/21 [History Last Taken Unknown] oxycodone myristate 13.5 mg capsule sprinkle extend release 12hr(DON'T CRUSH) 13.5 mg PO BID ea 06/28/21 [History Last Taken Unknown] quetiapine 300 mg tablet 600 mg PO QHS tab 06/28/21 [History Last Taken Unknown] divalproex 500 mg tablet,extended release 24 hr 500 mg PO BID #60 tab 06/29/21 [Rx Last Taken Unknown] naproxen 500 mg tablet 500 mg PO BID PRN #60 tab 06/29/21 [Rx Last Taken Unknown] propranolol 60 mg capsule,24 hr,extended release 60 mg PO DAILY #30 cap 06/29/21 [Rx Last Taken Unknown] prednisone See Taper PO DAILY #63 tab 08/02/21 [Rx Last Taken Unknown] oxycodone 5 mg PO Q6H PRN 3 Days #10 tab 08/18/21 [Rx Last Taken Unknown] Allergy/AdvReac Type Severity Reaction Status Date / Time ketamine Allergy Unknown 'climbing Verified 08/18/21 13:08 the smith' Sulfa (Sulfonamide Allergy Swelling Verified 08/18/21 13:08 Antibiotics) meloxicam AdvReac Severe Flu like Verified 08/18/21 13:08 symptoms methadone AdvReac Other Verified 08/18/21 13:08 [email or web address] [From Chantix] AdvReac Other Verified 08/18/21 13:08 Surgical History History of hand surgery history of spine surgery History of tonsillectomy Social History Smoking Status: Current every day smoker tobacco type: cigarettes Tobacco: How many years used: 10 second hand exposure: Yes alcohol intake: never substance use type: does not use caffeine: Yes Type: coffee Number of servings: 2 ROS ROS ED ROS Narrative Denies recent illness. Review of Systems ROS Unobtainable: Denies due to encephalopathy Constitutional Constitutional ED: Denies fever(s) Eyes Eyes: Denies change in vision ENT ENT ED: Denies ear pain Cardiovascular Cardiovascular: Denies chest pain Respiratory/Chest Respiratory/Chest: Denies dyspnea Gastrointestinal Gastrointestinal: Denies abdominal pain Genitourinary Genitourinary ED: Denies dysuria Musculoskeletal Musculoskeletal: Reports back pain; Denies myalgias Integumentary Denies rash Neurologic Neurologic: Denies headache(s) Psychiatric Psychiatric: Denies depression Endocrine Endocrinology: Denies polyuria Allergic/Immunologic Allergic/Immunologic ED: Denies urticaria EXAM Physical Exam Narrative Exam Narrative: No acute distress vital signs stable afebrile. H EENT exam unremarkable except he has very broken speech. Neck nontender. Lungs clear to auscultation. Heart regular rhythm no murmur. Abdomen soft nontender normal bowel sounds no peritoneal signs. Moving all 4 extremities. Chronic weakness on the right side from his prior stroke. Neurologically is awake. Is alert. He is answering questions. He has very broken speech but is not slurred. That is from his prior stroke. Const Vital Signs: 08/18/21 13:03 08/18/21 13:14 Temperature 96.9 F L Temperature Source Temporal Pulse Rate 76 Respiratory Rate 18 Respiratory Pattern Normal Blood Pressure 122/98 H Blood Pressure Mean 106 Pulse Ox 97 Oxygen Delivery Method Room Air Positive well nourished and well developed; Negative for obese, cachectic, contractures or unkempt General Appearance ED: well developed and NAD; Negative for unkempt, cachectic, contractures, cyanotic or diaphoretic Nutritional Appearance: Negative for cachectic or obese HEENT Reports moist mucous membranes Negative for trauma or tenderness Eyes PERRL and EOMs intact bilaterally Neck no lymphadenopathy, supple and no JVD Chest Wall inspection of chest normal and palpation of chest normal Resp normal respiratory effort and clear to auscultation bilaterally Cardio regular rate, regular rhythm, S1 normal heart sound, S2 normal heart sound and no murmurs GI normal to inspection, nondistended, normoactive bowel sounds, non-tender, non- distended and no masses Auscultation: normoactive bowel sounds Palpation: soft; Negative for tender or guarding Back/Spine no CVA tenderness Back/Spine Narrative: Tenderness over his lumbar spine surgical incision. It is well-healed. Is not red or warm. There is no discharge or drainage. Extremity Extremity Narrative: Moves all 4 extremities. He does have chronic weakness on the right from his stroke. Neuro oriented x3 Neuro Narrative: Right-sided weakness. Sensorium / Orientation: alert; Negative for lethargic or stuporous Psych mental status grossly normal Appearance: Negative for unkempt Skin no rashes or lesions noted and no wounds MDM MDM MDM Narrative Medical decision making narrative: I will write for the patient to receive a total of 10 oxycodone to cover him the weekend. He supposed to see pain management on Friday. Empirically doing this due to the patient's been turned down by multiple other providers. I explicitly told he and his that we would not write him for any further pain medications for this emergency department. He need to follow-up with his new pain management doctor on Friday. Discharge Plan Triage Chief Complaint: Other, Pain/Inj ED Provider: Jose Waterman Dx/Rx/DC Orders Clinical Impression: Acute exacerbation of chronic low back pain, History of cardioembolic stroke Instructions: The Cycle of Chronic Pain Prescriptions: New oxycodone 5 mg tablet 5 mg PO Q6H PRN (Reason: pain) 3 Days Qty: 10 RF: 0 No Action omeprazole 40 mg capsule,delayed release(DR/EC) 40 mg PO DAILY RF: 0 baclofen 5 mg tablet 5 mg PO TID PRN (Reason: Muscle Spasm) RF: 0 aspirin 81 mg tablet,delayed release (DR/EC) 81 mg PO DAILY RF: 0 gabapentin 800 mg tablet 800 mg PO .QID RF: 0 doxepin 3 mg tablet 3 mg PO QHS RF: 0 Xtampza ER 13.5 mg cap,sprinkl,ER12hr(DONT CRUSH) 13.5 mg PO BID RF: 0 ondansetron HCl 4 mg tablet 4 mg PO DAILY PRN (Reason: Nausea) RF: 0 Vraylar 1.5 mg capsule 1.5 mg PO DAILY RF: 0 quetiapine 300 mg tablet 600 mg PO QHS RF: 0 duloxetine 60 mg capsule,delayed release(DR/EC) 60 mg PO DAILY RF: 0 oxcarbazepine 300 mg tablet 300 mg PO BID RF: 0 divalproex 500 mg tablet extended release 24 hr 500 mg PO BID Qty: 60 RF: 2 naproxen 500 mg tablet 500 mg PO BID PRN (Reason: pain) Qty: 60 RF: 1 propranolol 60 mg capsule,extended release 24 hr 60 mg PO DAILY Qty: 30 RF: 1 prednisone 10 mg tablet See Taper mg PO DAILY Qty: 63 RF: 0 Primary Care Provider: Fredo Rodriguez Referrals: Fredo Rodriguez MD [Primary Care Provider] - As Needed Activity Restrictions/Additional Instructions: Follow-up with your pain management Dr. Delatorre on Friday. Unfortunately we will be unable to write for any further narcotic medications from this emergency department. This has to be handled either through your pain management doctor or your primary care physician. Disposition Disposition: Home, Self Care
[2021-08-18 13:50] VITALS: RESP 16
== END 2021-08-18 14:02 | disposition home or self-care (01) ==
LOC: ED 13:47
PROVIDERS: Emergency Provider Emergency Medicine; PCP Family Medicine
DX: G89.29 Other chronic pain (principal); M54.50 Low back pain, unspecified; I63.40 Cerebral infarction due to embolism of unspecified cerebral artery; I69.351 Hemiplegia and hemiparesis following cerebral infarction affecting right dominant side; I69.328 Other speech and language deficits following cerebral infarction; F17.210 Nicotine dependence, cigarettes, uncomplicated
CPT/HCPCS: 99282

== ENCOUNTER 2021-08-22 13:50 | Emergency (ER) | payer MEDICAID, SELFPAY ==
[2021-08-22 13:52] VITALS: BP 135/81; PULSE 85; RESP 16; TEMP 36.3; O2SAT 98; BMI 28.8
[2021-08-22] MEDS: oxyCODONE 5 MG Tablet 10 MG PO (14:51)
--- NOTE | 2021-08-22 14:51 | EX.ED.DYSGE1 ---
HPI History of Present Illness Chief Complaint: Back Narrative Narrative: Patient is a 35-year-old male with past medical history of back pain leading to yuko placement as well as previous CVA. He has been followed by pain management but recently has been seeking care at a different facility mainly at [facility]. The patient cannot get into see them at this time and is completely out of his chronic pain medication. He reports that his previous pain management doctor and family doctor will not refill these for him. He denies any recent trauma any fevers or chills or change to his symptoms but with his chronic pain flaring up as he has been out of his medication presents for evaluation [facility] Medical History Bloody stools neck and back pain PFO (patent foramen ovale) (Unknown) Severe headache Stomach ulcer Stroke/cerebrovascular accident Subcutaneous mass sudden weight loss Home Medications aspirin 81 mg tablet,delayed release 81 mg PO DAILY tab 05/23/21 [History Last Taken Unknown] baclofen 5 mg tablet 5 mg PO TID PRN 05/25/21 [History Last Taken Unknown] omeprazole 40 mg capsule,delayed release 40 mg PO DAILY 05/25/21 [History Last Taken Unknown] cariprazine 1.5 mg capsule 1.5 mg PO DAILY cap 06/28/21 [History Last Taken Unknown] doxepin 3 mg tablet 3 mg PO QHS 06/28/21 [History Last Taken Unknown] duloxetine 60 mg capsule,delayed release 60 mg PO DAILY cap 06/28/21 [History Last Taken Unknown] gabapentin 800 mg tablet 800 mg PO .QID tab 06/28/21 [History Last Taken Unknown] ondansetron HCl 4 mg tablet 4 mg PO DAILY PRN tab 06/28/21 [History Last Taken Unknown] oxcarbazepine 300 mg tablet 300 mg PO BID tab 06/28/21 [History Last Taken Unknown] oxycodone myristate 13.5 mg capsule sprinkle extend release 12hr(DON'T CRUSH) 13.5 mg PO BID ea 06/28/21 [History Last Taken Unknown] quetiapine 300 mg tablet 600 mg PO QHS tab 06/28/21 [History Last Taken Unknown] divalproex 500 mg tablet,extended release 24 hr 500 mg PO BID #60 tab 06/29/21 [Rx Last Taken Unknown] naproxen 500 mg tablet 500 mg PO BID PRN #60 tab 06/29/21 [Rx Last Taken Unknown] propranolol 60 mg capsule,24 hr,extended release 60 mg PO DAILY #30 cap 06/29/21 [Rx Last Taken Unknown] prednisone See Taper PO DAILY #63 tab 08/02/21 [Rx Last Taken Unknown] oxycodone 5 mg PO Q6H PRN 3 Days #10 tab 08/18/21 [Rx Last Taken Unknown] gabapentin 800 mg PO 5X/DAY 3 Days #15 tab 08/22/21 [Rx Last Taken Unknown] oxycodone 5 mg PO Q6H PRN 3 Days #12 cap 08/22/21 [Rx Last Taken Unknown] oxycodone myristate [Xtampza ER] 18 mg PO BID 3 Days #6 ea 08/22/21 [Rx Last Taken Unknown] Allergy/AdvReac Type Severity Reaction Status Date / Time ketamine Allergy Unknown 'climbing Verified 08/22/21 13:52 the smith' Sulfa (Sulfonamide Allergy Swelling Verified 08/22/21 13:52 Antibiotics) meloxicam AdvReac Severe Flu like Verified 08/22/21 13:52 symptoms methadone AdvReac Other Verified 08/22/21 13:52 varenicline [From Chantix] AdvReac Other Verified 08/22/21 13:52 Surgical History History of hand surgery history of spine surgery History of tonsillectomy Social History Smoking Status: Current every day smoker tobacco type: cigarettes Tobacco: How many years used: 10 second hand exposure: Yes alcohol intake: never substance use type: does not use caffeine: Yes Type: coffee Number of servings: 2 ROS ROS ED Constitutional Constitutional ED: Denies chills or fever(s) ENT ENT ED: Denies sore throat Cardiovascular Cardiovascular: Denies chest pain Respiratory/Chest Respiratory/Chest: Denies cough or dyspnea Gastrointestinal Gastrointestinal: Denies abdominal pain, diarrhea, nausea or vomiting Genitourinary Genitourinary ED: Denies dysuria or hematuria Musculoskeletal Musculoskeletal: Reports back pain Integumentary Denies rash Neurologic Neurologic: Denies headache(s) EXAM Physical Exam Const Vital Signs: 08/22/21 13:52 Temperature 97.3 F L Temperature Source Temporal Pulse Rate 85 Respiratory Rate 16 Blood Pressure 135/81 H Blood Pressure Mean 99 Pulse Ox 98 Oxygen Delivery Method Room Air Positive well nourished and well developed General Appearance ED: well developed Eyes PERRL and EOMs intact bilaterally Neck supple Resp normal respiratory effort and clear to auscultation bilaterally Cardio regular rate and regular rhythm GI normal to inspection, nondistended, normoactive bowel sounds, non-tender, non-distended and no masses GI Narrative: Bowel sounds are hypoactive Palpation: soft Extremity normal to inspection Neuro oriented x3 Neuro Narrative: Patient has chronic findings secondary to his previous CVA but no acute or new changes Sensorium / Orientation: alert Psych mental status grossly normal Skin no rashes or lesions noted MDM MDM MDM Narrative Medical decision making narrative: Patient presented to the ER simply for medication refill. He is out of his daily chronic medications which help control symptoms that have manifested after his CVA and chronic back surgery. At this time he is afebrile and as there is been no report or signs of trauma and does not have changes concerning for cauda equina or epidural abscess I do not feel there is need for further work-up. I informed patient and family that I can only prescribe a few days worth of these types of medications. They state that they are try to get into his new pain management doctor but as he cannot get at this time will accept any type of medication that can be provided. Therefore I will prescribe 3 days worth of the patient's chronic medication and he can be discharged at this time with outpatient follow-up Discharge Plan Triage Chief Complaint: Back ED Provider: Herb Arredondo Dx/Rx/DC Orders Clinical Impression: Chronic back pain, Medication refill Instructions: Complementary Care for Pain, ED Chronic Pain Prescriptions: New oxycodone 5 mg capsule 5 mg PO Q6H PRN (Reason: pain) 3 Days Qty: 12 RF: 0 gabapentin 800 mg tablet 800 mg PO 5X/DAY 3 Days Qty: 15 RF: 0 Xtampza ER 18 mg cap,sprinkl,ER12hr(DONT CRUSH) 18 mg PO BID 3 Days Qty: 6 RF: 0 No Action omeprazole 40 mg capsule,delayed release(DR/EC) 40 mg PO DAILY RF: 0 baclofen 5 mg tablet 5 mg PO TID PRN (Reason: Muscle Spasm) RF: 0 aspirin 81 mg tablet,delayed release (DR/EC) 81 mg PO DAILY RF: 0 gabapentin 800 mg tablet 800 mg PO .QID RF: 0 doxepin 3 mg tablet 3 mg PO QHS RF: 0 Xtampza ER 13.5 mg cap,sprinkl,ER12hr(DONT CRUSH) 13.5 mg PO BID RF: 0 ondansetron HCl 4 mg tablet 4 mg PO DAILY PRN (Reason: Nausea) RF: 0 Vraylar 1.5 mg capsule 1.5 mg PO DAILY RF: 0 quetiapine 300 mg tablet 600 mg PO QHS RF: 0 duloxetine 60 mg capsule,delayed release(DR/EC) 60 mg PO DAILY RF: 0 oxcarbazepine 300 mg tablet 300 mg PO BID RF: 0 divalproex 500 mg tablet extended release 24 hr 500 mg PO BID Qty: 60 RF: 2 naproxen 500 mg tablet 500 mg PO BID PRN (Reason: pain) Qty: 60 RF: 1 propranolol 60 mg capsule,extended release 24 hr 60 mg PO DAILY Qty: 30 RF: 1 prednisone 10 mg tablet See Taper mg PO DAILY Qty: 63 RF: 0 oxycodone 5 mg tablet 5 mg PO Q6H PRN (Reason: pain) 3 Days Qty: 10 RF: 0 Primary Care Provider: Fredo Rodriguez Referrals: Fredo Rodriguez MD [Primary Care Provider] - Disposition Disposition: Home, Self Care
== END 2021-08-22 15:36 | disposition home or self-care (01) ==
LOC: ED 15:34
PROVIDERS: Emergency Provider Emergency Medicine; PCP Family Medicine
DX: G89.29 Other chronic pain (principal); M54.9 Dorsalgia, unspecified; Z76.0 Encounter for issue of repeat prescription; F17.210 Nicotine dependence, cigarettes, uncomplicated; Z86.73 Personal history of transient ischemic attack (TIA), and cerebral infarction without residual deficits
CPT/HCPCS: 99282

== ENCOUNTER 2021-09-11 19:13 | Emergency (ER) | payer MEDICAID, SELFPAY ==
[2021-09-11 19:14] VITALS: BP 131/86; PULSE 101; RESP 97; TEMP 36.8; O2SAT 100; BMI 35.9
--- NOTE | 2021-09-11 20:12 | ED.RN ---
patients came up to the desk. patient was eating food. patient feels better thinks it was just his sugar causing the issues and wanting to leave. patient able to walk out under own free will.
== END 2021-09-11 19:45 | disposition left against medical advice (07) ==
LOC: ED 20:44
PROVIDERS: PCP Family Medicine
DX: R55 Syncope and collapse (principal)
CPT/HCPCS: 99282

== ENCOUNTER 2021-10-29 19:18 | Emergency (ER) | payer MEDICAID, SELFPAY ==
[2021-10-29 19:19] VITALS: BP 115/80; PULSE 84; RESP 18; TEMP 37.2; O2SAT 97; BMI 30.2
--- NOTE | 2021-10-29 20:53 | EDS_ITS ---
HPI History of Present Illness Chief Complaint: Headache Narrative Narrative: History and physical is limited secondary to patient's expressive aphasia. According to his fianc?e, he presents with exacerbation of his chronic pain. He had a cerebrovascular accident in March of last year. This left him with chronic headache in his right denominational and pain in his right arm that radiates down to his fingertips. He was in pain management briefly, but she states that they took him off all his medications like oxycodone and morphine. He currently takes gabapentin, but ran out today. They have an appointment with their doctor tomorrow for refill of the gabapentin. He was last here a few months ago for exacerbation of chronic pain. He is describing more chronic head pain and pain in his arm. She also relates history that when he goes out in the cold his fingers turn white. He is a smoker. He states he has pain when he tries to move his fingers of his right hand. PFSH PFSH Medical History Bloody stools neck and back pain PFO (patent foramen ovale) (Unknown) Severe headache Stomach ulcer Stroke/cerebrovascular accident Subcutaneous mass sudden weight loss Home Medications quetiapine 300 mg tablet 600 mg PO QHS tab 06/28/21 [History Last Taken Unknown] gabapentin 1,200 mg PO TID 10/29/21 [History Last Taken Unknown] Allergy/AdvReac Type Severity Reaction Status Date / Time ketamine Allergy Unknown 'climbing Verified 08/22/21 13:52 the smith' Sulfa (Sulfonamide Allergy Swelling Verified 08/22/21 13:52 Antibiotics) meloxicam AdvReac Severe Flu like Verified 08/22/21 13:52 symptoms methadone AdvReac Other Verified 08/22/21 13:52 [email or web address] [From Chantix] AdvReac Other Verified 08/22/21 13:52 Surgical History History of hand surgery history of spine surgery History of tonsillectomy Social History Smoking Status: Current every day smoker tobacco type: cigarettes Tobacco: How many years used: 10 second hand exposure: Yes alcohol intake: never substance use type: does not use caffeine: Yes Type: coffee Number of servings: 2 ROS ROS ED ROS Narrative Constitutional: No fever, no chills. HEENT: No sore throat. No neck pain. No loss of vision. No rhinorrhea. Cardiovascular: No chest pain. No palpitations. No pedal edema. Respiratory: No cough, no shortness of breath. Abdominal: No abdominal pain. No nausea. No vomiting. Genitourinary: No dysuria. No hematuria. Musculoskeletal: Chronic arm pain, right. Neurologic: Chronic headaches. No dizziness. No lightheadedness. Skin: No rash. No change in color. Psychiatric: No depression. No anxiety. History obtained mainly through patient's fianc?. Review of Systems ROS Unobtainable: other Details: Patient has severe expressive aphasia EXAM Physical Exam Narrative Exam Narrative: Afebrile. Vital signs noted. HEENT: Normocephalic. Atraumatic. PERRL, EOMI. Neck soft and supple. No point tenderness or step off. Cardiovascular: Regular rate and rhythm. No murmurs, rubs, or gallops appreciated. Respiratory: No tachypnea. Lungs clear to auscultation bilaterally. Gastrointestinal: Abdomen soft, nontender, with normoactive bowel sounds. No rebound or guarding. Neurological: Awake. Alert. Nonfocal, nonlateralizing. Positive expressive aphasia. Skin: No rash. Normal color. No pallor. Musculoskeletal: No pedal edema. Full range of motion extremities. Palpable radial pulse. Good color to right hand. Const Vital Signs: 10/29/21 19:19 Temperature 98.9 F Temperature Source Temporal Pulse Rate 84 Respiratory Rate 18 Blood Pressure 115/80 Blood Pressure Mean 91 Pulse Ox 97 Oxygen Delivery Method Room Air MDM MDM MDM Narrative Medical decision making narrative: I reviewed the patient's prior records. I do not feel that a prescription for narcotic pain medication is indicated. They are to follow-up and refill his gabapentin tomorrow. He was given 1 tramadol tablet here in the emergency department. Smoking cessation was discussed. I do feel he may have Raynaud's phenomenon given the explanation that his hand turns white when he goes outside. Currently has a palpable radial pulse. I feel he can be discharged safely home with follow-up to treat his chronic pain. Disposition is discharged home in stable condition. Discharge Plan Triage Chief Complaint: Headache ED Provider: Dimitri Mcpherson Dx/Rx/DC Orders Clinical Impression: Chronic pain, Raynaud phenomenon, Headache Instructions: Raynaud Disease, ED Chronic Pain Prescriptions: No Action quetiapine 300 mg tablet 600 mg PO QHS RF: 0 gabapentin 600 mg tablet 1,200 mg PO TID RF: 0 Primary Care Provider: Fredo Rodriguez Referrals: Foreign Bautista MD [NON-STAFF] - Disposition Disposition: Home, Self Care Discharge Date/Time: 10/29/21 20:57
[2021-10-29] MEDS: traMADol 50 MG Tablet PO (20:56)
== END 2021-10-29 20:57 | disposition home or self-care (01) ==
LOC: ED 20:55
PROVIDERS: Emergency Provider Emergency Medicine; PCP Family Medicine; Visit Provider Emergency Medicine
DX: R51.9 Headache, unspecified (principal); G89.29 Other chronic pain; F17.210 Nicotine dependence, cigarettes, uncomplicated; R47.01 Aphasia; I73.00 Raynaud's syndrome without gangrene; Z86.73 Personal history of transient ischemic attack (TIA), and cerebral infarction without residual deficits; Z87.19 Personal history of other diseases of the digestive system; Q21.1 Atrial septal defect
CPT/HCPCS: 99283

== ENCOUNTER 2021-11-29 10:00 | Outpatient (RCR) | payer MEDICAID, SELFPAY ==
[2021-05-01 14:29] VITALS: BMI 33.3
--- NOTE | 2021-05-01 14:44 | ST.MBS ---
Modified Barium Swallow - Patient Information Study Date: 05/01/21 Study Time: 13:30 Direct Billable Minutes: 120 Total Minutes procedure & reportin Diagnosis: Dysphagia, unspecified (R13.10) Referring Physician: Fredo Rodriguez Reason for Referral: Objectively assess swallow function and aspiration risk following recent CVA. Medical History: PMH: Left sided CVA (04/13/2021), schizophrenia, bloody stools, severe neck and back pain, stomach ulcer, subcutaneous mass, sudden weight loss. The patient was seen at [facility] for CVA 04/13/21. Pt's mother reports the stroke was a left sided infarct. She stated that at [facility], the staff had some concerns for aspiration. Quan is nonverbal at this time, but does attempt to communicate with gestures. He follows some simple commands. He is scheduled for OT, PT, and ST evaluations at [facility] this week. The pt appeared agitated at start of MBS study. He was getting out of his chair, pointing to barium liquids and cookie signaling no and shaking his head. He was cooperative to participate following education re: purpose of evaluation and his increased aspiration risk following recent CVA. Current Diet Ordered: Regular / Thin Dentition: WNL Mental Status: Impaired - Pt inconsistently followed commands completing study. Respiratory Status: Oxygenating on Room Air - Study Findings Consistencies: Thin Liquid, Pierron Thick Liquid, Pudding, Cookie - Penetration-Aspiration Scale Penetration-Aspiration Scale: OBJECTIVE ASSESSMENT OF SWALLOW FUNCTION (QUANTITATIVE ? PER TRIAL): PENETRATION / ASPIRATION SCALE (WILSON): 1 = does not enter airway 2 = enters airway/above vocal folds/ejected 3 = enters airway/above vocal folds/not ejected 4 = enters airway/contacts vocal folds/ejected 5 = enters airway/contacts vocal folds/not ejected 6 = enters airway/below vocal folds/ejected 7 = enters airway/below vocal folds/not ejected despite effort 8 = enters airway/below vocal folds/no effort VIDEOFLOROSCOPIC SCALE SCORE (WILSON): Grade I = aspiration of material that has penetrated into the laryngeal vestibule, intact cough reflex Grade II = aspiration < 10 % of the bolus, intact cough reflex Grade III = aspiration of < 10 % of the bolus, reduced cough reflex or aspiration of > 10 % of the bolus, intact cough reflex Grade IV = aspiration of > 10 % of the bolus, reduced cough reflex - Penetration-Aspiration Scale Score Thin Liquid via teaspoon Result: 1= does not enter airway Thin Liquid via small single sip from cup Result: 1= does not enter airway Comment: Cannot definitively rule out aspiration as the patient shifted his posture forward during portion of the swallow. Laryngeal vestibule clear of contrast following completion of swallow. Thin Liquid via small single sip from cup Trial 2 Result: 1= does not enter airway Thin Liquid via single sip from straw Result: 2= enter airway/above vocal folds/ejected Thin Liquid via single sip from straw Trial 2 Result: 1= does not enter airway Pierron Thick Liquid via small single sip from cup Result: 1= does not enter airway Pudding Result: 1= does not enter airway Pudding Trial 2 Result: 1= does not enter airway Thin Liquid via large single sip from cup Result: 1= does not enter airway Comment: FAMILY SOCIOLOGIST cued patient for sequential swallows, but pt consumed 1 large sip. Cannot definitively rule out aspiration as the patient shifted his posture forward during portion of the swallow. Laryngeal vestibule clear of contrast following completion of swallow. Pierron Thick Liquid via small single sip from cup Trial 2 Result: 1= does not enter airway Comment: FAMILY SOCIOLOGIST cued pt to elicit double swallow; however, patient required max verbal and demonstration cues. Pt did demonstrate delayed second swallow. Cookie Result: 1= does not enter airway - Oral Phase Labial Seal: No Labial Escape Tongue Control During Bolus Hold: Posterior escape of less than half of bolus Bolus Preparation/Mastication: Slow prolonged chewing/mashing with complete recollection Bolus Transport/Lingual Motion: Repetitive/disorganized tongue motion Oral Residue: Trace residue lining oral structures - Pharyngeal Phase Initiation of Pharyngeal Swallow: Bolus head in pyriforms Soft Palate Elevation: Trace column of contrast/air between soft palate and pharyngeal wall Laryngeal Elevation: Partial superior movement thyroid cart/partial apprx aryt-epig petiole Anterior Hyoid Excursion: Partial anterior movement Epiglottic Movement: Partial inversion Laryngeal Vestibule Closure at Height of Swallow: Incomplete; narrow column of air/contrast in laryngeal vestibule Pharyngeal Stripping Wave: Present - complete Pharyngoesophageal Segment Opening: Parital distension and partial duration; parital obstruction of flow Tongue Base Retraction: Narrow column of contrast between tongue base & post. pharyngeal wall Pharyngeal Residue: Collection of residue within or on pharyngeal structures - Esophageal Phase Esophageal Clearance: Esophageal retention - Treatment Strategies Effects of treatment strategies attemped:: Decreased bolus size = Effective. Doubel swallow = Effective. Improved clearance of collections of pharyngeal residues of liquid and solid trials. - Diagnosis/Impression Diagnosis: Mild oropharyngeal phase dysphagia Impression: The oral phase is marked by decreased bolus control with posterior loss of bolus resulting in suboptimal bolus placement prior to swallow onset. He additionally presented with prolonged but effective chewing and repetitive tongue motion upon bolus transport. He had trace oral residue. The pharyngeal phase is primarily marked by delayed initiation of the pharyngeal swallow, particularly with bolus head in the pyriform sinuses prior to the swallow with trials of liquids. He additionally presents with decreased pharyngeal motility due to mildly decreased anterior hyoid excursion, laryngeal elevation, and epiglottic inversion resulting in mild-moderate pharyngeal residues in the valleculae and pyriforms after the swallow with both liquid and solid textures. He benefited from use of a double swallow to clear pharyngeal residues. He presented with only one observed occurrence of trace laryngeal penetration of a single sip of thin liquids via straw that fully ejected from the patient's airway during the swallow. - Recommendations Diet: Regular Textures, Thin Liquids Compensatory Strategies: Small Bites, Small Sips, Slow Rate, Multiple Swallows - Encourage use of double swallow to clear pharyngeal residues., Sitting upright, Remain sitting upright for 30 minutes after PO intake, Assist with verbal cues to use recommended strategies Supervision: Assist as needed Recommend Repeat Modified Barium Swallow: TBD Need for Skilled Speech Therapy Services: Yes Comment: Would recommend the patient for outpatient speech therapy services to implement oropharyngeal strengthening to improve lingual coordination and pharyngeal motility. Would consider use of effortful swallow to promote increased hyolaryngeal elevation and pharyngeal contraction. The patient would benefit from continued education regarding recommended compensatory strategies. Education Completed: 1. Described result of evaluation., 7. Pt requires further education on strategies & risks., 8. Family/caregivers require further education on strategies & risks. - Status Active ST Patient: Not Active - Contact Information [facility] Speech Therapy:: Lety Yen M.A., [facility]-FAMILY SOCIOLOGIST Speech Language Pathologist [facility] [address] [place] [address] [email or web address] [phone]
--- NOTE | 2021-05-02 16:25 | HP.OTEVAL ---
Patient's Visit Information CHELITA WHITMAN is a 35 year old M, referred to Occupational Therapy by Dr. Fredo Rodriguez MD, with a diagnosis of CVA. Date of Evaluation: 05/02/21 Occupational Therapist: Laury Hilario - Subjective Pt presents to OT initial evaluation s/p L middle cerebral stroke on 04/13/21; Pt's mom provides a lot of information d/t the expressive aphasia from patient. 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 - ROM Shoulder: WFL Elbow: WFL Forearm: WFL Wrist: WFL ROM Comments: Pt has slight difficulty raising R arm above shoulder height - Strength Shoulder: Grossly tested RUE 3+/5 LUE 4+/5 Shoe Repair Supervisor: R 40 L 85 Lateral Pinch: R 5 L 12 Tripod Pinch: R 12 L 18 - Sensation Sensation Comments: Pt reports n/t on R hand - Visual/Perceptual Skills Comments: Pt states having visual deficits- OT recommends possible comprehensive evaluation - Cognitive Skills Follows Directions: Yes - impulsive - Attention Attention: Fair - Nine Hole Peg Right: 32 sec Left: 25 sec - Quick DASH-Disab of Arm,Shoulder& Hand Quick DASH Score: 88.6350 - Goals Goal:: Pt will demo increased strength to >4/5 for RUE when MMT in order to complete prior functional tasks Goal:: Pt will report a decrease in pain to no more than 4/10 in order to complete functional tasks. Goal:: Pt will report efficiency in FM skills in order to be able to complete skills such as buttons, zippers and containers majority of the time. Goal:: Pt will demonstrate good safety awareness and compensatory visual strategies. Goal:: Pt will report modified independence w/ ADLs/IADLs. Goal:: Pt will demo understanding of education and HEP w/ Modified independence - Rehabilitation General Assessment: Pt presents s/p CVA with deficits in strength, activity tolerance, functional use, coordination and pain in RUE impacting his ability to complete prior functional tasks. Pt would benefit from cont. therapy services in order to address these skill deficits. Rehabilitation Potential: Good - Anticipated Interventions Strengthening, Sensory Retraining, Modalities, Joint Protection/Energy Conservation, Fine Motor Coord/Junior, Neuro Reeducation, Sensory Stimulation - Visit Plan Frequency: 1-2x /Week Duration: 4 Weeks General Plan: Pt would cont. to benefit from cont. therapy services in order to address skill deficits for 1-2x/week for 4 weeks to assist with neuro recovery. TEXT: Thank you for the opportunity to evaluate your patient. For Medicare and Medicare HMO plans, please review the plan of care and approve it. It will need to be FAXED BACK to us at [phone] for Medicare purposes. Please let me know if there are questions or concerns regarding this plan of care. Physician Signature: Date:
--- NOTE | 2021-05-04 13:17 | ST ---
[facility] Speech Pathology [address] [place] [address] Modified Barium Swallow Study MR#: [id number] Acct: [id number] Name: CHELITA WHITMAN Rep #: [id number] : 1985 35 From: Lety Yen Modified Barium Swallow - Patient Information Study Date: 05/01/21 Study Time: 13:30 Direct Billable Minutes: 120 Total Minutes procedure & reportin Diagnosis: Dysphagia, unspecified (R13.10) Referring Physician: Fredo Rodriguez Reason for Referral: Objectively assess swallow function and aspiration risk following recent CVA. Medical History: PMH: Left sided CVA (04/13/2021), schizophrenia, bloody stools, severe neck and back pain, stomach ulcer, subcutaneous mass, sudden weight loss. The patient was seen at [facility] for CVA 04/13/21. Pt's mother reports the stroke was a left sided infarct. She stated that at [facility], the staff had some concerns for aspiration. Chelita is nonverbal at this time, but does attempt to communicate with gestures. He follows some simple commands. He is scheduled for OT, PT, and ST evaluations at [facility] this week. The pt appeared agitated at start of MBS study. He was getting out of his chair, pointing to barium liquids and cookie signaling no and shaking his head. He was cooperative to participate following education re: purpose of evaluation and his increased aspiration risk following recent CVA. Current Diet Ordered: Regular / Thin Dentition: WNL Mental Status: Impaired - Pt inconsistently followed commands completing study. Respiratory Status: Oxygenating on Room Air - Study Findings Consistencies: Thin Liquid, Blanco Thick Liquid, Pudding, Cookie - Penetration-Aspiration Scale Penetration-Aspiration Scale: OBJECTIVE ASSESSMENT OF SWALLOW FUNCTION (QUANTITATIVE ? PER TRIAL): PENETRATION / ASPIRATION SCALE (WILSON): 1 = does not enter airway 2 = enters airway/above vocal folds/ejected 3 = enters airway/above vocal folds/not ejected 4 = enters airway/contacts vocal folds/ejected 5 = enters airway/contacts vocal folds/not ejected 6 = enters airway/below vocal folds/ejected 7 = enters airway/below vocal folds/not ejected despite effort 8 = enters airway/below vocal folds/no effort VIDEOFLOROSCOPIC SCALE SCORE (WILSON): Grade I = aspiration of material that has penetrated into the laryngeal vestibule, intact cough reflex Grade II = aspiration < 10 % of the bolus, intact cough reflex Grade III = aspiration of < 10 % of the bolus, reduced cough reflex or aspiration of > 10 % of the bolus, intact cough reflex Grade IV = aspiration of > 10 % of the bolus, reduced cough reflex - Penetration-Aspiration Scale Score Thin Liquid via teaspoon Result: 1= does not enter airway Thin Liquid via small single sip from cup Result: 1= does not enter airway Comment: Cannot definitively rule out aspiration as the patient shifted his posture forward during portion of the swallow. Laryngeal vestibule clear of contrast following completion of swallow. Thin Liquid via small single sip from cup Trial 2 Result: 1= does not enter airway Thin Liquid via single sip from straw Result: 2= enter airway/above vocal folds/ejected Thin Liquid via single sip from straw Trial 2 Result: 1= does not enter airway Blanco Thick Liquid via small single sip from cup Result: 1= does not enter airway Pudding Result: 1= does not enter airway Pudding Trial 2 Result: 1= does not enter airway Thin Liquid via large single sip from cup Result: 1= does not enter airway Comment: BACKGROUND INVESTIGATOR cued patient for sequential swallows, but pt consumed 1 large sip. Cannot definitively rule out aspiration as the patient shifted his posture forward during portion of the swallow. Laryngeal vestibule clear of contrast following completion of swallow. Blanco Thick Liquid via small single sip from cup Trial 2 Result: 1= does not enter airway Comment: BACKGROUND INVESTIGATOR cued pt to elicit double swallow; however, patient required max verbal and demonstration cues. Pt did demonstrate delayed second swallow. Cookie Result: 1= does not enter airway - Oral Phase Labial Seal: No Labial Escape Tongue Control During Bolus Hold: Posterior escape of less than half of bolus Bolus Preparation/Mastication: Slow prolonged chewing/mashing with complete recollection Bolus Transport/Lingual Motion: Repetitive/disorganized tongue motion Oral Residue: Trace residue lining oral structures - Pharyngeal Phase Initiation of Pharyngeal Swallow: Bolus head in pyriforms Soft Palate Elevation: Trace column of contrast/air between soft palate and pharyngeal wall Laryngeal Elevation: Partial superior movement thyroid cart/partial apprx aryt-epig petiole Anterior Hyoid Excursion: Partial anterior movement Epiglottic Movement: Partial inversion Laryngeal Vestibule Closure at Height of Swallow: Incomplete; narrow column of air/contrast in laryngeal vestibule Pharyngeal Stripping Wave: Present - complete Pharyngoesophageal Segment Opening: Parital distension and partial duration; parital obstruction of flow Tongue Base Retraction: Narrow column of contrast between tongue base & post. pharyngeal wall Pharyngeal Residue: Collection of residue within or on pharyngeal structures - Esophageal Phase Esophageal Clearance: Esophageal retention - Treatment Strategies Effects of treatment strategies attemped:: Decreased bolus size = Effective. Doubel swallow = Effective. Improved clearance of collections of pharyngeal residues of liquid and solid trials. - Diagnosis/Impression Diagnosis: Mild oropharyngeal phase dysphagia Impression: The oral phase is marked by decreased bolus control with posterior loss of bolus resulting in suboptimal bolus placement prior to swallow onset. He additionally presented with prolonged but effective chewing and repetitive tongue motion upon bolus transport. He had trace oral residue. The pharyngeal phase is primarily marked by delayed initiation of the pharyngeal swallow, particularly with bolus head in the pyriform sinuses prior to the swallow with trials of liquids. He additionally presents with decreased pharyngeal motility due to mildly decreased anterior hyoid excursion, laryngeal elevation, and epiglottic inversion resulting in mild-moderate pharyngeal residues in the valleculae and pyriforms after the swallow with both liquid and solid textures. He benefited from use of a double swallow to clear pharyngeal residues. He presented with only one observed occurrence of trace laryngeal penetration of a single sip of thin liquids via straw that fully ejected from the patient's airway during the swallow. - Recommendations Diet: Regular Textures, Thin Liquids Compensatory Strategies: Small Bites, Small Sips, Slow Rate, Multiple Swallows - Encourage use of double swallow to clear pharyngeal residues., Sitting upright, Remain sitting upright for 30 minutes after PO intake, Assist with verbal cues to use recommended strategies Supervision: Assist as needed Recommend Repeat Modified Barium Swallow: TBD Need for Skilled Speech Therapy Services: Yes Comment: Would recommend the patient for outpatient speech therapy services to implement oropharyngeal strengthening to improve lingual coordination and pharyngeal motility. Would consider use of effortful swallow to promote increased hyolaryngeal elevation and pharyngeal contraction. The patient would benefit from continued education regarding recommended compensatory strategies. Education Completed: 1. Described result of evaluation., 7. Pt requires further education on strategies & risks., 8. Family/caregivers require further education on strategies & risks. - Status Active ST Patient: Not Active - Contact Information [facility] Speech Therapy:: Lety Yen M.A., CCC-BACKGROUND INVESTIGATOR Speech Language Pathologist [address] [address] [email or web address] [phone] 05/01/211811 <Electronically signed by Lety Yen > Date/Time Lety Yen Co-Signature Required for all Medicare patients Date/Time Co-Signature CC: ~
--- NOTE | 2021-05-04 15:31 | HP.PTEVAL_ITS ---
Patient's Visit Information CHELITA WHITMAN is a 35 year old M referred to Physical Therapy by Dr. Fredo Rodriguez MD with a diagnosis of Large L MCA stroke. Date of Evaluation: 05/04/21 Physical Therapist: Hasmukh Chaudhry PT, ATC - Visit Plan Frequency: 2-3x /Week Duration: 4-6 Weeks Plan: R LE strengthening, core stab ex's, balance and proprio ex's, nustep, and HEP - Subjective CVA: 04/13/21. Pt had a large MCA stroke which has resulted in R sided weakness. Pt is unable to speak at this time, so most of the Hx is translated through his mom. Pt was showering at home when his mom heard him fall. She thought he just fell asleep and fell down, but when he woke up, his mom noticed he wasnt well and brought him to the ER. Pt was identified as having a stroke at that time. Pt had PT about 4 mos ago for spinal surgery. Pt has not had any falls since the CVA. Pt's mom reports he is not currently employed. Pt mostly complains of R face and hand being painful. Pt likes to repeatedly mention his R facial droop, R UE and LE numbness and pain, and weakness in L great toes secondary to LB surgery. Pt also complains of occasional unsteadiness with ambulation, especially when he gets tired. No Hx of falls since the stroke. - Objective Neuro: R LE sensation is hyposensitive to light touch. L LE sensation is WNL to light touch. MMT: L LE is grossly 4/5 while R LE is 3+/5. Gait: Pt is able to ambulate approximately 300 feet until needing to sit. Pt is very unsteady with ambulation. R knee continues to give the appearance of giving out with ambulation. - Goals Goal 1:: Increase R LE strength x 1 grade to aid with IADL's Goal Time Frame: 4-6 Weeks Goal 2:: Pt will be able to ambulate greater than 1000 feet to aid with community ambulation Goal Time Frame: 4-6 Weeks Goal 3:: I with HEP Goal Time Frame: 4-6 Weeks - Rehabilitation Potential Physical Therapy Diagnosis: Pt has R sided weakness, pain, unsteady gait, and intolerance for prolonged ambulation secondary to L CVA Rehabilitation Potential: Good - Anticipated Interventions Patient/Client Instruction: Educate patient on: Condition, Plan of Care For the Purpose of:: To improve self management Therapeutic Exercise to Include: Strength training, Endurance training, Balance training, Gait and locomotor training, Dynamic Lumbar Stabilization For the Purpose of:: To decrease pain, To increase ROM, To improve muscle performance and motor function Thank you for the opportunity to evaluate your patient. For Medicare and Medicare HMO plans, please review the plan of care and approve it. It will need to be FAXED BACK to us at [phone] for Medicare purposes. For Medicare only, by signing this I certify the plan of care. Please let me know if there are questions or concerns regarding this plan of care. Physician Signature: Date:
--- NOTE | 2021-05-04 16:41 | HP.SP.AD ---
History - History Date of Eval: 05/04/21 Date of Onset of Diagnosis: 04/13/21 Previous speech therapy: No Results: Receiving evaluations week of 04/29 for PT, OT, and ST. Previous MBS on 05/01/21 revealing regular solid and thin liquid diet. See attached report. Other Relevant Medical History/Diagnoses/Surgery: PMH: Left sided CVA (04/13/2021), Back surgery in 12/2020, schizophrenia, bloody stools, severe neck and back pain, stomach ulcer, subcutaneous mass, sudden weight loss. The patient was seen at [facility] for CVA 04/13/21. Pt's mother reports the stroke was a left sided infarct. She stated that at [facility], the staff had some concerns for aspiration. Luusman presents w/severe expressive aphasia, however makes great efforts to attempt to communicate w/gestures. Pt seen on this date for skilled speech, language, and cognitive assessment. Pt presenting w/great frustration re: speech and language deficits. Pt is not currently employed. Pt's mom reporting Pt is mostly independent w/medications however she occasionally assists. 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 Hearing Abillity: Normal Visual Assistive Devices: None Patients Living Arrangements: With Family Patient Allergies - Allergies Allergies ketamine Allergy (Unknown, Verified 05/01/21 10:40) 'climbing the smith' Sulfa (Sulfonamide Antibiotics) Allergy (Verified 04/13/21 16:51) Swelling methadone Adverse Reaction (Verified 04/13/21 16:51) Other kidney failure varenicline [From Chantix] Adverse Reaction (Verified 04/13/21 16:51) Other kidney failure Modified Barium Results Hx MBS Report Entered: Yes MBS Results (from prior exam): 05/04/21 13:17 Speech Therapy by Gladys Snyder [facility] Speech Pathology [address] [place] [address] Modified Barium Swallow Study MR#: [id number] Acct: [id number] Name: CHELITA WHITMAN Rep #: [id number] : 1985 35 From: Lety Yen Modified Barium Swallow - Patient Information Study Date: 05/01/21 Study Time: 13:30 Direct Billable Minutes: 120 Total Minutes procedure & reportin Diagnosis: Dysphagia, unspecified (R13.10) Referring Physician: Fredo Rodriguez Reason for Referral: Objectively assess swallow function and aspiration risk following recent CVA. Medical History: PMH: Left sided CVA (04/13/2021), schizophrenia, bloody stools, severe neck and back pain, stomach ulcer, subcutaneous mass, sudden weight loss. The patient was seen at [facility] for CVA 04/13/21. Pt's mother reports the stroke was a left sided infarct. She stated that at [facility], the staff had some concerns for aspiration. Chelita is nonverbal at this time, but does attempt to communicate with gestures. He follows some simple commands. He is scheduled for OT, PT, and ST evaluations at [facility] this week. The pt appeared agitated at start of MBS study. He was getting out of his chair, pointing to barium liquids and cookie signaling no and shaking his head. He was cooperative to participate following education re: purpose of evaluation and his increased aspiration risk following recent CVA. Current Diet Ordered: Regular / Thin Dentition: WNL Mental Status: Impaired - Pt inconsistently followed commands completing study. Respiratory Status: Oxygenating on Room Air - Study Findings Consistencies: Thin Liquid, Milburn Thick Liquid, Pudding, Cookie - Penetration-Aspiration Scale Penetration-Aspiration Scale: OBJECTIVE ASSESSMENT OF SWALLOW FUNCTION (QUANTITATIVE ? PER TRIAL): PENETRATION / ASPIRATION SCALE (WILSON): 1 = does not enter airway 2 = enters airway/above vocal folds/ejected 3 = enters airway/above vocal folds/not ejected 4 = enters airway/contacts vocal folds/ejected 5 = enters airway/contacts vocal folds/not ejected 6 = enters airway/below vocal folds/ejected 7 = enters airway/below vocal folds/not ejected despite effort 8 = enters airway/below vocal folds/no effort VIDEOFLOROSCOPIC SCALE SCORE (WILSON): Grade I = aspiration of material that has penetrated into the laryngeal vestibule, intact cough reflex Grade II = aspiration < 10 % of the bolus, intact cough reflex Grade III = aspiration of < 10 % of the bolus, reduced cough reflex or aspiration of > 10 % of the bolus, intact cough reflex Grade IV = aspiration of > 10 % of the bolus, reduced cough reflex - Penetration-Aspiration Scale Score Thin Liquid via teaspoon Result: 1= does not enter airway Thin Liquid via small single sip from cup Result: 1= does not enter airway Comment: Cannot definitively rule out aspiration as the patient shifted his posture forward during portion of the swallow. Laryngeal vestibule clear of contrast following completion of swallow. Thin Liquid via small single sip from cup Trial 2 Result: 1= does not enter airway Thin Liquid via single sip from straw Result: 2= enter airway/above vocal folds/ejected Thin Liquid via single sip from straw Trial 2 Result: 1= does not enter airway Milburn Thick Liquid via small single sip from cup Result: 1= does not enter airway Pudding Result: 1= does not enter airway Pudding Trial 2 Result: 1= does not enter airway Thin Liquid via large single sip from cup Result: 1= does not enter airway Comment: MACHINE PACKAGER cued patient for sequential swallows, but pt consumed 1 large sip. Cannot definitively rule out aspiration as the patient shifted his posture forward during portion of the swallow. Laryngeal vestibule clear of contrast following completion of swallow. Milburn Thick Liquid via small single sip from cup Trial 2 Result: 1= does not enter airway Comment: MACHINE PACKAGER cued pt to elicit double swallow; however, patient required max verbal and demonstration cues. Pt did demonstrate delayed second swallow. Cookie Result: 1= does not enter airway - Oral Phase Labial Seal: No Labial Escape Tongue Control During Bolus Hold: Posterior escape of less than half of bolus Bolus Preparation/Mastication: Slow prolonged chewing/mashing with complete recollection Bolus Transport/Lingual Motion: Repetitive/disorganized tongue motion Oral Residue: Trace residue lining oral structures - Pharyngeal Phase Initiation of Pharyngeal Swallow: Bolus head in pyriforms Soft Palate Elevation: Trace column of contrast/air between soft palate and pharyngeal wall Laryngeal Elevation: Partial superior movement thyroid cart/partial apprx aryt-epig petiole Anterior Hyoid Excursion: Partial anterior movement Epiglottic Movement: Partial inversion Laryngeal Vestibule Closure at Height of Swallow: Incomplete; narrow column of air/contrast in laryngeal vestibule Pharyngeal Stripping Wave: Present - complete Pharyngoesophageal Segment Opening: Parital distension and partial duration; parital obstruction of flow Tongue Base Retraction: Narrow column of contrast between tongue base & post. pharyngeal wall Pharyngeal Residue: Collection of residue within or on pharyngeal structures - Esophageal Phase Esophageal Clearance: Esophageal retention - Treatment Strategies Effects of treatment strategies attemped:: Decreased bolus size = Effective. Doubel swallow = Effective. Improved clearance of collections of pharyngeal residues of liquid and solid trials. - Diagnosis/Impression Diagnosis: Mild oropharyngeal phase dysphagia Impression: The oral phase is marked by decreased bolus control with posterior loss of bolus resulting in suboptimal bolus placement prior to swallow onset. He additionally presented with prolonged but effective chewing and repetitive tongue motion upon bolus transport. He had trace oral residue. The pharyngeal phase is primarily marked by delayed initiation of the pharyngeal swallow, particularly with bolus head in the pyriform sinuses prior to the swallow with trials of liquids. He additionally presents with decreased pharyngeal motility due to mildly decreased anterior hyoid excursion, laryngeal elevation, and epiglottic inversion resulting in mild-moderate pharyngeal residues in the valleculae and pyriforms after the swallow with both liquid and solid textures. He benefited from use of a double swallow to clear pharyngeal residues. He presented with only one observed occurrence of trace laryngeal penetration of a single sip of thin liquids via straw that fully ejected from the patient's airway during the swallow. - Recommendations Diet: Regular Textures, Thin Liquids Compensatory Strategies: Small Bites, Small Sips, Slow Rate, Multiple Swallows - Encourage use of double swallow to clear pharyngeal residues., Sitting upright, Remain sitting upright for 30 minutes after PO intake, Assist with verbal cues to use recommended strategies Supervision: Assist as needed Recommend Repeat Modified Barium Swallow: TBD Need for Skilled Speech Therapy Services: Yes Comment: Would recommend the patient for outpatient speech therapy services to implement oropharyngeal strengthening to improve lingual coordination and pharyngeal motility. Would consider use of effortful swallow to promote increased hyolaryngeal elevation and pharyngeal contraction. The patient would benefit from continued education regarding recommended compensatory strategies. Education Completed: 1. Described result of evaluation., 7. Pt requires further education on strategies & risks., 8. Family/caregivers require further education on strategies & risks. - Status Active ST Patient: Not Active - Contact Information [facility] Speech Therapy:: Lety Yen M.A., [facility] Speech Language Pathologist [place] [address] [place] [address] [email or web address] [phone] 05/01/21 1812 <Electronically signed by Lety Yen > Date/Time Lety Yen Co-Signature Required for all Medicare patients Date/Time Co-Signature CC: ~ Initialized on 05/04/21 13:17 - END OF NOTE Objective Cog/Ling/Com - Test Administered Pnupkduwx-Coeabkgndq-Ocjtrmzefcsht Assessment Administered: Yes Josnmeqhd-Rcdhaulypu-Nnmhakuwoouts Assessment: Cognitive ? Linguistic skills were evaluated using patient/family interview, skilled observation and informal evaluation through tasks completed by the patient. - Identification Body parts/objects: Severe Letters: Moderate - Answer Yes/No Questions Simple: Severe Complex: Severe - Follows Commands 1 Step: Severe 2 Step: Severe - Comments Comments: Pt answered basic to mod complex y/n questions w/10% acc independently and rarely benefited from use of visual aid y/n cards to answer questions. Pt completed following 1-2 step directions with 0% acc and benefited from max A visual cues to imitate actions. During following directions task, Pt was asked to point to large body parts/objects in the room, Pt unable. Pt tasked to cross off target letters during attention task where Pt identified targeted letter w/0% acc independently, however benefited from mod A visual cues to identify initial letter and then proceeded to cross off corresponding letters that matched independently. - Automatic Sequences Automatic Sequences: Severe - Repetition Words: Severe - Naming Responsive naming: Severe - Conversational Tasks Conversational Tasks: Severe Comments: Pt demonstrated increased frustration w/tasks and mod-severe attention deficits 2/2 frustration. Pt perseverative during conversation focusing mostly on showing therapist the R side of his body is numb - consult w/PT confirms Pt presented this way for PT evaluation. Pt attempts to communicate via gestures however most gestures lack communicative intent. Attempted to educate re: ASL signs for yes and no - Pt demonstrated neutral response to intervention. Pt benefits greatly from calm demeanor and encouragement from MACHINE PACKAGER. - Comments Comments: During conversation, Pt often commenting 'no' for all responses. Pt's mother reporting she suspects Pt can say about 25 words including no, mom, hell yeah, and multiple swear words. Pt's speech intelligibility was approximately 5% acc throughout conversation. Pt intermittently benefited from use of gestures to communicate. Pt completed automatic sequences of YON and counting from 1-10 w/0% acc and did not benefit from max A verbal cues to repeat after MACHINE PACKAGER. Pt unable to complete confrontation naming tasks. Pt completed two-word phrases w/a target word from a field of 3 w/46% acc w/mod I and benefited from mod A encouragement to complete task. Pt completed matching words to pictures w/100% independently. Pt completed matching shapes w/100% independently following initial task demonstration. Suspect receptive language to be a barrier in completion of most of the tasks from evaluation. - Reading Picture-Word Matching Picture-Word matching: WFL - Writing Comments: Unable to assess. - Problem Solving Simple: Moderate, Severe - Judgement & Reasoning Judgement/Reasoning: Moderate - Cognitive Linguistic Supervision/Saftey Awareness of deficits: Mild Being left home alone: Mild, Moderate Managing medications: Mild Managing finances: Moderate - Executive Function Comments Comments: Pt completed alternating attention task via trail making (letter/numbers) w/ 100% acc given mod A verbal and visual prompts to initiate task. Pt completed visual scanning via letter cancellation task w/ 78% acc following MACHINE PACKAGER circling target letter. Pt demonstrating instances of potential R neglect as upper R quadrant remained blank. Pt completed clock drawing w/0% acc independently characterized by writing the number '10' and did not benefit from mod A verbal and visual example to improve acc. Other Impressions - Comments Evaluation -: Informal evaluation and dynamic assessment tasks were utilized in today's session as they better represent Pt's language abilities. Formal language and cognitive assessment would not have reflected Pt's true abilities 2/2 Pt's receptive and expressive language deficits. See explanation of Pt's abilities above. Plan - Plan Plan: Will recommend Pt for 2x/weekly outpatient speech therapy to address moderate receptive and severe expressive language deficits 2/2 aphasia, and suspected mod cognitive deficits characterized by difficulty with following simple directions, auditory comprehension, word retrieval, expression, attention, problem solving/reasoning, and executive functioning. Pt would benefit from training in expressive/receptive total communication skills, safety awareness, and cognitive training to improve cognitive skills. Without skilled ST services, the Pt is at risk for difficulty communicating effectively, interacting with his family and peers, and decreased independence with ADLs and iADLS. - Recommendations Treatment Warranted: Yes - Frequency Frequency: 2x /Week Duration: 8 months Visits in this POC: 64 - Prognosis Prognosis: Fair - Goals that are Established: Determination:: Goals will be added/modified as deemed necessary and appropriate. Therapy will be discontinued when results of re-evaluation indicate therapy is no longer needed or lack of progress has been documented. - Goal #1-5 Goal #1: Pt will complete basic to mod complex sustained, alternating, divided attention tasks with emphasis on R neglect with 80% acc independently across 3 measured opportunities. Goal #2: Pt will complete basic to mod complex confrontation, convergent, and divergent naming tasks with 60% acc given min A semantic cues across 3 measured opportunities to improve word retrieval. Goal #3: Pt will answer basic, progressing to mod complex yes/no questions with 70% accuracy with moderate verbal cues across 3 consecutive sessions to improve auditory comprehension in conversation. Goal #4: Pt will make functional requests using total communication (i.e., AAC, pictures, gestures, verbalizations, writing) 15X per session with min A verbal, visual, and modeling cues across 3 consecutive sessions. Goal #5: Pt will follow basic 1-step progressing to 2-step directions with 65% acc with min A verbal cues across 3 consecutive sessions. Education - Patient has Indicated that the Following Identified Educational Needs: Language Barrier, Cognitively Impaired, Hearing/Vision/Speech Impaired - Patient Instruction Patient Education: Diagnosis, Treatment Plan, Goals Person Taught: Patient, Family Teaching Method: Discussion, Demonstration Response to teaching: Verbalize understanding
--- NOTE | 2021-06-27 15:31 | HP.PTDCSUM_ITS ---
It has been my pleasure to treat CHELITA WHITMAN referred by Dr. Fredo Rodriguez MD, with the diagnosis of Large L MCA stroke for a total of 4 visit(s). Discharge Date: Please see the following information for a summary of their discharge status. Subjective: Pt reports PT is too much for him at this time. Pt notes he had to go to the ER to get checked secondary to chest pain % Improvement: 0 Objective/Function: Pt is unable to tolerate PT at this time. Goal 1:: Increase R LE strength x 1 grade to aid with IADL's Goal Progress: Not Progressing Goal 2:: Pt will be able to ambulate greater than 1000 feet to aid with commu nity ambulation Goal Progress: Not Progressing Goal 3:: I with HEP Goal Progress: Not Progressing Plan: Discontinue to HEP If there are questions or concerns regarding this patient's physical therapy, please feel free to call me at [phone]. Thank you for the referral of this patient. Sincerely, Hasmukh Chaudhry, PT, ATC Balance/Gait/Functional tests - Balance/Special Test Scores Lower Extremity Functional Score: 35
--- NOTE | 2021-10-24 13:52 | HP.OTDCSUM ---
It has been my pleasure to treat CHELITA WHITMAN under orders from Dr. Fredo Rodriguez MD, for the diagnosis of CVA for a total of 1 visit(s). Please see the following information for a summary of their discharge status. % Improvement: 140 Objective/Function: R Hand 65# up from 40#. L Hand 110# up from 85#. Lat Pinch R 15# up from 5#, L 21# was 12. Tri Pinch R 23# up from 12#, L 33# up from 18#. pt has made gains in her functional strength. pt has met OT goals and was advised to continue a HEP to keep his strength. Patient Goals: Regain Mobility, Regain Strength, Decrease Pain, Improve Fine Motor Skills, Use Hand/Wrist/Arm Normally Again, Be More Independent in ADLS, Decrease Sensitivity, Improve Visual/Perceptual Skills, Resume Former Household Responsibilities (Cooking,Cleaning,Yard, etc.), Resume Hobbies Goal:: Pt will demo increased strength to >4/5 for RUE when MMT in order to complete prior functional tasks-- goal met 4+/5 Goal:: Pt will report a decrease in pain to no more than 4/10 in order to complete functional tasks. goal met Goal:: Pt will report efficiency in FM skills in order to be able to complete skills such as buttons, zippers and containers majority of the time. goal met Goal:: Pt will demonstrate good safety awareness and compensatory visual strategies. Goal:: Pt will report modified independence w/ ADLs/IADLs. goal met Goal:: Pt will demo understanding of education and HEP w/ Modified independence - goal lmet Plan: DC, pt has met his goals. Discharge Comments: pt has been seen in OT following CVA- due to pts limited ability to communicate pt frequently just gets up and leaves sessions. At this time pt demo good UB strength and has returned to performing his bathing and dressing at IND. level. pt meta all OT goals and therapy rec'd pt to continue with health and wellness and his HEP- pts and pt agree with d/c If there are questions or concerns regarding this patient's occupational therapy, please fell free to call me at [phone]. Thank you for the referral of this patient. Sincerely, Alessandra Royal, OTR/L, CHT
--- NOTE | 2022-02-20 17:59 | HP.SP.DC_ITS ---
ST Discharge Summary - Discharged: Discharge: Pt was seen for initial speech/language/cognitive evaluation at [facility] on 05/04/21 s/p CVA. Pt attended 12 sessions from initial evaluation through 11/29/21 to target attention, word retrieval, divergent naming, auditory comprehension, and attempts at implementing a low tech AAC system for him to utilize. At last attended session on 11/29/21 discussed attendance percentage since May with Edilia (Pt?s alexand[place]?). Pt attended 10/14 scheduled sessions since starting treatment sessions in May. Clinician considered custody and guardianship [place] Pt participated in during the winter, however after the court hearings finished, Pt?s attendance cont?d to be poor. Also discussed Pt's motivation and unwillingness to participate in the majority of sessions that he has attended via complaining, sitting on his phone, and not responding - Pt with neutral response. When asked if he wanted to continue with therapy he responded with no. Pt was to discuss continuing therapy with Dannielle ? additional tx sessions were never scheduled. Pt frequently provided w/home carry over activities during sessions he did attend. Pt discharged from speech therapy caseload on this date, 02/20/22 following cessation of his insurance date and no attempt to schedule additional visits. Thank you for allowing me to participate the care of your Pt. Will reevaluate at Pt?s request following script from physician.
== END 2021-11-29 19:00 | disposition home or self-care (01) ==
LOC: SP 10:00
PROVIDERS: PCP Family Medicine; Referring Provider Family Medicine; Visit Provider Family Medicine
DX: Z86.73 Personal history of transient ischemic attack (TIA), and cerebral infarction without residual deficits (principal)
CPT/HCPCS: 92507; 92523; 92611; 97110; 97161; 97166; 97530

== ENCOUNTER 2021-12-06 21:53 | Emergency (ER) | payer MEDICAID, SELFPAY ==
[2021-12-06 21:53] VITALS: BP 122/60; PULSE 87; RESP 16; TEMP 36.7; O2SAT 98; BMI 31.6
--- NOTE | 2021-12-06 22:14 | ED.RN ---
Patient escorted to room by . Patient has been advised due to hospital policy for suicidal precautions, his belonging will be bagged, and he will change into hospital gown. Patient upset, yelling at , this RN and ARTURO Rai stating I don't care. I'm going to leave. you can shoot me for all I care. Dr. Alarcon notified. still at bedside.
--- NOTE | 2021-12-06 22:21 | CT_ITS ---
EXAM: CT HEAD WITHOUT INTRAVENOUS CONTRAST CLINICAL INDICATION: headache TECHNIQUE: Multiple axial images were obtained of the head without intravenous contrast. CTDIvol = ( 44.99 ) mGy, DLP = ( 880.47 ) mGycm This CT exam was performed using one or more of the following dose reduction techniques: automated exposure control, adjustment of the mA and/or kV according to patient size, and/or use of iterative reconstruction technique. This report was created using [employer] report generation technology. COMPARISON: None. FINDINGS: BRAIN AND EXTRA-AXIAL SPACES: Old left MCA distribution infarct. Associated ex vacuo dilatation of the left lateral ventricle. Related mild right to left midline shift measuring 4.5 mm. No acute intracranial hemorrhage or acute infarct. Posterior fossa structures are unremarkable. No hydrocephalus. Basal cisterns are patent. BONES/JOINTS: Unremarkable. No discrete lytic or blastic abnormalities. SINUSES: Unremarkable as visualized. Clear. MASTOID AIR CELLS: Unremarkable. Clear. ORBITS: Visualized globes, extraocular muscles, optic nerves and retrobulbar fat appear unremarkable. Question diffuse left anterolateral scalp edema. CT/Brain/Head without Contrast IMPRESSION: 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 Electronically Signed: Herb Barragan MD at 23:39 EST ,
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
[2021-12-06] MEDS: DiphenhydrAMINE 50 MG/ML Syringe 25 MG IV (22:41)
[2021-12-06] MEDS: 0.9% Normal Saline 1,000 ML 1000 ML IV (22:41)
[2021-12-06] MEDS: Metoclopramide 10 MG/2 ML Vial 5 MG IV (22:42)
[2021-12-06] MEDS: Ketorolac 30 MG/ML Syringe IV (22:42)
[2021-12-06 22:50] LABS: Absolute Lymphocyte Count 1.86 X10^3/uL (0.83-4.51); Absolute Neutrophil Count 4.6 X10^3/uL (2.0-7.7); Hematocrit 43.5 % (40-54); Hemoglobin 14.7 g/dL (13.0-16.5); Lymphocyte # 1.86 X10^3/ul (0.83-4.51); Lymphocyte % 26.6 % (19-41); Mean Corp Hgb Conc 33.8 g/dL (32-36); Mean Corpuscular Hgb 31.8 pg (27.0-32.0); Mean Corpuscular Volume 94.2 fL (80-94); Mean Platelet Vol. 8.9 fl (6.2-12.0); Monocyte# 0.55 X10^3/uL; Monocyte% 7.9 % (0-10); NRBC Flagged by Analyzer 0 % (0-5); Neutrophil # 4.58 X10^3/uL (2.7-7.7); Neutrophil % 65.4 % (47-70); Platelet Count 273 K/mm3 (150-450); RBC Distribution Width CV 12.8 % (11.6-14.6); RBC Distribution Width SD 44.2 fl (35.1-43.9); Red Blood Count 4.62 M/mm3 (4.6-6.2)
[2021-12-06 23:07] LABS: Anion Gap 6 (5-15); BUN 7 mg/dL (7-18); BUN/Creat Ratio 5.9 RATIO (10-20); Calcium,Total 9.5 mg/dL (8.5-10.1); Chloride 105 mmol/L (98-107); Creatinine, Serum 1.18 mg/dL (0.70-1.30); EST Glomerular Filtration Rate 73 mL/min (>60); Est Glom Filt Rate - Afr Amer 89 mL/min (>60); Estimated Creatinine Clearance 96.87 ml/min; Glucose 91 mg/dL (74-106); Potassium 3.6 mmol/L (3.5-5.1); Sodium Level 137 mmol/L (136-145)
--- NOTE | 2021-12-06 23:12 | ED.RN ---
Patient taken to CT via stretcher with hvac tech and sitter. Call from radiology that patient being uncooperative, and took IV out. Ari RN and MILDRED Estrada with patient in CT.
[2021-12-06 23:13] LABS: Alcohol, Blood (Medical)-Serum < 3.0 mg/dL
[2021-12-06 23:19] VITALS: RESP 18
--- NOTE | 2021-12-06 23:35 | ED.RN ---
patient gave verbal consent to talk with mom
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
--- NOTE | 2021-12-06 23:54 | ED.RN ---
This RN attempt to call Alessandra Peterson, patients legal guardian. Unable to reach at this time. Message has been left on answering machine to call back.
[2021-12-07] VITALS (9 sets, daily range): BP systolic 120–148; BP diastolic 64–82; PULSE 78–92; RESP 14–18; O2SAT 96–99
--- NOTE | 2021-12-07 00:30 | ED.RN ---
CRISIS PAGED TO SEE PATIENT AT THIS TIME
[2021-12-07 00:43] LABS: Amphetamine Urine VISTA NEGATIVE (<1000 ng/mL); Barbiturate Urine VISTA NEGATIVE (< 200 ng/mL); Benzodiazepine Urine VISTA NEGATIVE (< 200 ng/mL); Cocaine Urine VISTA NEGATIVE (< 300 ng/mL); Ecstacy Urine VISTA NEGATIVE (< 500 ng/mL); Methadone Urine VISTA NEGATIVE (< 300 ng/mL); PCP Urine VISTA NEGATIVE (< 25 ng/mL); THC Urine VISTA NEGATIVE (< 50 ng/mL); Vista UDS pH Range 6
--- NOTE | 2021-12-07 00:50 | ED.RN ---
CHART FAXED TO CRISIS AT THIS TIME
--- NOTE | 2021-12-07 00:52 | CM.ED ---
ARELY called Alejandra, leather production machine operator for Crisis and advised her of patient in the ED that will be referred to crisis. Marci SHERMAN
--- NOTE | 2021-12-07 06:03 | ED.RN ---
[facility] called and declined acceptance of the pt due to high acuity. crisis notified.
--- NOTE | 2021-12-07 07:42 | ED.RN ---
THIS RN IN ROOM TO CHECK ON PT. GIRLFRIEND AT BEDSIDE WANTING AN UPDATE. UPDATED THAT PATIENT IS WAITING TO TALK TO CRISIS OR CASE MANAGEMENT THIS MORNING. PT SLEEPING IN BED WITHOUT DISTRESS. SITTER AT BEDSIDE
--- NOTE | 2021-12-07 09:51 | NURSING ---
FAXED COVID TEST TO [facility]
[2021-12-07] MEDS: Etodolac 200 MG Capsule PO (10:31)
[2021-12-07] MEDS: Gabapentin 600 MG Tablet 1200 MG PO (10:31)
--- NOTE | 2021-12-07 11:15 | CM.ED ---
Social Work Consult: Mental Health Referral source: Dr. Alarcon/Dr. Mishra Patient has been in ED since last night. Dr. Mishra recommending for patient to be evaluated by school social worker as crisis is currently not doing face to face encounters due to COVID-19 pandemic and patient is unable to speak on phone due to aphasia as result of a stroke. Chief Complaint: Patient reports to have came to ED after self-harming on wrist. Patient currently denies wishes or desire to . Marital/Social History: Single. Girlfriend is Dannielle Tillman. Legal guardian is Alessandra Peterson ([phone]). Living Situation: Lives with Dannielle. Support/Resources: Active with [facility]. Has a counseling appointment set up for December 18, 2021. History: Denies. Education/Employment History: Unemployed. Alessandra is working on helping patient apply for social security disability. Mental Health Treatment/History: Schizophrenia, Anxiety. Patient prescribed medication to manage mental health and is compliant with medications. Unclear if patient has a history of inpatient psychiatric placement, no history per Dannielle. Triggers/Stressors: Tension between Dannielle and patient mother, Gabrielle. Coping Skills: Talking with patient mother, Gabrielle. Abuse Issues: Denies Substance Abuse Hx: Patient with history of substance abuse. Tox screen negative. Patient smokes tobacco daily. Risk to Self/Others: Patient denies suicidal thoughts, plans, intents. Patient denies homicidal thoughts, plans, intents. Patient reports to have been overwhelmed with patient mother and then patient phone not working. Patient denies violence against others or current legal issues. Patient with history of [facility] in [facility]. Mental Status Exam: A&Ox3 Appearance/General Behavior: Clean. Calm. Mood/Affect: Frustrated/annoyed. Communication Pattern: Responds to questions. Patient appears to understand spoken word and responds appropriately. When patient becomes frustrated is it harder to understand patient but patient was able to communicate by using phone to text. Thought Process: Denies visual/auditory hallucinations. Judgement: Fair Assessment: Met with patient in room. Introduced self and school social worker role. Patient agreeable to speak with this school social worker. Patient girlfriend, Dannielle present and willing to step out of the room while this school social worker spoke with patient. Patient reports to have been frustrated with Dannielle and patient mother and that patient mother kept telling patient to go to the hospital. Patient mother lives out of town. Patient then went to hospital to reach out. Patient denies plan or intent to kill self, but does voice frustration with Dannielle and patient mother. Patient reports to have a good relationship with guardian. Patient verbally william for safety. Telephone call to patient guardian, Alessandra. Alessandra does not believe that patient is at risk to complete suicide. Alessandra aware of tensions between Dannielle and patient mother and reports plan/intent to work with patient on finding own apartment and a place to get away. Alessandra appears to be a positive support for patient. Patient has had guardian for 3 weeks now. Alessandra reports plan to assist patient in connecting with medical case manager through the counseling center and a payee. Alessandra with no concerns on patient returning to the community and reports to have spent three hours with patient yesterday. This school social worker able to receive guardianship documentation and placed on patient chart. Collaborating with Dr. Mishra. Plan is for patient to return to the community with mental health follow up. PLAN: Discharge to the community. Vicky ALEXANDER, NADER
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
== END 2021-12-07 12:26 | disposition home or self-care (01) ==
PROVIDERS: Emergency Provider Emergency Medicine; PCP Family Medicine; Visit Provider Emergency Medicine
DX: F32.A Depression, unspecified (principal); X78.9XXA Intentional self-harm by unspecified sharp object, initial encounter; S50.811A Abrasion of right forearm, initial encounter; I69.320 Aphasia following cerebral infarction; F17.210 Nicotine dependence, cigarettes, uncomplicated; G43.909 Migraine, unspecified, not intractable, without status migrainosus; R45.851 Suicidal ideations; Z79.899 Other long term (current) drug therapy; Y93.9 Activity, unspecified; Y99.9 Unspecified external cause status; Y92.9 Unspecified place or not applicable
CPT/HCPCS: 70450; 80048; 80307; 82077; 85025; 87426; 96361; 96374; 96375; 99283; J7030; A4216